=== PATIENT | male | born 1975 | race Two or more races ===

== ENCOUNTER 2024-08-05 14:49 | Outpatient (OUT) | payer OTHER, SELFPAY ==
[2024-08-05 15:20] LABS: Estimated Average Glucose 120 mg/dL; Glycohemoglobin A1C 5.8 % (4.5-6.2)
[2024-08-05 15:51] LABS: Anion Gap 14.6; BUN Creatinine Ratio 17.1; Calcium 9.4 mg/dL (8.5-10.1); Carbon Dioxide 24.4 mmol/L (21.0-32.0); Chloride 102 mmol/L (98-107); Estimated GFR (African America >60 (>=60); Estimated GFR (Non-African Ame >60 (>=60); Glucose 159 mg/dL (74-106); Sodium 137 mmol/L (136-145)
== END 2024-08-05 14:50 | disposition home or self-care (01) ==
LOC: LAB 14:53
PROVIDERS: PCP Nurse Practitioner; Visit Provider Nurse Practitioner
DX: R73.03 Prediabetes (principal); E03.9 Hypothyroidism, unspecified
CPT/HCPCS: 36415; 80048; 83036; 84443

== ENCOUNTER 2025-03-01 12:26 | Outpatient (OUT) | payer OTHER, SELFPAY | END 2025-03-01 12:27 | disposition home or self-care (01) | LOC: SLEEP 12:26 | PROVIDERS: PCP Psychiatry & Neurology Neurology; Visit Provider Psychiatry & Neurology Neurology | DX: G47.33 Obstructive sleep apnea (adult) (pediatric) (principal) | CPT/HCPCS: 95806 ==

== ENCOUNTER 2025-03-30 21:03 | Outpatient (OUT) | payer OTHER, SELFPAY ==
--- OUTSIDE RECORDS SUMMARY | 2025-03-30 21:06 | XMS_ITS | CCD ---
Author Organization [facility] Care Team Providers Care Farm Operator Name Role Phone Aiyana Purdy Primary Care Physician [phone] MD Devonte Gates Attending Provider IVONE Purdy Primary Care Provider Unknown, Referring Provider Unavailable Unav ailable Naomi Alvarez Primary Care Physician [phone] Naomi Alvarez Attending Unavailable Naomi Alvarez Attending Unavailable NAKUL BRANNON Attending UnavailNAKUL Dumont Admitting Unavailabl e Naomi Alvarez Admitting Unavailable Naomi Alvarez Attending Unavailable LEXX LANDERS Attending Unavailable DO Devonte Sunshine Attending Provider IVONE Alvarez Primary Care Provider Naomi Alvarez MD Unavailable Devonte Sunshine DO Unavailable Orin De Leon NP Unavailable Maegan Carmona NP Unavailable Unavailable Primary Care Provider Unavailabl e Kim DRAFTING TECHNICIAN.Naomi DUMONT Primary Care Provider [phone] SUSI MITCHELL Attending Unavailable DEVONTE SUNSHINE Referring Unavailab DIONE Dimas Attending Unavailable PROVIDER, UNKNOWN Admitting Unavailable Devonte Sunshine Admitting Unavailab Devonte Boothe Attending Unavailab Naomi Kim Primary Care Unavailable Devonte Sunshine Admitting UnavailDevonte Mckinley Attending Unavailab Naomi Kim Primary Care Unavailable Devonte Sunshine Attending Unavailab Devonte Boothe Referring UnavailNaomi Xiao Primary Care Unavailable Devonte Sunshine Admitting Unavailab ladi SUNSHINE, DEVONTE Attending Unavailable BITA, DEVONTE Attending Unavailable BITA, DEVONTE Attending Unavailable BITA, DEVONTE Attending Unavailable BITA, DEVONTE Attending Unavailable TRISHA ALVARADO Attending Unavailable BITA, DEVONTE Attending Unavailable BITA, DEVONTE Attending Unavailable Kim, Naomi Bowers Attending Unavailable Kim, Naomi Bowers Attending Unavailable Kim, Naomi L Attending Unavailable Kim, Naomi L Attending Unavailable Kim, Naomi L Attending Unavailable Kim, Naomi L Admitting Unavailable Allergies Allergy Classification Reported Allergen(s) Allergy Type Date of Onset Reaction(s) Facility (2 sources) No Known Medication Allergies; Translations: [No Known Medication Allergies] Propensity to adverse reactions (disorder) [facility] Repository Medications Current Medications Medication Drug Class(es) Dates Sig (Normalized) Sig (Original) atorvastatin 20 mg oral tablet (20 sources) HMG-CoA Reductase Inhibitor Start: 03-24-2024 take 1 tablet by mouth once daily atorvastatin 20 mg Tab 20 mg = 1 tab(s), Oral, Daily, # 90 tab(s), Refills(s) 1, Pharmacy: [facility]/pharmacy #[id number], 163, cm, 08/20/23 10:31:00 EDT, Height/Length Dosing, 103.6, kg, 08/20/23 10:31:00 EDT, Weight Dosing Start Date: 03/24/24 Status: Ordered Start: 07-11-2023 take 1 tablet by ivis th once daily atorvastatin 20 mg Tab 20 mg = 1 tab(s), Oral, Daily, # 90 tab(s), Refills(s) 0, Pharmacy: [facility]/pharmacy #[id number], 163, cm, 08/01/23 10:40:00 EDT, Height/Length Dosing, 104.2, kg, 08/01/23 10:40:00 EDT, Weight Dosing Start Date: 08/01/23 Status: Ordered Start: 01-15-2023 take 1 tablet by ivis th once daily atorvastatin 20 mg Tab 20 mg = 1 tab(s), Oral, Daily, # 90 tab(s), Refills(s) 1, [id number], cm, 12/13/22 11:50:00 EST, Height/Length Dosing, 109.8, kg, 12/13/22 11:50:00 EST, Weight Dosing Start Date: 01/15/23 Status: Ordered Start: 07-26-2022 take 1 tablet by ivis once daily atorvastatin 20 mg Tab 20 mg = 1 tab(s), Oral, Daily, # 90 tab(s), Refills(s) 1, [id number], cm, 04/30/22 11:55:00 EDT, Height/Length Dosing, 107, kg, 04/30/22 11:55:00 EDT, Weight Dosing Start Date: 07/26/22 Status: Ordered Start: 01-28-2022 take 1 tablet by [facility] once daily atorvastatin 20 mg Tab 20 mg = 1 tab(s), Oral, Daily, # 90 tab(s), Refills(s) 1, [id number] 163, cm, 08/29/21 11:02:00 EDT, Height/Length Dosing, 104.9, kg, 08/29/21 11:02:00 EDT, Weight Dosing Start Date: 01/28/22 Status: Ordered atorvastatin (Anastasiia mccauleyor) 10 MG tablet Atorvastatin Calcium Active Atorvastatin Eduardo cium 20 MG Oral Tablet Quantity: 0 Refills: 0 Ordered: 04-Jun-2023 DO Active Betamethasone / Clotrimazole (20 sources) Azole Antifungal, Corticosteroid Start: 07-27-2021 betamethasone-clotrimazole T op 0.05%-1% Crm 45 gram 1 wilver, Topical, BID, 45 gram, Refill(s) 1, [facility]/pharmacy #[id number], 163, cm, 08/09/20 8:00:00 EDT, Height/Length Dosing, 98.7, kg, 08/09/20 8:00:00 EDT, Weight Dosing Start Date: 07/27/21 Status: Ordered Start: 07-27-2021 betamethasone- clotrimazole Top 0.05%-1% Crm 45 gram 1 wilver, Topical, BID, 45 gram, Refill(s) 1, [facility]/pharmacy #[id number], 163, cm, 08/09/20 8:00:00 EDT, Height/Length Dosing, 98.7, kg, 08/09/20 8:00:00 EDT, Weight Dosing Start Date: 07/27/21 Status: Ordered clotrimazole-bet amethasone (Lotrisone) cream 1 application every 12 (twelve) hours. Active fluticasone furoate 0.0275 mg/actuat metered dose nasal spray (4 sources) Corticosteroid Start: 12-13-2022 fluticasone na caroline 27.5 mcg/inh spray 2 spray(s), Nasal, Daily for allergy symptoms, 10 gram, Refill(s) 0, [facility]/pharmacy #[id number], 163, cm, 12/13/22 11:50:00 EST, Height/Length Dosing, 109.8, kg, 12/13/22 11:50:00 EST, Weight Dosing Start Date: 12/13/22 Status: Ordered levothyroxine sodium 0.125 mg oral tablet (20 sources) l-Thyroxine Start: 05-15-2023 take 1 tablet by mouth once daily levothyroxine 125 mcg (0.125 mg) Tab 125 mcg = 1 tab(s), Oral, Daily, # 90 tab(s), Refills(s) 0, Pharmacy: [facility]/pharmacy #[id number], 163, cm, 03/07/23 10:07:00 EDT, Height/Length Dosing, 109, kg, 03/07/23 10:07:00 EDT, Weight Dosing Start Date: 05/15/23 Status: Ordered Start: 03-12-2023 take 1 tablet by ivis once daily levothyroxine 125 mcg (0.125 mg) Tab 125 mcg = 1 tab(s), Oral, Daily, # 60 tab(s), Refills(s) 0, Pharmacy: [facility]/pharmacy #[id number], 163, cm, 03/07/23 10:07:00 EDT, Height/Length Dosing, 109, kg, 03/07/23 10:07:00 EDT, Weight Dosing Start Date: 03/12/23 Status: Ordered Start: 01-15-2023 take 1 tablet by ivis once daily levothyroxine 150 mcg (0.15 mg) Tab 150 microgram = 1 tab(s), Oral, Daily, # 90 tab(s), Refills(s) 1, [id number] 163, cm, 12/13/22 11:50:00 EST, Height/Length Dosing, 109.8, kg, 12/13/22 11:50:00 EST, Weight Dosing Start Date: 01/15/23 Status: Ordered Start: 07-26-2022 take 1 tablet by ivis once daily levothyroxine 150 mcg (0.15 mg) Tab 150 microgram = 1 tab(s), Oral, Daily, # 90 tab(s), Refills(s) 1, [id number] 163, cm, 04/30/22 11:55:00 EDT, Height/Length Dosing, 107, kg, 04/30/22 11:55:00 EDT, Weight Dosing Start Date: 07/26/22 Status: Ordered Start: 01-28-2022 take 1 tablet by ivis once daily levothyroxine 150 mcg (0.15 mg) Tab 150 microgram = 1 tab(s), Oral, Daily, # 90 tab(s), Refills(s) 1, [id number] 163, cm, 08/29/21 11:02:00 EDT, Height/Length Dosing, 104.9, kg, 08/29/21 11:02:00 EDT, Weight Dosing Start Date: 01/28/22 Status: Ordered levothyroxine (S ynthroid) 200 MCG reconstituted solution Levothyroxine Sodium Active Levothyroxine So dium 125 MCG Oral Capsule Quantity: 0 Refills: 0 Ordered: 04-Jun-2023 DO Active phentermine hydrochloride 37.5 mg oral tablet (2 sources) Sympathomimetic Amine Anorectic take 1 tablet by mouth before mealtime phentermine (Adipex-P) 37.5 MG tablet Take 37.5 mg by mouth in the morning. Take before meals. Active predniSONE 10 mg oral tablet (20 sources) Start: 09-15-20 24 End: 09-10-20 25 take 3 tablets by mouth once daily predniSONE (Deltasone) 10 MG tablet Indications: Generalized myasthenia gravis (CMS/HCC) TAKE 3 TABLETS BY MOUTH EVERY DAY 90 tablet 2 12/13/2024 Active Start: 08-17-2024 End: 08-12-2025 take 2 tablets by mouth once daily predniSONE (Deltasone) 10 MG tablet Indications: Myasthenia gravis (CMS/HCC) Take 2 tablets (20 mg) by mouth Daily 30 tablet 3 08/17/2024 09/15/2024 Discontinued (Reorder) Start: 08-05-2024 predniSONE 10 mg Tab -, Oral, As Directed, 6 tabs for 2 days,5 tabs for 2 days,4 tabs for 2 days,3 tabs for 2 days,2 tabs for 2 days,1 tab for 2 days, # 42 tab(s), Refills(s) 0 Start Date: 08/05/24 Status: Ordered Start: 08-03-2024 End: 07-29-2025 take 1 tablet by mouth once daily predniSONE (Deltasone) 10 MG tablet Indications: Myasthenia gravis (CMS/HCC) Take 1 tablet (10 mg) by mouth Daily 30 tablet 11 08/03/2024 08/17/2024 Discontinued (Reorder) Start: 04-30-2022 predniSONE 20 mg Tab 20 mg = 1 tab(s), Oral, As Directed, Take three tabs by mouth for three days, then two tabs for three days, then one tab for three days, # 18 tab(s), Refills(s) 0, Pharmacy: [facility]/pharmacy #[id number], 163, cm, 04/30/22 11:55:00 EDT, Height/Length Dosing, 107... Start Date: 04/30/22 Status: Ordered pyridostigmine bromide 60 mg oral tablet (20 sources) Start: 06-28-2024 End: 06-28-2025 take 1 tablet by mouth in the evening pyridostigmine (Mestinon) 60 MG tablet Indications: Myasthenia gravis , Ptosis of left eyelid TAKE 1 TAB BY MOUTH IN THE MORNING,1 TABLET IN THE EVENING AND 1 TAB BEFORE BEDTIME. 270 tablet 2 11/23/2024 Active triamcinolone acetonide 0.001 mg/mg topical ointment (5 sources) Corticosteroid Start: 08-31-2021 triamcinolone Top 0.1% Oint 1 wilver, Topical, TID, 60 gram, Refill(s) 6, [facility]/pharmacy #[id number], 163, cm, 08/29/21 11:02:00 EDT, Height/Length Dosing, 104.9, kg, 08/29/21 11:02:00 EDT, Weight Dosing Start Date: 08/31/21 Status: Ordered Problems Active Problems Problem Classification Problem Date Documented Date Episodic/Chronic Blindness and vision defects (8 sources) Blurring of visual image; Translations: [Diplopia] Onset: 12-21-2024 03-07-2023 Episodic Chronic obstructive pulmonary disease and bronchiectasis (2 sources) Bronchitis 08-20-2023 Episodic Diabetes mellitus without complication (3 sources) Prediabetes 05-30-2023 Episodic Disorders of lipid metabolism (8 sources) Hyperlipidemia 10-01-2019 Chronic Headache; including migraine (8 sources) Migraine 07-27-2021 Chronic Miscellaneous mental health disorders (2 sources) Primary insomnia; Translations: [Primary insomnia] 02-08-2025 Chronic Other connective tissue disease (1 source) Enthesopathy; Translations: [Other enthesopathies, not elsewhere classified] Onset: 04-30-2022 Episodic Other connective tissue disease (8 sources) Tendinitis of flexor tendon of left hand 04-30-2022 Episodic Other connective tissue disease (2 sources) Muscle weakness of limb; Translations: [Other symptoms and signs involving the musculoskeletal system] Onset: 12-21-2024 12-21-2024 Episodic Other eye disorders (5 sources) Eye / vision finding 03-07-2023 Episodic Other eye disorders (1 source) Hypertropia of left eye; Translations: [Hypertropia] Episodic Other eye disorders (2 sources) Ptosis of eyelid; Translations: [Unspecified ptosis of bilateral eyelids] Onset: 12-21-2024 12-21-2024 Episodic Other hereditary and degenerative nervous system conditions (2 sources) Bulbar weakness; 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] Onset: 12-21-2024 12-21-2024 Chronic Other lower respiratory disease (2 sources) Snoring; Translations: [Snoring] 02-08-2025 Episodic Other nervous system disorders (9 sources) Myasthenia gravis; Translations: [Myasthenia gravis without (acute) exacerbation] Onset: 12-21-2024 08-05-2024 Chronic Other nervous system disorders (6 sources) Generalized myasthenia; Translations: [Myasthenia gravis without (acute) exacerbation] 09-15-2024 Chronic Other nervous system disorders (1 source) Myasthenia gravis without exacerbation; Translations: [Myasthenia gravis without (acute) exacerbation] 12-21-2024 Chronic Other nervous system disorders (1 source) Myasthenia gravis without (acute) exacerbation; Translations: [Myasthenia gravis without (acute) exacerbation] Onset: 07-28-2024 Chronic Other nutritional; endocrine; and metabolic disorders (10 sources) Body mass index 40+ - severely obese; Translations: [Body mass index (BMI) 40.0-44.9, adult] Onset: 04-30-2022 Chronic Other nutritional; endocrine; and metabolic disorders (2 sources) 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; Translations: [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, unspecified whether serious comorbidity present] 02-08-2025 Chronic Other upper respiratory infections (2 sources) Sinusitis 08-20-2023 Chronic Residual codes; unclassified (4 sources) Obstructive sleep apnea syndrome; Translations: [Obstructive sleep apnea (adult) (pediatric)] 02-08-2025 Chronic Residual codes; unclassified (2 sources) Hypersomnia; Translations: [Hypersomnia, unspecified] 02-08-2025 Chronic Residual codes; unclassified (8 sources) Flushing 10-01-2019 Episodic Residual codes; unclassified (2 sources) Trying to give up smoking; Translations: [Tobacco use] Onset: 12-21-2024 12-21-2024 Episodic Residual codes; unclassified (2 sources) History of immunosuppressive therapy; Translations: [Personal history of immunosupression therapy] Onset: 12-21-2024 12-21-2024 Episodic Substance-related disorders (10 sources) Nicotine dependence; Translations: [Nicotine dependence, unspecified, uncomplicated] Onset: 04-30-2022 Chronic Comment on above: Added secondary to d ocumentation in Social History. Thyroid disorders (8 sources) Hypothyroidism 10-01-2019 Chronic Unclassified (8 sources) Pain of knee region 08-29-2021 Unclassified (20 sources) Patient encounter status 10-01-2019 Past or Other Problems Problem Classification Problem Date Documented Da te Episodic/Chronic Other eye disorders (1 source) Unspecified ptosis of left eyelid; Translations: [Unspecified ptosis of left eyelid] Onset: 07-14-2024 Episodic Results Test Name Value Interpretation Reference Range Facility Ambulatory Visit Summaryon 0 03-02-2025 Ambulatory Visit Summary Ambulatory Visi t Summary ALFONZO SHAVER :1975 Visit Date:03/02/2025 Ambulatory Visit Instructions Your Diagnosis Encounter for weight management BMI 40.0-44.9, adult Smoker Your Care Team Attending Physician - Naomi Bradford Primary Care Physician - Naomi Bradford This Is Your Medications List atorvastatin (atorvastatin 20 mg Tab) levothyroxine (levothyroxine 125 mcg (0.125 mg) Tab) phentermine (phentermine 37.5 mg Tab) predniSONE (predniSONE 10 mg Tab) pyridostigmine (pyridostigmine 60 mg Tab) Procedures Performed Closed fracture of right shoulder. Discharge Vitals Heart Rate (Peripheral) 80 Respiratory Rate 18 Blood Pressure 136/74 Height 163.0 cm Height 64 in Weight 117.8 kg Weight 259.704 lb BMI 44.34 What to do next Scheduled Follow-Up Appointments Friday 9:40 AM EDT With: Naomi Bradford Where: [address] [address]- Medications What How Much When Why Instructions Unchanged atorvastatin (atorvastatin 20 mg Tab) 1 Tablets By Mouth Every day Duration: 90 Days Unchanged levothyroxine (levothyroxine 125 mcg (0.125 mg) Tab) 1 Tablets By Mouth Every day Hypothyroidism Duration: 90 Days Unchanged phentermine (phentermine 37.5 mg Tab) 1 Tablets By Mouth Every day Encounter for weight management BMI 45.0-49.9, adult Smoker Unchanged predniSONE (predniSONE 10 mg Tab) 3 Tablets TAKE 3 TABLETS BY MOUTH EVERY DAY Unchanged pyridostigmine (pyridostigmine 60 mg Tab) TAKE 1 TAB BY MOUTH IN THE MORNING,1 TABLET IN THE EVENING AND 1 TAB BEFORE BEDTIME. Allergies No Known Medication Allergies Problems Ongoing - Any problem that you are currently receiving treatment for. Bilateral knee pain Blurred vision BMI 40.0-44.9, adult Bronchitis Encounter for weight management Hot flashes Hyperlipemia Hypothyroid Migraine Morbid obesity with BMI of 40.0-44.9, adult Myasthenia gravis Pre-op evaluation Prediabetes Prostate cancer screening Sinusitis Smoker Tendinitis of flexor tendon of left hand Vision changes Well adult exam Historical - Any problem that you are no longer receiving treatment for. Screening for hyperlipidemia Patient Survey You may receive a survey via text or e-mail asking about your office visit. Please share your experience with us by completing your survey. We appreciate your feedback and thank you for choosing us for your care. Normal [facility]go[facility] Family Medicine Office/Clini c Noteon 03-02-2025 Family Medicine Office/Clinic Note Family Medicine Office/Clinic Note HPI Staff Alfonzo is a 50 year old male presenting for weight management Weight management: Started Phentermine on Sleeping well:Yes, 6-8 hours Chest pain:No Tremors:No Headaches:No Heart fluttering:No Blurred Vision:No Beginning weight: 266.31 Previous weight: Today's weight: 259 Questions/Concerns : none History of Present Illness pt presents today for weight management Review of Systems PHQ Score Initial Depression Screen Score: 0 SCORE Physical Exam Vitals & Measurements HR: 80(Peripheral) RR: 18 BP: 136/74 SpO2: 98% HT: 163.0 cm HT: 64 in WT: 259.704 lb WT: 117.8 kg BMI: 44.34 General: alert, no acute distress ENMT: oral mucosa moist, no pharyngeal erythema or exudate Cardiovascular: regular rate and rhythm, normal peripheral perfusion Respiratory: Lungs CTA, respirations non labored Extremities: no deformity, no trauma Neurological: oriented x 4, LOC appropriate for age, CN II-XII intact, motor strength equal & normal bilaterally, speech normal Assessment/Plan 1. Encounter for weight management (Z76.89: Persons encountering health services in other specified circumstances) pt is down 7 pounds. denies major side effects. dry mouth and tender nipples. encouraged increasing water intake. RTC 1 month Ordered: phentermine, 37.5 mg = 1 tab(s), Oral, Daily, # 30 tab(s), Refills(s) 0, Pharmacy: [facility]/pharmacy #[id number], 163, cm, 02/02/25 15:31:00 EDT, Height/Length Dosing, 120.8, kg, 02/02/25 15:31:00 EDT, Weight Dosing phentermine, 37.5 mg = 1 tab(s), Oral, Daily, # 30 tab(s), Refills(s) 0, [id number] 163, cm, 03/02/25 16:22:00 EDT, Height/Length Dosing, 117.8, kg, 03/02/25 16:22:00 EDT, Weight Dosing 2. BMI 40.0-44.9, adult (Z68.41: Body mass index [BMI] 40.0-44.9, adult) BMI education 3. Smoker (F17.200: Nicotine dependence, unspecified, uncomplicated) consider not smoking Ordered: phentermine, 37.5 mg = 1 tab(s), Oral, Daily, # 30 tab(s), Refills(s) 0, [id number] 163, cm, 02/02/25 15:31:00 EDT, Height/Length Dosing, 120.8, kg, 02/02/25 15:31:00 EDT, Weight Dosing phentermine, 37.5 mg = 1 tab(s), Oral, Daily, # 30 tab(s), Refills(s) 0, [id number] 163, cm, 03/02/25 16:22:00 EDT, Height/Length Dosing, 117.8, kg, 03/02/25 16:22:00 EDT, Weight Dosing Follow-up No qualifying data available Problem List/Past Medical History Ongoing Bilateral knee pain Blurred vision BMI 40.0-44.9, adult Bronchitis Encounter for weight management Hot flashes Hyperlipemia Hypothyroid Migraine Morbid obesity with BMI of 40.0-44.9, adult Myasthenia gravis Pre-op evaluation Prediabetes Prostate cancer screening Sinusitis Smoker Tendinitis of flexor tendon of left hand Vision changes Well adult exam Historical Screening for hyperlipidemia Procedure/Surgical History Closed fracture of right shoulder. Medications atorvastatin 20 mg Tab, 20 mg= 1 tab(s), Oral, Daily, 3 refills levothyroxine 125 mcg (0.125 mg) Tab, 125 mcg= 1 tab(s), Oral, Daily, 3 refills phentermine 37.5 mg Tab, 37.5 mg= 1 tab(s), Oral, Daily predniSONE 10 mg Tab, 30 mg= 3 tab(s) pyridostigmine 60 mg Tab Allergies No Known Medication Allergies Social History Alcohol - Denies Alcohol Use, 12/13/2022 Never., 02/01/2025 Employment/School Employed, Work/School description: Works at [employer] 10/01/2019 Substance Abuse - Medium Risk, 03/07/2023 Past. Marijuana. 1-2 times per year. Previous treatment: None., 02/01/2025 Tobacco - High Risk, 08/09/2020 10 or more cigarettes (1/2 pack or more)/day in last 30 days, Smoker, current status unknown Tobacco Use:., 02/01/2025 Family History Alcoholism: Father. Diabetes mellitus type 2: Negative: Brother. Hyperlipidemia: Mother. Multiple personality disorder: Mother. Primary malignant neoplasm of brain: Grandparent. Primary malignant neoplasm of female breast: Mother. Primary malignant neoplasm of lung: Father. Thyroid problems: Mother and Sister. Immunizations Vaccine Date Status Comments influenza virus vaccine, inactivated 08/01/2023 Given influenza virus vaccine, inactivated - Not Given Patient Refuses diphtheria/pertuss is, acel/tetanus adult 10/05/2021 Recorded influenza virus vaccine, inactivated 10/05/2021 Recorded SARS-CoV-2 (COVID-19) mRNA BNT-162b2 vax 02/20/2021 Recorded 2022-12-13: TPV40 SARS-CoV-2 (COVID-19) mRNA BNT-162b2 vax 01/30/2021 Recorded 2022-12-13: TPV40 Normal [facility] Comment on above: Result Comment: Elec tronically Signed By: Naomi Bradford\.br\Date and Time Signed: 03/02/25 16:29 EDT Family Medicine Office/Clini c Noteon 02-02-2025 Family Medicine Office/Clinic Note Family Medicine Office/Clinic Note HPI Staff Alfonzo is a 50 year old male presetting to discuss weight management Pt is interested is starting adipex he hasn't done anything in the past. Pt states he has been trying diet and exercise. Pt saw Dr gates 2-3 years ago for removal on callus on bottom of right foot. He needs a referral back to see him due to callus at back. History of Present Illness pt presents today for weight management Review of Systems PHQ Score Initial Depression Screen Score: 2 SCORE Physical Exam Vitals & Measurements HR: 72(Peripheral) RR: 18 BP: 130/78 SpO2: 98% HT: 64 in HT: 163.0 cm WT: 266.318 lb WT: 120.8 kg BMI: 45.47 General: alert, no acute distress ENMT: oral mucosa moist, no pharyngeal erythema or exudate Cardiovascular: regular rate and rhythm, normal peripheral perfusion Respiratory: Lungs CTA, respirations non labored Extremities: no deformity, no trauma Neurological: oriented x 4, LOC appropriate for age, CN II-XII intact, motor strength equal & normal bilaterally, speech normal Assessment/Plan 1. Encounter for weight management (Z76.89: Persons encountering health services in other specified circumstances) pt would like to start Adipex-P. is up35 pounds since July 2024. he is on high dose steroids for MG. medication agreement updated. all questions answered. RTC 1 month Ordered: phentermine, 37.5 mg = 1 tab(s), Oral, Daily, # 30 tab(s), Refills(s) 0, Pharmacy: [facility]/pharmacy #[id number], 163, cm, 02/02/25 15:31:00 EDT, Height/Length Dosing, 120.8, kg, 02/02/25 15:31:00 EDT, Weight Dosing 2. BMI 45.0-49.9, adult (Z68.42: Body mass index [BMI] 45.0-49.9, adult) BMI education given. Ordered: phentermine, 37.5 mg = 1 tab(s), Oral, Daily, # 30 tab(s), Refills(s) 0, Pharmacy: [facility]/pharmacy #[id number], 163, cm, 02/02/25 15:31:00 EDT, Height/Length Dosing, 120.8, kg, 02/02/25 15:31:00 EDT, Weight Dosing 3. Smoker (F17.200: Nicotine dependence, unspecified, uncomplicated) consider not smoking Ordered: phentermine, 37.5 mg = 1 tab(s), Oral, Daily, # 30 tab(s), Refills(s) 0, Pharmacy: [facility]/pharmacy #[id number], 163, cm, 02/02/25 15:31:00 EDT, Height/Length Dosing, 120.8, kg, 02/02/25 15:31:00 EDT, Weight Dosing Follow-up No qualifying data available Problem List/Past Medical History Ongoing Bilateral knee pain Blurred vision BMI 40.0-44.9, adult Bronchitis Encounter for weight management Hot flashes Hyperlipemia Hypothyroid Migraine Myasthenia gravis Pre-op evaluation Prediabetes Prostate cancer screening Sinusitis Smoker Tendinitis of flexor tendon of left hand Vision changes Well adult exam Historical Screening for hyperlipidemia Procedure/Surgical History Closed fracture of right shoulder. Medications atorvastatin 20 mg Tab, 20 mg= 1 tab(s), Oral, Daily, 3 refills levothyroxine 125 mcg (0.125 mg) Tab, 125 mcg= 1 tab(s), Oral, Daily, 3 refills phentermine 37.5 mg Tab, 37.5 mg= 1 tab(s), Oral, Daily predniSONE 10 mg Tab, 30 mg= 3 tab(s) pyridostigmine 60 mg Tab Allergies No Known Medication Allergies Social History Alcohol - Denies Alcohol Use, 12/13/2022 Never., 02/01/2025 Employment/School Employed, Work/School description: Works at [employer] 10/01/2019 Substance Abuse - Medium Risk, 03/07/2023 Past. Marijuana. 1-2 times per year. Previous treatment: None., 02/01/2025 Tobacco - High Risk, 08/09/2020 10 or more cigarettes (1/2 pack or more)/day in last 30 days, Smoker, current status unknown Tobacco Use:., 02/01/2025 Family History Alcoholism: Father. Diabetes mellitus type 2: Negative: Brother. Hyperlipidemia: Mother. Multiple personality disorder: Mother. Primary malignant neoplasm of brain: Grandparent. Primary malignant neoplasm of female breast: Mother. Primary malignant neoplasm of lung: Father. Thyroid problems: Mother and Sister. Immunizations Vaccine Date Status Comments influenza virus vaccine, inactivated 08/01/2023 Given influenza virus vaccine, inactivated - Not Given Patient Refuses diphtheria/pertuss is, acel/tetanus adult 10/05/2021 Recorded influenza virus vaccine, inactivated 10/05/2021 Recorded SARS-CoV-2 (COVID-19) mRNA BNT-162b2 vax 02/20/2021 Recorded 2022-12-13: TPV40 SARS-CoV-2 (COVID-19) mRNA BNT-162b2 vax 01/30/2021 Recorded 2022-12-13: TPV40 Normal [facility] Comment on above: Result Comment: Elec tronically Signed By: Naomi Bradford\Date and Time Signed: 02/02/25 15:48 EDT Progress Noteson 01-11-2025 [employer]sembl[employer] Installer Authentication Interface Message Text Neurology Note Name: Alfonzo Shaver : 1975 no referring provider Chief Complaint: Myasthenia gravis History of Present Illness: Alfonzo Shaver is a 49 year old male who presents for for evaluation for myasthenia gravis. Falls with Dr. Braswell for his myasthenia gravis. Recently saw Dr. Mitchell at [facility] for 2nd opinion. The patient arrives with his . The patient states since 2022 he has been experiencing double vision, droopy eyelids, changes in speech, in appendicular weakness. Trouble getting up from a chair or walking up steps. He does endorse low back pain. Currently on 30 mg of steroids, 60 mg of Mestinon t.i.d., and Vyvguart hytrulo. Continues to struggle with appendicular weakness and bulbar weakness. No clear orthopnea, patient has to lay on his stomach to sleep, finds it challenging to lay on his back. He was diagnosed with obstructive sleep apnea in the past, but could never tolerate mask. Past Medical History/Past Surgical History: Hyperlipidemia, hypothyroidism, smoker, obstructive sleep apnea Family History: Reviewed and not relevant to the chief complaint. Social History: Social History Tobacco Use Smoking status: Some Days Types: Cigarettes Smokeless tobacco: Never Substance Use Topics Alcohol use: Not on file Medical Allergies: No Known Allergies Current Medications Current Outpatient Medications: efgartigimod lillian-hyaluronidase -qvfc (Vyvgart Hytrulo) 180-2000 MG-UNIT/ML SOLN injection, Inject 5.6 mL under the skin once. Once weekly x 4wks, Disp: , Rfl: pyRIDostigmine (MESTINON) 60 MG tablet, 3 times daily., Disp: , Rfl: atorvastatin (LIPITOR) 20 mg tablet, Take 20 mg by mouth daily., Disp: , Rfl: predniSONE (DELTASONE) 10 MG tablet, Take by mouth. 3 tab Q am , at once, Disp: , Rfl: levothyroxine (SYNTHROID) 125 MCG tablet, Take 125 mcg by mouth daily., Disp: , Rfl: Review of Systems: All systems were reviewed and are negative. Any pertinent positives of negatives listed in the HPI. PHYSICAL EXAMINATION: Vitals: 01/11/25 1538 BP: 141/67 Pulse: 84 Resp: 16 Temp: 97.4 ???F (36.3 ???C) General: Well developed and well nourished. No acute distress. NEUROLOGICAL EXAM: The patient is alert and oriented, extraocular muscles are full range and conjugate in all gazes of direction, no ptosis, no fatigability with sustained upgaze. Bilateral frontalis and orbicularis oculi muscles are strong to confrontation bilaterally. Tongue is midline, tongue to cheek confrontation testing is 5/5. Speech is clear and fluent Neck flexion is 5/5. No fatigability with repetitive muscle testing at the level of bilateral shoulder abduction and hip flexion. Motor strength is 5/5 in the proximal and distal muscle groups. RESULTS: Per Dr. Braswell's note from 01/04, CT of the chest with contrast on 07/14/2024: No acute process. No mass to suggest thymoma. MRI of the brain with and without contrast. No acute process. No pathologic enhancement. Findings suggestive of mild chronic small-vessel ischemic disease. Acetylcholine binding antibody on 05/10/2024: High at 33.0 Musk Antibody on 05/16/2024: Normal Acetylcholine receptor modulating antibody on 05/12/2024: High Smooth muscle antibody on 05/05/2024: Normal ASSESSMENT/PLAN: Alfonzo Shaver is a 49 year old male who presents for seropositive generalized myasthenia gravis. The patient lives 1.5 hours away, managed by is primary neurologist Dr. Braswell. He has come in today for another opinion for his myasthenia gravis, however the patient recently saw Dr. Mitchell in at the [facility] for the same reason. Overall, I agree with continuing 30 mg of steroids for the time being, continuing 60 mg of Mestinon t.i.d., and continuing vyvguart hytrulo with each cycle spaced 4 weeks apart (1 month on, 1 month off). I do agree, that the patient ultimately may require steroid sparing therapy. As mentioned by my colleague Dr. Mitchell at the [facility], would check TPMT enzyme. If testing shows no concerning finding, would initiate azathioprine. Azathioprine can take 6-12 months to work. If TPMT enzyme is prohibitive, would consider CellCept (would have to check hepatitis labs). These medications do require surveillance with serum lab work. The patient lives 1.5 hours away, he does not find it feasible to be under my direct care. However, I am willing to work with his primary neurologist Dr. Braswell in managing his care. Similarly, Dr. Mitchell and has offered the same partnership with Dr. Braswell. The patient is aware of signs and symptoms that would be concerning for a myasthenic crisis/exacerbatio n. Dione Swanson MD Neurology/ Neuromuscular Medicine Normal [facility] 12-15-2024 [facility] Telephone (NIQ) -------- ALFONZO SHAVER ([id number]) 1975 M Date Time Provider Department 12/15/[address] [facility] During your visit today, we recorded the following information about you: Montse Reynaga 12/17/2024 9:39 AM Signed Referral source: Devonte Sunshine DO ([facility]) Reason for visit: myasthenia gravis External records: viewable in Care Everywhere Triage: Not required Financial clearance: Not required to schedule Allergies As of Date: 12/15/2024 (Not on File) Date Reviewed: Never Reviewed Reason for Visit: Received Outside Medical Records [[id number]] Cmt: External referral to Neurological [facility] Problem List As Of Date: 12/15/2024 (None) Encounter Status:Closed by MONTSE REYNAGA on 12/17/24 Normal [facility] Ambulatory Visit Summaryon 0 08-05-2024 Ambulatory Visit Summary Ambulatory Visi t Summary ALFONZO SHAVER :1975 Visit Date:08/05/2024 Ambulatory Visit Instructions Your Diagnosis Wellness examination Myasthenia gravis Hyperlipemia Prediabetes Prostate cancer screening Hypothyroid Smoker BMI 39.0-39.9,adult Class 1 obesity due to excess calories in adult Your Care Team Attending Physician - Naomi Bradford Primary Care Physician - Naomi Bradford This Is Your Medications List atorvastatin (atorvastatin 20 mg Tab) levothyroxine (levothyroxine 125 mcg (0.125 mg) Tab) predniSONE (predniSONE 10 mg Tab) pyridostigmine (pyridostigmine 60 mg Tab) Procedures Performed Closed fracture of right shoulder. Discharge Vitals Temperature (Oral) 36.6 ?C Heart Rate (Peripheral) 80 Respiratory Rate 20 Blood Pressure 124/82 Height 163.0 cm Height 64 in Weight 105.1 kg Weight 231.22 lb BMI 39.56 Medications What How Much When Why Instructions Unchanged atorvastatin (atorvastatin 20 mg Tab) 1 Tablets By Mouth Every day Unchanged levothyroxine (levothyroxine 125 mcg (0.125 mg) Tab) 1 Tablets By Mouth Every day Hypothyroidism Unchanged predniSONE (predniSONE 10 mg Tab) By Mouth As Directed 6 tabs for 2 days,5 tabs for 2 days,4 tabs for 2 days,3 tabs for 2 days,2 tabs for 2 days,1 tab for 2 days Unchanged pyridostigmine (pyridostigmine 60 mg Tab) TAKE 1 TAB BY MOUTH IN THE MORNING,1 TABLET IN THE EVENING AND 1 TAB BEFORE BEDTIME. Allergies No Known Medication Allergies Problems Ongoing - Any problem that you are currently receiving treatment for. Bilateral knee pain Blurred vision BMI 40.0-44.9, adult Bronchitis Hot flashes Hyperlipemia Hypothyroid Migraine Myasthenia gravis Pre-op evaluation Prediabetes Prostate cancer screening Sinusitis Smoker Tendinitis of flexor tendon of left hand Vision changes Well adult exam Historical - Any problem that you are no longer receiving treatment for. Screening for hyperlipidemia Patient Survey You may receive a survey via text or e-mail asking about your office visit. Please share your experience with us by completing your survey. We appreciate your feedback and thank you for choosing us for your care. Normal [facility] Family Medicine Office/Clini c Noteon 08-05-2024 Family Medicine Office/Clinic Note Family Medicine Office/Clinic Note HPI Staff Alfonzo is a 49 year old male presenting with wellness Health Maintenance: Colonoscopy: no Dexa: no PSA: no Last Labs: July 2023 History of Present Illness pt presents today for wellness visit Review of Systems PHQ Score Initial Depression Screen Score: 0 SCORE Physical Exam Vitals & Measurements T: 36.6 ?C(Oral) HR: 80(Peripheral) RR: 20 BP: 124/82 SpO2: 98% HT: 64 in HT: 163.0 cm WT: 105.1 kg WT: 231.22 lb BMI: 39.56 General: alert, no acute distress ENMT: oral mucosa moist, no pharyngeal erythema or exudate Cardiovascular: regular rate and rhythm, normal peripheral perfusion Respiratory: Lungs CTA, respirations non labored Extremities: no deformity, no trauma Neurological: oriented x 4, LOC appropriate for age, CN II-XII intact, motor strength equal & normal bilaterally, speech normal right eye lid weak, closed due to MG Assessment/Plan 1. Wellness examination (Z00.00: Encounter for general adult medical examination without abnormal findings) pt presents today for wellness visit. pt is doing well. is due for annual labs and needs refill on synthroid Ordered: C-Reactive Protein CBC w/ Auto Diff Est Preventative 40 to 64 years 29071 HgbA1c Lipid Panel PSA Screen, Total Thyroid Stimulating Hormone 2. Myasthenia gravis (G70.00: Myasthenia gravis without (acute) exacerbation) pt was recently diagnosed with MG by Dr. Sunshine neurology Ordered: C-Reactive Protein CBC w/ Auto Diff Est Preventative 40 to 64 years 16302 HgbA1c Lipid Panel PSA Screen, Total Thyroid Stimulating Hormone 3. Hyperlipemia (E78.5: Hyperlipidemia, unspecified) lipid panel oerdered Ordered: C-Reactive Protein CBC w/ Auto Diff Est Preventative 40 to 64 years 21496 HgbA1c Lipid Panel PSA Screen, Total Thyroid Stimulating Hormone 4. Prediabetes (R73.03: Prediabetes) HGBA1C ordered Ordered: C-Reactive Protein CBC w/ Auto Diff Est Preventative 40 to 64 years 59970 HgbA1c Lipid Panel PSA Screen, Total Thyroid Stimulating Hormone 5. Prostate cancer screening (Z12.5: Encounter for screening for malignant neoplasm of prostate) psa ordered Ordered: C-Reactive Protein CBC w/ Auto Diff Est Preventative 40 to 64 years 38919 HgbA1c Lipid Panel PSA Screen, Total Thyroid Stimulating Hormone 6. Hypothyroid (E03.9: Hypothyroidism, unspecified) TSH ordered. pt needs refills on synthroid Ordered: Est Preventative 40 to 64 years 49730 7. Smoker (F17.200: Nicotine dependence, unspecified, uncomplicated) consider not smoking Ordered: Est Preventative 40 to 64 years 34414 8. BMI 39.0-39.9,adult (Z68.39: Body mass index [BMI] 39.0-39.9, adult) BMI education Ordered: Est Preventative 40 to 64 years 42811 9. Class 1 obesity due to excess calories in adult (E66.09: Other obesity due to excess calories) see above Ordered: Est Preventative 40 to 64 years 02622 Follow-up No qualifying data available Problem List/Past Medical History Ongoing Bilateral knee pain Blurred vision BMI 40.0-44.9, adult Bronchitis Hot flashes Hyperlipemia Hypothyroid Migraine Myasthenia gravis Pre-op evaluation Prediabetes Prostate cancer screening Sinusitis Smoker Tendinitis of flexor tendon of left hand Vision changes Well adult exam Historical Screening for hyperlipidemia Procedure/Surgical History Closed fracture of right shoulder. Medications atorvastatin 20 mg Tab, 20 mg= 1 tab(s), Oral, Daily, 1 refills levothyroxine 125 mcg (0.125 mg) Tab, 125 mcg= 1 tab(s), Oral, Daily predniSONE 10 mg Tab, Oral, As Directed pyridostigmine 60 mg Tab Allergies No Known Medication Allergies Social History Alcohol - Denies Alcohol Use, 12/13/2022 Household alcohol concerns: No., 03/07/2023 Employment/School Employed, Work/School description: Works at [employer] 10/01/2019 Substance Abuse - Medium Risk, 03/07/2023 Past, Marijuana, Household substance abuse concerns: No., 03/07/2023 Tobacco - High Risk, 08/09/2020 10 or more cigarettes (1/2 pack or more)/day in last 30 days, Smoker, current status unknown Tobacco Use:. Never Smokeless Tobacco Use:. Cigarettes, Ready to change: No. Household tobacco concerns: No. Yes, 08/05/2024 Family History Alcoholism: Father. Diabetes mellitus type 2: Negative: Brother. Hyperlipidemia: Mother. Multiple personality disorder: Mother. Primary malignant neoplasm of brain: Grandparent. Primary malignant neoplasm of female breast: Mother. Primary malignant neoplasm of lung: Father. Thyroid problems: Mother and Sister. Immunizations Vaccine Date Status Comments influenza virus vaccine, inactivated 08/01/2023 Given influenza virus vaccine, inactivated - Not Given Patient Refuses diphtheria/pertuss is, acel/tetanus adult 10/05/2021 Recorded influenza virus vaccine, inactivated 10/05/2021 Recorded SARS-CoV-2 (COVID-19) mR (more content not included)... Normal [facility] Comment on above: Result Comment: Elec tronically Signed By: Naomi Bradford\.br\Date and Time Signed: 08/05/24 11:46 EDT MR head/brain wo/w conon MR head/brain wo/w con [facility] [place] [address] MRI Report Signed Patient: Alfonzo Shaver MR#: [id number] : 1975 Acct:[id number] Age/Sex: 49 / M ADM Date: 07/28/24 Loc: MR Room: Type: [facility] Attending Dr: Devonte Sunshine DO Copies to: Devonte Sunshine DO Ordering Provider: Devonte Sunshine DO Date of Service: 07/28/24 MR/MR head/brain wo/w con: G70.00,H02.402 MRI the Brain with and without contrast TECHNIQUE: Multiplanar T1 and T2-weighted imaging of the brain. 20 cc of ProHance HISTORY: Recent diagnosis of myasthenia gravis. Headaches. Right eye ptosis. COMPARISON: none VENTRICLES: Unremarkable BRAIN VOLUME: Adequate volume of brain parenchyma identified. BRAIN PARENCHYMAL SIGNAL INTENSITY: Scattered foci of increased T2/FLAIR signal intensity of the brain parenchyma is consistent with chronic small vessel ischemic changes. BLEED: None MASS EFFECT: No mass effect DIFFUSION RESTRICTION: None GRADIENT ECHO PARENCHYMAL SIGNAL LOSS: None MIDBRAIN: The midbrain structures are unremarkable. DAVID: Unremarkable MEDULLA: Unremarkable INTERNAL AUDITORY CANALS: Unremarkable SINUSES: Unremarkable ORBITS: Grossly unremarkable MASTOIDS: Unremarkable ENHANCEMENT: No pathologic enhancement. MR/MR head/brain wo/w con IMPRESSION: No acute intracranial process. No pathologic enhancement or enhancing mass. Findings suggesting mild chronic small vessel ischemic change. Impression dictated by: Edd Yen M.D.07/28/2024 3:56 PM Dictation Location: [place] [address] Transcribed By: [facility] 07/28/24 1556 Dictated By: Edd Yen DO 07/28/24 1551 Signed By: 07/28/24 1556 Normal [facility] CT chest w conon 07-14-2024 CT chest w con [facility] Main [place] [address] [place] [address] CT Scan Report Signed Patient: Alfonzo Shaver MR#: [id number] : 1975 Acct:[id number] Age/Sex: 49 / M ADM Date: 07/14/24 Loc: CT Room: Type: [facility] Attending Dr: Devonte Sunshine DO Copies to: Devonte Sunshine DO Ordering Provider: Devonte Sunshine DO Date of Service: 07/14/24 CT/CT chest w con: G70.00,H02.402 CT CHEST WITH INTRAVENOUS CONTRAST: CLINICAL HISTORY: Smoker history of myasthenia gravis. COMPARISON: Chest 11/29/2022 TECHNIQUE: Spiral images were obtained through the chest following intravenous administration of IV contrast. This CT exam was performed using one or more following dose reduction techniques: Automated exposure control, adjustment of the mA and/or kV according to patient size, or use of iterative reconstruction technique. FINDINGS: Mediastinum:Thorac ic aorta appears normal in caliber. Pulmonary trunk appears nondilated. No pericardial effusion. No mediastinal mass. The esophagus is grossly unremarkable. Lungs:Scarring involving the lung bases. No consolidation pneumothorax or pleural effusion. Abd:No acute findings. Soft tissues/Bones: Soft tissues surrounding the chest wall demonstrate no acute findings. Osseous structures demonstrate degenerative change. CT/CT chest w con IMPRESSION: No acute process. No mediastinal mass to suggest thymoma. Impression dictated by: Ricky Booth Jr., D.O.07/14/2024 2:21 PM Dictation Location: [place] [address] Transcribed By: [facility] 07/14/24 1421 Dictated By: Ricky Booth Jr, DO 07/14/24 1408 Signed By: 07/14/24 1421 Normal [facility] Lab Miscellaneous-LCon 05-16 Lab Miscellaneous COMMENT Invalid Interpretation Code [facility] Comment on above: Result Comment: Test Ordered: [id number] MuSK Abs, Serum MuSK Abs, Serum <1.0 U/mL ES Reference Range: Negative: <1.0 Positive: 1.0 or higher A positive result, in the context of congruent clinical findings, confirms the diagnosis of autoimmune MuSK myasthenia gravis. COMMENTS: - Myasthenia gravis (MG) is caused by auto-antibodies against proteins of the neuromuscular junction. Most cases (about 90%) of generalized MG are anti- acetylcholine receptor (AChR) antibody-positive.(1) - Of generalized MG patients who lack anti-AChR antibodies (AChR-seronegative), about 40% are positive for Muscle- Specific Kinase (MuSK) antibody.(1,2) - Though a positive MuSK result is specific for the diagnosis of MuSK MG, a negative MuSK result does not rule out a MG diagnosis. - MuSK antibody levels have been shown to correlate with disease severity.(3) Serial measurements may be useful to follow treatment. References: 1. Gm S et al. J Autoimmunity 2014;52:90-100. 2. Erik KNIGHT et al. PNAS 2013;110(51);29889-14895. 3. Sen E et al. Neurology 2006;67:505-507. This test was developed and its performance characteristics determined by [employer]. It has not been cleared or approved by the Food and Drug Administration. Performed at: [address] [id number] PhD Xiomara Hill Performed By: #### 1 [id number] #### [facility] [address] [place] [address] Lab Miscellaneous-on 05-13 Lab Miscellaneous COMMENT Invalid Interpretation Code [facility] Comment on above: Result Comment: Test Ordered: [id number] AChR Blocking Abs, Serum AChR Blocking Abs, Serum 57 [H ] % BN Reference Range: 0-25 This test was developed and its performance characteristics determined by [facility]. It has not been cleared or approved by the Food and Drug Administration. Negative: 0 - 25 Borderline: 26 - 30 Positive: >30 Performed at: [address] [id number] PhD Xiomara Hill Performed By: #### 1 [id number] #### [facility] [address] [place] [address] Lab Miscellaneous-LCon 05-12 Lab Miscellaneous COMMENT Invalid Interpretation Code [facility] Comment on above: Result Comment: Test Ordered: [id number] AChR-modulating Ab AChR-modulating Ab 91 [H ] % BN Reference Range: 0-45 This test was developed and its performance characteristics determined by [facility]. It has not been cleared or approved by the Food and Drug Administration. Interpretive Information: Negative: 0 - 45% Positive: > 45% No single value for AChR-modulating antibody should be used as a sole basis for diagnosis or response to therapy. Performed at: [address] [id number] PhD Xiomara Hill Performed By: #### 1 [id number] #### [facility] [address] [place] [address] ACHr Bind [facility] 05-10-2024 Acetylcholine receptor binding Ab (S) [Moles/Vol] 33.00 nmol/L High 0.00-0.24 [facility] Comment on above: Result Comment: Re sults verified by repeat testing Negative: 0.00 - 0.24 Borderline: 0.25 - 0.40 Positive: >0.40 Performed at: [address] [id number] MD Ag Valentino Performed By: #### 1 [id number] #### [facility] [address] [place] [address] Smooth Muscle Abon 07-01-202 4 Actin smooth muscle IgG Qn (S) 3 unit(s) Invalid Interpretation Code 0-19 [facility] Comment on above: Result Comment: Nega tive 0 - 19 Weak positive 20 - 30 Moderate to strong positive >30 Actin Antibodies are found in 52-85% of patients with autoimmune hepatitis or chronic active hepatitis and in 22% of patients with primary biliary cirrhosis. Performed at: [facility] [id number] PhD Xiomara Hill Performed By: #### 1 [id number] #### [facility] [address] [place] [address] Consent for Treatmenton 04-11 Consent for Treatment [id number] Normal [facility] Lab Miscellaneous-LCon 05-05 Test Code [id number] Invalid Interpretation Code [facility] Comment on above: Performed By: #### 1 [id number] #### [facility] [address] [place] [address] Test Code [id number] Invalid Interpretation Code [facility] Comment on above: Performed By: #### 1 [id number] #### [facility] [address] [place] [address] Test Name ACHR MODULATING Invalid Interpretation Code [facility] Comment on above: Performed By: #### 1 [id number] #### [facility] [address] [place] [address] Test Name ACHR BLOCKING Invalid Interpretation Code [facility] Comment on above: Performed By: #### 1 [id number] #### [facility] [address] [place] [address] Test Code 089672 Invalid Interpretation Code [facility] Comment on above: Performed By: #### 1 [id number] #### [facility] [address] [place] [address] Test Name MUSK AB Invalid Interpretation Code [facility] Comment on above: Performed By: #### 1 [id number] #### [facility] [address] [place] [address] Physician Orderon 05-05-2024 Physician Order [id number] Normal [facility] Reference Laboratory Testing Ordered By: Saloni Lawrence on 05-05-2024 Test Code 430894 1 Invalid Interpretation Code [facility] Test Code 350681 1 Invalid Interpretation Code [facility] Test Code 142124 1 Invalid Interpretation Code [facility] Test Name MUSK AB Invalid Interpretation Code [facility] Test Name ACHR BLOCKING Invalid Interpretation Code [facility] Test Name ACHR MODULATING Invalid Interpretation Code [facility] Summaryon Ambulatory Visit Summary CHAHYA ALFONZO :1975 Visit Date:08/20/2023 Ambulatory Visit Instructions Your Diagnosis BMI 39.0-39.9,adult Smoker Your Care Team Attending Physician - Naomi Bradford Primary Care Physician - Naomi Bradford This Is Your Medications List atorvastatin (atorvastatin 20 mg Tab) levothyroxine (levothyroxine 125 mcg (0.125 mg) Tab) Procedures Performed Closed fracture of right shoulder. Discharge Vitals Temperature (Tympanic) 36.8 ?C Heart Rate (Peripheral) 70 Respiratory Rate 18 Blood Pressure 134/78 Height 163 cm Height 64 in Weight 103.60 kg Weight 227.92 lb BMI 38.99 Medications What How Much When Why Instructions Changed atorvastatin (atorvastatin 20 mg Tab) 1 Tablets By Mouth Every day Changed levothyroxine (levothyroxine 125 mcg (0.125 mg) Tab) 1 Tablets By Mouth Every day Hypothyroidism Allergies No Known Medication Allergies Problems Ongoing - Any problem that you are currently receiving treatment for. Bilateral knee pain Blurred vision BMI 40.0-44.9, adult Hot flashes Hyperlipemia Hypothyroid Migraine Pre-op evaluation Prediabetes Smoker Tendinitis of flexor tendon of left hand Vision changes Well adult exam Historical - Any problem that you are no longer receiving treatment for. Screening for hyperlipidemia Normal [facility] Family Medicine Office/Clini c Noteon 08-20-2023 Family Medicine Office/Clinic Note HPI Staff Alfonzo is a 48 year old male presenting for acute visit Respiratory C/O: Onset: 1 week ago Body aches: no Chest congestion: yes Chills: no Cough: yes Ear complaints: yes Eye itching/watering: noitch Fever: no Headache: no Nasal congestion: yes Nasal discharge: yes green Poor appetite: no Reduced activity: no Sinus pain/pressure: no Sneezing: no Sputum production: yes yellow/green Wheezing: yes Ill contacts: yes Remedies tried: cough medicine Questions/Concerns : History of Present Illness pt presents today for cough, congestion, sore throat from coughing Review of Systems PHQ Score Initial Depression Screen Score: 0 ROS - Provider Constitutional: no fever, no chills, no sweats, no fatigue Respiratory: no shortness of breath, yes cough, no orthopnea, no wheezing. Cardiovascular: no chest pain, no palpitations, no edema. Neurologic: no headache, no dizziness, no numbness, no weakness. sinus pressure, congestion Physical Exam Vitals & Measurements T: 36.8 ?C(Tympanic) HR: 70(Peripheral) RR: 18 BP: 134/78 SpO2: 96% HT: 64 in HT: 163 cm WT: 103.60 kg WT: 227.92 lb BMI: 38.99 General: alert, no acute distress ENMT: oral mucosa moist, no pharyngeal erythema or exudate Cardiovascular: regular rate and rhythm, normal peripheral perfusion Respiratory: Lungs CTA, respirations non labored Extremities: no deformity, no trauma Neurological: oriented x 4, LOC appropriate for age, CN II-XII intact, motor strength equal & normal bilaterally, speech normal Assessment/Plan 1. Sinusitis (J32.9: Chronic sinusitis, unspecified) pt presents with nasal congestion, sinus pressure, cough. unable to sleep due to coughing. covid test is negative in office today. his had same symptoms last week. will send z brie and medrol dose pack. all questions answered. RTC as needed 2. Bronchitis (J40: Bronchitis, not specified as acute or chronic) medrol and tessalon pearls ordered. 3. Smoker (F17.200: Nicotine dependence, unspecified, uncomplicated) consider not smoking Ordered: azithromycin, = 1 packet(s), Oral, As Directed, as directed on package labeling, X 5 day(s), # 6 tab(s), Refills(s) 0, Pharmacy: [id number], 163, cm, 08/20/23 10:31:00 EDT, Height/Length Dosing, 103.6, kg, 08/20/23 10:31:00 EDT, Weight Dosing benzonatate, 200 mg = 1 cap(s), Oral, TID, X 7 day(s), # 21 cap(s), Refills(s) 0, [id number] 163, cm, 08/20/23 10:31:00 EDT, Height/Length Dosing, 103.6, kg, 08/20/23 10:31:00 EDT, Weight Dosing methylPREDNISolone , = 1 packet(s), Oral, As Directed, as directed on package labeling, X 6 day(s), # 21 tab(s), Refills(s) 0, Pharmacy: [facility] #[id number], 163, cm, 08/20/23 10:31:00 EDT, Height/Length Dosing, 103.6, kg, 08/20/23 10:31:00 EDT, Weight Dosing Rapid COVID POC 77594 4. BMI 39.0-39.9,adult (Z68.39: Body mass index [BMI] 39.0-39.9, adult) bmi education complete Ordered: azithromycin, = 1 packet(s), Oral, As Directed, as directed on package labeling, X 5 day(s), # 6 tab(s), Refills(s) 0, Pharmacy: [facility] #[id number], 163, cm, 08/20/23 10:31:00 EDT, Height/Length Dosing, 103.6, kg, 08/20/23 10:31:00 EDT, Weight Dosing benzonatate, 200 mg = 1 cap(s), Oral, TID, X 7 day(s), # 21 cap(s), Refills(s) 0, Pharmacy: [facility] #[id number], 163, cm, 08/20/23 10:31:00 EDT, Height/Length Dosing, 103.6, kg, 08/20/23 10:31:00 EDT, Weight Dosing methylPREDNISolone , = 1 packet(s), Oral, As Directed, as directed on package labeling, X 6 day(s), # 21 tab(s), Refills(s) 0, Pharmacy: [id number], 163, cm, 08/20/23 10:31:00 EDT, Height/Length Dosing, 103.6, kg, 08/20/23 10:31:00 EDT, Weight Dosing Rapid COVID POC 73074 Orders: atorvastatin, 20 mg = 1 tab(s), Oral, Daily, # 90 tab(s), Refills(s) 0, [id number] 163, cm, 08/01/23 10:40:00 EDT, Height/Length Dosing, 104.2, kg, 08/01/23 10:40:00 EDT, Weight Dosing levothyroxine, 125 mcg = 1 tab(s), Oral, Daily, # 90 tab(s), Refills(s) 3, [id number] 163, cm, 08/01/23 10:40:00 EDT, Height/Length Dosing, 104.2, kg, 08/01/23 10:40:00 EDT, Weight Dosing Follow-up No qualifying data available Problem List/Past Medical History Ongoing Bilateral knee pain Blurred vision BMI 40.0-44.9, adult Bronchitis Hot flashes Hyperlipemia Hypothyroid Migraine Pre-op evaluation Prediabetes Sinusitis Smoker Tendinitis of flexor tendon of left hand Vision changes Well adult exam Historical Screening for hyperlipidemia Procedure/Surgical History Closed fracture of right shoulder. Medications atorvastatin 20 mg Tab, 20 mg= 1 tab(s), Oral, Daily, 1 refills azithromycin 250 mg Tab, 1 packet(s), Oral, As Directed benzonatate 200 mg oral capsule, 200 mg= 1 cap(s), Oral, TID levothyroxine 125 mcg (0.125 mg) Tab, 125 mcg= 1 tab(s), Oral, Daily Medrol 4 mg Tab, 1 packet(s), Oral, As Directed Allergies No Known Medication Allergies Social History Alcohol - (more content not included)... Normal [facility] Comment on above: Result Comment: Elec tronically Signed By: Naomi Bradford\.br\Date and Time Signed: 08/20/23 11:02 EDT Provider Letteron 08-20-2023 Provider Letter August 20, 2023 ALFONZO SHAVER [address] [place] [address] : 1975 To Whom It May Concern, Please excuse above patient from work. Friday Date of Illness: From: _ 08-20-23 To: _ 08-20-23 May Return to Work On:08-21-23 Restrictions: _ Comments: _ Sincerely, [address] [address] Normal [facility] BMPon 08-01-2023 Anion gap [Moles/Vol] 12 mmol/L Normal 6-16 [facility] Comment on above: Performed By: #### 1 [id number] #### [facility] [address] [place] [address] Calcium [Mass/Vol] 9.8 mg/dL Normal 8.9-11.1 [facility] Comment on above: Performed By: #### 1 [id number] #### [facility] [address] [place] [address] Chloride [Moles/Vol] 107 mmol/L Normal 101-111 [facility] Comment on above: Performed By: #### 1 [id number], [id number] #### [facility] [address] [place] [address] CO2 [Moles/Vol] 24 mmol/L Normal 21-31 [facility] Comment on above: Performed By: #### 1 [id number], [id number], [id number] #### [facility] [address] [place] [address] Creatinine [Mass/Vol] 1.1 mg/dL Normal 0.5-1.3 [facility] Comment on above: Performed By: #### 1 [id number], [id number], [id number], [id number] #### [facility] [address] [place] [address] Glucose [Mass/Vol] 101 mg/dL Normal 55-199 [facility] Comment on above: Result Comment: If t his glucose result represents a fasting glucose, interpretation should refer to the following reference range: 55-99 mg/dL Performed By: #### 1 [id number], [id number], [id number] #### [facility] [address] [place] [address] Potassium [Moles/Vol] 4.2 mmol/L Normal 3.5-5.3 [facility] Comment on above: Performed By: #### 1 [id number], [id number], [id number] #### [facility] [address] [place] [address] Sodium [Moles/Vol] 139 mmol/L Normal 135-145 [facility] Comment on above: Performed By: #### 1 [id number], [id number], [id number], [id number] #### [facility] [address] [place] [address] Urea nitrogen [Mass/Vol] 21 mg/dL Normal 5-21 [facility] Comment on above: Performed By: #### 1 [id number], [id number], [id number], [id number] #### [facility] [address] [place] [address] Urea nitrogen/Creatinine [Mass ratio] 19 No Units Normal 10-20 [facility] Comment on above: Performed By: #### 1 [id number], [id number], [id number], [id number] #### [facility] [address] [place] [address] CHEMISTRYOrdered By: SYSTEM SYSTEM on 08-01-2023 Anion gap [Moles/Vol] 12 mmol/L Normal 6 - 16 mEq/L [facility] Calcium [Mass/Vol] 9.8 mg/dL Normal 8.9 - 11. 1 mg/dL [facility] Chloride [Moles/Vol] 107 mmol/L Normal 101 - 1 11 mmol/L [facility] CO2 [Moles/Vol] 24 mmol/L Normal 21 - 31 mmol/L [facility] Creatinine [Mass/Vol] 1.1 mg/dL Normal 0.5 - 1.3 mg/dL [facility] GFR/1.73 sq M.predicted among non-blacks MDRD (S/P/Bld) [Vol rate/Area] 82 mL/min/1.73 m2 Normal >=59mL/min/1 .73 m2 [facility] Glucose [Mass/Vol] 101 mg/dL Normal 55 - 199 mg/dL [facility] Potassium [Moles/Vol] 4.2 mmol/L Normal 3.5 - 5.3 mmol/L [facility] Sodium [Moles/Vol] 139 mmol/L Normal 135 - 145 mmol/L [facility] TSH Qn 2.46 m[IU]/L Normal 0.34 - 5.60 mcIU/mL [facility] Urea nitrogen [Mass/Vol] 21 mg/dL Normal 5 - 21 mg/d L [facility] Urea nitrogen/Creatinine [Mass ratio] 19 mg/mg Normal 10 - 20 [facility] CHEMISTRYOrdered By: Sunita Artis on 08-01-2023 HbA1c (Bld) [Mass fraction] 6.0 % High <=5.9% [facility] ChemAutoSS Consent for Flu Vaccineon Consent for Flu Vaccine [id number]:[id number] Normal [facility] Family Medicine Office/Clini c Noteon 08-01-2023 Family Medicine Office/Clinic Note HPI Staff Alfonzo is a 48 year old male presenting to establish care Establish Care: History: Any previous diagnosis: HLD, Hypothyroidism, prediabetes History of seeing any specialist: no When was your last doctors visit: Last provider: Dr Purdy Any recent labs: 03/08/23 A1c: Hgb A1C %: 6.1 % High (03/13/23 09:22:00) Health Maintenance UTD: Colonoscopy: no PSA: no Flu: Acute: Current issues/complaints: no History of Present Illness pt presents today to establish care. pt needs refills and labs Review of Systems PHQ Score Initial Depression Screen Score: 0 ROS - Provider Constitutional: no fever, no chills, no sweats, no fatigue Respiratory: no shortness of breath, no cough, no orthopnea, no wheezing. Cardiovascular: no chest pain, no palpitations, no edema. Neurologic: no headache, no dizziness, no numbness, no weakness. Physical Exam Vitals & Measurements HR: 82(Peripheral) RR: 18 BP: 136/84 SpO2: 98% HT: 64 in HT: 163 cm WT: 104.15 kg WT: 229.13 lb BMI: 39.2 General: alert, no acute distress ENMT: oral mucosa moist, no pharyngeal erythema or exudate Cardiovascular: regular rate and rhythm, normal peripheral perfusion Respiratory: Lungs CTA, respirations non labored Extremities: no deformity, no trauma Neurological: oriented x 4, LOC appropriate for age, CN II-XII intact, motor strength equal & normal bilaterally, speech normal Assessment/Plan 1. Hypothyroid (E03.9: Hypothyroidism, unspecified) will draw TSH today., last result was low and dose was adjusted. will adjust as needed and send in refills Ordered: Basic Metabolic Panel HgbA1c Lab Specimen Collect [id number] TSH With T4fr Reflex 2. Prediabetes (R73.03: Prediabetes) HGBA1C drawn in office today. may consider starting metformin if elevated Ordered: Basic Metabolic Panel HgbA1c Lab Specimen Collect 55050 TSH With T4fr Reflex 3. Smoker (F17.200: Nicotine dependence, unspecified, uncomplicated) consider not smoking Ordered: influenza virus vaccine, inactivated, 0.5 mL, Injection, IntraMuscular, Once, Stop date 08/01/23 12:00:00 EDT, Routine, Start date 08/01/23 12:00:00 EDT 4. BMI 39.0-39.9,adult (Z68.39: Body mass index [BMI] 39.0-39.9, adult) BMI education complete Ordered: influenza virus vaccine, inactivated, 0.5 mL, Injection, IntraMuscular, Once, Stop date 08/01/23 12:00:00 EDT, Routine, Start date 08/01/23 12:00:00 EDT Encounter for immunization (Z23: Encounter for immunization) flu shot given Ordered: FIRST VACCINE w/o Entry Level Finance Admin Charge [id number] Orders: atorvastatin, 20 mg = 1 tab(s), Oral, Daily, # 90 tab(s), Refills(s) 0, Pharmacy: [facility] #[id number], 163, cm, 08/01/23 10:40:00 EDT, Height/Length Dosing, 104.2, kg, 08/01/23 10:40:00 EDT, Weight Dosing Follow-up No qualifying data available Problem List/Past Medical History Ongoing Bilateral knee pain Blurred vision BMI 40.0-44.9, adult Hot flashes Hyperlipemia Hypothyroid Migraine Pre-op evaluation Prediabetes Smoker Tendinitis of flexor tendon of left hand Vision changes Well adult exam Historical Screening for hyperlipidemia Procedure/Surgical History Closed fracture of right shoulder. Medications atorvastatin 20 mg Tab, 20 mg= 1 tab(s), Oral, Daily atorvastatin 20 mg Tab, 20 mg= 1 tab(s), Oral, Daily, 1 refills levothyroxine 125 mcg (0.125 mg) Tab, 125 mcg= 1 tab(s), Oral, Daily Allergies No Known Medication Allergies Social History Alcohol - Denies Alcohol Use, 12/13/2022 Household alcohol concerns: No., 03/07/2023 Employment/School Employed, Work/School description: Works at [employer] 10/01/2019 Substance Abuse - Medium Risk, 03/07/2023 Past, Marijuana, Household substance abuse concerns: No., 03/07/2023 Tobacco - High Risk, 08/09/2020 10 or more cigarettes (1/2 pack or more)/day in last 30 days, Smoker, current status unknown Tobacco Use:. Never Smokeless Tobacco Use:. Cigarettes, Ready to change: No. Household tobacco concerns: No. Yes, 08/01/2023 Family History Alcoholism: Father. Diabetes mellitus type 2: Negative: Brother. Hyperlipidemia: Mother. Multiple personality disorder: Mother. Primary malignant neoplasm of brain: Grandparent. Primary malignant neoplasm of female breast: Mother. Primary malignant neoplasm of lung: Father. Thyroid problems: Mother and Sister. Immunizations Vaccine Date Status Comments influenza virus vaccine, inactivated 08/01/2023 Given influenza virus vaccine, inactivated - Not Given Patient Refuses diphtheria/pertuss is, acel/tetanus adult 10/05/2021 Recorded influenza virus vaccine, inactivated 10/05/2021 Recorded SARS-CoV-2 (COVID-19) mRNA BNT-162b2 vax 02/20/2021 Recorded 2022-12-13: TPV40 SARS-CoV-2 (COVID-19) mRNA BNT-162b2 vax 01/30/2021 Recorded 2022-12-13: TPV40 Normal [facility] Comment on above: Result Comment: Elec tronically Signed By: Naomi Bradford.ricardo\Date and Time Signed: 08/01/23 13:28 EDT [id number] 08-01-2023 HbA1c (Bld) [Mass fraction] 6.0 % High <=5.9 [facility] Comment on above: Performed By: #### 1 [id number], [id number], [id number] #### [facility] [address] [place] [address] TSH With T4fr Reflexon 08-01 TSH Qn 2.46 m[IU]/L Normal 0.34-5.60 [facility] Comment on above: Performed By: #### 1 [id number], [id number], [id number], [id number] #### [facility] [address] [place] [address] eGFRon 08-01-2023 GFR/1.73 sq M.predicted among non-blacks MDRD (S/P/Bld) [Vol rate/Area] 82 mL/min/1.73 m2 Normal >=59 [facility] Comment on above: Order Comment: Order added by Discern Expert. Result Comment: Postal Sorting Officer kimberly kidney disease could be indicated at eGFR's of less than 60 mL/min/1.73m2. Kidney failure is indicated at less than 15 mL/min/1.73m2. Performed By: #### 1 [id number], [id number] #### [facility] [address] [place] [address] Ambulatory Visit Summaryon 0 05-30-2023 Ambulatory Visit Summary ALFONZO SHAVER :1975 Visit Date:05/30/2023 Ambulatory Visit Instructions Your Diagnosis Hyperlipemia Hypothyroid BMI 40.0-44.9, adult Smoker Your Care Team Attending Physician - ANSHUL DUMONT, LEXX Guerrier Primary Care Physician - Gurwinder SEWING MACHINE OPERATOR PLASTIC ZIPPER, Aiyana Heller This Is Your Medications List atorvastatin (atorvastatin 20 mg Tab) betamethasone-clot rimazole topical (betamethasone-jesse trimazole Top 0.05%-1% Crm 45 gram) levothyroxine (levothyroxine 125 mcg (0.125 mg) Tab) Procedures Performed Closed fracture of right shoulder. Discharge Vitals Heart Rate (Peripheral) 89 Blood Pressure 134/66 Height 163 cm Height 64 in Weight 107 kg Weight 235.4 lb BMI 40.27 Medications What How Much When Why Instructions Unchanged atorvastatin (atorvastatin 20 mg Tab) 1 Tablets By Mouth Every day Unchanged betamethasone-clot rimazole topical (betamethasone-jesse trimazole Top 0.05%-1% Crm 45 gram) 1 Application Topical 2 times a day Tinea pedis Unchanged levothyroxine (levothyroxine 125 mcg (0.125 mg) Tab) 1 Tablets By Mouth Every day Hypothyroidism Allergies No Known Medication Allergies Problems Ongoing - Any problem that you are currently receiving treatment for. Bilateral knee pain Blurred vision BMI 40.0-44.9, adult Hot flashes Hyperlipemia Hypothyroid Migraine Pre-op evaluation Smoker Tendinitis of flexor tendon of left hand Vision changes Well adult exam Historical - Any problem that you are no longer receiving treatment for. Screening for hyperlipidemia Education Materials Obesity, Adult Obesity is the condition of having too much total body fat. Being overweight or obese means that your weight is greater than what is considered healthy for your body size. Obesity is determined by a measurement called BMI (body mass index). BMI is an estimate of body fat and is calculated from height and weight. For adults, a BMI of 30 or higher is considered obese. Obesity can lead to other health concerns and major illnesses, including: ? Stroke. ? Coronary artery disease (CAD). ? Type 2 diabetes. ? Some types of cancer, including cancers of the colon, breast, uterus, and gallbladder. ? High blood pressure (hypertension). ? High cholesterol. ? Gallbladder stones. Obesity can also contribute to: ? Osteoarthritis. ? Sleep apnea. ? Infertility problems. What are the causes? Common causes of this condition include: ? Eating daily meals that are high in calories, sugar, and fat. ? Drinking high amounts of sugar-sweetened beverages, such as soft drinks. ? Being born with genes that may make you more likely to become obese. ? Having a medical condition that causes obesity, including: ? Hypothyroidism. ? Polycystic ovarian syndrome (PCOS). ? Binge-eating disorder. ? Ayden syndrome. ? Taking certain medicines, such as steroids, antidepressants, and seizure medicines. ? Not being physically active (sedentary lifestyle). ? Not getting enough sleep. What increases the risk? The following factors may make you more likely to develop this condition: ? Having a family history of obesity. ? Living in an area with limited access to: ? [place], recreation centers, or sidewalks. ? Healthy food choices, such as grocery stores and [employer]. What are the signs or symptoms? The main sign of this condition is having too much body fat. How is this diagnosed? This condition is diagnosed based on: ? Your BMI. If you are an adult with a BMI of 30 or higher, you are considered obese. ? Your waist circumference. This measures the distance around your waistline. ? Your skinfold thickness. Your health care provider may gently pinch a fold of your skin and measure it. You may have other tests to check for underlying conditions. How is this treated? Treatment for this condition often includes changing your lifestyle. Treatment may include some or all of the following: ? Dietary changes. This may include developing a healthy meal plan. ? Regular physical activity. This may include activity that causes your heart to beat faster (aerobic exercise) and strength training. Work with your health care provider to design an exercise program that works for you. ? Medicine to help you lose weight if you are unable to lose one pound a week after six weeks of healthy eating and more physical activity. ? Treating conditions that cause the obesity (underlying conditions). ? Surgery. Surgical options may include gastric banding and gastric bypass. Surgery may be done if: ? Other treatments have not helped to improve your condition. ? You have a BMI of 40 or higher. ? You have life-threatening health problems related to obesity. Follow these instructions at home: Eating and drinking ? Follow recommendations from your health care provider about what you e (more content not included)... Normal [facility] Family [facility] Office/[place] [facility] [place] 05-30-2023 Family Medicine Office/Clinic Note HPI Staff Alfonzo is a 48 year old male who presents for a 1 time chronic visit. Patient is here for follow up on hyperlipidemia: Are you compliant with your medications or having difficulty affording your medications? yes Do you have side effects from the medication? no Are you compliant with your diet? no Do you exercise? no Pt currently takes Atorvastatin 20mg QD. Patient is here for follow up on Thyroid Disease. Do you have any of the following symptoms? Change in energy level? no Weight change? no Heat/cold intolerance? no Hair/skin/nail changes? no Change in bowels? no Last TSH: 0.13 on 03/08/23 Pt is currently taking Synthroid 125mcg qAM. Patient is here for follow up on PreDM: Are you compliant with your diet? yes Do you exercise? yes Do you have any of the following symptoms? Vision problems? Pt is working with Dr. Marshall for this. Sexual dysfunction? no GI-Nausea/vomiting /bloating? no Lightheadedness? no Paresthesias, Ulcerations or sores? no Last A1c: 6.1% on 03/13/23 Last fasting glucose level: 122 on 03/08/23 Pt is not currently on any tx regime for PreDM. History of Present Illness I have reviewed and verified the staff HPI to be accurate for this encounter. Review of Systems PHQ Score Initial Depression Screen Score: 0 ROS - Provider Constitutional: fever no, chills no, sweats no, weakness no Skin: rash no, lesions no, petechiae no Eye: eye pain no, discharge no, light sensitivity no, eye irritation no, double vision no, blurring no, vision loss no ENMT: ear pain no, ear drainage no, sore throat no, nasal congestion no , nasal drainage no hoarseness no Respiratory: chest discomfort no, shortness of breath no, cough no, orthopnea no, wheezing no Cardiovascular: chest pain no, palpitations no, edema no Gastrointestinal: nausea no, vomiting no, diarrhea no, GI bleeding no Genitourinary: dysuria no, hematuria no, discharge no, urinary frequency no, urinary urgency no Musculoskeletal: back pain no, trauma no Neurologic: headache no, dizziness no, numbness/tingling no, weakness no Physical Exam Vitals & Measurements HR: 89(Peripheral) BP: 134/66 SpO2: 96% HT: 64 in HT: 163 cm WT: 107 kg WT: 235.4 lb BMI: 40.27 General: Well developed, well nourished, in no acute distress Eyes: Pupils equal, round, and reactive to light. Conjunctivae and sclerae normal, and extraocular movements intact Neck: Neck supple. No masses or palpable cervical nodes. Trachea midline. Thyroid without nodules, masses, tenderness, or enlargement Lungs: Normal respiratory effort and clear to auscultation Cardio: Regular rate and rhythm, normal S1 and S2, no murmur, no rub Extremity: No clubbing, cyanosis, edema, or deformity, with normal ROM in both upper and lower bilateral extremities Neurologic: Grossly normal Skin: No rashes, ulcerations, or suspicious lesions to visible skin Mental Status: Alert and oriented x3. Normal mood and affect Assessment/Plan 1. Prediabetes (R73.03: Prediabetes) We will redraw A1c, if continues to trend upward from last draw 6.1% did discuss possibly starting treatment with form and and monitoring blood glucose levels. Patient verbalized understanding denies any further questions or concerns today. Ordered: Basic Metabolic Panel HgbA1c 2. Hyperlipemia (E78.5: Hyperlipidemia, unspecified) The importance of the following were all reviewed with the patient: -Take medications as prescribed. - Recommended following the [facility] Lipid Diet which is a low fat/low cholesterol diet for high cholesterol. - More information about this eating plan can be found here: http://tlcdiet.org - To improve your health we recommend increasing your level of moderate exercise to at least 2.5 hrs per week. For more information, please visit the CDC Exercise and Fitness Recommendations at www.cdc.gov/physic alactivity/basics/ index.htm 3. Hypothyroid (E03.9: Hypothyroidism, unspecified) Did have levothyroxine decreased during last visit from 150 mcg to 125 mcg. We will repeat TSH labs as discussed. Ordered: TSH With T4fr Reflex 4. BMI 40.0-44.9, adult (Z68.41: Body mass index [BMI] 40.0-44.9, adult) Education attached on health risks of obesity and discusses healthy, balanced diet low in sugar, fat, carbs and exercise regimen 5. Smoker (F17.200: Nicotine dependence, unspecified, uncomplicated) We strongly recommend to quit tobacco use. Cigarette smoking harms nearly every organ of the body, causes many diseases, and reduces the health of smokers in general. Quitting smoking lowers your risk for smoking-related diseases and can add years to your life. We encourage you to visit www.smokefree.gov access to helpful resources including free telephone support. If you decide on prescription treatment to help you quit, we would be happy to provide these. Follow-up No qualifying data available Patient Education Steps to Quit Smoking Calorie Counting for Weight Loss (more content not included)... Normal [facility] Comment on above: Result Comment: Elec trokimberlyally Signed By: ANSHUL DUMONT, LEXX Guerrier\.br\Date and Time Signed: 05/30/23 09:46 EDT Patient Educationon 05-30-20 Patient Education Endocrinology Prediabetes Eating Plan Prediabetes is a condition that causes blood sugar (glucose) levels to be higher than normal. This increases the risk for developing type 2 diabetes (type 2 diabetes mellitus). Working with a health care provider or nutritional assistant (dietitian) to make diet and lifestyle changes can help prevent the onset of diabetes. These changes may help you: ? Control your blood glucose levels. ? Improve your cholesterol levels. ? Manage your blood pressure. What are tips for following this plan? Reading food labels ? Read food labels to check the amount of fat, salt (sodium), and sugar in prepackaged foods. Avoid foods that have: ? Saturated fats. ? Trans fats. ? Added sugars. ? Avoid foods that have more than 300 milligrams (mg) of sodium per serving. Limit your sodium intake to less than 2,300 mg each day. Shopping ? Avoid buying pre-made and processed foods. ? Avoid buying drinks with added sugar. Cooking ? Cook with olive oil. Do not use butter, lard, or ghee. ? Bake, broil, grill, steam, or boil foods. Avoid frying. Meal planning ? Work with your dietitian to create an eating plan that is right for you. This may include tracking how many calories you take in each day. Use a food diary, notebook, or mobile application to track what you eat at each meal. ? Consider following a Mediterranean diet. This includes: ? Eating several servings of fresh fruits and vegetables each day. ? Eating fish at least twice a week. ? Eating one serving each day of whole grains, beans, nuts, and seeds. ? Using olive oil instead of other fats. ? Limiting alcohol. ? Limiting red meat. ? Using nonfat or low-fat dairy products. ? Consider following a plant-based diet. This includes dietary choices that focus on eating mostly vegetables and fruit, grains, beans, nuts, and seeds. ? If you have high blood pressure, you may need to limit your sodium intake or follow a diet such as the DASH (Dietary Approaches to Stop Hypertension) eating plan. The DASH diet aims to lower high blood pressure. Lifestyle ? Set weight loss goals with help from your health care team. It is recommended that most people with prediabetes lose 7% of their body weight. ? Exercise for at least 30 minutes 5 or more days a week. ? Attend a support group or seek support from a mental health counselor. ? Take vhwi-nsf-ghynphp and prescription medicines only as told by your health care provider. What foods are recommended? Fruits Berries. Bananas. Apples. Oranges. Grapes. Papaya. Mikel. Pomegranate. Kiwi. Grapefruit. Cherries. Vegetables Lettuce. Spinach. Peas. Beets. Cauliflower. Cabbage. Broccoli. Carrots. Tomatoes. Squash. Eggplant. Herbs. Peppers. Onions. Cucumbers. [place] sprouts. Grains Whole grains, such as whole-wheat or whole-grain breads, crackers, cereals, and pasta. Unsweetened oatmeal. Bulgur. Barley. Quinoa. Brown rice. [place] or whole-wheat flour tortillas or taco shells. Meats and other proteins Seafood. Poultry without skin. Lean cuts of pork and beef. Tofu. Eggs. Nuts. Beans. Dairy Low-fat or fat-free dairy products, such as yogurt, cottage cheese, and cheese. Beverages Water. Tea. Coffee. Sugar-free or diet soda. [place] water. Low-fat or nonfat milk. Milk alternatives, such as soy or almond milk. Fats and oils [place] oil. Canola oil. [place] oil. Grapeseed oil. Avocado. Walnuts. Sweets and desserts Sugar-free or low-fat pudding. Sugar-free or low-fat ice cream and other frozen treats. Seasonings and condiments Herbs. Sodium-free spices. Mustard. Relish. Low-salt, low-sugar ketchup. Low-salt, low-sugar barbecue sauce. Low-fat or fat-free mayonnaise. The items listed above may not be a complete list of recommended foods and beverages. Contact a dietitian for more information. What foods are not recommended? Fruits Fruits canned with syrup. Vegetables Canned vegetables. Frozen vegetables with butter or cream sauce. Grains Refined white flour and flour products, such as bread, pasta, snack foods, and cereals. Meats and other proteins Fatty cuts of meat. Poultry with skin. Breaded or fried meat. Processed meats. Dairy Full-fat yogurt, cheese, or milk. Beverages Sweetened drinks, such as iced tea and soda. Fats and oils Butter. Lard. Ghee. Sweets and desserts Baked goods, such as cake, cupcakes, pastries, cookies, and cheesecake. Seasonings and condiments Spice mixes with added salt. Ketchup. Barbecue sauce. Mayonnaise. The items listed above may not be a complete list of foods and beverages that are not recommended. Contact a dietitian for more information. Where to find more information ? [place] [employer]: www.diabetes.org Summary ? You may need to make diet and lifestyle changes to help prevent the onset of diabetes. These changes can help you control blood sugar, improve cholesterol levels, and manage blood pre (more content not included)... Normal [facility] CHEMISTRYOrdered By: Pedro Adams on 03-13-2023 HbA1c (Bld) [Mass fraction] 6.1 % High <=5.9% [facility] ChemAutoSS CHEMISTRYOrdered By: SYSTEM SYSTEM on 03-08-2023 Albumin [Mass/Vol] 4.1 g/dL Normal 3.3 - 5.0 gm/dL [facility] Remisol Albumin/Globulin [Mass ratio] 1.1 {ratio} Normal 1.1 - 2.2 [facility] Remisol ALP [Catalytic activity/Vol] 112 [iU]/d High 21 - 98 Int._Unit/L [facility] Remisol ALT No additional P-5'-P [Catalytic activity/Vol] 24 [iU]/d Normal 6 - 46 Int._Unit/L [facility] Remisol Anion gap [Moles/Vol] 10 mmol/L Normal 6 - 16 mEq/L [facility] Remisol AST [Catalytic activity/Vol] 23 [iU]/d Normal 5 - 43 Int._Unit/L [facility] Remisol Bilirubin [Mass/Vol] 0.5 mg/dL Normal 0.0 - 1 .1 mg/dL [facility] Calcium [Mass/Vol] 8.9 mg/dL Normal 8.9 - 11. 1 mg/dL [facility] Chloride [Moles/Vol] 103 mmol/L Normal 101 - 1 11 mmol/L [facility] Cholesterol [Mass/Vol] 155 mg/dL Normal 120 - 200 mg/dL [facility] Cholesterol in HDL [Mass/Vol] 32 mg/dL Invalid Interpretation Code [facility] Cholesterol in LDL [Mass/Vol] 111 mg/dL Normal <=129mg/dL [facility] Cholesterol in VLDL [Mass/Vol] 18 mg/dL Normal 7 - 40 mg/dL [facility] CO2 [Moles/Vol] 26 mmol/L Normal 21 - 31 mmol/L [facility] Creatinine [Mass/Vol] 1.1 mg/dL Normal 0.5 - 1.3 mg/dL [facility] Remisol Free T4 [Mass/Vol] 1.61 ng/dL Normal 0.58 - 1. 64 ng/dL [facility] Remisol GFR/1.73 sq M.predicted among non-blacks MDRD (S/P/Bld) [Vol rate/Area] 82 mL/min/1.73 m2 Normal >=59mL/min/1 .73 m2 FT Chem S Globulin (S) [Mass/Vol] 3.8 g/dL Normal 1.4 - 4.0 gm/dL [facility] Remisol Glucose [Mass/Vol] 122 mg/dL Normal 55 - 199 mg/dL [facility] Potassium [Moles/Vol] 4.3 mmol/L Normal 3.5 - 5.3 mmol/L [facility] Protein [Mass/Vol] 7.9 g/dL High 6.0 - 7.8 gm/dL [facility] Sodium [Moles/Vol] 135 mmol/L Normal 135 - 145 mmol/L [facility] Triglyceride [Mass/Vol] 92 mg/dL Normal <=149mg/dL [facility] Remisol TSH Qn 0.13 m[IU]/L Low 0.34 - 5.60 mcIU/mL [facility] Rem[facility] Urea nitrogen [Mass/Vol] 17 mg/dL Normal 5 - 21 mg/d L [facility] Remisol Urea nitrogen/Creatinine [Mass ratio] 16 mg/mg Normal 10 - 20 [facility] Basophils Auto (Bld) [#/Vol] Ordered By: Alex Gates on 11-29-2022 Basophils (Bld) [#/Vol] 0.1 10*3/uL 0.0-0.2 [facility] Basophils/100 WBC Auto (Bld) Ordered By: Alex Gates on 11-29-2022 Basophils/100 WBC (Bld) 1.2 % . [facility] Creatinine and Glomerular fi ltration rate.predicted panel (S/P/Bld)Ordered By: Alex Gates on 11-29-2022 Creatinine [Mass/Vol] 1.00 mg/dL 0.64-1.27 [facility] Eosinophils Auto (Bld) [#/Vo l]Ordered By: Alex Gates on 11-29-2022 Eosinophils (Bld) [#/Vol] 0.2 10*3/uL 0.0-0.45 [facility] Eosinophils/100 WBC Auto (Bl d)Ordered By: Alex Gates on 11-29-2022 Eosinophils/100 WBC (Bld) 2.4 % . [facility] Erythrocyte distribution wid th Auto (RBC) [Ratio]Ordered By: Alex Gates on 11-29-2022 Erythrocyte distribution width (RBC) [Ratio] 13.9 % 12.0-14.8 [facility] Estimated glomerular filtrat ion rate (GFR) non- AmericanOrdered By: Alex Gates on 11-29-2022 GFR/1.73 sq M.predicted among non-blacks MDRD (S/P/Bld) [Vol rate/Area] > 60 mL/Min [facility] Hematocrit Auto (Bld) [Volum e fraction]Ordered By: Alex Gates on 11-29-2022 Hematocrit (Bld) [Volume fraction] 46.0 % 38.8-50.0 [facility] Hemoglobin [Mass/volume] in BloodOrdered By: Alex Gates on 11-29-2022 Hemoglobin (Bld) [Mass/Vol] 15.2 g/dL 13.0-17.0 [facility] Leukocytes [#/volume] correc peg for nucleated erythrocytes in Blood by Automated counOrdered By: Alex Gates on 11-29-2022 WBC corrected for nucl RBC Auto (Bld) [#/Vol] 10.1 10*3/uL 4.1-10.5 [facility] Lymphocytes Auto (Bld) [#/Vo l]Ordered By: Alex Gates on 11-29-2022 Lymphocytes (Bld) [#/Vol] 1.4 10*3/uL 1.00-4.8 [facility] Lymphocytes/100 WBC Auto (Bl d)Ordered By: Alex Gates on 11-29-2022 Lymphocytes/100 WBC (Bld) 14.3 % . [facility] MCH Auto (RBC) [Entitic mass ]Ordered By: Alex Gates on 11-29-2022 MCH (RBC) [Entitic mass] 28.7 pg 27.5-35.2 [facility] MCHC Auto (RBC) [Mass/Vol]Or dered By: Alex Gates on 11-29-2022 MCHC (RBC) [Mass/Vol] 33.1 g/dL 32.5-35.6 [facility] MCV Auto (RBC) [Entitic vol] Ordered By: Alex Gates on 11-29-2022 MCV (RBC) [Entitic vol] 86.6 fL 83.5-101 [facility] Monocytes Auto (Bld) [#/Vol] Ordered By: Alex Gates on 11-29-2022 Monocytes (Bld) [#/Vol] 0.8 10*3/uL 0.0-0.8 [facility] Monocytes/100 WBC Auto (Bld) Ordered By: Alex Gates on 11-29-2022 Monocytes/100 WBC (Bld) 7.7 % . [facility] Neutrophils Auto (Bld) [#/Vo l]Ordered By: Alex Gates on 11-29-2022 Neutrophils (Bld) [#/Vol] 7.5 10*3/uL 1.8-7.7 [facility] Neutrophils/100 WBC Auto (Bl d)Ordered By: Alex Gates on 11-29-2022 Neutrophils/100 WBC (Bld) 74.4 % . [facility] No Panel InformationOrdered By: Alex Gates on 11-29-2022 Estimated GFR () > 60 mL/Min [facility] Comment on above: GFR estimated refere nce range: According to KDOQI guidelines, <60 ml/min/1.73m2 is sufficient to diagnose a patient with chronic kidney disease. Pharmacy Creatinine Clearance (Chem N/A [facility] Nucleated erythrocytes [Pres ence] in Blood by Automated countOrdered By: Alex Gates on 11-29-2022 Nucleated RBC Auto Ql (Bld) 0.1 /100{WBC} 0-0.5 [facility] Platelet mean volume Auto (B ld) [Entitic vol]Ordered By: Alex Gates on 11-29-2022 Platelet mean volume (Bld) [Entitic vol] 9.1 fL 6.6-10.1 [facility] Platelets Auto (Bld) [#/Vol] Ordered By: Alex Gates on 11-29-2022 Platelets (Bld) [#/Vol] 244 10*3/uL 150-450 [facility] RBC Auto (Bld) [#/Vol]Ordere d By: Alex Gates on 11-29-2022 RBC (Bld) [#/Vol] 5.31 10*6/uL 3.90-5.60 [facility] Serum or plasma anion gap de terminationOrdered By: Alex Gates on 11-29-2022 Anion gap [Moles/Vol] 13.4 mmol/L 6.0-15.0 [facility] Serum or plasma calcium deniz urement (mass/volume)Ordered By: Alex Gates on 11-29-2022 Calcium [Mass/Vol] 9.1 mg/dL 8.2-10.2 [facility] Serum or plasma chloride alfred surement (moles/volume)Ordered By: Alex Gates on 11-29-2022 Chloride [Moles/Vol] 99 mmol/L 95-114 [facility] Serum or plasma glucose deniz urement (mass/volume)Ordered By: Alex Gates on 11-29-2022 Glucose [Mass/Vol] 147 mg/dL 70-100 [facility] Comment on above: ADA recommended refe rence rangeRandom Glucose Reference Range is dependent on time and content of last meal. Glucose of more than 200 mg/dL in a nonstressed, ambulatory subject supports the diagnosis of Diabetes Mellitus. Serum or plasma potassium me asurement (moles/volume)Ordered By: Alex Gates on 11-29-2022 Potassium [Moles/Vol] 4.0 mmol/L 3.5-5.1 [facility] Serum or plasma sodium measu rement (moles/volume)Ordered By: Alex Gates on 11-29-2022 Sodium [Moles/Vol] 134 mmol/L 136-146 [facility] Serum or plasma total carbon dioxide measurement (moles/volume)Ordered By: Alex Gaets on 11-29-2022 CO2 [Moles/Vol] 25.6 mmol/L 22.0-30.0 [facility] Serum or plasma urea nitroge n measurement (mass/volume)Ordered By: Alex Gates on 11-29-2022 Urea nitrogen [Mass/Vol] 10 mg/dL 9-23 [facility] WBC Auto (Bld) [#/Vol]Ordere d By: Alex Gates on 11-29-2022 WBC (Bld) [#/Vol] 10.1 10*3/uL 4.1-10.5 [facility] Vital Signs Date Time Vital Sign Value Performing Clinician Jigar boyd 02-08-2025 08: Body height 162.6 cm Trisha Angel DO Work Phone: [facility] 02-08-2025 08: Body mass index (BMI) [Ratio] 45.83 kg/m2 Trisha Alvarado DO Work Phone: [facility] 02-08-2025 08: Body weight 121.11 kg Trisha Angel DO Work Phone: [facility] 02-08-2025 08:17-0400 Diastolic blood pressure 84 mm[Hg] Trisha Angel DO Work Phone: [facility] 02-08-2025 08:17-0400 Heart rate 98 /min Trisha Angel DO Work Phone: [facility] 02-08-2025 08:17-0400 SaO2% (BldA) [Mass fraction] 98 % Trisha Angel DO Work Phone: [facility] 02-08-2025 08:17-0400 Systolic blood pressure 124 mm[Hg] Trisha Angel DO Work Phone: [facility] 12-14-2024 13:14-0500 Body mass index (BMI) [Ratio] 44.35 kg/m2 Christfreder Bita DO Work Phone: [facility] 12-14-2024 13:14-0500 Body weight 117.21 kg Christfreder Bita DO Work Phone: [facility] 12-14-2024 13:14-0500 Diastolic blood pressure 82 mm[Hg] Christopher Bita DO Work Phone: [facility] 12-14-2024 13:14-0500 Heart rate 77 /min Christopher Bita DO Work Phone: [facility] 12-14-2024 13:14-0500 SaO2% (BldA) [Mass fraction] 97 % Christopher Bita DO Work Phone: [facility] 12-14-2024 13:14-0500 Systolic blood pressure 138 mm[Hg] Christopher Bita DO Work Phone: [facility] 10-13-2024 10:57-0500 Body mass index (BMI) [Ratio] 43.43 kg/m2 Christopher Bita DO Work Phone: [facility] 10-13-2024 10:57-0500 Body weight 114.76 kg Christopher Bita DO Work Phone: [facility] 10-13-2024 10:57-0500 Diastolic blood pressure 78 mm[Hg] Christopher Bita DO Work Phone: [facility] 10-13-2024 10:57-0500 Heart rate 83 /min Christopher Bita DO Work Phone: [facility] 10-13-2024 10:57-0500 SaO2% (BldA) [Mass fraction] 96 % Christopher Bita DO Work Phone: [facility] 10-13-2024 10:57-0500 Systolic blood pressure 142 mm[Hg] Christopher Bita DO Work Phone: [facility] 09-15-2024 10:42-0500 Body mass index (BMI) [Ratio] 41.92 kg/m2 Christopher Bita DO Work Phone: [facility] 09-15-2024 10:42-0500 Body weight 110.77 kg Christopher Bita DO Work Phone: [facility] 09-15-2024 10:42-0500 Diastolic blood pressure 83 mm[Hg] Christopher Bita DO Work Phone: [facility] 09-15-2024 10:42-0500 Heart rate 84 /min Christopher Bita DO Work Phone: [facility] 09-15-2024 10:42-0500 SaO2% (BldA) [Mass fraction] 96 % Christopher Bita DO Work Phone: [facility] 09-15-2024 10:42-0500 Systolic blood pressure 141 mm[Hg] Christopher Bita DO Work Phone: [facility] 08-17-2024 09:14-0400 Diastolic blood pressure 82 mm[Hg] Christopher Bita DO Work Phone: [facility] 08-17-2024 09:14-0400 Heart rate 73 /min Christopher Bita DO Work Phone: [facility] 08-17-2024 09:14-0400 SaO2% (BldA) [Mass fraction] 96 % Christopher Bita DO Work Phone: [facility] 08-17-2024 09:14-0400 Systolic blood pressure 132 mm[Hg] Christopher Bita DO Work Phone: [facility] 08-03-2024 14:44-0400 Body mass index (BMI) [Ratio] 40.34 kg/m2 Christopher Bita DO Work Phone: [facility] 08-03-2024 14:44-0400 Body weight 106.59 kg Christopher Bita DO Work Phone: [facility] 08-03-2024 14:44-0400 Diastolic blood pressure 79 mm[Hg] Rodgeropher Bita DO Work Phone: [facility] 08-03-2024 14:44-0400 Heart rate 89 /min Christopher Bita DO Work Phone: [facility] 08-03-2024 14:44-0400 SaO2% (BldA) [Mass fraction] 95 % Christopher Bita DO Work Phone: [facility] 08-03-2024 14:44-0400 Systolic blood pressure 135 mm[Hg] Rodgeropher Bita DO Work Phone: [facility] 07-28-2024 14:14-0400 Body height 162.56 cm [employer]WING MACHINE [employer] Naomi Kim Work Phone: [facility] 07-28-2024 14:14-0400 Body weight 108.4 kg SEWING MACHINE [employer] Naomi Kim Work Phone: [facility] 12-13-2022 13:40-0500 Diastolic blood pressure 82 mm[Hg] Aiyana Klonk [facility] 12-13-2022 13:40-0500 Mean blood pressure 100 mm[Hg] Aiyana Klonk [facility] 12-13-2022 13:40-0500 Systolic blood pressure 136 mm[Hg] Aiyana Klonk [facility] 12-13-2022 11:48-0500 Blood Pressure Location Aiyana Klonk [facility] 12-13-2022 11:48-0500 Body temperature 98.24 [degF] Aiyana Klonk [facility] 12-13-2022 11:48-0500 Diastolic blood pressure 84 mm[Hg] Aiyana Klonk [facility] 12-13-2022 11:48-0500 Heart rate 81 /min Aiyana Klonk [facility] 12-13-2022 11:48-0500 SaO2% (BldA) [Mass fraction] 97 % Aiyana Klonk [facility] 12-13-2022 11:48-0500 Systolic blood pressure 142 mm[Hg] Aiyana Klonk [facility] 04-30-2022 11:51-0400 Blood Pressure Location [facility] S[facility] 04-30-2022 11:51-0400 Diastolic blood pressure 84 mm[Hg] [facility] 04-30-2022 11:51-0400 Heart rate 90 /min [facility] 04-30-2022 11:51-0400 SaO2% (BldA) [Mass fraction] 97 % [facility] 04-30-2022 11:51-0400 Systolic blood pressure 120 mm[Hg] [facility] Encounters Encounter Date Encounter Type Care Provider Facility Start: 04-01-2025 ambulatory Naomi L Kim Facility: [facility] [place] Start: 03-02-2025 End: 03-02-2025 ambulatory Naomi L Kim Facility: [facility] [place] Start: 02-08-2025 End: 02-08-2025 Bamboo flowsheet Trisha Angel DO Work Phone: [facility] Start: 02-08-2025 End: 02-08-2025 Bamboo flowsheet Trisha Angel DO Work Phone: [facility] Start: 02-08-2025 End: 02-08-2025 Office outpatient visit 40 minutes Trisha Angel DO Work Phone: [facility] Comment on above: PAIGE (obstructive sle ep apnea) (Primary Dx); Hypersomnia; 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, unspecified whether serious comorbidity present; Snoring; Primary insomnia Start: 02-08-2025 End: 02-08-2025 ambulatory TRISHA ALVARADO Not Available Start: 02-02-2025 End: 02-02-2025 ambulatory Naomi L Kim Facility:[facility] [place] Start: 02-02-2025 End: 02-02-2025 ambulatory DEVONTE SUNSHINE Not Available Start: 01-27-2025 ambulatory Devonte Sanchez acility:[facility] Start: 01-11-2025 End: 01-11-2025 ambulatory [facility] SWAN[facility] Start: 12-21-2024 End: 12-21-2024 ambulatory Susi Mitchell MD Work Phone: Neurology Comment on above: Myasthenia gravis wi thout exacerbation (HCC) (Primary Dx); Myasthenia gravis, AChR antibody positive (HCC); Diplopia; Ptosis of both eyelids; Bulbar weakness (HCC); Limb weakness; Smoking trying to quit; H/O immunosuppressive therapy Start: 12-21-2024 End: 12-21-2024 Telemedicine consultation with patient Susi Mitchell Work Phone: Neurology Start: 12-15-2024 End: 12-17-2024 Telephone encounter Neurology Provider Neurology Comment on above: [facility] (External referral to [facility]/) Start: 12-14-2024 End: 12-14-2024 Bamboo flowsheet Christopher Bita DO Work Phone: [facility] Start: 12-14-2024 End: 12-14-2024 Bamboo flowsheet Christopher Bita DO Work Phone: [facility] Start: 12-14-2024 End: 12-14-2024 Office outpatient visit 25 minutes Devonte Sunshine DO Work Phone: [facility] Comment on above: Generalized myasthen ia gravis (CMS/HCC) (Primary Dx) Start: 12-14-2024 End: 12-14-2024 ambulatory DEVONTE SUNSHINE Not Available Start: 11-15-2024 End: 11-15-2024 Orders Only Devonte Sunshine DO Work Phone: [facility] Comment on above: Myasthenia gravis (C MS/HCC) (Primary Dx) Start: 10-13-2024 End: 10-13-2024 Bamboo flowsheet Reggieer Bita DO Work Phone: [facility] Start: 10-13-2024 End: 10-13-2024 Bamboo flowsheet Christopher Bita DO Work Phone: [facility] Start: 10-13-2024 End: 10-13-2024 Office outpatient visit 40 minutes Devonte Sunshine DO Work Phone: [facility] Comment on above: Generalized myasthen ia gravis (CMS/HCC) (Primary Dx) Start: 10-13-2024 End: 10-13-2024 ambulatory CHRISTOPHER BITA Not Available Start: 09-15-2024 End: 09-15-2024 Bamboo flowsheet Christopher Bita DO Work Phone: [facility] [address] Start: 09-15-2024 End: 09-15-2024 Bamboo flowsheet Christopher Bita DO Work Phone: [facility] [address] Start: 09-15-2024 End: 09-15-2024 Office outpatient visit 40 minutes Christopher Bita DO Work Phone: [facility] [address] Comment on above: Generalized myasthen ia gravis (CMS/HCC) (Primary Dx) Start: 09-15-2024 End: 09-15-2024 ambulatory CHRISTOPHER BITA Not Available Start: 08-17-2024 End: 08-17-2024 Bamboo flowsheet Christopher Bita DO Work Phone: [facility] [address] Start: 08-17-2024 End: 08-17-2024 Bamboo flowsheet Christopher Bita DO Work Phone: [facility] [address] Start: 08-17-2024 End: 08-17-2024 Office outpatient visit 25 minutes Christopher Bita DO Work Phone: [facility] [address] Comment on above: Myasthenia gravis (C MS/HCC) Start: 08-17-2024 End: 08-17-2024 ambulatory CHRISTOPHER BITA Not Available Start: 08-05-2024 End: 08-05-2024 Lab Drop off Naomi L Kim [facility] Start: 08-05-2024 End: 08-05-2024 ambulatory Naomi L Kim Facility[facility] Start: 08-03-2024 End: 08-03-2024 Office outpatient visit 25 minutes Christopher Bita DO Work Phone: [facility] Comment on above: Myasthenia gravis (C MS/HCC) (Primary Dx) Start: 08-03-2024 End: 08-03-2024 ambulatory DEVONTE SUNSHINE Not Available Start: 08-03-2024 End: 08-03-2024 Bamboo flowsheet Devonte Sunshine DO Work Phone: [facility] Start: 08-03-2024 End: 08-03-2024 Bamboo flowsheet Devonte Liett DO Work Phone: [facility] Start: 07-28-2024 End: 07-28-2024 Patient encounter procedure SEWING MACHINE OPERATOR PLASTIC ZIPPER-C Naomi Kim Work Phone: [facility] [place] Work Phone: Start: 07-28-2024 End: 07-28-2024 ambulatory SEWING MACHINE OPERATOR PLASTIC ZIPPER-C Naomi Theresa Kim Work Phone: [facility] Work Phone: Start: 07-14-2024 End: 07-14-2024 Patient encounter procedure SEWING MACHINE OPERATOR PLASTIC ZIPPER-C Naomi Kim Work Phone: [facility] [place] Work Phone: Start: 07-14-2024 End: 07-14-2024 ambulatory SEWING MACHINE OPERATOR PLASTIC ZIPPER-C Naomi Theresa Kim Work Phone: [facility] Work Phone: Start: 06-28-2024 End: 06-28-2024 ambulatory DEVONTE SUNSHINE Not Available Start: 05-05-2024 End: 05-05-2024 ambulatory NAKUL BRANNON Facility:[facility] Start: 05-05-2024 End: 05-05-[address] NAKUL BRANNON [facility] Start: 08-20-2023 End: 08-20-2023 ambulatory Naomi L Kim Facility:[facility] [place] Start: 08-01-2023 End: 08-01-2023 ambulatory Naomi L Kim Facility[facility] Start: 08-01-2023 End: 08-01-2023 Lab Drop off Naomi L Kim [facility] Start: 08-01-2023 End: 08-01-2023 ambulatory Naomi L Kim Facility:[facility] [place] Start: 07-31-2023 ambulatory Naomi Kim Facility:[facility] [place] Start: 06-04-2023 Patient encounter procedure Re ferring Provider Unknown [facility] [address] Work Phone: Start: 05-30-2023 End: 05-30-2023 ambulatory LEXX LANDERS Facility:[facility] Start: 03-13-2023 End: 03-13-2023 Patient encounter procedure Aiyana Purdy [facility] Start: 03-08-2023 End: 03-08-2023 Patient encounter procedure Aiyana Purdy [facility] Start: 12-25-2022 End: 12-25-2022 Lab Drop off Alex Gates [facility] Start: 12-13-2022 End: 12-13-2022 Patient encounter procedure Aiyana Purdy [facility] Start: 12-13-2022 End: 12-13-2022 Preprocedural examination done Aiyana Purdy [facility] Start: 11-29-2022 End: 11-29-2022 ambulatory SEWING MACHINE OPERATOR PLASTIC ZIPPER-C Aiyana Purdy Work Phone: [facility] Work Phone: Start: 11-29-2022 End: 11-29-2022 Patient encounter procedure SEWING MACHINE OPERATOR PLASTIC ZIPPER-José Aiyana Purdy Work Phone: [facility]ro[facility] Work Phone: Start: 04-30-2022 End: 04-30-2022 Patient encounter procedure LEXX LANDERS [facility] [place] Procedures Date Procedure Procedure Detail Performing Clinician Start: 07-28-2024 MRI of head SEWING MACHINE OPERATOR PLASTIC ZIPPER-C Naomi Alvarez Work Phone: Start: 07-14-2024 CT of thorax with contrast SEWING MACHINE OPERATOR PLASTIC ZIPPER-C Naomi Alvarez Work Phone: Start: 11-29-2022 Plain chest X-ray SEWING MACHINE OPERATOR PLASTIC ZIPPER-C Aiyana Knowlesleonel Work Phone: Closed fracture of r ight shoulder (disorder) LEXX LANDERS No history of surgery Referr ing Provider Unknown Plan of Treatment Date Care Activity Detail Author Start: 10-05-2031 Urine microalbumin profile DTaP,Tdap,Td Vaccine (2 - Td or Tdap) [facility] Start: 07-11-2025 Influenza vaccination Influenz a Vaccine (Season Ended) [facility] Start: 05-16-2025 End: 05-16-2025 Patient encounter procedure 05/16/2025 8:20 AM EDT Office Visit [place] [address] [place] [phone] Elvira Luong NP [address] [place] [address] PAULINA ROMEROUE Start: 04-27-2025 End: 04-27-2025 Patient encounter procedure 04/27/2025 9:15 AM EDT Office Visit PAULINA [place] [address] [place] [phone] Devonte Sunshine DO [address] [place] [address] PAULINA BOYER Start: 02-08-2025 End: 02-08-2026 Polysomnography Polysom[facility]ography [facility] Center Routine PAIGE (obstructive sleep apnea) Expected: 02/08/2025 (Approximate), Expires: 02/08/2026 [facility] Work Phone: Comment on above: Expected: 02/08/2025 (Approximate), Expires: 02/08/2026 Start: 02-08-2025 End: 02-08-2025 Patient encounter procedure 02/08/2025 8:15 AM EDT Office Visit PAULINA BOYER [address] [facility] [place] [phone] Trisha Alvarado DO [address] [place] [address] Arrived PAULINA BOYER Comment on above: Arrived Start: 02-02-2025 End: 02-02-2025 Patient encounter procedure 02/02/2025 9:15 AM EDT Office Visit PAULINA BOYER [address] [facility] [place] [phone] Devonte Sunshine DO [address] [facility] [place] [phone] PAULINA BOYER Start: 12-21-2024 End: 12-21-2024 ambulatory 12/21/2024 9:00 AM [facility] [address] [place] [address] Susi Mitchell MD [address] [place] [id number] Symptoms of myasthenia gravis, failing treatment with steroids and Mestinon alone Neurology Comment on above: Symptoms of myasthen ia gravis, failing treatment with steroids and Mestinon alone Start: 12-14-2024 End: 12-14-2024 Patient encounter procedure 12/14/2024 1:15 PM EST Office Visit PAULINA BOYER [address] [facility] [place] [phone] Bita, Christopher, DO [address] [place] [address] Arrived PAULINA [place] Comment on above: Arrived Start: 12-06-2024 End: 12-06-2024 Patient encounter procedure 12/06/2024 11:15 AM EST Office Visit [facility] [address] [place] [phone] Devonte Sunshine, DO [address] [place] [address] [facility] [address] Start: 10-13-2024 End: 10-13-2024 Patient encounter procedure [facility] [place] [address] Comment on above: Arrived Start: 09-15-2024 End: 09-15-2024 Patient encounter procedure [facility] [address] Comment on above: Arrived Start: 08-17-2024 End: 08-17-2024 Patient encounter procedure [facility] [address] Comment on above: Arrived Start: 08-03-2024 End: 08-03-2024 Patient encounter procedure 08/03/2024 3:00 PM EDT Office Visit [facility] [address] [place] [phone] Devonte Sunshine, DO [address] [place] [address] Arrived [facility] Comment on above: Arrived Start: 07-11-2024 Covid-19 Vaccine ( season) Covid-19 Vaccine ( season) [facility] Start: 07-11-2024 Covid-19 Vaccine ( season) Covid-19 Vaccine ( season) [facility] Start: 07-11-2024 Influenza vaccination Influenza Vacc ine (#1) [facility] Start: 01-13-2024 Pneumococcal Vaccine : 50+ (1 of 1 - PCV) Pneumococcal Vaccine: 50+ (1 of 1 - PCV) [facility] Start: 01-13-2024 Shingrix Vaccine (1 of 2) Cid grix Vaccine (1 of 2) [facility] Start: 08-13-2023 EPVNEURO, Provider: Pedro Chanel, Status: Pen, Time: 1:00 PM EPVNEURO, Provider: Pedro Chanel, Status: Pen, Time: 1:00 PM [facility] [address] Work Phone: Start: 2019 Diabetes Screening Diabetes Screenin g [facility] Start: 2019 Screening for malign ant neoplasm of colon [facility] Start: 2009 Lipid panel Lipid Screening [facility] Start: 1993 Hepatitis B Vaccine (1 of 3 - 19+ 3-dose series) Hepatitis B Vaccine (1 of 3 - 19+ 3-dose series) [facility] Start: 1993 Urine microalbumin profile DTaP,Tdap,Td Vaccine (1 - Tdap) [facility] Start: 01-13-1992 Anxiety Screening Anxiety Screening [facility] Start: 01-13-1992 Depression Screening Depression Scre ening [facility] Start: 01-13-1992 Hepatitis C screening Hepatitis C Sc reening [facility] Start: 01-13-1992 HIV screening HIV Screening [facility] Start: 1974 Screening for malign ant neoplasm of colon [facility] Immunizations Immunization Date Immunization Notes Care Provider Efren tee 08-01-2023 influenza, injectable, quadrivalent, preservative free Naomi Alvarez [facility] 08-01-2023 influenza virus vaccine, unspecified formulation Devonte Sunshine DO Work Phone: [facility] 10-05-2021 influenza virus vaccine, unspecified formulation Aiyana Klonk [facility] 10-05-2021 tetanus toxoid, reduced diphtheria toxoid, and acellular pertussis vaccine, adsorbed Aiyana Klonk [facility] 02-20-2021 SARS-CoV-2 (COVID-19 ) mRNA BNT-162b2 vax Aiyana Klonk [facility] Comment on above: Result Comment: 2022: TPV40 01-30-2021 SARS-CoV-2 (COVID-19 ) mRNA BNT-162b2 vax Aiyana Purdy [facility] Comment on above: Result Comment: 2022: TPV40 NEGATED: Highlighted row has not occurred!12-13-2022 influenza virus vaccine, unspecified formulation Aiyana Purdy [facility] Payers Date Payer Category Payer Self-pay 2024 Medicaid [id number] 2024 Medicaid (Managed Care) [facility] MEDICAID [id number] 2024 Unknown [id number] 2023 Medicaid [id number] 2023 Unknown [id number] 1974 Unknown [id number] 2.16.840.1.590479.3.579.2. 727 1974 Unknown [id number] 2.16.840.1.347012.3.579.2. 727 1974 Unknown [id number] 2.16.840.1.093111.3.579.2. 72 1974 Unknown [id number] 2.16.840.1.592775.3.579.2. 1974 Unknown [id number] 2.16840.1.317451.3.579.2. 1974 Unknown [id number] 2.16.840.1.386642.3.579.2. 732 1974 Unknown [id number] 2.840.1.888454.3.579.2. 1258 1974 Unknown [id number] .840.1.520394.3.579.2. 1258 1974 Unknown [id number] .840.1.006404.3.579.2. 1258 1974 Unknown [id number] .840.1.174489.3.579.2. 1258 1974 Unknown [id number] 2.840.1.642706.3.579.2. 1258 1974 Unknown [id number] .840.1.714091.3.579.2. 1258 1974 Unknown [id number] .840.1.054375.3.579.2. 1258 1974 Unknown [id number] 2.840.1.221645.3.579.2. 1258 1974 Unknown [id number] .840.1.967339.3.579.2. 1974 Unknown [id number] 840.1.504759.3.579.2. 1974 Unknown [id number] .16840.1.616829.3.579.2 1974 Unknown [id number] 2.16840.1.479701.3.579.2. 72 1974 Unknown [id number] .840.1.936634.3.579.2. 727 Unknown Unknown [id number] 2..840.1.091651.3.579.2. 531 Unknown [id number] 2.16.840.1.959380.3.579.2. 531 Unknown [id number] 2.16.840.1.671415.3.579.2. 531 Social History Date Type Detail Facility Start: 04-30-2022 End: 08-05-2024 Tobacco smoking status Heavy tobacco smoker (finding) [facility] Tobacco smoking status Never [facility] Start: 08-03-2024 End: 02-02-2025 Sex Assigned At Male [facility] Start: 1975 Sex Assigned At Male [facility] Tobacco smoking status Smoker (finding) [facility] Start: 08-03-2024 End: 02-02-2025 Current smoker Current smoker [facility] Start: 06-23-2023 Tobacco smoking status [facility] Smokes tobacco daily [facility] History of tobacco use Cigarette Smoker N [facility] Start: 06-23-2023 Tobacco use and exposure Smokeless tobacco non-user [facility] Start: 08-03-2024 End: 02-02-2025 Alcoholic beverage intake Current drinker of alcohol (finding) [facility] Start: 1975 Sex assigned at Not on file [facility] Start: 12-17-2024 Gender identity Identifies as male gender (finding) [facility] Start: 12-17-2024 Sexual orientation Heterosexual (finding) [facility] Functional Status Date Assessment Result Facility 12-13-2022 Functional Status N/A [facility] 04-30-2022 Functional Status N/A [facility] Clinical Notes 04-30-2022 to 02-08-2025 Trisha Alvarado DO - 02/08/2025 8:15 AM Susi Dillard MD - 12/21/2024 9:09 AM ESTTelephone Encounter - Montse Reynaga - 12/17/2024 9:32 AM Jose Sunshine DO - 12/14/2024 1:15 PM EST Note Date & Type Note Facility 02-08-2025 History of Present illness Narrative Images from the original note were not included. No chief complaint on file. Subjective Alfonzo Shaver, 50 y.o., male HPI The pt presents today for sleep consult at the request of Dr. Sunshine. Notes that he knows he has sleep apnea, but does have trouble using his CPAP machine. Notes that it feels as if it is choking him. Not air flow, more that it feels constricting on his face. Is not using a machine and hasn't for years . He was diagnosed with PAIGE about 10 years ago. He had his studies at [facility] in [facility]. He states he was told he was mild PAIGE He was having tiredness during the day, snoring and not feeling well. Sig other identified witnessed episodes of apnea. When he initally gotten the machine he did not do well with it. He will pull it off. HE did not have any one work with him with the pressures. He has tried to get a different mask. He does not have a machine at this point in time. NO hx of sleep walking or talking No vivid dreams or acting out his dreams NO RLS + Muscle cramping NO hallucinations or sleep paralysis. Bed time: 10-11pm and hard to fall asleep. 1-3 hours to fall asleep Wake time: 8-9 am. He will wake up 1-4 times through the night. Hard to get back to sleep, No naps normally but will doze off almost daily for 20 minutes CV exercise: none Off work: vending technician. +tob right before and will wake up and smoke in the middle of the night No alcohol Weight in 10 year hs increased a lot since the last test. Sleep ND Patient Symptoms Snores: Yes Wakes gasping for breath: No Dozes off if inactive: Yes Dozes off with activity: No Wakes a lot through the night: Depends Witnessed episodes of apnea: Yes Bedtime: Between 10-11pm Is it hard or easy to fall asleep: Hard Morning wake time: 8-9am Do you feel rested: Sometimes yes, sometimes no Takes naps: No Feels better after napping: N/A Sleepwalk: No Sleeptalk: No Vivid Dreams: No Acts out dreams: No Sleep related hallucinations: No Sleep paralysis: No Cataplexy: No Restless Leg: Yes Kicking/Jerking at night: Yes TV on while sleeping: Someimes on, sometimes off Smoke before bed: Yes Caffeine within 3 hours before bed: Yes CV exercise: No Past Medical History: Diagnosis Date High cholesterol (CMS/HCC) Hypothyroid (CMS/HCC) Past Surgical History: Procedure Laterality Date [place] COLONOSCOPY LESION REMOVAL Family History Problem Relation Name Age of Onset Diabetes Mother Heart disease Mother Cancer Mother Cancer Father Social History Tobacco Use Smoking status: Every Day Types: Cigarettes Smokeless tobacco: Never Substance Use Topics Alcohol use: Yes Allergies: Patient has no known allergies. General: No fever or chills HEENT: No nasal congestion or runny nose Pulmonary: No shortness of breath or cough Cardiovascular: No chest pain or palpitations GI: No nausea or vomiting : No dysuria or hematuria Musculoskeletal: No new aches or pains or muscle weakness Infectious: no recurrent fevers or infections Dermatologic: No rashes or skin lesions Neurologic: No new headaches or dizziness Vitals: 02/08/25 0817 BP: 124/84 Pulse: 98 SpO2: 98% Body mass index is 45.83 kg/m . weight: 267 lb Neurologic exam: General: obese, cooperative, pleasant Very narrow airway Mallampati of almost 4 macroglossia with scalloped tongue Mental status: Awake, alert to person, place and time. Recent and remote memory are intact. Attention and concentration are normal. Fund of knowledge is appropriate for level of education. HEENT: NC/AT Cranial nerves: CN II: Visual roman full to confrontation. No loss of vision CN III, IV, : pupils equal round and reactive to light. Extraocular movements intact. No ptosis present. CN V: Facial sensation is normal. CN VII: Full and symmetric facial movement. CN VIII: Hearing is normal CN IX and X: Palate elevates symmetrically. CN XI: Shoulder shrug is normal bilaterally. CN XII: Tongue is midline without atrophy or fasciculation. Speech: Clear and fluent no aphasia or dysarthria Pronator drift: Negative bilateral upper extremity Coordination: Intact, no signs of dysmetria Good finger to nose and rapid alternating movements Sensory: Sensation is intact to light, temperature and vibratory touch throughout four extremities. 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 Sounds like he has not had it in a couple of years ever since her recall took place. Patient does have significant daytime hypersomnia snoring witnessed episodes of apnea. He does have underlying myasthenia gravis so he needs this treated. He has gained a significant amount of weight since his last study approximately 10 years ago in [place]. He does have some sleep onset insomnia and some mild sleep maintenance insomnia however he also has some poor sleep hygiene in that he is going to bed to early for his wake time and he is using tobacco products right before bed and actually in the middle of the night. He needs to stop using tobacco for an hour before bedtime and not use it in the middle of the night. He should quit smoking completely. He is not getting any exercise and needs to start incorporating that. He needs work on diet for weight loss. He was counseled on some ways to do this. Plan Split night study at [place] Counseled on diet exercise weight loss Restrict sleep time 2 midnight to 8:00 a.m. and set those sleep schedule No tobacco at least an hour before bedtime and not through the night Join weight watchers Slowly advance exercise as tolerated Sleep handout was given The patient was counseled on proper sleep hygiene and adequate hours of sleep. The patient was counseled on the risks of stroke, OR, and sudden with PAIGE, along with the need for compliance with the CPAP/BiPAP treatment. The patient was counseled on the need for aggressive diet, exercise, and weight loss. The diagnosis was all discussed with the patient. All questions were answered and they agreed with the treatment plan. Patient will call if there are any new issues or questions. Pt has been fully educated on their diagnosis, treatment options, follow up plan, and return instructions Return to clinic: 2 months documented in this encounter [facility] 12-21-2024 Note HNO ID: [id number] Author: SUSI MITCHELL MD Service: ? Author Type: Physician Type: Progress Notes Filed: 12/21/2024 10:54 Note Text: NEW PATIENT DISTANCE HEALTH VISIT Encounter completed via virtual visit (audio and video) using [employer]'s Therapy[employer] Zoom software* Provider location during distance health encounter: [facility] Patient location during distance health encounter: Home ========= I have communicated my name and active licensure. The patient's identity and physical location were verified at the time of this visit. Either the patient (as in this case) or their legal agency sales representative has been informed of the risks and benefits of, and alternatives to treatment through a remote evaluation and consents to proceed with the evaluation remotely. ========= Date of Distance Health Visit :December 21, 2024 [facility] New Patient Distance Health Visit Note Consultation requested by Dr. Devonte Sunshine for an opinion regarding AChR seropositive GMG. My final recommendations will be communicated back to the requesting physician by way of shared Medical record or letter to requesting physician via US mail. History of Present Illness: History of Present Illness Mr. Shaver is a pleasant 49 year old gentleman with a PMHx inclusive of dyslipidemia, hypothyroidism and tobacco use/smoking who presents via virtual visit for a neuromuscular second opinion regarding the diagnosis of AChR seropositive generalized myasthenia gravis (initial transitory symptoms of diplopia in ~mid-2022, recurrence ~03/2024 with ptosis> diplopia, milder bulbar and appendicular symptoms). He has been seen locally by Dr. Devonte Sunshine, with the last visit on 12/14/2024. His initial symptoms began in mid-2022 with an episode of double vision that resolved within a few weeks. However, in March 2024, he experienced a recurrence of frequent double vision, accompanied by droopy eyelids. He sought medical attention from his aligner barrel and receiver, who referred him to a neurologist, Dr. Sunshine. Diagnostic tests included an MRI of the brain and blood tests for acetylcholine binding antibody, modulating acetylcholine receptor antibody, and smooth muscle antibody level. A CT scan of his chest was also performed. 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 His MG-ADL score was 12 on 09/15/2024 (today is 10, see below). The patient reports at least some difficulty with chewing, swallowing, walking, and talking, as well as shortness of breath. He is a smoker and finds it difficult to lie on his back due to a sensation of suffocation, leading him to sleep on his stomach (so orthopnea dubious). He experiences (mostly proximal) leg weakness, necessitating the use of his arms to stand up, but has not had any falls or requires assistive devices such as a cane, walker, or wheelchair. He can perform activities of daily living such as brushing his teeth and combing his hair, but his ability to drug abuse social worker objects sometimes depends on their texture. He does not experience major choking incidents but admits to minor choking on both liquids and solids. He has not made any dietary changes due to his swallowing issues. His symptoms are constant (no clear diurnal variation) and do not seem to be triggered by specific factors. He has noticed some improvement in his left eye droop and a reduction in double vision, although he now experiences blurred vision. While on prednisone 20 mg daily, and Mestinon 60 mg p.o. 3 times daily, he completed a course of Vyvgart infusions (last of weekly infusions x 4 ending 11/09/2024), which he found beneficial, particularly for his swallowing and eye droop and diplopia symptoms. He believes the first of his Vyvgart doses was administered intravenously, with subsequent doses being subcutaneous (Vyvgart Hytrulo). He is scheduled for another round of Vyvgart infusions (weekly x 4) resuming on 01/06/2025. He has a history of smoking half a pack per day for over 30 years but does not have COPD to his knowledge (desires quitting). He has gained some weight since starting prednisone. He has a follow-up appointment with Dr. Sunshine in January 2025. He was initiated on prednisone and Mestinon in the summer of 2023. He has been on prednisone 20 mg for the past ~5 months, having started at 10 mg daily for a month. He takes Mestinon 60 mg three times daily, which has provided some relief (suspect some minor adverse effects including muscle twitching, especially with the eyelids, some hyperlacrimation). Supplemental Information He is on Synthroid for hypothyroidism and Lipitor for dyslipidemia. He has no history of surgeries, prediabetes, or diabetes. He is currently on Medicaid and receives Social (more content not included)... [facility] 12-21-2024 History of Present illness Narrative NEW PATIENT DISTANCE HEALTH VISIT Encounter completed via virtual visit (audio and video) using Wannyi-based Zoom software* Provider location during distance health encounter: [facility] Patient location during distance health encounter: Home ========= I have communicated my name and active licensure. The patient's identity and physical location were verified at the time of this visit. Either the patient (as in this case) or their legal agency sales representative has been informed of the risks and benefits of, and alternatives to treatment through a remote evaluation and consents to proceed with the evaluation remotely. ========= Date of Distance Health Visit :December 21, 2024 [facility] New Patient Distance Health Visit Note Consultation requested by Dr. Devonte Sunshine for an opinion regarding AChR seropositive GMG. My final recommendations will be communicated back to the requesting physician by way of shared Medical record or letter to requesting physician via US mail. History of Present Illness: History of Present Illness Mr. Shaver is a pleasant 49 year old gentleman with a PMHx inclusive of dyslipidemia, hypothyroidism and tobacco use/smoking who presents via virtual visit for a neuromuscular second opinion regarding the diagnosis of AChR seropositive generalized myasthenia gravis (initial transitory symptoms of diplopia in ~mid-2022, recurrence ~03/2024 with ptosis> diplopia, milder bulbar and appendicular symptoms). He has been seen locally by Dr. Devonte Sunshine, with the last visit on 12/14/2024. His initial symptoms began in mid with an episode of double vision that resolved within a few weeks. However, in March 2024, he experienced a recurrence of frequent double vision, accompanied by droopy eyelids. He sought medical attention from his aligner barrel and receiver, who referred him to a neurologist, Dr. Sunshine. Diagnostic tests included an MRI of the brain and blood tests for acetylcholine binding antibody, modulating acetylcholine receptor antibody, and smooth muscle antibody level. A CT scan of his chest was also performed. 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 His MG-ADL score was 12 on 09/15/2024 (today is 10, see below). The patient reports at least some difficulty with chewing, swallowing, walking, and talking, as well as shortness of breath. He is a smoker and finds it difficult to lie on his back due to a sensation of suffocation, leading him to sleep on his stomach (so orthopnea dubious). He experiences (mostly proximal) leg weakness, necessitating the use of his arms to stand up, but has not had any falls or requires assistive devices such as a cane, walker, or wheelchair. He can perform activities of daily living such as brushing his teeth and combing his hair, but his ability to drug abuse social worker objects sometimes depends on their texture. He does not experience major choking incidents but admits to minor choking on both liquids and solids. He has not made any dietary changes due to his swallowing issues. His symptoms are constant (no clear diurnal variation) and do not seem to be triggered by specific factors. He has noticed some improvement in his left eye droop and a reduction in double vision, although he now experiences blurred vision. While on prednisone 20 mg daily, and Mestinon 60 mg p.o. 3 times daily, he completed a course of Vyvgart infusions (last of weekly infusions x 4 ending 11/09/2024), which he found beneficial, particularly for his swallowing and eye droop and diplopia symptoms. He believes the first of his Vyvgart doses was administered intravenously, with subsequent doses being subcutaneous (Vyvgart Hytrulo). He is scheduled for another round of Vyvgart infusions (weekly x 4) resuming on 01/06/2025. He has a history of smoking half a pack per day for over 30 years but does not have COPD to his knowledge (desires quitting). He has gained some weight since starting prednisone. He has a follow-up appointment with Dr. Sunshine in January 2025. He was initiated on prednisone and Mestinon in the summer of 2023. He has been on prednisone 20 mg for the past ~5 months, having started at 10 mg daily for a month. He takes Mestinon 60 mg three times daily, which has provided some relief (suspect some minor adverse effects including muscle twitching, especially with the eyelids, some hyperlacrimation). Supplemental Information He is on Synthroid for hypothyroidism and Lipitor for dyslipidemia. He has no history of surgeries, prediabetes, or diabetes. He is currently on Medicaid and receives Social Security disability benefits. SOCIAL HISTORY The patient admits to smoking about half a pack per day and has been a smoker for over 30 years. He does not drink alcohol, except for a drink or two per year. He does not use recreational drugs or medical marijuana. He is and has a 19-year-old son. FAMILY HISTORY The patient's father had lung cancer and was a smoker. His mother had breast cancer, diabetes, and heart disease. MEDICATIONS Current: Prednisone, Mestinon, Synthroid, Lipitor, Vyvgart. [Of note, the note sections above have been produced with the assistance of AI technology (Zivix), and is human provider reviewed/edited before finalization] Answers submitted by the patient for this visit: Activities of Daily Living (MG-ADL) (Submitted on 12/17/2024) Talkin=Intermittent slurring or nasal speech Chewin=Fatigue with solid food Swallowin=Frequent choking necessitating changes in diet Breathin=Shortness of breath with exertion Impairment of ability to brush teeth or comb hair: 1=Extra effort, but no rest periods needed Impairment of ability to rise from a chair: 2=Moderate always uses arms Double vision: 1=Occurs, but not daily Eyelid droop: 1=Occurs, but not daily Total =10 Allergies: See updated allergies documented below. ALLERGIES Not on File ROS: As per HPI OBJECTIVE (what is observable/audible via web cam & hans, if applicable): Appears to be with normal mood and affect; facies and facial movements symmetrical, EOMs appear intact and conjugate, apart from possible mild esotropia OS. Subtle bilateral ptosis, OS more than OD, not clearly fatigable with sustained upgaze x ~1 minute. Speech and voice WNL. Single breath counting test = 25 (no precipitated fatigable dysarthria as well). Able to sustain antigravity exertion bilateral UEs, without drift. Able to stand from a deep seated position with arms across chest. OUTSIDE RECORDS: Outside medical records, were reviewed during the course of the e-visit. The relevant details are summarized in the HPI above. Otherwise, additionally below: Results Laboratory Studies Acetylcholine binding antibody level was elevated at 33.0 on 05/10/2024. Musk antibody test was normal on 05/16/2024. Modulating acetylcholine receptor antibody was high with a normal smooth muscle antibody level on 05/05/2024. Imaging MRI of the brain with and without contrast showed mild chronic small vessel ischemic disease, but no clear culprit abnormalities. CT scan of chest did not show any thymic or abnormalities. [Of note, the note sections above have been produced with the assistance of AI technology (Zivix), and is human provider reviewed/edited before finalization] INTERNAL RECORDS: N/A IMPRESSION: Mr. Shaver is a pleasant 49 year old gentleman with a PMHx inclusive of dyslipidemia, hypothyroidism and tobacco use/smoking who presents via virtual visit for a neuromuscular second opinion regarding the diagnosis of AChR seropositive generalized myasthenia gravis (initial transitory symptoms of diplopia in ~mid-2022, recurrence ~03/2024 with ptosis> diplopia, milder bulbar and appendicular symptoms). He is currently managed on prednisone 20 mg daily (unaware that his referring neurologist intended for him to be 30 mg daily), and Mestinon 60 mg p.o. 3 times daily. He also received weekly infusions of efgartigimod X4 through 11/09/2024. He has had some improvement (evidenced by serial MG-ADL scores as well), though lingering oculobulbar> appendicular symptoms. PLAN/RECOMMENDATIONS: - The impression above as well as the plan as outlined below were extensively discussed with the patient who voiced understanding. All questions were answered to his stated satisfaction. -Discussed how the patient would like to proceed with care coordination, and due to traveling logistics, he would like to continue with me providing my recommendations to his referring local neurologist (Dr. Sunshine) who will remain the primary neurologist provider, and virtual visit follow-up with me as needed. Accordingly, would recommend as next step going up on the prednisone to 30 mg p.o. daily (as Dr. Sunshine intended), and considering incremental increase by 10 mg every 4 weekly (up to 60 mg p.o. daily) as needed, once tolerated (mindful of side effects that may be prohibitive including excessive weight gain, metabolic syndrome development etc.). Would recommend GI prophylaxis with PPI, as well as calcium plus vitamin D supplementation, in addition to PCP follow-up for long-term steroid adverse effects surveillance and management as needed. -Continue Mestinon 60 mg p.o. 3 times daily/prn. -Follow through with planned next round of Vyvgart (efgartigimod) infusions weekly x 4 weeks, starting 01/06/2025. However, for more durable steroid-sparing strategy, would recommend obtaining TPMT testing and if results permissive, to commence azathioprine (if TPMT testing results prohibitive, may consider starting mycophenolate mofetil instead). There would be required standard interval labs surveillance once on such as steroid sparing agents. -I reinforced what Dr. Sunshine has previously communicated in terms of being vigilant for MG crisis red flags (especially worsening swallowing and breathing issues) that should prompt urgent medical attention in the ED. -Counseled on smoking cessation. -RTC (virtual visit, per patient preference) in ~3 months. To aid with communication, patients (and primary care physicians) can sign up for [employer] (or [employer]), which allows online appointment scheduling, transmission of labs results and chart notes, and secure email communication. To establish either account, visit [email or web address]. The duration of this [facility] health appointment visit was 43 minutes (9:10-9:53 AM). At least 50% of this time was spent in counseling, explanation of diagnosis, planning of further management, and coordination of care. A further 25 mins were spent with documentation comprising this note. Susi Mitchell MD Staff, [facility] [place] Electronically signed December 21, 2024 9:54 AM Referring provider: Devonte Sunshine DO [id number] [id number] Primary care physician: Naomi Alvarez, [address] [address] documented in this encounter [facility] 12-17-2024 Telephone encounter Note Referral source: Devonte Sunshine DO ([facility]) Reason for visit: myasthenia gravis External records: viewable in Care Everywhere Triage: Not required Financial clearance: Not required to schedule [facility] 12-17-2024 Miscellaneous Notes Referral source: Devonte Sunshine DO ([facility]) Reason for visit: myasthenia gravis External records: viewable in Care Everywhere Triage: Not required Financial clearance: Not required to schedule documented in this encounter [facility] 12-14-2024 History of Present illness Narrative Images from the original note were not included. Chief complaint: MG Subjective Alfonzo Jessican, 49 y.o., male Patient presents today for a follow up for myasthenia gravis. He is accompanied by his . Patient states since he is on the break from the vyvgart he has been experiencing more symptoms. He states he has been choking more, his left eye has been twitching and he has an increase in fatigue. He is still feeling the weakness in his legs, hands and feet but he states this is about his baseline. He is experiencing some spasms in his right calf muscle. This can bounce back and fourth to his left as well though. He has used flexeril in the past which was helpful. Review of Systems Constitutional: Negative for appetite change, fatigue and fever. Eyes: Positive for visual disturbance. Respiratory: Negative for cough, shortness of breath and wheezing. Cardiovascular: Negative for chest pain, palpitations and leg swelling. Gastrointestinal: Negative for abdominal pain, constipation, diarrhea and nausea. Musculoskeletal: Negative for arthralgias, gait problem and myalgias. Neurological: Positive for weakness. Negative for dizziness, tremors, numbness and headaches. Past Medical History: Diagnosis Date High cholesterol (CMS/HCC) Hypothyroid (CMS/HCC) Past Surgical History: Procedure Laterality Date [place] COLONOSCOPY LESION REMOVAL Family History Problem Relation Name Age of Onset Diabetes Mother Heart disease Mother Cancer Mother Cancer Father Social History Tobacco Use Smoking status: Every Day Types: Cigarettes Smokeless tobacco: Never Substance Use Topics Alcohol use: Yes Allergies: Patient has no known allergies. Vitals: 12/14/24 1314 BP: 138/82 Pulse: 77 SpO2: 97% Body mass index is 44.35 kg/m . weight: 258 lb 6.4 oz Neurologic exam: Mental status: MG-ADL SCORE: 12 Awake, alert to person, place and time. Recent and remote memory are intact. Language is fluent without aphasia. Attention and concentration are normal. Fund of knowledge is appropriate for level of education. Cranial nerves: CN II: Visual acuity is normal. Visual roman full to confrontation. CN III, IV, : pupils equal round and reactive to light. Ptosis improved today but still has ptosis on the right eye with sustained upgaze. There is still left eye exotropia. CN V: Facial sensation is normal. CN VII: Full and symmetric facial movement. CN VIII: Hearing is normal to finger rub bilaterally: CN IX and X: Palate elevates symmetrically. CN XI: Shoulder shrug is normal bilaterally. CN XII: Tongue is midline without atrophy or fasciculation. Motor: Strength is 5/5 throughout. Bulk is normal. No neck flexor weakness Sensory: Sensation is intact to light touch throughout Four extremities. Reflexes: Deep tendon reflexes are 2+ and symmetric throughout. Coordination: Hwskse-[id number]-peoe testing and rapid alternating movements are normal Gait: Normal Review and summary of old records: CT of the chest with contrast on 07/14/2024: No acute process. No mass to suggest thymoma. MRI of the brain with and without contrast. No acute process. No pathologic enhancement. Findings suggestive of mild chronic small-vessel ischemic disease. Acetylcholine binding antibody on 05/10/2024: High at 33.0 Musk Antibody on 05/16/2024: Normal Acetylcholine receptor modulating antibody on 05/12/2024: High Smooth muscle antibody on 05/05/2024: Normal Assessment/Plan Diagnoses and all orders for this visit: Generalized Myasthenia Gravis It is my impression that patient has antibody receptor positive generalized myasthenia gravis. HIS MG-ADL SCORE IS 12 on 09/15/24. Patient does have ptosis on examination. Patient does not relate weakness or difficulty swallowing or fatigability. MRI of the brain is unremarkable for acute pathology. CT of the chest is unremarkable for thymoma. Prednisone has been somewhat helpful for the patient. He has NO shortness of breath today. Due to an due to insurance denial and need for renewal, the patient has not yet started Vyvgart. It is my opinion that this is imperative to the patient's safety and well-being. I am quite concerned the patient may end up in myasthenic crisis if this treatment is not initiated. Plan: The patient is having signs and symptoms consistent with generalized myasthenia gravis and is failing treatment with steroids and Mestinon alone. His mg ADL score is 12. He has undergone 4 treatments over a 1 month period and is at the end of this 1 month haitus with the plan to start his second month of treatment We did discuss the potential concerns with this medication including infusion reactions, allergic reaction and its immunosuppressant effects which could lead to infections which could be life-threatening. Patient understands these risks and is an open to exploring this treatment option. Continue prednisone 30 mg p.o. daily thereafter for disease modifying therapy Continue Mestinon 60 mg p.o. t.I.d.. Side effects discussed in detail. Patient understands and wishes proceed. He did have extensive discussion today regarding myasthenic crisis and signs and symptoms thereof in the need to proceed to the emergency department right away with any evidence of proximal muscle weakness or shortness of breath as this could be life-threatening High degree of morbidity and mortality. High-level clinical decision-making. Need for extensive ongoing investigation and review. High-level medical decision-making. At this time, given the weakness and the impact on the patient's vision, I do not feel the patient is safe to work. He is not safe to drive to and from work. He will need to remain off work for the foreseeable future. Pending response to treatment and further diagnostic evaluation we can reconsider this in the future Handicap eloisa supplied Pt has been fully educated on their diagnosis, lab results, treatment options, follow up plan, and return instructions documented in this encounter [facility] 10-13-2024 History of Present illness Narrative Images from the original note were not included. Chief complaint: MG Subjective Alfonzo Chhaya, 49 y.o., male Patient presents today for a follow up for myasthenia gravis. He is accompanied by his . Prednisone was increased at last visit to 30 mg PO daily. He states he has not noticed an improvement since the increase. He does reports some weight gain though. I asked about his vyvgart and insurance. He states he still has to [place] insurance that they just renewed this. I will start another PA today. He reports still feeling dizzy and weak constantly. His states he has been coughing more recently. He is still sleeping poorly at night about 4-6 hours a night. They deny any new concerns at this time. Review of Systems Constitutional: Negative for appetite change, fatigue and fever. Eyes: Positive for visual disturbance. Respiratory: Negative for cough, shortness of breath and wheezing. Cardiovascular: Negative for chest pain, palpitations and leg swelling. Gastrointestinal: Negative for abdominal pain, constipation, diarrhea and nausea. Musculoskeletal: Negative for arthralgias, gait problem and myalgias. Neurological: Positive for weakness. Negative for dizziness, tremors, numbness and headaches. Past Medical History: Diagnosis Date High cholesterol (CMS/HCC) Hypothyroid (CMS/HCC) Past Surgical History: Procedure Laterality Date [place] COLONOSCOPY LESION REMOVAL Family History Problem Relation Name Age of Onset Diabetes Mother Heart disease Mother Cancer Mother Cancer Father Social History Tobacco Use Smoking status: Every Day Types: Cigarettes Smokeless tobacco: Never Substance Use Topics Alcohol use: Yes Allergies: Patient has no known allergies. Vitals: 10/13/24 1057 BP: 142/78 Pulse: 83 SpO2: 96% Body mass index is 43.43 kg/m . weight: 253 lb Neurologic exam: Mental status: MG-ADL SCORE: 12 Awake, alert to person, place and time. Recent and remote memory are intact. Language is fluent without aphasia. Attention and concentration are normal. Fund of knowledge is appropriate for level of education. Cranial nerves: CN II: Visual acuity is normal. Visual roman full to confrontation. CN III, IV, : pupils equal round and reactive to light. Ptosis improved today but still has ptosis on the right eye with sustained upgaze. There is still left eye exotropia. CN V: Facial sensation is normal. CN VII: Full and symmetric facial movement. CN VIII: Hearing is normal to finger rub bilaterally: CN IX and X: Palate elevates symmetrically. CN XI: Shoulder shrug is normal bilaterally. CN XII: Tongue is midline without atrophy or fasciculation. Motor: Strength is 5/5 throughout. Bulk is normal. No neck flexor weakness Sensory: Sensation is intact to light touch throughout Four extremities. Reflexes: Deep tendon reflexes are 2+ and symmetric throughout. Coordination: [id number]-zxcj testing and rapid alternating movements are normal Gait: Normal Review and summary of old records: CT of the chest with contrast on 07/14/2024: No acute process. No mass to suggest thymoma. MRI of the brain with and without contrast. No acute process. No pathologic enhancement. Findings suggestive of mild chronic small-vessel ischemic disease. Acetylcholine binding antibody on 05/10/2024: High at 33.0 Musk Antibody on 05/16/2024: Normal Acetylcholine receptor modulating antibody on 05/12/2024: High Smooth muscle antibody on 05/05/2024: Normal Assessment/Plan Diagnoses and all orders for this visit: Generalized Myasthenia Gravis It is my impression that patient has antibody receptor positive generalized myasthenia gravis. HIS MG-ADL SCORE IS 12 on 09/15/24. Patient does have ptosis on examination. Patient does not relate weakness or difficulty swallowing or fatigability. MRI of the brain is unremarkable for acute pathology. CT of the chest is unremarkable for thymoma. Prednisone has been somewhat helpful for the patient. He has NO shortness of breath today. Due to an due to insurance denial and need for renewal, the patient has not yet started Vyvgart. It is my opinion that this is imperative to the patient's safety and well-being. I am quite concerned the patient may end up in myasthenic crisis if this treatment is not initiated. Plan: The patient is having signs and symptoms consistent with generalized myasthenia gravis and is failing treatment with steroids and Mestinon alone. His mg ADL score is 12. I believe he is an ideal candidate for treatment with Vyvgart infusions once weekly x4 weeks. He will likely need a 1 month hiatus and then we will repeat this cycle of infusing once weekly every 4 weeks on an ongoing basis. We did discuss the potential concerns with this medication including infusion reactions, allergic reaction and its immunosuppressant effects which could lead to infections which could be life-threatening. Patient understands these risks and is an open to exploring this treatment option. Continue prednisone 30 mg p.o. daily thereafter for disease modifying therapy Continue Mestinon 60 mg p.o. t.I.d.. Side effects discussed in detail. Patient understands and wishes proceed. He did have extensive discussion today regarding myasthenic crisis and signs and symptoms thereof in the need to proceed to the emergency department right away with any evidence of proximal muscle weakness or shortness of breath as this could be life-threatening High degree of morbidity and mortality. High-level clinical decision-making. Need for extensive ongoing investigation and review. High-level medical decision-making. At this time, given the weakness and the impact on the patient's vision, I do not feel the patient is safe to work. He is not safe to drive to and from work. He will need to remain off work for the foreseeable future. Pending response to treatment and further diagnostic evaluation we can reconsider this in the future Kirk trevizo Pt has been fully educated on their diagnosis, lab results, treatment options, follow up plan, and return instructions documented in this encounter [facility] 09-15-2024 History of Present illness Narrative Images from the original note were not included. Chief complaint: MG Subjective Alfonzo Chhaya, 49 y.o., male Patient presents today for a follow up for myasthenia gravis. He is accompanied by his . Prednisone was increased at last visit to 20 mg PO daily. Patient states since the increase in the prednisone his eye has been more open. He reports being off balance, dizzy and extremely fatigued. He states these symptoms are constant. He reports not sleeping well. He is going to bed around 1-2 am. He wakes up around 3-4 am to use the restroom and stays up for a few hours. He then will fall back asleep for 1-2 hours. He reports a thick mucus that he is choking on somewhat. He believes this keeps him up at night. He still reports having weakness in both legs. He denies any falls but has stumbled a few times. Review of Systems Constitutional: Negative for appetite change, fatigue and fever. Eyes: Positive for visual disturbance. Respiratory: Negative for cough, shortness of breath and wheezing. Cardiovascular: Negative for chest pain, palpitations and leg swelling. Gastrointestinal: Negative for abdominal pain, constipation, diarrhea and nausea. Musculoskeletal: Negative for arthralgias, gait problem and myalgias. Neurological: Positive for weakness. Negative for dizziness, tremors, numbness and headaches. Past Medical History: Diagnosis Date High cholesterol (CMS/HCC) Hypothyroid (CMS/HCC) Past Surgical History: Procedure Laterality Date [place] COLONOSCOPY LESION REMOVAL Family History Problem Relation Name Age of Onset Diabetes Mother Heart disease Mother Cancer Mother Cancer Father Social History Tobacco Use Smoking status: Every Day Types: Cigarettes Smokeless tobacco: Never Substance Use Topics Alcohol use: Yes Allergies: Patient has no known allergies. Vitals: 09/15/24 1042 BP: 141/83 Pulse: 84 SpO2: 96% Body mass index is 41.92 kg/m . weight: 244 lb 3.2 oz Neurologic exam: Mental status: Awake, alert to person, place and time. Recent and remote memory are intact. Language is fluent without aphasia. Attention and concentration are normal. Fund of knowledge is appropriate for level of education. Cranial nerves: CN II: Visual acuity is normal. Visual roman full to confrontation. CN III, IV, : pupils equal round and reactive to light. Ptosis improved today but still has ptosis on the right eye with sustained upgaze. There is still left eye exotropia. CN V: Facial sensation is normal. CN VII: Full and symmetric facial movement. CN VIII: Hearing is normal to finger rub bilaterally: CN IX and X: Palate elevates symmetrically. CN XI: Shoulder shrug is normal bilaterally. CN XII: Tongue is midline without atrophy or fasciculation. Motor: Strength is 5/5 throughout. Bulk is normal. No neck flexor weakness Sensory: Sensation is intact to light touch throughout Four extremities. Reflexes: Deep tendon reflexes are 2+ and symmetric throughout. Coordination: Fqdxvb-[id number]-lrqg testing and rapid alternating movements are normal Gait: Normal Review and summary of old records: CT of the chest with contrast on 07/14/2024: No acute process. No mass to suggest thymoma. MRI of the brain with and without contrast. No acute process. No pathologic enhancement. Findings suggestive of mild chronic small-vessel ischemic disease. Acetylcholine binding antibody on 05/10/2024: High at 33.0 Musk Antibody on 05/16/2024: Normal Acetylcholine receptor modulating antibody on 05/12/2024: High Smooth muscle antibody on 05/05/2024: Normal Assessment/Plan Diagnoses and all orders for this visit: Generalized Myasthenia Gravis It is my impression that patient has antibody receptor positive myasthenia gravis. Patient does have ptosis on examination. Patient does not relate weakness or difficulty swallowing or fatigability. MRI of the brain is unremarkable for acute pathology. CT of the chest is unremarkable for thymoma. Prednisone does seem to be somewhat helpful for the symptoms and was stopped briefly by the patient but was restarted. Symptoms still seem to be present and patient likely needs a dose increase. He has NO shortness of breath today. Plan: Due to the that the patient due to the fact that the patient's symptoms are still debilitating from a visual perspective in spite of treatment with Mestinon, we have added prednisone and will need to increase the dose. This was done with consideration of shared decision-making with risks of steroid use long-term and difficulty of weaning balanced with the patient's debilitating symptoms. Patient understands these and wishes to proceed with treatment. The patient is having signs and symptoms consistent with generalized myasthenia gravis and is failing treatment with steroids and Mestinon alone. His mg ADL score is greater than 5. I believe he is an ideal candidate for treatment with Vyvgart infusions once weekly x4 weeks. He will likely need a 1 month hiatus and then we will repeat this cycle of infusing once weekly every 4 weeks on an ongoing basis. We did discuss the potential concerns with this medication including infusion reactions, allergic reaction and its immunosuppressant effects which could lead to infections which could be life-threatening. Patient understands these risks and is an open to exploring this treatment option. Increase prednisone to 25 mg x 2 weeks then increase to 30 mg p.o. daily thereafter for disease modifying therapy Continue Mestinon 60 mg p.o. t.I.d.. Side effects discussed in detail. Patient understands and wishes proceed. He did have extensive discussion today regarding myasthenic crisis and signs and symptoms thereof in the need to proceed to the emergency department right away with any evidence of proximal muscle weakness or shortness of breath as this could be life-threatening High degree of morbidity and mortality. High-level clinical decision-making. Need for extensive ongoing investigation and review. High-level medical decision-making. At this time, given the weakness and the impact on the patient's vision, I do not feel the patient is safe to work. He is not safe to drive to and from work. He will need to remain off work for the foreseeable future. Pending response to treatment and further diagnostic evaluation we can reconsider this in the future Pt has been fully educated on their diagnosis, lab results, treatment options, follow up plan, and return instructions documented in this encounter [facility] 08-17-2024 History of Present illness Narrative Images from the original note were not included. Chief complaint: MG Subjective Alfonzo Jazieldavidben, 49 y.o., male Alfonzo is here for a follow up. He is here with his . He was re- started on prednisone at his last visit. He states things have been about the same. He states he did not notice the prednisone helping any this time. His vision is about the same. In the morning his vision is good and throughout the day it worsens. He is having double vision in the left eye as well. Neck pain has gotten a bit better since last visit. He is having calf spasms more often. This is happening in calves now. They deny any further concerns. Review of Systems Constitutional: Negative for appetite change, fatigue and fever. Eyes: Positive for visual disturbance. Respiratory: Negative for cough, shortness of breath and wheezing. Cardiovascular: Negative for chest pain, palpitations and leg swelling. Gastrointestinal: Negative for abdominal pain, constipation, diarrhea and nausea. Musculoskeletal: Negative for arthralgias, gait problem and myalgias. Neurological: Positive for weakness. Negative for dizziness, tremors, numbness and headaches. Past Medical History: Diagnosis Date High cholesterol (CMS/HCC) Hypothyroid (CMS/HCC) Past Surgical History: Procedure Laterality Date [place] COLONOSCOPY LESION REMOVAL Family History Problem Relation Name Age of Onset Diabetes Mother Heart disease Mother Cancer Mother Cancer Father Social History Tobacco Use Smoking status: Every Day Types: Cigarettes Smokeless tobacco: Never Substance Use Topics Alcohol use: Yes Allergies: Patient has no known allergies. Vitals: 08/17/24 0914 BP: 132/82 Pulse: 73 SpO2: 96% There is no height or weight on file to calculate BMI. Neurologic exam: Mental status: Awake, alert to person, place and time. Recent and remote memory are intact. Language is fluent without aphasia. Attention and concentration are normal. Fund of knowledge is appropriate for level of education. Cranial nerves: CN II: Visual acuity is normal. Visual roman full to confrontation. CN III, IV, : pupils equal round and reactive to light. Ptosis improved today but still has ptosis on the right eye with sustained upgaze. There is still left eye exotropia. CN V: Facial sensation is normal. CN VII: Full and symmetric facial movement. CN VIII: Hearing is normal to finger rub bilaterally: CN IX and X: Palate elevates symmetrically. CN XI: Shoulder shrug is normal bilaterally. CN XII: Tongue is midline without atrophy or fasciculation. Motor: Strength is 5/5 throughout. Bulk is normal. No neck flexor weakness Sensory: Sensation is intact to light touch throughout Four extremities. Reflexes: Deep tendon reflexes are 2+ and symmetric throughout. Coordination: Hsaprv-io-duns testing and rapid alternating movements are normal Gait: Normal Review and summary of old records: CT of the chest with contrast on 07/14/2024: No acute process. No mass to suggest thymoma. MRI of the brain with and without contrast. No acute process. No pathologic enhancement. Findings suggestive of mild chronic small-vessel ischemic disease. 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 Patient does have ptosis on examination. Patient does not relate weakness or difficulty swallowing or fatigability. MRI of the brain is unremarkable for acute pathology. CT of the chest is unremarkable for thymoma. Prednisone does seem to be somewhat helpful for the symptoms and was stopped briefly by the patient but was restarted. Symptoms still seem to be present and patient likely needs a dose increase. He has NO shortness of breath today. Plan: Due to the that the patient due to the fact that the patient's symptoms are still debilitating from a visual perspective in spite of treatment with Mestinon, we have added prednisone and will need to increase the dose. This was done with consideration of shared decision-making with risks of steroid use long-term and difficulty of weaning balanced with the patient's debilitating symptoms. Patient understands these and wishes to proceed with treatment. Increase prednisone to 20 mg p.o. daily for disease modifying therapy Continue Mestinon 60 mg p.o. t.I.d.. Side effects discussed in detail. Patient understands and wishes proceed. He did have extensive discussion today regarding myasthenic crisis and signs and symptoms thereof in the need to proceed to the emergency department right away with any evidence of proximal muscle weakness or shortness of breath as this could be life-threatening High degree of morbidity and mortality. High-level clinical decision-making. Need for extensive ongoing investigation and review. High-level medical decision-making. At this time, given the weakness and the impact on the patient's vision, I do not feel the patient is safe to work. He is not safe to drive to and from work. He will need to remain off work for the foreseeable future. Pending response to treatment and further diagnostic evaluation we can reconsider this in the future Pt has been fully educated on their diagnosis, lab results, treatment options, follow up plan, and return instructions documented in this encounter [facility] 08-03-2024 History of Present illness Narrative Images from the original note were not included. Chief complaint: Ptosis Subjective Alfonzo Shaver, 49 y.o., male Alfonzo is here for a follow up. He had a chest CT and an MRI of the brain completed for review. He is here with his . He was started on prednisone and mestinon at his last visit. She states his vision is a bit better. He states his neck pain has gotten a bit worse. This radiates down his shoulders and arms. He is up for 10-15 minutes and then he has to lay back down because he is in pain. He is having calf spasms more often. He thinks the mestinon helped a bit but it is now not helping quite as much. She states he had more energy when first starting the medication. He reports having some difficulty swallowing and coughing. This can happen with food or drinks. Review of Systems Constitutional: Negative for appetite change, fatigue and fever. Eyes: Positive for visual disturbance. Respiratory: Negative for cough, shortness of breath and wheezing. Cardiovascular: Negative for chest pain, palpitations and leg swelling. Gastrointestinal: Negative for abdominal pain, constipation, diarrhea and nausea. Musculoskeletal: Negative for arthralgias, gait problem and myalgias. Neurological: Positive for weakness. Negative for dizziness, tremors, numbness and headaches. Past Medical History: Diagnosis Date High cholesterol (CMS/HCC) Hypothyroid (CMS/HCC) Past Surgical History: Procedure Laterality Date [place] COLONOSCOPY LESION REMOVAL Family History Problem Relation Name Age of Onset Diabetes Mother Heart disease Mother Cancer Mother Cancer Father Social History Tobacco Use Smoking status: Every Day Types: Cigarettes Smokeless tobacco: Never Substance Use Topics Alcohol use: Yes Allergies: Patient has no known allergies. Vitals: 08/03/24 1444 BP: 135/79 Pulse: 89 SpO2: 95% Body mass index is 40.34 kg/m . weight: 235 lb Neurologic exam: Mental status: Awake, alert to person, place and time. Recent and remote memory are intact. Language is fluent without aphasia. Attention and concentration are normal. Fund of knowledge is appropriate for level of education. Cranial nerves: CN II: Visual acuity is normal. Visual roman full to confrontation. CN III, IV, : pupils equal round and reactive to light. The patient has severe ptosis of the left eyelid and has a left eye exotropia. CN V: Facial sensation is normal. CN VII: Full and symmetric facial movement. CN VIII: Hearing is normal to finger rub bilaterally: CN IX and X: Palate elevates symmetrically. CN XI: Shoulder shrug is normal bilaterally. CN XII: Tongue is midline without atrophy or fasciculation. Motor: Strength is 5/5 throughout. Bulk is normal. No neck flexor weakness Sensory: Sensation is intact to light touch throughout Four extremities. Reflexes: Deep tendon reflexes are 2+ and symmetric throughout. Coordination: Hthpbq-wu-rstq testing and rapid alternating movements are normal Gait: Normal Review and summary of old records: CT of the chest with contrast on 07/14/2024: No acute process. No mass to suggest thymoma. MRI of the brain with and without contrast. No acute process. No pathologic enhancement. Findings suggestive of mild chronic small-vessel ischemic disease. 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 Patient does have ptosis on examination. Patient does not relate weakness or difficulty swallowing or fatigability. Concerned that this may represent ocular myasthenia gravis that is not yet generalized. We certainly need to rule out other pathology intracranial and speaking that could account for the patient's symptoms as well. The patient has done well after starting prednisone but had worsened after stopping this in 10 days. He was unclear that this was supposed to be an ongoing treatment option. His ptosis did worsen but is still much better than last visit overall. He has NO shortness of breath today. Plan: Re-start prednisone 10 mg p.o. daily for disease modifying therapy Continue Mestinon 60 mg p.o. t.I.d.. Side effects discussed in detail. Patient understands and wishes proceed. Based on the results of this we may also consider treatment with low-dose prednisone. He did have extensive discussion today regarding myasthenic crisis and signs and symptoms thereof in the need to proceed to the emergency department right away with any evidence of proximal muscle weakness or shortness of breath as this could be life-threatening Based on the substantial eye findings and the patient's presentation I did want to admit the patient directly to the hospital for evaluation as above and treatment. The patient has declined treatment. He understands this may be life-threatening. He understands that myasthenia can change very quickly. He understands that he may lose the ability to breathe. He understands this could result in and adamantly refuses admission. High degree of morbidity and mortality. High-level clinical decision-making. Need for extensive ongoing investigation and review. High-level medical decision-making. At this time, given the weakness and the impact on the patient's vision, I do not feel the patient is safe to work. He is not safe to drive to and from work. He will need to remain off work for the foreseeable future. Pending response to treatment and further diagnostic evaluation we can reconsider this in the future Pt has been fully educated on their diagnosis, lab results, treatment options, follow up plan, and return instructions documented in this encounter [facility] 05-05-2024 Evaluation + Plan note Diagnostic Tests PendingSmooth Muscle Antibody Screen 05/05/24Acetylcholine Receptor Binding Antibody 05/05/24 [facility] 04-30-2022 Hospital Discharge instructions Patient Education 04/30/2022 13:13:30 Budget-Friendly Healthy Eating Budget-Friendly Healthy Eating There are many ways to save money at the grocery store and continue to eat healthy. You can be successful if you: Plan meals according to your budget. Make a grocery list and only purchase food according to your grocery list. Prepare food yourself. What are tips for following this plan? Reading food labels Compare food labels between brand name foods and the store brand. Often the nutritional value is the same, but the store brand is lower cost. Look for products that do not have added sugar, fat, or salt (sodium). These often cost the same but are healthier for you. Products may be labeled as: ?Sugar-free. ?Nonfat. ?Low-fat. ?Sodium-free. ?Low-sodium. Look for lean ground beef labeled as at least 92% lean and 8% fat. Shopping Buy only the items on your grocery list and go only to the areas of the store that have the items on your list. Use coupons only for foods and brands you normally buy. Avoid buying items you wouldn't normally buy simply because they are on sale. Check online and in newspapers for weekly deals. Buy healthy items from the bulk bins when available, such as herbs, spices, flour, pasta, nuts, and dried fruit. Buy fruits and vegetables that are in season. Prices are usually lower on in-season produce. Look at the unit orellana on the oerllana tag. Use it to compare different brands and sizes to find out which item is the best deal. Choose healthy items that are often low-cost, such as carrots, potatoes, apples, bananas, and oranges. Dried or canned beans are a low-cost protein source. Buy in bulk and freeze extra food. Items you can buy in bulk include meats, fish, poultry, frozen fruits, and frozen vegetables. Avoid buying [id number] foods, such as pre-cut fruits and vegetables and pre-made salads. If possible, shop around to discover where you can find the best prices. Consider other retailers such as dollar stores, larger wholesale stores, local fruit and vegetable stands, and farmers markets. Do not shop when you are hungry. If you shop while hungry, it may be hard to stick to your list and budget. Resist impulse buying. Use your grocery list as your official plan for the week. Buy a variety of vegetables and fruits by purchasing fresh, frozen, and canned items. Look at the top and bottom shelves for deals. Foods at eye level (eye level of an adult or child) are usually more expensive. Be efficient with your time when shopping. The more time you spend at the store, the more money you are likely to spend. To save money when choosing more expensive foods like meats and dairy: ?Choose cheaper cuts of meat, such as bone-in chicken thighs and drumsticks instead of skinless and boneless chicken. When you are ready to prepare the chicken, you can remove the skin yourself to make it healthier. ?Choose lean meats like chicken or turkey instead of beef. ?Choose canned seafood, such as tuna, salmon, or sardines. ?Buy eggs as a low-cost source of protein. ?Buy dried beans and peas, such as lentils, split peas, or kidney beans instead of meats. Dried beans and peas are a good alternative source of protein. ?Buy the larger tubs of yogurt instead of individual-sized containers. Choose water instead of sodas and other sweetened beverages. Avoid buying chips, cookies, and other junk food. These items are usually expensive and not healthy. Cooking Make extra food and freeze the extras in meal-sized containers or in individual portions for fast meals and snacks. Pre-cook on days when you have extra time to prepare meals in advance. You can keep these meals in the fridge or freezer and reheat for a quick meal. When you come home from the grocery store, wash, peel, and cut fruits and vegetables so they are ready to use and eat. This will help reduce food waste. Meal planning Do not eat out or get fast food. Prepare food at home. Make a grocery list and make sure to bring it with you to the store. If you have a smart phone, you could use your phone to create your shopping list. Plan meals and snacks according to a grocery list and budget you create. Use leftovers in your meal plan for the week. Look for recipes where you can cook once and make enough food for two meals. Include budget-friendly meals like stews, casseroles, and stir-bahena dishes. Try some meatless meals or try no cook meals like salads. Make sure that half your plate is filled with fruits or vegetables. Choose from fresh, frozen, or canned fruits and vegetables. If eating canned, remember to rinse them before eating. This will remove any excess salt added for packaging. Summary Eating healthy on a budget is possible if you plan your meals according to your budget, purchase according to your budget and grocery list, and prepare food yourself. Tips for buying more food on a limited budget include buying generic brands, using coupons only for foods you normally buy, and buying healthy items from the bulk bins when available. Tips for buying cheaper food to replace expensive food include choosing cheaper, lean cuts of meat, and buying dried beans and peas. This information is not intended to replace advice given to you by your health care provider. Make sure you discuss any questions you have with your health care provider. Document Released: 06/30/2015 Document Revised: 10/28/2018 Document Reviewed: 10/28/2018 [facility] Patient Education 2020 [employer]. 04/30/2022 13:13:29 BMI for Adults BMI for Adults Body mass index (BMI) is a number that is calculated from a person's weight and height. BMI may help to estimate how much of a person's weight is composed of fat. BMI can help identify those who may be at higher risk for certain medical problems. How is BMI used with adults? BMI is used as a screening tool to identify possible weight problems. It is used to check whether a person is obese, overweight, healthy weight, or underweight. How is BMI calculated? BMI measures your weight and compares it to your height. This can be done either in [place] ([place] or metric measurements. Note that charts are available to help you find your BMI quickly and easily without having to do these calculations yourself. To calculate your BMI in [place] measurements, your health care provider will: 1.Measure your weight in pounds (lb). 2.Multiply the number of pounds by 703. For example, for a person who weighs 180 lb, multiply that number by 703, which equals 126,540. 3.Measure your height in inches (in). Then multiply that number by itself to get a measurement called inches squared. For example, for a person who is 70 in tall, the inches squared measurement is 70 in x 70 in, which equals 4900 inches squared. 4.Divide the total from Step 2 (number of lb x 703) by the total from Step 3 (inches squared): 126,540 4900 = 25.8. This is your BMI. To calculate your BMI in metric measurements, your health care provider will: 1.Measure your weight in kilograms (kg). 2.Measure your height in meters (m). Then multiply that number by itself to get a measurement called meters squared. For example, for a person who is 1.75 m tall, the meters squared measurement is 1.75 m x 1.75 m, which is equal to 3.1 meters squared. 3.Divide the number of kilograms (your weight) by the meters squared number. In this example: 70 3.1 = 22.6. This is your BMI. How is BMI interpreted? To interpret your results, your health care provider will use BMI charts to identify whether you are underweight, normal weight, overweight, or obese. The following guidelines will be used: Underweight: BMI less than 18.5. Normal weight: BMI between 18.5 and 24.9. Overweight: BMI between 25 and 29.9. Obese: BMI of 30 and above. Please note: Weight includes both fat and muscle, so someone with a muscular build, such as an athlete, may have a BMI that is higher than 24.9. In cases like these, BMI is not an accurate measure of body fat. To determine if excess body fat is the cause of a BMI of 25 or higher, further assessments may need to be done by a health care provider. BMI is usually interpreted in the same way for men and women. Why is BMI a useful tool? BMI is useful in two ways: Identifying a weight problem that may be related to a medical condition, or that may increase the risk for medical problems. Promoting lifestyle and diet changes in order to reach a healthy weight. Summary Body mass index (BMI) is a number that is calculated from a person's weight and height. BMI may help to estimate how much of a person's weight is composed of fat. BMI can help identify those who may be at higher risk for certain medical problems. BMI can be measured using Polish measurements or metric measurements. To interpret your results, your health care provider will use BMI charts to identify whether you are underweight, normal weight, overweight, or obese. This information is not intended to replace advice given to you by your health care provider. Make sure you discuss any questions you have with your health care provider. Document Released: 07/08/2005 Document Revised: 10/09/2018 Document Reviewed: 09/09/2018 [facility] [facility] Patient Education 2020 [employer]. 04/30/2022 13:13:26 Tobacco Use Disorder Tobacco Use Disorder Tobacco use disorder (TUD) occurs when a person craves, seeks, and uses tobacco, regardless of the consequences. This disorder can cause problems with mental and physical health. It can affect your ability to have healthy relationships, and it can keep you from meeting your responsibilities at work, home, or school. Tobacco may be: Smoked as a cigarette or cigar. Inhaled using e-cigarettes. Smoked in a pipe or hookah. Chewed as smokeless tobacco. Inhaled into the nostrils as snuff. Tobacco products contain a dangerous chemical called nicotine, which is very addictive. Nicotine triggers hormones that make the body feel stimulated and works on areas of the brain that make you feel good. These effects can make it hard for people to quit nicotine. Tobacco contains many other unsafe chemicals that can damage almost every organ in the body. Smoking tobacco also puts others in danger due to fire risk and possible health problems caused by breathing in secondhand smoke. What are the signs or symptoms? Symptoms of TUD may include: Being unable to slow down or stop your tobacco use. Spending an abnormal amount of time getting or using tobacco. Craving tobacco. Cravings may last for up to 6 months after quitting. Tobacco use that: ?Interferes with your work, school, or home life. ?Interferes with your personal and social relationships. ?Makes you give up activities that you once enjoyed or found important. Using tobacco even though you know that it is: ?Dangerous or bad for your health or someone else's health. ?Causing problems in your life. Needing more and more of the substance to get the same effect (developing tolerance). Experiencing unpleasant symptoms if you do not use the substance (withdrawal). Withdrawal symptoms may include: ?Depressed, anxious, or irritable mood. ?Difficulty concentrating. ?Increased appetite. ?Restlessness or trouble sleeping. Using the substance to avoid withdrawal. How is this diagnosed? This condition may be diagnosed based on: Your current and past tobacco use. Your health care provider may ask questions about how your tobacco use affects your life. A physical exam. You may be diagnosed with TUD if you have at least two symptoms within a 12-month period. How is this treated? This condition is treated by stopping tobacco use. Many people are unable to quit on their own and need help. Treatment may include: Nicotine replacement therapy (NRT). NRT provides nicotine without the other harmful chemicals in tobacco. NRT gradually lowers the dosage of nicotine in the body and reduces withdrawal symptoms. NRT is available as: ?Qcsz-awn-davqfrl gums, lozenges, and skin patches. ?Prescription mouth inhalers and nasal sprays. Medicine that acts on the brain to reduce cravings and withdrawal symptoms. A type of talk therapy that examines your triggers for tobacco use, how to avoid them, and how to cope with cravings (behavioral therapy). Hypnosis. This may help with withdrawal symptoms. Joining a support group for others coping with TUD. The best treatment for TUD is usually a combination of medicine, talk therapy, and support groups. Recovery can be a long process. Many people start using tobacco again after stopping (relapse). If you relapse, it does not mean that treatment will not work. Follow these instructions at home: Lifestyle Do not use any products that contain nicotine or tobacco, such as cigarettes and e-cigarettes. Avoid things that trigger tobacco use as much as you can. Triggers include people and situations that usually cause you to use tobacco. Avoid drinks that contain caffeine, including coffee. These may worsen some withdrawal symptoms. Find ways to manage stress. Wanting to smoke may cause stress, and stress can make you want to smoke. Relaxation techniques such as deep breathing, meditation, and yoga may help. Attend support groups as needed. These groups are an important part of long-term recovery for many people. General instructions Take ajvw-suh-omocpxg and prescription medicines only as told by your health care provider. Check with your health care provider before taking any new prescription or ncjj-jro-miudcrl medicines. Decide on a friend, family member, or smoking quit-line (such as 0-368-RSRN-NOW in the [place] that you can call or text when you feel the urge to smoke or when you need help coping with cravings. Keep all follow-up visits as told by your health care provider and therapist. This is important. Contact a health care provider if: You are not able to take your medicines as prescribed. Your symptoms get worse, even with treatment. Summary Tobacco use disorder (TUD) occurs when a person craves, seeks, and uses tobacco regardless of the consequences. This condition may be diagnosed based on your current and past tobacco use and a physical exam. Many people are unable to quit on their own and need help. Recovery can be a long process. The most effective treatment for TUD is usually a combination of medicine, talk therapy, and support groups. This information is not intended to replace advice given to you by your health care provider. Make sure you discuss any questions you have with your health care provider. Document Released: 07/02/2005 Document Revised: 10/14/2018 Document Reviewed: 10/14/2018 [employer] Patient Education 2020 [employer] 04/30/2022 13:13:21 Flexor Carpi Ulnaris and Flexor Carpi Radialis Tendinitis Rehab-SportsMed Flexor Carpi Ulnaris and Flexor Carpi Radialis Tendinitis Rehab Ask your health care provider which exercises are safe for you. Do exercises exactly as told by your health care provider and adjust them as directed. It is normal to feel mild stretching, pulling, tightness, or discomfort as you do these exercises. Stop right away if you feel sudden pain or your pain gets worse. Do not begin these exercises until told by your health care provider. Kfygc-fr-xemxip exercises These exercises warm up your muscles and joints and improve the movement and flexibility of your forearm. These exercises also help to relieve pain, numbness, and tingling. They are done using the muscles in your injured forearm. Wrist flexion 1.Sit or stand with your left / right elbow bent to a 90-degree angle (right angle) at your side and your palm facing the floor. 2.Slowly bend your wrist so that your fingers move toward the floor (flexion), stopping when you feel a gentle stretch over the back of your forearm. 3.Hold this position for seconds. 4.Slowly return to the starting position. Repeat times. Complete this exercise times a day. Wrist extension 1.Sit or stand with your left / right elbow bent to a 90-degree angle (right angle) at your side and your palm facing the floor. 2.Slowly lift your wrist up so that your fingers move toward the ceiling (extension), stopping when you feel a gentle stretch on the palm side of your forearm. 3.Hold this position for seconds. 4.Slowly return to the starting position. Repeat times. Complete this exercise times a day. Forearm rotation, supination 1.Sit or stand with your left / right elbow bent to a 90-degree angle (right angle) at your side. Position your forearm so that the thumb is facing the ceiling (neutral position). 2.Turn (rotate) your palm up toward the ceiling (supination) until you feel a gentle stretch on the inside of your forearm. 3.Hold this position for seconds. 4.Slowly return your palm to the starting position. Repeat times. Complete this exercise times a day. Forearm rotation, pronation 1.Sit or stand with your left / right elbow bent to a 90-degree angle (right angle) at your side. Position your forearm so that the thumb is facing the ceiling (neutral position). 2.Turn (rotate) your palm down toward the floor (pronation) until you feel a gentle stretch on the top of your forearm. 3.Hold this position for seconds. 4.Slowly return your palm to the starting position. Repeat times. Complete this exercise times a day. Stretching exercises These exercises warm up your muscles and joints and improve the movement and flexibility of your forearm. These exercises also help to relieve pain, numbness, and tingling. They are done using your healthy forearm to help stretch the muscles in your injured forearm. Wrist flexion, assisted 1.Sit or stand and extend your left / right arm in front of you. Turn your palm down toward the floor and relax your wrist. 2.With your other hand (assisted), gently push on the back of your hand to bend your wrist and fingers toward the floor (flexion). Stop when you feel a gentle stretch on the top of your forearm. 3.Hold this position for seconds. 4.Slowly return to the starting position. Repeat times. Complete this exercise times a day. Wrist extension, assisted 1.Sit or stand and extend your left / right arm in front of you. Turn your palm up toward the ceiling and relax your wrist. 2.With your other hand (assisted), gently pull your palm and fingertips back so your fingers point down toward the floor (extension). You should feel a gentle stretch on the palm-side of your forearm. 3.Hold this position for seconds. 4.Slowly return to the starting position. Repeat times. Complete this exercise times a day. Forearm rotation, supination 1.Sit with your left / right elbow bent to a 90-degree angle (right angle) with your forearm resting on a table. 2.Keeping your upper body and shoulder still, use your other hand to turn (rotate) your forearm palm-up (supination) until you feel a gentle to moderate stretch. 3.Hold this position for seconds. 4.Slowly release the stretch, and return to the starting position. Repeat times. Complete this exercise times a day. Forearm rotation, pronation 1.Sit with your left / right elbow bent to a 90-degree angle (right angle) with your forearm resting on a table. 2.Keeping your upper body and shoulder still, use your other hand to turn (rotate) your forearm palm down (pronation) until you feel a gentle to moderate stretch. 3.Hold this position for seconds. 4.Slowly release the stretch, and return to the starting position. Repeat times. Complete this exercise times a day. Strengthening exercises These exercises build strength and endurance in your wrist and forearm. Endurance is the ability to use your muscles for a long time, even after they get tired. Wrist flexion 1.Sit with your left / right forearm supported on a table and your hand resting palm-up over the edge of the table. Your elbow should be bent to a 90-degree angle (right angle) and rest below the level of your shoulder. 2.Hold a weight in your hand. Or, hold a rubber exercise band or tube in both hands, keeping your hands at the same level and hip distance apart. There should be a slight tension in the exercise band or tube. 3.Slowly lift your hand up toward the ceiling (flexion). 4.Hold this position for seconds. 5.Slowly lower your hand back to the starting position. Repeat times. Complete this exercise times a day. Wrist extension 1.Sit with your left / right forearm supported on a table and your hand resting palm-down over the edge of the table. Your elbow should be bent to a 90-degree angle (right angle) and rest below the level of your shoulder. 2.Hold a weight in your hand. Or, hold a rubber exercise band or tube in both hands, keeping your hands at the same level and hip distance apart. There should be a slight tension in the exercise band or tube. 3.Slowly lift your hand up toward the ceiling (extension). 4.Hold this position for seconds. 5.Slowly lower your hand back to the starting position. Repeat times. Complete this exercise times a day. Ulnar deviation 1.Stand with a weight in your left / right hand. Or, sit with your healthy hand supported, and hold on to a rubber exercise band or tube with both hands. There should be a slight tension in the exercise band or tube. 2.Move your wrist so your pinkie travels toward your forearm and your thumb moves away from your forearm (ulnar deviation). 3.Hold this position for seconds. 4.Slowly return to the starting position. Repeat times. Complete this exercise times a day. Radial deviation 1.Stand with a weight in your left / right hand. Or, sit and hold on to a rubber exercise band or tube with both hands while your left / right arm is supported on a table and the other arm is below the table. There should be a slight tension in the exercise band or tube. If you are holding a weight, raise your left / right hand so your thumb moves toward your forearm at a comfortable height. You will not need to raise your hand very far. If you are holding an exercise band or tube, pull on it to raise your thumb toward the ceiling. You will not need to raise your hand very far. 2.Hold this position for seconds. 3.Slowly lower your wrist to the starting position. Repeat times. Complete this exercise times a day. Forearm rotation, supination 1.Sit with your left / right forearm supported on a table. Keep your hand resting palm-down and your wrist over the edge of the table. Your elbow should be at your side and bent to a 90-degree angle (right angle). Keep your wrist stable. Do not allow it to bend backward or forward during the exercise. 2.Gently hold a lightweight hammer with your left / right hand. 3.Without moving your elbow or wrist, slowly turn (rotate) your forearm so your palm faces up toward the ceiling (supination). 4.Hold this position for seconds. 5.Slowly return your forearm to the starting position. Repeat times. Complete this exercise times a day. Forearm rotation, pronation 1.Sit with your left / right forearm supported on a table. Keep your hand resting palm-up and your wrist over the edge of the table. Your elbow should be at your side and bent to a 90-degree angle (right angle). Keep your wrist stable. Do not allow it to bend backward or forward during the exercise. 2.Gently hold a lightweight hammer with your left / right hand. 3.Without moving your elbow or wrist, slowly turn (rotate) your palm down toward the floor (pronation). 4.Hold this position for seconds. 5.Slowly return your forearm to the starting position. Repeat times. Complete this exercise times a day. Cement Crusher Operator 1.Hold one of these items in your left / right hand: modeling valentin, therapy putty, a dense sponge, a stress ball, or a large, rolled sock. 2.Squeeze as hard as you can without increasing any pain. 3.Hold this position for seconds. 4.Slowly release your drug abuse social worker. Repeat times. Complete this exercise times a day. This information is not intended to replace advice given to you by your health care provider. Make sure you discuss any questions you have with your health care provider. Document Released: 07/01/2017 Document Revised: 02/22/2020 Document Reviewed: 12/30/2019 [employer] Patient Education 2019 [employer]. Follow Up Care 04/30/2022 08:08:28 With:LEXX LANDERS CNP Address: [facility] [address] [place] [address] When: only if needed [facility] Evaluation + Plan note No data available for this section [facility] Evaluation + Plan note [facility] Evaluation note No assessment inform ation available [facility] Work Phone: Evaluation note Diagnosis Myasthenia gravis (CMS/HCC) Myasthenia gravis without exacerbation documented in this encounter [facility]* Diagnosis Generalized myasthenia gravis (CMS/HCC)- Primary Myasthenia gravis without exacerbation documented in this encounter [facility]* Diagnosis Generalized myasthenia gravis (CMS/HCC)- Primary Myasthenia gravis without exacerbation documented in this encounter [facility]* Diagnosis Myasthenia gravis (CMS/HCC)- Primary Myasthenia gravis without exacerbation documented in this encounter [facility]* Diagnosis Myasthenia gravis (CMS/HCC)- Primary Myasthenia gravis without exacerbation documented in this encounter [facility]* Diagnosis Myasthenia gravis without exacerbation (HCC)- Primary Myasthenia gravis without exacerbation Myasthenia gravis, AChR antibody positive (HCC) Myasthenia gravis without exacerbation Diplopia Ptosis of both eyelids Unspecified ptosis of eyelid Bulbar weakness (HCC) Other motor neuron diseases Limb weakness Other musculoskeletal symptoms referable to limbs Smoking trying to quit Tobacco use disorder H/O immunosuppressive therapy Personal history of immunosuppressive therapy [facility] Diagnosis PAIGE (obstructive sleep apnea)- Primary Obstructive sleep apnea (adult) (pediatric) Hypersomnia Hypersomnia, unspecified 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, unspecified whether serious comorbidity present Snoring Other dyspnea and respiratory abnormality Primary insomnia Persistent disorder of initiating or maintaining sleep documented in this encounter [facility] Dis[facility] instructions No data available for this section [facility] Progress note No data available for this section [facility] Reason for referral (narrative) Referred by: Gurwinder FRITZ, Aiyana Heller [facility] Chief Complaint and Reason for Visit Chief Complaint Pre-Surgical Testing Chief Complaint G70.00 H02.402 Chief Complaint G70.00 H02.402 g70.00 h02.402 Advance Directives No Advanced Directives Records Found Advance Directive Response Recorded Date/ Time Advance Directives No November 29, 2022 1:08pm Advance Directive Response Recorded Date/ Time Advance Directives No November 29, 2022 2:08pm Family History No Family History Records FoundUnknown Family Member Name Dates Details Family history of glaucoma: Mother(V19.11, Z83.511) Status:Active Family history of diabetes m ellitus: Mother(V18.0, Z83.3) Status:Active Summary Purpose Additional Source Comments Care Team (unrecognized sect ion and content) Team Status: Inactive Member Role Status Dates Devonte Gates MD Attending Provider Active IVONE Coppola Primary Care Provider Active Team Status: Active Member Role Status Dates IVONE Coppola Primary Care Provider Active Team Status: Active Member Role Status Dates IVONE [place] Primary Care Provider Active Team Status: Inactive Member Role Status Dates Devonte Sunshine DO Attending Provider Active Start: July 14, 2024 End: July 14, 2024 IVONE [place] Primary Care Provider Active Start: July 14, 2024 End: July 14, 2024 Team Status: Inactive Member Role Status Dates Devonte Sunshine DO Attending Provider Active Start: July 28, 2024 End: July 28, 2024 Naomi Alvarez NP-C Primary Care Provider Active Start: July 28, 2024 End: July 28, 2024 Farm Operator Relationship Specialty Start Date End Date Naomi Alvarez MD [address] [place] [id number] Referring Physician Family Medicine 08/03/24 Farm Operator Relationship Specialty Start Date End Date Naomi Alvarez MD [address] [place] [id number] Referring Physician Family Medicine 08/03/24 Farm Operator Relationship Specialty Start Date End Date Naomi Alvarez MD [address] [place] [phone] Referring Physician Family Medicine 08/03/24 Devonte Sunshine DO [address] [phone] Referring Physician Neurology 09/15/24 Farm Operator Relationship Specialty Start Date End Date Naomi Alvarez MD [address] [place] [phone] Referring Physician Family Medicine 08/03/24 Devonte Sunshine DO [address] [address] Referring Physician Neurology 09/15/24 Orin De Leon NP [address] [phone] Nurse Practitioner Neurology 09/15/24 Maegan Carmona NP [address] [phone] Nurse Practitioner Neurology 09/15/24 Farm Operator Relationship Specialty Start Date End Date Naomi Alvarez MD [address] [place] [phone] Referring Physician Family Medicine 08/03/24 Devonte Sunshine DO [address] [address] Referring Physician Neurology 09/15/24 Orin De Leon NP [address] [address] Nurse Practitioner Neurology 09/15/24 Maegan Carmona NP [address] [phone] Nurse Practitioner Neurology 09/15/24 Farm Operator Relationship Specialty Start Date End Date Naomi Alvarez MD [address] [place] [phone] Referring Physician Family Medicine 08/03/24 Devonte Sunshine DO [address] [address] Referring Physician Neurology 09/15/24 Orin De Leon NP [address] [address] Nurse Practitioner Neurology 09/15/24 Maegan Carmona NP [facility] [address] [phone] Nurse Practitioner Neurology 09/15/24 Farm Operator Relationship Specialty Start Date End Date Naomi Alvarez MD [address] [place] [address] Referring Physician Family Medicine 08/03/24 Farm Operator Relationship Specialty Start Date End Date Naomi Alvarez MD [address] [place] [address] Referring Physician Family Medicine 08/03/24 Farm Operator Relationship Specialty Start Date End Date Naomi Alvarez MD [address] [place] [address] [phone] Referring Physician Family Medicine 08/03/24 Devonte Sunshine DO [address] [address] Referring Physician Neurology 09/15/24 Orin De Leon NP [address] [address] Nurse Practitioner Neurology 09/15/24 Maegan Carmona NP [address] [phone] Nurse Practitioner Neurology 09/15/24 Farm Operator Relationship Specialty Start Date End Date Naomi Alvarez APRN.JULIA [address] [place] [phone] PCP - General Nurse Practitioner 12/21/24 Farm Operator Relationship Specialty Start Date End Date Naomi Alvarez MD [address] [place] [address] Referring Physician Family Medicine 08/03/24 Devonte Sunshine DO [address] [place] [address] Referring Physician Neurology 09/15/24 Maegan Carmona NP [address] [phone] Nurse Practitioner Neurology 09/15/24 Farm Operator Relationship Specialty Start Date End Date Naomi Alvarez MD 1 [place] [address] Referring Physician Family Medicine 08/03/24 Devonte Sunshine DO [address] [address] Referring Physician Neurology 09/15/24 Maegan Carmona NP [address] [phone] Nurse Practitioner Neurology 09/15/24 Goals (unrecognized section and content) Goals may be documented in a n alternate section (unrecognized sect ion and content) No Status Records FoundNo Status Records FoundNo Status Records FoundNo Status Records FoundNo Status Records FoundNo Status Records FoundNo Status Records FoundNo Status Records FoundNo Status Records FoundNo Status Records Found INFORMATION SOURCE (unrecogn ized section and content) DATE CREATED AUTHOR 05/06/2024 Melgoza DearJane [facility] DATE CREATED AUTHOR AUTHOR'S ORGANIZ ATION 05/11/2024 Melgoza DearJane [facility] DATE CREATED AUTHOR AUTHOR'S ORGANIZ ATION 05/13/2024 [facility] DATE CREATED AUTHOR AUTHOR'S ORGANIZ ATION 05/14/2024 Melgoza DearJane [facility] DATE CREATED AUTHOR AUTHOR'S ORGANIZ ATION 12/23/2024 [facility] DATE CREATED AUTHOR AUTHOR'S ORGANIZ ATION 01/13/2025 [facility] DATE CREATED AUTHOR AUTHOR'S ORGANIZ ATION 01/29/2025 [facility] DATE CREATED AUTHOR AUTHOR'S ORGANIZ ATION 02/09/2025 [facility] DATE CREATED AUTHOR AUTHOR'S ORGANIZ ATION 03/03/2025 [place] Dear[facility] Source Comments (unrecognize d section and content) In the event this informatio n is protected by the Federal Confidentiality of Alcohol and Drug Abuse Patient Records regulations: The Federal rules restrict any use of the information to criminally investigate or prosecute any alcohol or drug abuse patient[facility] the event this information is protected by the Federal Confidentiality of Alcohol and Drug Abuse Patient Records regulations: The Federal rules restrict any use of the information to criminally investigate or prosecute any alcohol or drug abuse patient.[facility] Reason for Visit (unrecogniz ed section and content) Reason Comments Received Outside Medical Records Externa l referral to Neurological [place] Reason Comments Consult FOR RECORDS PERTAINING TO PATIENTS WHO ARE OR HAVE BEEN ENROLLED IN A CHEMICAL DEPENDENCY/SUBSTANCEABUSE PROGRAM, SOME INFORMATION MAY BE OMITTED. This clinical summary was aggregated from multiple sources. Caution should be exercised in using it in the provision of clinical care. This summary normalizes information from multiple sources, and as a consequence, information in this document may materially change the coding, format and clinical context of patient data. In addition, data may be omitted in some cases. CLINICAL DECISIONS SHOULD BE BASED ON THE PRIMARY CLINICAL RECORDS. [facility]. provides no warranty or guarantee of the accuracy or completeness of information in this document.
== END 2025-03-30 21:04 | disposition home or self-care (01) ==
LOC: SLEEP 21:03
PROVIDERS: PCP Psychiatry & Neurology Neurology; Visit Provider Psychiatry & Neurology Neurology
DX: G47.33 Obstructive sleep apnea (adult) (pediatric) (principal)
CPT/HCPCS: 95811

== ENCOUNTER 2025-05-03 15:37 | Outpatient (OUT) | payer OTHER, SELFPAY ==
--- OUTSIDE RECORDS SUMMARY | 2025-04-28 16:40 | XMS_ITS | Encounter Summary ---
Author Organization [facility] Address [address] [id number] Care Team Providers Care Mail Opener Name Role Phone Naomi Alvarez MD Unavailable [place] Sunshine DO Unavailable [phone] Maegan Carmona NP Unavailable Unavailable Reason for Visit * Reason Comments Plantar Warts * Other Medical (Routine) - Closed Specialty Diagnoses / Procedures Referred By Jamel villalta Referred To Contact Podiatry Diagnoses Plantar wart Procedures [place] OFFICE/OUTPATIENT NEW LOW MDM 30 MINUTES [place] OFFICE/OUTPATIENT ESTABLISHED LOW MDM 20 MIN Naomi Alvarez MD [address] [place] [address] Phone: tel: fax: Alex Gates DPM [address] [address] Phone: tel: fax: Referral ID Status Reason Start Date Expiration Date Visits Re quested Visits Authorized [id number] Closed 04/07/2025 10/04/2025 1 1 Encounter Details Date Type Department Care Team ([facility] Contact Info) Description 04/28/2025 4:40 PM EDT Office Visit [facility] [address] [address] Alex Gates DPM [address] [address] Neoplasm of uncertain behavior of skin (Primary Dx); Verruca plantaris; Foot pain, right Social History Tobacco Use Types Packs/Day Years Used Date Smoking Tobacco: Every Day Cigarettes Smokeless Tobacco: Never Tobacco Cessation:Ready to Q uit: Not Asked; Counseling Given: Yes Alcohol Use Standard Drinks/Week Comments Yes 0 (1 standard drink = 0.6 oz pur e alcohol) Sex and Gender Information Value Date Recorded Sex Assigned at Not on file Legal Sex Male 11:48 PM EDT Gender Identity Not on file Sexual Orientation Not on file documented as of this encounter Last Filed Vital Signs Vital Sign Reading Time Taken Comments Blood Pressure - - Pulse - - Temperature - - Respiratory Rate 16 04/28/2025 4:27 PM EDT Oxygen Saturation - - Inhaled Oxygen Concentration - - Weight 121 kg (267 lb) 04/28/2025 4:27 PM EDT Height 162.6 cm (5' 4 ) 04/28/2025 4:27 PM EDT Body Mass Index 45.83 04/28/2025 4:27 PM EDT documented in this encounter Progress Notes * Alex Gates, NICK - 04/28/2025 4:40 PM EDT Patient: Pantera Braden : 1975 PCP: No primary care provider on file. SUBJECTIVE This is a 50 y.o. male that presents today for a chief complaint of painful lesions to the right foot that is been present for the past 2 years. Patient states he has had surgical excision lesion in the past by myself and states he is sharp and painful ambulation at times with no treatment currently Patient has positive history of myasthenia gravis. Allergies: No Known Allergies Past Medical History: Past Medical History: Diagnosis Date High cholesterol Hypothyroid Medications: Current Outpatient Medications: atorvastatin (Lipitor) 10 MG tablet, Atorvastatin Calcium, Disp: , Rfl: clotrimazole-betamethasone (Lotrisone) cream, 1 application every 12 (twelve) hours., Disp: , Rfl: levothyroxine (Synthroid) 200 MCG reconstituted solution, Levothyroxine Sodium, Disp: , Rfl: phentermine (Adipex-P) 37.5 MG tablet, Take 37.5 mg by mouth in the morning. Take before meals., Disp: , Rfl: predniSONE (Deltasone) 10 MG tablet, TAKE 3 TABLETS BY MOUTH EVERY DAY, Disp: 90 tablet, Rfl: 2 pyridostigmine (Mestinon) 60 MG tablet, TAKE 1 TAB BY MOUTH IN THE MORNING,1 TABLET IN THE EVENING AND 1 TAB BEFORE BEDTIME., Disp: 270 tablet, Rfl: 2 Social History: Social History Socioeconomic History Marital status: Spouse name: Not on file Number of children: Not on file Years of education: Not on file Highest education level: Not on file Occupational History Not on file Tobacco Use Smoking status: Every Day Types: Cigarettes Smokeless tobacco: Never Vaping Use Vaping status: Never Used Substance and Sexual Activity Alcohol use: Yes Drug use: Not on file Sexual activity: Not on file Other Topics Concern Not on file Social History Narrative Not on file Social Drivers of Health Financial Resource Strain: Not on file Food Insecurity: Not on file Transportation Needs: Not on file Physical Activity: Not on file Stress: Not on file Social Connections: Not on file Intimate Partner Violence: Not on file Housing Stability: Not on file ROS: General: denies fever, chills, fatigue, malaise Gastrointestinal: denies abdominal pain, ulcers, or changes in appetite or bowel habits Musculoskeletal: denies arthritis, denies loss of strength, pain to hip, knees, back. Positive history of myasthenia gravis Cardiovascular: denies CP, palpitations, irregular rhythms OBJECTIVE LE EXAM: DERM: Positive hair growth to b/l feet with good skin turgor noted. Negative openings in skin. Nummular lesion measuring at the right sub 1st and sub 5th metatarsal regions measuring 0.2 cm x 0.2 cm.Right lateral 5th toe region 0.3 x 0.2 cm round nummular lesion VASC: Palpable pedal pulsed b/l with warm to cool tibia to toes b/l NEURO: Gross sensation intact digits 1-10 and b/l feet ORTHO: +5/5 DF/PF/IN/EV right, +5/5 DF/PF/IN/EV left. 20 degrees inversion and 10 degrees eversion STJ b/l. Ankle ROM less than 10 degrees b/l. Positive pain on palpation to right foot lesions XRAY: US: ASSESSMENT 1. Neoplasm of uncertain behavior of skin 2. Verruca plantaris 3. Foot pain, right PLAN Discussed condition in detail with patient today and discussed conservative treatments and possibleexcisional biopsy of lesion in the future for pathological diagnosis of specimen. Patient may take jnom-lse-losetxi NSAID p.r.n. for pain Application of salinocaine acid medication to lesion/lesions located at right foot Informed pt of risks and benefits of procedure including high reoccurence rate, infection, pain andconsent given. Application of DSD post procedure. Alex Gates DPM documented in this encounter Plan of Treatment Upcoming Encounters Date Type Department Care Team (Late st Contact Info) Description 05/19/2025 11:40 AM EDT Office Visit [facility] 112 [facility] [address] [place] [phone] Alex Gates DPM 3006 [facility] 5 [place] [address] documented as of this encounter Visit Diagnoses Diagnosis Neoplasm of uncertain behavior of skin- Primary Verruca plantaris Plantar wart Foot pain, right Pain in soft tissues of limb documented in this encounter Care Teams Mail Opener Relationship Specialty Start Date End Date Naomi Alvarez MD [address] [place], [place] [phone] Referring Physician Family Medicine 08/03/24 Robbin Sunshine DO [address] [phone] Referring Physician Neurology 09/15/24 Maegan Carmona NP [address] [address] Nurse Practitioner Neurology 09/15/24 documented as of this encounter
--- OUTSIDE RECORDS SUMMARY | 2025-05-03 15:41 | XMS_ITS | Encounter Summary ---
Author Organization [facility] Address [address] [place] [address] Care Team Providers Care Anthropology And Archeology Instructor Name Role Phone Naomi Alvarez MD Unavailable Robbin Sunshine DO Unavailable [phone] Maegan Carmona NP Unavailable Unavailable Encounter Details Date Type Department Care Team (Latest Contact Info) Description 04/27/2025 Travel Social History Tobacco Use Types Packs/Day Years Used Date Smoking Tobacco: Every Day Cigarettes Smokeless Tobacco: Never Alcohol Use Standard Drinks/Week Comments Yes 0 (1 standard drink = 0.6 oz pur e alcohol) Sex and Gender Information Value Date Recorded Sex Assigned at Not on file Legal Sex Male 11:48 PM EDT Gender Identity Not on file Sexual Orientation Not on file documented as of this encounter Plan of Treatment Upcoming Encounters Date Type Department Care Team (Late st Contact Info) Description 05/19/2025 11:40 AM EDT Office Visit [facility] 112 [facility] 120 [place] [address] Alex Gates DPM 3006 [facility] 5 [place] [address] documented as of this encounter Visit Diagnoses Not on filedocumented in this encounter Care Teams Anthropology And Archeology Instructor Relationship Specialty Start Date End Date Naomi Alvarez MD [address] [place] [address] Referring Physician Family Medicine 08/03/24 Robbin Sunshine DO 5433 [facility] [address] [place] [address] Referring Physician Neurology 09/15/24 Maegan Carmona NP [address] [place] [address] Nurse Practitioner Neurology 09/15/24 documented as of this encounter
--- OUTSIDE RECORDS SUMMARY | 2025-05-03 15:41 | XMS_ITS | Encounter Summary ---
Author Organization [facility] Address [address] [place] [address] Care Team Providers Care Commercial Front Load Operator Name Role Phone Naomi Alvarez MD Unavailable Robbin Sunshine DO Unavailable [phone] Maegan Carmona NP Unavailable Unavailable Encounter Details Date Type Department Care Team (Latest Contact Info) Description 04/28/2025 Travel Social History Tobacco Use Types Packs/Day [...] EDT Office Visit [facility] 112 [facility] 120 [place] [address] Alex Gates DPM 3006 [facility] 5 [place] [address] documented as of this encounter Visit Diagnoses Not on filedocumented in this encounter Care Teams Commercial Front Load Operator Relationship Specialty Start Date End Date Naomi Alvarez MD [address] [place] [address] Referring Physician Family Medicine 08/03/24 Robbin Sunshine DO 5433 [facility] [address] [place] [address] Referring Physician Neurology 09/15/24 Maegan Carmona NP [address] [place] [address] Nurse Practitioner Neurology 09/15/24 documented as of this encounter
--- OUTSIDE RECORDS SUMMARY | 2025-05-03 15:41 | XMS_ITS | Encounter Summary ---
Author Organization [facility] Address [address] [place] [address] Care Team Providers Care Child And Family Services Specialist Name Role Phone Naomi Alvarez MD Unavailable Robbin Sunshine DO Unavailable [phone] Maegan Carmona NP Unavailable Unavailable Encounter Details Date Type Department Care Team (Late Contact Info) Description 04/28/2025 Bamboo flowsheet [facility] 112 [facility] [address] [place] [address] Alex Gates DPM [address] [address] Social History Tobacco Use Types Packs/Day Years [...] Encounters Date Type Department Care Team (Late Contact Info) Description 05/19/2025 11:40 AM EDT [facility] Visit [facility] 112 [facility] [address] [place] [address] Alex Gates DPM [address] [address] documented as of this encounter Visit Diagnoses Not on filedocumented in this encounter Care Teams Child And Family Services Specialist Relationship Specialty Start Date End Date Naomi Alvarez MD [address] [phone] Referring Physician Family Medicine 08/03/24 Robbin Sunshine DO [address] [address] Referring Physician Neurology 09/15/24 Maegan Carmona NP [address] [address] Nurse Practitioner Neurology 09/15/24 documented as of this encounter
--- OUTSIDE RECORDS SUMMARY | 2025-05-03 15:41 | XMS_ITS | Encounter Summary ---
Author Organization [facility] Address [address] [place] [address] Care Team Providers Care Manager Publishing Name Role Phone Naomi Alvarez APRN.[facility] Primary Care Provider [phone] Source Comments In the event this information is protected by the Federal Confidentiality of Alcohol and Drug AbusePatient Records regulations: The Federal rules restrict any use of the information to criminally investigate or prosecute any alcohol or drug abuse patient.[facility] Encounter Details Date Type Department Care Team (Late st Contact Info) Description 03/10/2025 Patient Msg Neurology [address] [phone] Provider, [facility]cf Rescheduled Appointment Social History Tobacco Use Types Packs/Day Years Used Date Smoking Tobacco: Never Assessed PHQ-2 Answer Date Recorded PHQ-2 score 0 12/17/2024 Area Deprivation Index Answer Date Devin rded National Score (1-100), lower number is lower ri sk 91 12/21/2024 State Score (1-10), lower number is lower risk 9 12/21/2024 Data from: https://www.neighborhoodatlas.medicine.[facility].edu/. Last address used for calculation [address] [facility] 12/21/2024 Sex and Gender Information Value Date Recorded Sex Assigned at Male 12/17/2024 10:58 AM EST Legal Sex Male 9:31 AM EST Gender Identity Male 12/17/2024 10:58 AM EST Sexual Orientation Straight 12/17/2024 10 :58 AM EST documented as of this encounter Plan of Treatment Not on file documented as of this encounter Visit Diagnoses Not on filedocumented in this encounter Care Teams Manager Publishing Relationship Specialty Start Date End Date Naomi Alvarez APRN.N[employer]ARK TOUR GUIDE [address] [place] [address] PCP - General Nurse Practitioner 12/21/24 documented as of this encounter
--- OUTSIDE RECORDS SUMMARY | 2025-05-03 15:41 | XMS_ITS | Encounter Summary ---
Author Organization [facility] Address [address] [place] [address] Care Team Providers Care Furniture Technician Name Role Phone Naomi Alvarez APRN.[facility] Primary Care Provider [phone] Source Comments In the event this information is protected by the Federal Confidentiality of Alcohol and Drug AbusePatient Records regulations: The Federal rules restrict any use of the information to criminally investigate or prosecute any alcohol or drug abuse patient.[facility] Encounter Details Date Type Department Care Team (Late st Contact Info) Description 03/08/2025 Patient Msg Neurology [address] [phone] Provider, Ccf Rescheduling 03/22 Social History Tobacco Use Types Packs/Day Years Used Date Smoking Tobacco: Never Assessed PHQ-2 Answer Date Recorded PHQ-2 score 0 12/17/2024 Area Deprivation Index Answer Date Devin rded National Score (1-100), lower number is lower ri sk 91 12/21/2024 State Score (1-10), lower number is lower risk 9 12/21/2024 Data from: https://www.neighborhoodatlas.medicine.[facility].edu/. Last address used for calculation [address] [facility] 12/21/2024 Sex and Gender Information Value Date Recorded Sex Assigned at Male 12/17/2024 10:58 AM EST Legal Sex Male 9:31 AM EST Gender Identity Male 12/17/2024 10:58 AM EST Sexual Orientation Straight 12/17/2024 10 :58 AM EST documented as of this encounter Plan of Treatment Not on file documented as of this encounter Visit Diagnoses Not on filedocumented in this encounter Care Teams Furniture Technician Relationship Specialty Start Date End Date Naomi Alvarez APRN.ASSIGNMENT MANAGER [address] [place] [address] PCP - General Nurse Practitioner 12/21/24 documented as of this encounter
--- OUTSIDE RECORDS SUMMARY | 2025-05-03 15:41 | XMS_ITS | Clinical Summary ---
Author Organization [facility] Address [address] [place] [address] Care Team Providers Care Creative Resource Manager Name Role Phone Naomi Alvarez APRN.CNP Primary Care Provider [phone] Active Problems Problem Noted Date Diagnosed Date Generalized myasthenia gravis 04/12/2025 Myasthenia gravis without exacerbation Myasthenia gravis, AChR antibody positive 2024 Diplopia 12/21/2024 Ptosis of both eyelids 12/21/2024 Bulbar weakness 12/21/2024 Limb weakness 12/21/2024 Smoking trying to quit 12/21/2024 H/O immunosuppressive therapy 12/21/2024 Encounters Date Type Department Care Team Description 04/01/2025 2:00 PM EDT [facility] [address] [place] [address] Zay Mitchell MD Myasthenia gravis without exacerbation (HCC) (Primary Dx); Generalized myasthenia gravis (HCC); Myasthenia gravis, AChR antibody positive (HCC); Diplopia; Ptosis of both eyelids; Bulbar weakness (HCC); Limb weakness; Smoking trying to quit; H/O immunosuppressive therapy 03/25/2025 Travel 03/10/2025 Patient [facility] [address] [place] [address] Provider, Ccf Rescheduled Appointment 03/08/2025 Patient Msg Neurology [address] [place] [address] Provider, Ccf Rescheduling 03/22 from Last 3 Months Social History Tobacco Use Types Packs/Day Years Used Date Smoking Tobacco: Never Assessed PHQ-2 Answer Date Recorded PHQ-2 score 0 03/25/2025 Area Deprivation Index Answer Date Devin rded National Score (1-100), lower number is lower ri sk 91 12/21/2024 State Score (1-10), lower number is lower risk 9 12/21/2024 Data from: https://www.neighborhoodatlas.[facility]/. Last address used for calculation [address] [facility] 12/21/2024 Sex and Gender Information Value Date Recorded Sex Assigned at Male 12/17/2024 10:58 AM EST Legal Sex Male 9:31 AM EST Gender Identity Male 12/17/2024 10:58 AM EST Sexual Orientation Straight 12/17/2024 10 :58 AM EST Plan of Treatment Health Maintenance Due Date Last Done Comments Anxiety Screening 01/13/1992 Depression Screening 01/13/1992 HIV Screening 01/13/1992 Hepatitis C Screening 01/13/1992 Hepatitis B Vaccine (1 of 3 - 19+ 3-dose series) 1993 Pneumococcal Vaccine: 50+ (1 of 2 - PCV) 1993 Shingrix Vaccine (1 of 2) [address] Colonography 2019 Cologuard (FIT-DNA) 2019 Colonoscopy 2019 Colorectal Cancer Screening 2019 Diabetes Screening 2019 Fecal Occult Blood 2019 Sigmoidoscopy 2019 Covid-19 Vaccine (3 - Pfizer risk series) 03/20/2021 02/20/2021, 01/30/2021 Influenza Vaccine (Season Ended) 2025 08/01/20 23, 10/05/2021 DTaP,Tdap,Td Vaccine (2 - Td or Tdap) 10/05/2031 Insurance [facility] MEDICAID Care Teams Creative Resource Manager Relationship Specialty Start Date End Date Naomi Alvarez APRN.SAND SCREENER [address] [place] [phone] PCP - General Nurse Practitioner 12/21/24
--- OUTSIDE RECORDS SUMMARY | 2025-05-03 15:41 | XMS_ITS | Clinical Summary ---
Author Organization [facility] Address [address] [place] [address] Care Team Providers Care Trade Analyst Name Role Phone Naomi Alvarez MD Unavailable Robbin Sunshine DO Unavailable [phone] Maegan Carmona NP Unavailable Unavailable Allergies No known active allergies Medications clotrimazole-beta methasone (Lotrisone) cream 1 application every 12 (twelve) hours. Active levothyroxine (Synthroid) 200 MCG reconstituted solution Levothyroxine Sodium Active atorvastatin (Lipitor) 10 MG tablet Atorvastatin Calcium Active pyridostigmine (Mestinon) 60 MG tabletIndications :Myasthenia gravis (HCC),Ptosis of left eyelid TAKE 1 TAB BY MOUTH IN THE MORNING,1 TABLET IN THE EVENING AND 1 TAB BEFORE BEDTIME. 270 tablet 2 11/23/19 25 Active phentermine (Adipex-P) 37.5 MG tablet Take 37.5 mg by mouth in the morning. Take before meals. Active predniSONE (Deltasone) 10 MG tabletIndications :Generalized myasthenia gravis (HCC) TAKE 3 TABLETS BY MOUTH EVERY DAY 90 tablet 2 03/09/20 25 Active Active Problems No known active problems Encounters Date Type Department Care Team Description 04/28/2025 4:40 PM EDT [facility] Visit [facility] [address] [place] [address] Alex Gates DPM Neoplasm of uncertain behavior of skin (Primary Dx); Verruca plantaris; Foot pain, right 04/28/2025 Bamboo flowsheet [facility] [address] [place] [address] Alex Gates DPM 04/28/2025 Travel 04/27/2025 Travel 03/30/2025 Telephone [place] [address] [address] Robbin Sunshine DO 03/21/2025 Telephone [place] [address] [phone] Tia Westbrook MA DISABILITY REQUIRING MORE INFO 03/09/[address] [address] Robbin Sunshine DO Generalized myasthenia gravis (HCC) 02/08/2025 8:15 AM EDT Office Visit [place] [address] [phone] Liberty Ortiz DO PAIGE (obstructive sleep apnea) (Primary Dx); Hypersomnia; 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, unspecified whether serious comorbidity present ([facility]); Snoring; Primary insomnia 02/08/2025 Bamboo flowsheet [place] [address] [phone] Liberty Ortiz DO 02/07/2025 Travel 02/02/2025 9:15 AM EDT Office Visit [place] [address] [phone] Robbin Sunshine DO Generalized myasthenia gravis (HCC) (Primary Dx) 02/02/2025 Bamboo flowsheet [place] [address] [phone] Robbin Sunshine DO from Last 3 Months Family History Medical History Relation Name Comments Cancer Father Cancer Mother Diabetes Mother Heart disease Mother Relation Name Status Comments Father Mother Sister 1 Alive Social History Tobacco Use Types Packs/Day Years [...] on file Sexual Orientation Not on file Last Filed Vital Signs Vital Sign Reading Time Taken Comments Blood Pressure 124/84 02/08/2025 8:17 AM EDT Pulse 98 02/08/2025 8:17 AM EDT Temperature 36.7 C (98 F) 06/23/2023 12:20 PM EDT Respiratory Rate 16 04/28/2025 4:27 PM EDT Oxygen Saturation 98% 02/08/2025 8:17 AM EDT Inhaled Oxygen Concentration - - Weight 121 kg (267 lb) 04/28/2025 4:27 PM EDT Height 162.6 cm (5' 4 ) 04/28/2025 4:27 PM EDT Body Mass Index 45.83 04/28/2025 4:27 PM EDT Plan of Treatment Upcoming Encounters Date Type Department Care Team (Late st Contact Info) Description 05/19/2025 11:40 AM EDT Office Visit [facility] [address] [facility] 120 [place] [address] Alex Gates, NICK 3006 [facility] 5 [place] [address] Health Maintenance Due Date Last Done Comments CT Colonography 1974 Colonoscopy 1974 Colorectal Cancer Screening 1974 FIT-DNA 1974 FIT 1974 FOBT 1974 Sigmoidoscopy 1974 Influenza Vaccine (Season Ended) 2025 08/01/20 23, 10/05/2021 Insurance [employer] Care Teams Trade Analyst Relationship Specialty Start Date End Date Naomi Alvarez MD [address] [place] [address] Referring Physician Family Medicine 08/03/24 Robbin Sunshine DO [address] [place] [address] Referring Physician Neurology 09/15/24 Maegan Carmona NP [address] [address] Nurse Practitioner Neurology 09/15/24
--- OUTSIDE RECORDS SUMMARY | 2025-05-03 15:41 | XMS_ITS | Clinical Summary ---
Author Organization [facility] Address [address] [place] [phone] Phone Care Team Providers Care Dining Room Host/Hostess Name Role Phone Unavailable Primary Care Provider Unavailabl e Allergies No known active allergies Medications atorvastatin (Lipitor) 20 mg tablet Take 1 tablet (20 mg) by mouth once daily. Active levothyroxine (Synthroid, Levoxyl) 125 mcg tablet Take 1 tablet (125 mcg) by mouth. 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 Immunizations Immunization Administration Dates Next Due Flu vaccine (IIV4), preservative free *Check age /dose* 10/05/2021 Tdap vaccine, age 7 year and older (BOOSTRIX, AD ACEL) 10/05/2021 Family History Medical History Relation Name Comments Diabetes Mother Glaucoma Mother Relation Name Status Comments Mother Social History Tobacco Use Types Packs/Day Years Used Date Smoking Tobacco: Never Assessed Sex and Gender Information Value Date Recorded Sex Assigned at Not on file Legal Sex Male 2:38 PM EDT Gender Identity Not on file Sexual Orientation Not on file Plan of Treatment Health Maintenance Due Date Last Done Comments CT Colonography 1974 Colonoscopy 1974 Colorectal Cancer Screening 1974 FIT-DNA (Cologuard) 1974 FIT 1974 HIV Screening 1974 Lipid Panel 1974 Sigmoidoscopy 1974 TSH Level 1974 Yearly Adult Physical 1974 MMR Vaccines (1 of 1 - Standard series) 1975 Diabetes Screening 01/13/1992 Hepatitis C Screening 01/13/1992 Hepatitis B Vaccines (1 of 3 - 19+ 3-dose series) 1993 Pneumococcal Vaccine (1 of 1 - PCV) 01/13/2024 Zoster Vaccines (1 of 2) 01/13/2024 COVID-19 Vaccine (3 - 2023-2 5 season) 2024 02/20/2021, 01/30/2021 Influenza Vaccine (Season Ended) 2025 10/05/2021 DTaP/Tdap/Td Vaccines (2 - T d or Tdap) 10/05/2031 10/05/2021 HIB Vaccines Aged Out No longer eligi ble based on patient's age to complete this topic HPV Vaccines Aged Out No longer eligi ble based on patient's age to complete this topic Hepatitis A Vaccines Aged Out No long er eligible based on patient's age to complete this topic IPV Vaccines Aged Out No longer eligi ble based on patient's age to complete this topic Meningococcal Vaccine Aged Out No chino dion eligible based on patient's age to complete this topic Rotavirus Vaccines Aged Out No longer eligible based on patient's age to complete this topic [place] [address] [address] [place] [address] PLAN
[2025-05-03 16:12] LABS: Estimated Average Glucose 220 mg/dL; Glycohemoglobin A1C 9.3 % (4.5-6.2)
[2025-05-03 17:17] LABS: Prostate Specific Antigen Scrn 0.24 ng/mL (<=4.00)
== END 2025-05-03 15:38 | disposition home or self-care (01) ==
LOC: LAB 15:38
PROVIDERS: PCP Psychiatry & Neurology Neurology; Visit Provider Nurse Practitioner
DX: R35.89 Other polyuria (principal); R35.1 Nocturia; Z12.5 Encounter for screening for malignant neoplasm of prostate
CPT/HCPCS: 36415; 83036; G0103

== ENCOUNTER 2025-08-22 15:23 | Outpatient (OUT) | payer OTHER, SELFPAY ==
--- OUTSIDE RECORDS SUMMARY | 2025-08-22 15:27 | XMS_ITS | Clinical Summary ---
Author Organization [facility] Address [address] [place] [phone] Phone Care Team Providers Care Flosser Name Role Phone Unavailable Primary Care Provider [...] of 3 - 19+ 3-dose series) 1993 PSA Prostate Cancer Screening 01/13/2024 Pneumococcal Vaccine (1 of 1 - PCV) 01/13/2024 Zoster Vaccines (1 of 2) 01/13/2024 COVID-19 Vaccine (3 - 2024-2 6 season) 2025 02/20/2021, 01/30/2021 Influenza Vaccine (#1) 2025 10/05/2021 DTaP/Tdap/Td Vaccines (2 - T [...] patient's age to complete this topic Insurance PLAN
--- OUTSIDE RECORDS SUMMARY | 2025-08-22 15:27 | XMS_ITS | Encounter Summary ---
Author Organization [facility] Address [address] [place] [address] Care Team Providers Care Pricing Clerk Name Role Phone Kim Naomi NEW CAR SALESPERSON Unavailable Robbin Sunshine DO Unavailable [phone] Maegan Carmona NEW CAR SALESPERSON Unavailable Unavailable Unallocated, Noms Provider Primary Care Provi patrice Encounter Details Date Type Department Care Team (Late st Contact Info) Description 07/28/2025 Telephone [facility] 112 [facility] 120 [place] [phone] Alex Gates DPM 3006 [facility] 5 [place] [address] Social History Tobacco Use Types Packs/Day Years [...] on file documented as of this encounter Miscellaneous Notes * Telephone Encounter - Amira Francis - 08/19/2025 11:18 AM EDT Per call with Danny Medicaid @[phone] with Mary[place], policy is active and in network with and [employer]. Patient has no deductibles and codes 43943 and 11681 do not require prior authorization. Reference#: [id number] PST orders sent to [facility] PCP appt is 10-20 at 1pm Surgery scheduled on both portals. Demographics, insurance card, office notes, sx form, sx appt sheet uploaded to [facility] portal. Patient aware of all appointments. 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 NO WEIGHT BEARING STATUS-- minimal weight-bearing to nonweightbearing right foot with knee scooter hydrocodone documented in this encounter Plan of Treatment Upcoming Encounters Date Type Department Care Team (Late st Contact Info) Description 08/25/2025 9:10 AM EDT Office Visit [facility] [address] [address] Alex Gates DPM [address] [address] 09/08/2025 9:20 AM EDT Office Visit [facility] [address] [facility] 120 [place] [address] Alex Gates DPM [address] [address] documented as of this encounter Visit Diagnoses Not on filedocumented in this encounter Care Teams Pricing Clerk Relationship Specialty Start Date End Date Unallocated, Noms Provider, [place] [address] PCP - General Family Medicine 05/16/25 Naomi Alvarez NP 1 [place] [address] Referring Physician Family Medicine 08/03/24 Robbin Sunshine DO [address] [place] [address] Referring Physician Neurology 09/15/24 Maegan Carmona NP [address] [place] [address] Nurse Practitioner Neurology 09/15/24 documented as of this encounter
--- OUTSIDE RECORDS SUMMARY | 2025-08-22 15:27 | XMS_ITS | Encounter Summary ---
Author Organization [facility] Address [address] [place] [address] Care Team Providers Care Supervisor Research Kennel Name Role Phone Kim Naomi WEAVER [employer]ARR[employer] Unavailable Robbin Sunshine DO Unavailable [phone] Maegan Carmona WE[employer] Unavailable Unavailable Unallocated, Noms Provider Primary Care Provi patrice Encounter Details Date Type Department Care Team (Latest Contact Info) Description 08/21/2025 Travel Social History Tobacco Use Types Packs/Day [...] Office Visit [facility] [address] [place] [address] Alex Gates DPM [address] [address] 09/08/2025 9:20 AM EDT Office Visit [facility] [address] [place] [address] Alex Gates DPM [address] [address] documented as of this encounter Visit Diagnoses Not on filedocumented in this encounter Care Teams Supervisor Research Kennel Relationship Specialty Start Date End Date Unallocated, Noms Provider, [place] [address] PCP - General Family Medicine 05/16/25 Naomi Alvarez NP [address] [place] [address] Referring Physician Family Medicine 08/03/24 Robbin Sunshine DO [address] [address] Referring Physician Neurology 09/15/24 Maegan Carmona NP [address] [address] Nurse Practitioner Neurology 09/15/24 documented as of this encounter
--- OUTSIDE RECORDS SUMMARY | 2025-08-22 15:27 | XMS_ITS | Encounter Summary ---
Author Organization [facility] Address [address] [place] [address] Care Team Providers Care Radial Arm Saw Operator Name Role Phone Naomi Alvarez TRAFFIC I MANAGER Unavailable Robbin Sunshine DO Unavailable [phone] Maegan Carmona TRAFFIC I MANAGER Unavailable Unavailable Unallocated, Noms Provider Primary Care Provi patrice Encounter Details Date Type Department Care Team ([facility] Contact Info) Description 08/19/2025 Orders Only [facility] [address] [place] [address] Amira Francis Preop examination Social History Tobacco Use Types Packs/Day Years [...] Upcoming Encounters Date Type Department Care Team ([facility] Contact Info) Description 08/25/2025 9:10 AM EDT Office Visit [facility] [address] [facility] 120 [place] [address] Alex Gates DPM 3006 [facility] 5 [place] [address] 09/08/2025 9:20 AM EDT Office Visit [facility] [address] [facility] 120 [place] [address] Alex Gates, NICK [address] [address] Scheduled Orders Name Type Priority Associated Diagnoses Orde r Schedule Basic metabolic panel Lab Routine Preop examination Expected: 08/19/2025 (Approximate), Expires: 10/19/2025 CBC and differential Lab Routine Preop examination Expected: 08/19/2025 (Approximate), Expires: 10/19/2025 ECG 12 lead ECG Routine Preop examination Expected: 08/19/2025 (Approximate), Expires: 08/19/2026 documented as of this encounter Visit Diagnoses Diagnosis Preop examination Unspecified pre-operative examination documented in this encounter Care Teams Radial Arm Saw Operator Relationship Specialty Start Date End Date Unallocated, Noms Provider, [address] [place] [address] PCP - General Family Medicine 05/16/25 Naomi Alvarez NP [address] [place] [address] Referring Physician Family Medicine 08/03/24 Robbin Sunshine DO [address] [address] Referring Physician Neurology 09/15/24 Maegan Carmona NP [address] [address] Nurse Practitioner Neurology 09/15/24 documented as of this encounter
--- OUTSIDE RECORDS SUMMARY | 2025-08-22 15:27 | XMS_ITS | Clinical Summary ---
Author Organization [facility] Address [address] [place] [address] Care Team Providers Care Scheduling Agent Name Role Phone Naomi Alvarez SEMAPHORE OPERATOR Unavailable Robbin Sunshine DO Unavailable [phone] Maegan Carmona SEMAPHORE OPERATOR Unavailable Unavailable Unallocated, Noms Provider MD Primary Care Provi patrice Allergies No known active allergies Medications clotrimazole-beta [...] Encounters Date Type Department Care Team Description 08/21/2025 Travel 08/19/2025 Orders Only [facility] [address] [place] [place] [address] Amira Francis Preop examination 07/28/2025 4:30 PM EDT Office Visit [facility] 112 [facility] 120 [place] [address] Alex Gates DPM Acquired deformity of left toe (Primary Dx); Verruca plantaris; Foot pain, right; Acquired deformity of right toe; Neoplasm of uncertain behavior of skin; Diabetes mellitus due to underlying condition with diabetic polyneuropathy, unspecified whether termite treater insulin use ([facility]) 07/28/2025 Telephone [facility] [address] [facility] [address] [place] [address] Alex Gates DPM 07/28/2025 Bamboo flowsheet [facility] [address] [facility] [address] [place] [address] Alex Gates DPM 07/28/2025 Travel 07/14/2025 4:10 PM EDT Office Visit [facility] [address] [place] [address] [place] [address] Alex Gates DPM Verruca plantaris (Primary Dx); Foot pain, right 07/14/2025 Bamboo flowsheet [facility] [address] [facility] [address] [place] [address] Alex Gates DPM 07/14/2025 Travel 07/07/2025 Travel 06/23/2025 4:50 PM EDT Office Visit [facility] 112 [facility] [address] [place] [address] Alex Gates DPM Verruca plantaris (Primary Dx); Foot pain, right 06/23/2025 Bamboo flowsheet [facility] [address] [facility] [address] [place] [address] Alex Gates DPM 06/23/2025 Travel 06/20/2025 Travel 06/02/2025 1:20 PM EDT Office Visit [facility] [address] [facility] [address] [place] [address] Alex Gates DPM Verruca plantaris (Primary Dx); Foot pain, right 06/02/2025 Bamboo flowsheet [facility] [address] [place] [address] Alex Gates DPM 06/02/2025 Travel 05/26/2025 Travel from Last 3 Months Family History Medical [...] 06/23/2023 12:20 PM EDT Respiratory Rate 16 07/28/2025 4:23 PM EDT Oxygen Saturation 98% 02/08/2025 8:17 AM EDT Inhaled Oxygen Concentration - - Weight 121 kg (267 lb) 07/28/2025 4:23 PM EDT Height 162.6 cm (5' 4 ) 07/28/2025 4:23 PM EDT Body Mass Index 45.83 07/28/2025 4:23 PM EDT Plan of Treatment Upcoming Encounters Date Type Department Care Team (Late st Contact Info) Description 08/25/2025 9:10 AM EDT Office Visit [facility] [address] [place] [address] Alex Gates DPM 8621 [facility] 5 [place] [address] 09/08/2025 9:20 AM EDT Office Visit [facility] [address] [place] [address] Alex Gates DPM [address] [address] Health Maintenance Due Date Last Done Comments CT Colonography 1974 Colonoscopy 1974 Colorectal Cancer Screening 1974 Diabetes: Hemoglobin A1C 1974 FIT-DNA 1974 FIT 1974 FOBT 1974 Sigmoidoscopy 1974 Diabetes: Retinopathy Screening 01/13/1984 Diabetes: Urine Protein Screening 1993 Influenza Vaccine (#1) 2025 08/01/2023, 2020 Insurance [employer] Care Teams Scheduling Agent Relationship Specialty Start Date End Date Unallocated, Noms Provider, [address] [place] [address] PCP - General Family Medicine 05/16/25 Naomi Alvarez NP [address] [place], [place] [phone] Referring Physician Family Medicine 08/03/24 Robbin Sunshine DO [address] [place] [phone] Referring Physician Neurology 09/15/24 Maegan Carmona NP [address] [address] Nurse Practitioner Neurology 09/15/24
--- OUTSIDE RECORDS SUMMARY | 2025-08-22 15:27 | XMS_ITS | Clinical Summary ---
Author Organization [facility] Address [address] [place] [address] Care Team Providers Care Lockstitch Sleeve Maker Name Role Phone Dalton Swanson MD Unavailable Source Comments The following information is NOT included in Care Everywhere downloads:Psychiatric notes, ECG results, Cardiac Rehab notes, Pulmonary Function notes, data from [employer] (includes but not limited toPregnancy data,audiograms, eye exams, pre-surgical evaluation notes, well-child exam data).[facility] Allergies No known active allergies Medications atorvastatin (LIPITOR) 20 mg tablet Take 20 mg by mouth daily. Active predniSONE (DELTASONE) 10 MG tablet Take by mouth. 3 tab Q am , at once 08/05/2024 Active levothyroxine (SYNTHROID) 125 MCG tablet Take 125 mcg by mouth daily. Active pyRIDostigmine (MESTINON) 60 MG tablet 3 times daily. Active efgartigimod lillian-hyaluronida se-qvfc (Vyvgart Hytrulo) 180-2000 MG-UNIT/ML SOLN injection Inject 5.6 mL under the skin once. Once weekly x 4wks Active Immunizations Immunization Administration Dates Next Due Influenza, injectable, quadr ivalent, preservative free (NGU=029) 08/01/2023,10/05/2021 Tdap (LQF=630) 10/05/2021 Social History Tobacco Use Types Packs/Day Years Used Date Smoking Tobacco: Some Days Cigarettes Smokeless Tobacco: Never Tobacco Cessation:Ready to Q uit: Not Asked; Counseling Given: Not Answered Sex and Gender Information Value Date Recorded Sex Assigned at Not on file Legal Sex Male 1:54 PM EST Gender Identity Not on file Sexual Orientation Not on file Last Filed Vital Signs Vital Sign Reading Time Taken Comments Blood Pressure 141/67 01/11/2025 3:38 PM EST Pulse 84 01/11/2025 3:38 PM EST Temperature 36.3 C (97.4 F) 01/11/2025 3:38 PM EST Respiratory Rate 16 01/11/2025 3:38 PM EST Oxygen Saturation - - Inhaled Oxygen Concentration - - Weight 119.7 kg (264 lb) 01/11/2025 3:38 PM EST Height - - Body Mass Index - - Plan of Treatment Health Maintenance Due Date Last Done Comments Colonoscopy 1974 HIV Test 1989 Hepatitis C Antibody 01/13/1992 Hepatitis A (HAV) Vaccine (o ptional start 19+ years) 1993 Hepatitis B (HBV) Vaccine (1 of 3 - 19+ 3-dose series) 1993 Pneumococcal Vaccine(s) (50+ yrs) (1 of 2 - PCV) 1993 Shingles (RZV) Vaccine (1 of 2) 1993 CRC Screening 2019 Cologuard (Stool DNA) 2019 FIT 2019 COVID-19 Vaccine (3 - Pfizer risk series) 03/20/2021 02/20/2021, 01/30/2021 Influenza Vaccine (#1) 2025 08/01/2023, 2020 Cholesterol 03/08/2028 03/08/2023 Tetanus (Td or Tdap) Booster 10/05/2031 10/05/2021 Tdap Booster Completed 10/05/2021 Insurance [employer] on file Care Teams Lockstitch Sleeve Maker Relationship Specialty Start Date End Date Dalton Swanson MD [address] [place] [address] [place] [address] Physician Neurology 02/12/25
--- OUTSIDE RECORDS SUMMARY | 2025-08-22 15:29 | XMS_ITS | CCD ---
Author Organization [facility] Care Team Providers Care Rail Switchman Name Role Phone Aiyana Purdy Primary Care Physician [phone] MD Devonte Lentz Attending Provider IVONE Purdy Primary Care Provider [phone] Unknown, Referring Provider Unavailable Unav ailable Rosi Alvarez Primary Care Physician Rosi Alvarez Attending Unavailable Rosi Alvarez Attending Unavailable NAKUL BRANNNO Attending Unavailabl NAKUL Telles Admitting Unavailabl e MicaelaRosi valenzuela Admitting Unavailable Rosi Alvarez Attending Unavailable LEXX LANDERS Attending Unavailable DO Devonte Sunshine Attending Provider Micaela, IVONE Thomas Primary Care Provider Rosi Alvarez MD Unavailable Devonte Sunshine DO Unavailable Moises FRITZ, Orin Unavailable Maegan Carmona NP Unavailable Unavailable Primary Care Provider Unavailabl e Micaela PANTRY GOODS WORKER.Rosi DUMONT Primary Care Provider IDONE SWANSON Attending Unavailable PROVIDER, UNKNOWN Admitting Unavailable Devonte Sunshine DO Unavailable Mathew FRITZ, Maegan Unavailable Unavailable Micaela WET END HELPER-C, Rosi Thomas Primary Care Provider Devonte Sunshine DO Attending Provider Elvira Luong APRN Attending Provider Micaela WET END HELPER, Rosi Unavailable Devonte Sunshine DO Unavailable Unallocated , Noms Provider Primary Care [facility] Micaela, Rosi L Attending Unavailable Micaela, Rosi L Attending Unavailable Micaela, Rosi L Attending Unavailable Micaela, Rosi L Attending Unavailable Micaela, Rosi L Attending Unavailable Micaela, Rosi L Attending Unavailable ROHIT, Elizabeth Jeter Attending Unavailabl e ROHIT, Elizabeth Jeter Referring Unavailabl e Micaela, Rosi L Attending Unavailable Micaela, Rosi L Admitting Unavailable Micaela, Rosi L Admitting Unavailable Micaela, Rosi L Attending Unavailable Micaela, Rosi L Admitting Unavailable Micaela, Rosi L Attending Unavailable Micaela, Rosi L Attending Unavailable Micaela, Rosi L Attending Unavailable Micaela, Rosi L Attending Unavailable Micaela, Rosi L Attending Unavailable Unavailable Primary Care Provider UnavailDevonte Felipe DO Referring Provider DEVONTE SUNSHINE Attending Unavailable BITA, DEVONTE Attending Unavailable TRISHA ORTIZ Attending Unavailable ALEX LENTZ Attending Unavailable MICAELAROSI Referring Unavailable BROWNALEX Attending Unavailable BROWN, ALEX Jeter Attending Unavailable BROWN, ALEX Jeter Attending Unavailable BROWN, ALEX Jeter Attending Unavailable BROWNALEX Attending Unavailable BITADEVONTE ARMAS Attending Unavailable BITADEVONTE Attending Unavailable BITADEVONTE Attending Unavailable BITADEVONTE Attending Unavailable Micaela, CONTINUOUS MINER Rosi Bowers Attending Unavailable Micaela, CONTINUOUS MINER Rosi Bowers Attending Unavailable GALEN, JULIA Jeter Attending Unavailabl e Micaela, CONTINUOUS MINER Rosi Bowers Attending Unavailable Micaela, CONTINUOUS MINER Rosi Bowers Referring Unavailable Micaela, CONTINUOUS MINER Rosi Bowers Admitting Unavailable Micaela, CONTINUOUS MINER Rosi Bowers Attending Unavailable Micaela, CONTINUOUS MINER Rosi Bowers Attending Unavailable SUSI RICE Attending Unavailable DEVONTE SUNSHINE Referring Unavailab SUSI Saucedo Attending Unavailable MICAELA, ROSI THOMAS Primary Care Unavailable SUSI RICE Attending Unavailable MICAELA, ROSI THOMAS Primary Care Unavailable Devonte Sunshine Admitting Unavailab Devonte Boothe Attending Unavailab Rosi Kim Primary Care Unavailable Devonte Sunshine Referring Rosi Rodríguez Primary Care Unavailable Devonte Sunshine Admitting Unavailab Devonte Boothe Attending Unavailab Rosi Kim Admitting Unavailable MicaelaRosi valenzuela Attending Unavailable MicaelaRosi valenzuela Attending Unavailable Allergies Allergy Classification Reported Allergen(s) Allergy Type Date of Onset Reaction(s) Facility (4 sources) No Known Medication Allergies; Translations: [No Known Medication Allergies] Propensity to adverse reactions (disorder) [facility] Repository Medications Current Medications Medication Drug Class(es) Dates Sig (Normalized) Sig (Original) atorvastatin 20 mg oral tablet (20 sources) HMG-CoA Reductase Inhibitor Start: 01-28-2022 End: 08-01-2025 atorvastatin (Li pitor) 10 MG tablet Atorvastatin Calcium Active Atorvastatin Eduardo cium 20 MG Oral Tablet Quantity: 0 Refills: 0 Ordered: 04-Jun-2023 DO Active Betamethasone / Clotrimazole (20 sources) Azole Antifungal, Corticosteroid Start: 07-27-2021 betamethasone-clotrimazole T op 0.05%-1% Crm 45 gram 1 wilver, Topical, BID, 45 gram, Refill(s) 1, [facility]/pharmacy #[id number], 163, cm, 08/09/20 8:00:00 EDT, Height/Length Dosing, 98.7, kg, 08/09/20 8:00:00 EDT, Weight Dosing Start Date: 07/27/21 Status: Ordered Start: 07-27-2021 betamethasone- clotrimazole Top 0.05%-1% Crm 45 gram 1 wilver, Topical, BID, 45 gram, Refill(s) 1, [facility] #[id number], 163, cm, 08/09/20 8:00:00 EDT, Height/Length Dosing, 98.7, kg, 08/09/20 8:00:00 EDT, Weight Dosing Start Date: 07/27/21 Status: Ordered clotrimazole-bet amethasone (Lotrisone) cream 1 application every 12 (twelve) hours. Active cephalexin 500 mg oral capsule (1 source) Cephalosporin Antibacterial Start: 04-20-2025 take 1 capsule by mouth every twelve hours cephalexin 500 mg Cap 500 mg = 1 cap(s), Oral, q12hr, # 14 cap(s), Refills(s) 0, Pharmacy: [facility]/pharmacy #[id number], 163, cm, 04/20/25 10:52:00 EDT, Height/Length Dosing, 118, kg, 04/20/25 10:52:00 EDT, Weight Dosing Start Date: 04/20/25 Status: Ordered Quantity: 14.0 Unit: cap(s) Repeat number: 1 Indications: Body mass index [BMI] 40.0-44.9, adult; Other hypertrophic disorders of the skin; efgartigimod lillian-hyaluronidase -qvfc (Vyvgart Hytrulo) 180-2000 MG-UNIT/ML SOLN injection (1 source) efgartigimod lillian-hyaluronidas e-qvfc (Vyvgart Hytrulo) 180-2000 MG-UNIT/ML SOLN injection Inject 5.6 mL under the skin once. Once weekly x 4wks Active fluticasone furoate 0.0275 mg/actuat metered dose nasal spray (4 sources) Corticosteroid Start: 12-13-2022 fluticasone nasal 27.5 mcg/inh spray 2 spray(s), Nasal, Daily for allergy symptoms, 10 gram, Refill(s) 0, [facility]/pharmacy #[id number], 163, cm, 12/13/22 11:50:00 EST, Height/Length Dosing, 109.8, kg, 12/13/22 11:50:00 EST, Weight Dosing Start Date: 12/13/22 Status: Ordered 3 ml insulin glargine 300 unt/ml pen injector (1 source) Insulin Analog Start: 07-25-2025 inject 30 [IU] by subcutaneous injection once daily Insulin Glargine U-300 Conc (Toujeo Max U-300 Solostar) 300 unit/mL (3 mL) insulin pen Active 30 UNIT SUBCUT Daily July 25, 2025 12:00am Complies with drug therapy levothyroxine sodium 0.125 mg oral tablet (20 sources) l-Thyroxine Start: 10-19-2024 Levothyroxine 125 mcg tablet Active MCG October 19, 2024 1:00am Complies with drug therapy Start: 05-15-2023 End: 08-01-2025 take 1 tablet by mouth once daily levothyroxine 125 mcg (0.125 mg) Tab 125 mcg = 1 tab(s), Oral, Daily, X 90 day(s), # 90 tab(s), Refills(s) 3, Pharmacy: [facility]/pharmacy #[id number], 163, cm, 08/05/24 11:30:00 EDT, Height/Length Dosing, 105.1, kg, 08/05/24 11:30:00 EDT, Weight Dosing Start Date: 08/06/24 Stop Date: 08/01/25 Status: Ordered Quantity: 90.0 Unit: tab(s) Repeat number: 4 Indications: Hypothyroidism, unspecified; Start: 03-12-2023 take 1 tablet by ivis th once daily levothyroxine 125 mcg (0.125 mg) Tab 125 mcg = 1 tab(s), Oral, Daily, # 60 tab(s), Refills(s) 0, Pharmacy: [facility]/pharmacy #[id number], 163, cm, 03/07/23 10:07:00 EDT, Height/Length Dosing, 109, kg, 03/07/23 10:07:00 EDT, Weight Dosing Start Date: 03/12/23 Status: Ordered Start: 01-15-2023 take 1 tablet by ivis th once daily levothyroxine 150 mcg (0.15 mg) Tab 150 microgram = 1 tab(s), Oral, Daily, # 90 tab(s), Refills(s) 1, Pharmacy: [facility]/pharmacy #[id number], 163, cm, 12/13/22 11:50:00 EST, Height/Length Dosing, 109.8, kg, 12/13/22 11:50:00 EST, Weight Dosing Start Date: 01/15/23 Status: Ordered Start: 07-26-2022 take 1 tablet by ivis th once daily levothyroxine 150 mcg (0.15 mg) Tab 150 microgram = 1 tab(s), Oral, Daily, # 90 tab(s), Refills(s) 1, Pharmacy: [facility]/pharmacy #[id number], 163, cm, 04/30/22 11:55:00 EDT, Height/Length Dosing, 107, kg, 04/30/22 11:55:00 EDT, Weight Dosing Start Date: 07/26/22 Status: Ordered Start: 01-28-2022 take 1 tablet by ivis th once daily levothyroxine 150 mcg (0.15 mg) Tab 150 microgram = 1 tab(s), Oral, Daily, # 90 tab(s), Refills(s) 1, [id number] 163, cm, 08/29/21 11:02:00 EDT, Height/Length Dosing, 104.9, kg, 08/29/21 11:02:00 EDT, Weight Dosing Start Date: 01/28/22 Status: Ordered levothyroxine (S ynthroid) 200 MCG reconstituted solution Levothyroxine Sodium Active Levothyroxine So dium 125 MCG Oral Capsule Quantity: 0 Refills: 0 Ordered: 04-Jun-2023 DO Active phentermine hydrochloride 37.5 mg oral tablet (20 sources) Sympathomimetic Amine Anorectic take 1 tablet by mouth before mealtime phentermine (Adipex-P) 37.5 MG tablet Take 37.5 mg by mouth in the morning. Take before meals. Active pyridostigmine bromide 60 mg oral tablet (20 sources) Start: 024 End: 025 take 1 tablet by mouth in the evening pyridostigmine (Mestinon) 60 MG tablet Indications: Myasthenia gravis (HCC) , Ptosis of left eyelid TAKE 1 TAB BY MOUTH IN THE MORNING,1 TABLET IN THE EVENING AND 1 TAB BEFORE BEDTIME. 270 tablet 2 11/23/2024 Active triamcinolone acetonide 0.001 mg/mg topical ointment (5 sources) Corticosteroid Start: 021 triamcinolone Top 0.1% Oint 1 wilver, Topical, TID, 60 gram, Refill(s) 6, [facility]/pharmacy #[id number], 163, cm, 08/29/21 11:02:00 EDT, Height/Length Dosing, 104.9, kg, 08/29/21 11:02:00 EDT, Weight Dosing Start Date: 08/31/21 Status: Ordered Completed/Discontinued Medications Medication Drug Class(es) Dates Sig (Normalized) Sig (Original) azaTHIOprine 50 mg oral tablet (3 sources) Purine Antimetabolite Start: 05-11-2025 End: 07-25-2025 take 1 tablet by mouth once daily Azathioprine 50 mg tablet Discontinued 50 MG PO Daily May 11, 2025 12:00am July 25, 2025 10:25am metFORMIN hydrochloride 500 mg oral tablet (3 sources) Biguanide Start: 05-11-2025 End: 07-25-2025 take 1 tablet by mouth twice daily Metformin 500 mg tablet Discontinued 500 MG PO Twice daily May 11, 2025 12:00am July 25, 2025 10:25am predniSONE 20 mg oral tablet (20 sources) Start: 07-25-2025 End: 07-25-2025 take 2 tablets by mouth once daily Prednisone 20 mg tablet Discontinued 40 MG PO Daily July 25, 2025 10:25am July 25, 2025 10:39am Start: 07-04-2025 End: 07-25-2025 take 3 tablets by mouth once daily Prednisone 20 mg tablet Discontinued 60 MG PO Daily 90 July 04, 2025 12:00am July 25, 2025 10:26am Start: 05-11-2025 End: 07-25-2025 take 4 tablets by mouth twice daily Prednisone 10 mg tablet Discontinued 40 MG PO Twice daily May 11, 2025 8:42am July 25, 2025 10:40am Start: 10-19-2024 End: 05-11-2025 Prednisone 10 mg tablet Disc ontinued MG Twice daily October 19, 2024 1:00am May 11, 2025 8:42am Start: 08-17-2024 End: 08-12-2025 take 2 tablets by mouth once daily predniSONE (Deltasone) 10 MG tablet Indications: Myasthenia gravis (CMS/HCC) Take 2 tablets (20 mg) by mouth Daily 30 tablet 3 08/17/2024 09/15/2024 Discontinued (Reorder) Start: 08-05-2024 End: 09-10-2025 take 3 tablets by mouth once daily predniSONE (Deltasone) 10 MG tablet Indications: Generalized myasthenia gravis (HCC) TAKE 3 TABLETS BY MOUTH EVERY DAY 90 tablet 2 03/09/2025 Active Start: 08-05-2024 predniSONE 10 mg Tab -, [...] days, # 18 tab(s), Refills(s) 0, Pharmacy: [facility]/pharmacy #[id number], 163, cm, 04/30/22 11:55:00 EDT, Height/Length Dosing, 107... Start Date: 04/30/22 Status: Ordered Problems Active Problems Problem Classification Problem Date Documented Date Episodic/Chronic Acquired foot deformities (2 sources) Acquired deformity of toe of left foot; Translations: [Acquired deformities of toe(s), unspecified, left foot] 07-28-2025 Episodic Acquired foot deformities (2 sources) Acquired deformity of toe of right foot; Translations: [Acquired deformities of toe(s), unspecified, right foot] 07-28-2025 Episodic Chronic obstructive pulmonary disease and bronchiectasis (3 sources) Bronchitis 08-20-2023 Episodic Diabetes mellitus with complications (2 sources) Polyneuropathy due to diabetes mellitus; Translations: [Diabetes mellitus due to underlying condition with diabetic polyneuropathy] 07-28-2025 Chronic Diabetes mellitus without complication (7 sources) Diabetes mellitus; Translations: [Type 2 diabetes mellitus without complications] 05-11-2025 Chronic Diabetes mellitus without complication (4 sources) Prediabetes 05-30-2023 Episodic Disorders of lipid metabolism (9 sources) Hyperlipidemia 10-01-2019 Chronic Genitourinary symptoms and ill-defined conditions (2 sources) Nocturia; Translations: [Polyuria] 05-03-2025 Episodic Headache; including migraine (9 sources) Migraine 07-27-2021 Chronic Miscellaneous mental health disorders (4 sources) Primary insomnia; Translations: [Primary insomnia] 02-08-2025 Chronic Neoplasms of unspecified nature or uncertain behavior (4 sources) Neoplasm of uncertain behavior of skin; Translations: [Neoplasm of uncertain behavior of skin] 04-28-2025 Episodic Other connective tissue disease (1 source) Enthesopathy; Translations: [Other enthesopathies, not elsewhere classified] Onset: 04-30-2022 Episodic Other connective tissue disease (9 sources) Tendinitis of flexor tendon of left hand 04-30-2022 Episodic Other connective tissue disease (4 sources) Muscle weakness of limb; Translations: [Other symptoms and signs involving the musculoskeletal system] Onset: 12-21-2024 12-21-2024 Episodic Other connective tissue disease (12 sources) Pain in right foot; Translations: [Pain in right foot] 04-28-2025 Episodic Other eye disorders (6 sources) Eye / vision finding 03-07-2023 Episodic Other eye disorders (1 source) Hypertropia of left eye; Translations: [Hypertropia] Episodic Other eye disorders (4 sources) Ptosis of eyelid; Translations: [Unspecified ptosis of bilateral eyelids] Onset: 12-21-2024 12-21-2024 Episodic Other hereditary and degenerative nervous system conditions (4 sources) Bulbar weakness; 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] Onset: 12-21-2024 12-21-2024 Chronic Other hereditary and degenerative nervous system conditions (1 source) Other motor neuron disease; 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)] Onset: 12-21-2024 Chronic Other lower respiratory disease (2 sources) Snoring; Translations: [Snoring] 02-08-2025 Episodic Other nervous system disorders (13 sources) Myasthenia gravis; Translations: [Myasthenia gravis without (acute) exacerbation] Onset: 12-21-2024 08-05-2024 Chronic Other nervous system disorders (18 sources) Generalized myasthenia; Translations: [Myasthenia gravis without (acute) exacerbation] Onset: 04-12-2025 09-15-2024 Chronic Other nervous system disorders (3 sources) Myasthenia gravis without exacerbation; Translations: [Myasthenia gravis without (acute) exacerbation] Onset: 04-12-2025 12-21-2024 Chronic Other nervous system disorders (4 sources) Myasthenia gravis without (acute) exacerbation; Translations: [Myasthenia gravis without exacerbation (HCC)] Onset: 12-21-2024 Chronic Other nutritional; endocrine; and metabolic disorders (11 sources) Body mass index 40+ - severely obese; Translations: [Body mass index (BMI) 40.0-44.9, adult] Onset: 04-30-2022 Chronic Other nutritional; endocrine; and metabolic disorders (2 sources) 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; Translations: [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, unspecified whether serious comorbidity present] 02-08-2025 Chronic Other nutritional; endocrine; and metabolic disorders (2 sources) Obesity; Translations: [Obesity, unspecified] 05-16-2025 Chronic Other skin disorders (1 source) Skin tag 04-20-2025 Episodic Other upper respiratory infections (3 sources) Sinusitis 08-20-2023 Chronic Residual codes; unclassified (6 sources) Obstructive sleep apnea syndrome; Translations: [Obstructive sleep apnea (adult) (pediatric)] 02-08-2025 Chronic Residual codes; unclassified (4 sources) Hypersomnia; Translations: [Hypersomnia, unspecified] 02-08-2025 Chronic Residual codes; unclassified (9 sources) Flushing 10-01-2019 Episodic Residual codes; unclassified (4 sources) Trying to give up smoking; Translations: [Tobacco use] Onset: 12-21-2024 12-21-2024 Episodic Residual codes; unclassified (4 sources) History of immunosuppressive therapy; Translations: [Personal history of immunosupression therapy] Onset: 12-21-2024 12-21-2024 Episodic Substance-related disorders (13 sources) Nicotine dependence; Translations: [Nicotine dependence, unspecified, uncomplicated] Onset: 04-30-2022 Chronic Comment on above: Added secondary to d ocumentation in Social History. Thyroid disorders (9 sources) Hypothyroidism 10-01-2019 Chronic Unclassified (9 sources) Pain of knee region 08-29-2021 Unclassified (20 sources) Patient encounter status 10-01-2019 Viral infection (13 sources) Verruca plantaris; Translations: [Plantar wart] 04-28-2025 Episodic Past or Other Problems Problem Classification Problem Date Documented Date Episodic/Chronic Blindness and vision defects (12 sources) Blurring of visual image; Translations: [Diplopia] Onset: 12-21-2024 03-07-2023 Episodic Other connective tissue disease (1 source) Other symptoms and signs involving the musculoskeletal system; Translations: [Limb weakness] Onset: 12-21-2024 Episodic Other eye disorders (1 source) Unspecified ptosis of bilateral eyelids; Translations: [Ptosis of both eyelids] Onset: 12-21-2024 Episodic Residual codes; unclassified (1 source) Tobacco use; Translations: [Smoking trying to quit] Onset: 12-21-2024 Episodic Residual codes; unclassified (1 source) Personal history of immunosupression therapy; Translations: [H/O immunosuppressive therapy] Onset: 12-21-2024 Episodic Results Test Name Value Interpretation Reference Range Facility [facility] 08-10-2025 Albumin [Mass/Vol] 4.4 g/dL Normal 3.3-5.0 [facility] Comment on above: Performed By: #### 2 [id number] #### [facility] [address] [place] [address] Albumin/Globulin [Mass ratio] 2.2 {ratio} Normal 1.1-2.2 [facility] Comment on above: Performed By: #### 2 [id number] #### [facility] [address] [place] [address] Alk Phos 56 Int._Unit/L Normal 21-98 [facility] Comment on above: Performed By: #### 2 [id number] #### [facility] [address] [place] [address] ALT 37 Int._Unit/L Normal 6-46 [facility] Comment on above: Performed By: #### 2 [id number] #### [facility] [address] [place] [address] Anion gap [Moles/Vol] 8 mmol/L Normal 6-16 [facility] Comment on above: Performed By: #### 2 [id number] #### [facility] [address] [place] [address] AST 19 Int._Unit/L Normal 5-43 [facility] Comment on above: Performed By: #### 2 [id number] #### [facility] [address] [place] [address] Bili Total 0.5 mg/dL Normal 0.0-1.1 [facility] Comment on above: Performed By: #### 2 [id number] #### [facility] [address] [place] [address] BUN/Creat Ratio 14 No Units Normal 10-20 [facility] Comment on above: Performed By: #### 2 [id number] #### [facility] [address] [place] [address] Calcium [Mass/Vol] 9.0 mg/dL Normal 8.9-11.1 [facility] Comment on above: Performed By: #### 2 [id number] #### [facility] [address] [place] [address] Chloride [Moles/Vol] 104 mmol/L Normal 101-111 [facility] Comment on above: Performed By: #### 2 [id number] #### [facility] [address] [place] [address] CO2 [Moles/Vol] 30 mmol/L Normal 21-31 [facility] Comment on above: Performed By: #### 2 [id number] #### [facility] [address] [place] [address] Creatinine [Mass/Vol] 0.8 mg/dL Normal 0.5-1.3 [facility] Comment on above: Performed By: #### 2 [id number] #### [facility] [address] [place] [address] Globulin (S) [Mass/Vol] 2.0 g/dL Normal 1.4-4.0 [facility] Comment on above: Performed By: #### 2 [id number] #### [facility] [address] [place] [address] Glucose [Mass/Vol] 139 mg/dL Normal 55-199 [facility] Comment on above: Performed By: #### 2 [id number] #### [facility] [address] [place] [address] Potassium [Moles/Vol] 3.7 mmol/L Normal 3.5-5.3 [facility] Comment on above: Performed By: #### 2 [id number] #### [facility] [address] [place] [address] Protein [Mass/Vol] 6.4 g/dL Normal 6.0-7.8 [facility] Comment on above: Performed By: #### 2 [id number] #### [facility] [address] [place] [address] Sodium [Moles/Vol] 138 mmol/L Normal 135-145 [facility] Comment on above: Performed By: #### 2 [id number] #### [facility] [address] [place] [address] Urea nitrogen [Mass/Vol] 11 mg/dL Normal 5-21 [facility] Comment on above: Performed By: #### 2 [id number] #### [facility] [address] [place] [address] [id number] 08-10-2025 HbA1c (Bld) [Mass fraction] 7.4 % High <=5.9 [facility] Comment on above: Performed By: #### 7 [id number] #### [facility] [address] [place] [address] Lipid Panelon 08-10-2025 Cholesterol [Mass/Vol] 147 mg/dL Normal 120-200 [facility] Comment on above: Performed By: #### 2 [id number] #### [facility] [address] [place] [address] Cholesterol in HDL [Mass/Vol] 44 mg/dL Invalid Interpretation Code [facility] Comment on above: Result Comment: '>= 60 LOW RISK' '<= 40 HIGH RISK' Performed By: #### 2 [id number] #### [facility] [address] [place] [address] Cholesterol in LDL [Mass/Vol] 76 mg/dL Normal <=129 [facility] Comment on above: Performed By: #### 2 [id number] #### [facility] [address] [place] [address] Cholesterol in VLDL [Mass/Vol] 26 mg/dL Normal 7-40 [facility] Comment on above: Performed By: #### 2 [id number] #### [facility] [address] [place] [address] Triglyceride [Mass/Vol] 129 mg/dL Normal <=149 [facility] Comment on above: Performed By: #### 2 [id number] #### [facility] [address] [place] [address] TSHon 08-10-2025 TSH Qn 0.27 m[IU]/L Low 0.34-5.60 [facility] Comment on above: Performed By: #### 2 [id number] #### [facility] [address] [place] [address] Vitamin D 25 Hydroxyon 08-10 Vitamin D 25 Hydroxy 53.6 ng/mL Normal 30.0-100.0 [facility] Comment on above: Performed By: #### 5 [id number] #### [facility] [address] [place] [address] eGFRon 08-10-2025 eGFR 107 mL/min/1.73 m2 Normal >=59 [facility] Comment on above: Performed By: #### 1 [id number] #### [facility] [address] [place] [address] Family Medicine Office/Clini c Noteon 08-09-2025 Family Medicine Office/Clinic Note Family Medicine Office/Clinic Note HPI Staff Pt is here for 1 month f/u for abdominal pain no problems with this anymore since insulin was switched went to 6 units to 8 with insulin.... he os doing much better average BS 151 needs refills for needles History of Present Illness pt presents today for wellness visit and diabetes follow up. Review of Systems PHQ Score Initial Depression Screen Score: 0 SCORE Physical Exam Vitals & Measurements T: 36.2 ???C(Temporal Artery) HR: 76(Peripheral) RR: 20 BP: 126/80 SpO2: 98% HT: 64 in HT: 163.0 cm WT: 219.801 lb WT: 99.7 kg BMI: 37.52 General: alert, no acute distress ENMT: oral mucosa moist, no pharyngeal erythema or exudate Cardiovascular: regular rate and rhythm, normal peripheral perfusion Respiratory: Lungs CTA, respirations non labored Extremities: no deformity, no trauma Neurological: oriented x 4, LOC appropriate for age, CN II-XII intact, motor strength equal & normal bilaterally, speech normal Assessment/Plan 1. Well adult exam (Z00.00: Encounter for general adult medical examination without abnormal findings) presents for annual wellness visit. needs labs ordered. Ordered: Est Preventative 40 to 64 years [address] 2. Type 2 diabetes mellitus (E11.9: Type 2 diabetes mellitus without complications) pt presents today for diabetes follow up. order for HGBA1C provided. will go to [facility]. he is a hard stick and prefers to go to hospital. since increasing insulin to 8 units blood sugars are running in the 150-200's. he is feeling much better. will increase 10 units. RTC 3 months Ordered: Misc Prescription, Pen Needle 31G x 6mm, See Instructions, 100 EA, 1, Pen Needle 31G x 6mm, [id number], Supply, 163, cm, 08/09/25 10:54:00 EDT, Height/Length Dosing, 99.7, kg, 08/09/25 10:54:00 EDT, Weight Dosing Comprehensive Metabolic Panel Est Preventative 40 to 64 years [address]4484 HgbA1c Lipid Panel Thyroid Stimulating Hormone Vitamin D 25 Hydroxy 3. Vitamin D deficiency (E55.9: Vitamin D deficiency, unspecified) vitamin d ordered Ordered: Misc Prescription, Pen Needle 31G x 6mm, See Instructions, 100 EA, 1, Pen Needle 31G x 6mm, [id number], Supply, 163, cm, 08/09/25 10:54:00 EDT, Height/Length Dosing, 99.7, kg, 08/09/25 10:54:00 EDT, Weight Dosing Comprehensive Metabolic Panel Est Preventative 40 to 64 years [address] HgbA1c Lipid Panel Thyroid Stimulating Hormone Vitamin D 25 Hydroxy 4. Hyperlipemia (E78.5: Hyperlipidemia, unspecified) lipid panel ordered Ordered: Misc Prescription, Pen Needle 31G x 6mm, See Instructions, 100 EA, 1, Pen Needle 31G x 6mm, [id number], Supply, 163, cm, 08/09/25 10:54:00 EDT, Height/Length Dosing, 99.7, kg, 08/09/25 10:54:00 EDT, Weight Dosing Comprehensive Metabolic Panel Est Preventative 40 to 64 years [address]2015 HgbA1c Lipid Panel Thyroid Stimulating Hormone Vitamin D 25 Hydroxy 5. Hypothyroid (E03.9: Hypothyroidism, unspecified) TSH ordered Ordered: Misc Prescription, Pen Needle 31G x 6mm, See Instructions, 100 EA, 1, Pen Needle 31G x 6mm, [id number], Supply, 163, cm, 08/09/25 10:54:00 EDT, Height/Length Dosing, 99.7, kg, 08/09/25 10:54:00 EDT, Weight Dosing Comprehensive Metabolic Panel Est Preventative 40 to 64 years [address]169 HgbA1c Lipid Panel Thyroid Stimulating Hormone Vitamin D 25 Hydroxy 6. BMI 37.0-37.9, adult (Z68.37: Body mass index [BMI] 37.0-37.9, adult) BMI education given Ordered: Misc Prescription, Pen Needle 31G x 6mm, See Instructions, 100 EA, 1, Pen Needle 31G x 6mm, [id number], Supply, 163, cm, 08/09/25 10:54:00 EDT, Height/Length Dosing, 99.7, kg, 08/09/25 10:54:00 EDT, Weight Dosing Comprehensive Metabolic Panel Est Preventative 40 to 64 years [address]2759 HgbA1c Lipid Panel Thyroid Stimulating Hormone Vitamin D 25 Hydroxy 7. Smoker (F17.200: Nicotine dependence, unspecified, uncomplicated) continue not smoking Ordered: Misc Prescription, Pen Needle 31G x 6mm, See Instructions, 100 EA, 1, Pen Needle 31G x 6mm, [id number], Supply, 163, cm, 08/09/25 10:54:00 EDT, Height/Length Dosing, 99.7, kg, 08/09/25 10:54:00 EDT, Weight Dosing Comprehensive Metabolic Panel Est Preventative 40 to 64 years [address]3537 HgbA1c Lipid Panel Thyroid Stimulating Hormone Vitamin D 25 Hydroxy Orders: insulin glargine, 10 unit(s), SubCutaneous, Daily, # 6 mL, Refills(s) 0, Pharmacy: [facility]/pharmacy #[id number], 163, cm, 07/18/25 13:52:00 EDT, Height/Length Dosing, 102.2, kg, 07/18/25 13:52:00 EDT, Weight Dosing Follow-up No qualifying data available Problem List/Past Medical History Ongoing Blurred vision Bronchitis Encounter for weight management Hot flashes Hyperlipemia Hypothyroid Leg cramps snf current use of systemic steroids Migraine Morbid obesity with BMI of 40.0-44.9, adult Myasthenia gravis Nocturia Obesity (BMI 30-39.9) Plantar wart, right foot Polyuria Pre-op evaluation Prediabetes Prostate cancer (more content not included)... 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1975 Visit Date:07/18/2025 Ambulatory Visit Instructions Your Diagnosis Type 2 diabetes mellitus Your Care Team Attending Physician - Rosi Bradford Primary Care Physician - Rosi Bradford This Is Your Medications List Misc Prescription ([facility] Alcohol Swab) Misc Prescription (Glucose Kit) Misc Prescription (True metrix glucose test strips) Misc Prescription (Ultra Thin 30G Lancet) atorvastatin (atorvastatin 20 mg Tab) ergocalciferol (Vitamin D 50,000 intl units (1.25 mg) oral capsule) hydrocortisone topical (hydrocortisone Top 2.5% Crm) insulin degludec (Tresiba FlexTouch 100 units/mL subcutaneous solution) levothyroxine (levothyroxine 125 mcg (0.125 mg) Tab) predniSONE (predniSONE 10 mg Tab) pyridostigmine (pyridostigmine 60 mg Tab) [Image Removed: STOP]Stop taking these medications sitagliptin (Januvia 50 mg Tab) Procedures Performed Closed fracture of right shoulder. Discharge Vitals Heart Rate (Peripheral) 82 Respiratory Rate 18 Blood Pressure 120/70 Height 163 cm Height 163 cm Weight 102.2 kg Weight 102.2 kg BMI 38.47 BMI 38.47 What to do next Scheduled Follow-Up Appointments Friday 10:40 AM EDT With: Rosi Bradford Where: [address] [address]- Friday 1:00 PM EDT With: Where: FT Dietary Friday 1:00 PM EDT With: Where: FT Dietary Medications What How Much When Why Instructions New insulin degludec (Tresiba FlexTouch 100 units/ mL subcutaneous solution) 10 Units Subcutaneous Every day Type 2 diabetes mellitus Refills: 1 Pickup at [facility]/pharmacy #[id number] Unchanged atorvastatin (atorvastatin 20 mg Tab) 1 Tablets By Mouth Every day Duration: 90 Days Unchanged ergocalciferol (Vitamin D 50,000 intl units (1.25 mg) oral capsule) 1 Capsules By Mouth Every week Type 2 diabetes mellitus Leg cramps BMI 40.0-44.9, adult Obesity, morbid, BMI 40.0-49.9 Smoker Unchanged hydrocortisone topical (hydrocortisone Top 2.5% Crm) 1 Application Topical 3 times a day Rash Unchanged levothyroxine (levothyroxine 125 mcg (0.125 mg) Tab) 1 Tablets By Mouth Every day Hypothyroidism Duration: 90 Days Unchanged Misc Prescription ([facility]S Alcohol Swab) See instructions Use prior to finger stick 6x a day Unchanged Misc Prescription (Glucose Kit) See instructions 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 Include autolet, matching test strips, lancets, & alcohol wipes, #100 or as allowed by insurance; DX: E11.9 Unchanged Misc Prescription (True metrix glucose test strips) See instructions Type 2 diabetes mellitus Leg cramps check blood sugar 6 times a day Unchanged Misc Prescription (Ultra Thin 30G Lancet) See instructions 6x/ day Unchanged predniSONE (predniSONE 10 mg Tab) 4 Tablets TAKE 3 TABLETS BY MOUTH EVERY DAY Unchanged pyridostigmine (pyridostigmine 60 mg Tab) TAKE 1 TAB BY MOUTH IN THE MORNING,1 TABLET IN THE EVENING AND 1 TAB BEFORE BEDTIME. Pharmacy Information [facility]/pharmacy #[id number]: [address], [place] [id number] [phone] What How Much When Why Comments Stop Taking sitagliptin (Januvia 50 mg Tab) 1 Tablets By Mouth Every day Abdominal pain Allergies No Known Medication Allergies Problems Ongoing - Any problem that you are currently receiving treatment for. Bilateral knee pain Blurred vision BMI 39.0-39.9,adult Bronchitis Encounter for weight management Hot flashes Hyperlipemia Hypothyroid Leg cramps snf current use of systemic steroids Migraine Morbid obesity with BMI of 40.0-44.9, adult Myasthenia gravis Nocturia Obesity (BMI 30-39.9) Plantar wart, right foot Polyuria Pre-op evaluation Prediabetes Prostate cancer screening Sinusitis Skin tag Smoker Tendinitis of flexor tendon of left hand Type 2 diabetes mellitus Vision changes Well adult exam Historical - Any problem that you are no longer receiving treatment for. Screening for hyperlipidemia Patient Survey You may receive a survey via text or e-mail asking about your office visit. Please share your experience with us by completing your survey. We appreciate your feedback and thank you for choosing us for your care. Patient Portal You may access all of your results and other medical record information on our secure patient portal. If you are not signed up for this yet, please contact [employer] at [phone] to get signed up today. Language Information Language assistance services are available as needed. Gabriela [facility] Ambulatory Visit Summary Ambulatory Visit Summary ALFONZO SHAVER :1975 Visit Date:07/18/2025 Ambulatory Visit Instructions Your Diagnosis Type 2 diabetes mellitus Your Care Team Attending Physician - Rosi Bradford Primary Care Physician - Rosi Bradford This Is Your Medications List Misc Prescription (CVS Alcohol Swab) Misc Prescription (Glucose Kit) Misc Prescription (True metrix glucose test strips) Misc Prescription (Ultra Thin 30G Lancet) atorvastatin (atorvastatin 20 mg Tab) ergocalciferol (Vitamin D 50,000 intl units (1.25 mg) oral capsule) hydrocortisone topical (hydrocortisone Top 2.5% Crm) levothyroxine (levothyroxine 125 mcg (0.125 mg) Tab) predniSONE (predniSONE 10 mg Tab) pyridostigmine (pyridostigmine 60 mg Tab) [Image Removed: STOP]Stop taking these medications sitagliptin (Januvia 50 mg Tab) Procedures Performed Closed fracture of right shoulder. Discharge Vitals Heart Rate (Peripheral) 82 Respiratory Rate 18 Blood Pressure 120/70 Height 163 cm Height 163 cm Weight 102.2 kg Weight 102.2 kg BMI 38.47 BMI 38.47 What to do next Scheduled Follow-Up Appointments Friday 10:40 AM EDT With: Rosi Bradford Where: [address] [address]- Friday 1:00 PM EDT With: Where: FT Dietary Friday 1:00 PM EDT With: Where: FT Dietary Medications What How Much When Why Instructions Unchanged atorvastatin (atorvastatin 20 mg Tab) 1 Tablets By Mouth Every day Duration: 90 Days Unchanged ergocalciferol (Vitamin D 50,000 intl units (1.25 mg) oral capsule) 1 Capsules By Mouth Every week Type 2 diabetes mellitus Leg cramps BMI 40.0-44.9, adult Obesity, morbid, BMI 40.0-49.9 Smoker Unchanged hydrocortisone topical (hydrocortisone Top 2.5% Crm) 1 Application Topical 3 times a day Rash Unchanged levothyroxine (levothyroxine 125 mcg (0.125 mg) Tab) 1 Tablets By Mouth Every day Hypothyroidism Duration: 90 Days Unchanged Misc Prescription (CVS Alcohol Swab) See instructions Use prior to finger stick 6x a day Unchanged Misc Prescription (Glucose Kit) See instructions 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 Include autolet, matching test strips, lancets, & alcohol wipes, #100 or as allowed by insurance; DX: E11.9 Unchanged Misc Prescription (True metrix glucose test strips) See instructions Type 2 diabetes mellitus Leg cramps check blood sugar 6 times a day Unchanged Misc Prescription (Ultra Thin 30G Lancet) See instructions 6x/ day Unchanged predniSONE (predniSONE 10 mg Tab) 4 Tablets TAKE 3 TABLETS BY MOUTH EVERY DAY Unchanged pyridostigmine (pyridostigmine 60 mg Tab) TAKE 1 TAB BY MOUTH IN THE MORNING,1 TABLET IN THE EVENING AND 1 TAB BEFORE BEDTIME. What How Much When Why Comments Stop Taking sitagliptin (Januvia 50 mg Tab) 1 Tablets By Mouth Every day Abdominal pain Allergies No Known Medication Allergies Problems Ongoing - Any problem that you are currently receiving treatment for. 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 Screening for hyperlipidemia Patient Survey You may receive a survey via text or e-mail asking about your office visit. Please share your experience with us by completing your survey. We appreciate your feedback and thank you for choosing us for your care. Patient Portal You may access all of your results and other medical record information on our secure patient portal. If you are not signed up for this yet, please contact [employer] at [phone] to get signed up today. Language Information Language assistance services are available as needed. Gabriela Melgoza [facility] Family Medicine Office/Clini c Noteon 07-18-2025 Family Medicine Office/Clinic Note Family Medicine Office/Clinic Note HPI Staff pt c/o side effects from diabetes medicaiton. Januvia causing GI issues, fatigue, blood sugars running 150-230 History of Present Illness General: alert, no acute distress ENMT: oral mucosa moist, no pharyngeal erythema or exudate Cardiovascular: regular rate and rhythm, normal peripheral perfusion Respiratory: Lungs CTA, respirations non labored Extremities: no deformity, no trauma Neurological: oriented x 4, LOC appropriate for age, CN II-XII intact, motor strength equal & normal bilaterally, speech normal Physical Exam Vitals & Measurements HR: 82(Peripheral) RR: 18 BP: 120/70 HT: 163 cm HT: 163 cm WT: 102.2 kg WT: 102.2 kg BMI: 38.47 BMI: 38.47 General: alert, no acute distress ENMT: oral mucosa moist, no pharyngeal erythema or exudate Cardiovascular: regular rate and rhythm, normal peripheral perfusion Respiratory: Lungs CTA, respirations non labored Extremities: no deformity, no trauma Neurological: oriented x 4, LOC appropriate for age, CN II-XII intact, motor strength equal & normal bilaterally, speech normal Assessment/Plan 1. Type 2 diabetes mellitus (E11.9: Type 2 diabetes mellitus without complications) pt is not tolerating Januvia. He was having side effects, was told to stop it for a week then restart it. he restarted 2 days ago and feels awful today. he is dizzy and sick to his stomach, having diarrhea. pt has not been able to tolerate any oral diabetes medication so far. metformin, farxiga or Januvia. will order Tresiba. needs cgm ordered as well. RTC in august will check labs then Ordered: insulin degludec, 10 unit(s), SubCutaneous, Daily, # 15 mL, Refills(s) 1, Pharmacy: [facility]/pharmacy #[id number], 163, cm, 07/18/25 13:52:00 EDT, Height/Length Dosing, 102.2, kg, 07/18/25 13:52:00 EDT, Weight Dosing Misc Prescription, Dexcom 7 sensors, See Instructions, 18 EA, 3, change every 14 days and as needed, [facility] #[id number], Supply, 163, cm, 07/18/25 13:52:00 EDT, Height/Length Dosing, 102.2, kg, 07/18/25 13:52:00 EDT, Weight Dosing Misc Prescription, Dexcom 7 CGM, See Instructions, 1 EA, 0, check blood sugar 4 times daily and as needed starting insulin today, [facility]/pharmacy #[id number], Supply, 163, cm, 07/18/25 13:52:00 EDT, Height/Length Dosing, 102.2, kg, 07/18/25 13:52:00 EDT, Weight Dosing 2. 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 Medications atorvastatin 20 mg Tab, 20 mg= 1 tab(s), Oral, Daily, 3 refills [facility]S Alcohol Swab, See Instructions, 1 refills Dexcom 7 CGM, See Instructions Dexcom 7 sensors, See Instructions, 3 refills Glucose Kit, See Instructions hydrocortisone Top 2.5% Crm, 1 wilver, Topical, TID, 1 refills levothyroxine 125 mcg (0.125 mg) Tab, 125 mcg= 1 tab(s), Oral, Daily, 3 refills predniSONE 10 mg Tab, 40 mg= 4 tab(s) pyridostigmine 60 mg Tab Tresiba FlexTouch 100 units/mL subcutaneous solution, 10 unit(s), SubCutaneous, Daily, 1 refills True metrix glucose test strips, See Instructions, 5 refills Ultra Thin 30G Lancet, See Instructions, 1 refills Vitamin D 50,000 intl units (1.25 mg) oral capsule, 7[address] International_Unit= 1 cap(s), Oral, qWeek, 3 refills Allergies No Known Medication Allergies Social History Alcohol - Denies Alcohol Use, 12/13/2022 Never., 02/01/2025 Employment/School Employed, Work/School description: Works at [email or web address] 10/01/2019 Substance Abuse - Medium Risk, 03/07/2023 Past. Marijuana. 1-2 times per year. Previous treatment: None., 02/01/2025 Tobacco - High Risk, 08/09/2020 10 or more cigarettes (1/2 pack or more)/day in last 30 days Tobacco Use:. Never Smokeless Tobacco Use:. Cigarettes. Household tobacco concerns: No., 07/18/2025 Family History Alcoholism: Father. Diabetes mellitus type 2: Negative: Brother. Hyperlipidemia: Mother. Multiple personality disorder: Mother. Primary malignant neoplasm of brain: Grandparent. Primary malignant neoplasm of female breast: Mother. Primary malignant neoplasm of lung: Father. Thyroid problems: Mother and Sister. Immunizations Vaccine Date Status Comments influenza virus vaccine, inactivated 08/01/2023 Given influenza virus vaccine, (more content not included)... Normal Melgo[facility] Comment on above: Result Comment: Elec tronically Signed By: Rosi Bradford\.br\Date and Time Signed: 07/18/25 15:43 EDT Ambulatory Visit Summaryon 0 06-28-2025 Ambulatory Visit Summary Ambulatory Visit Summary ALFONZO SHAVER :1975 Visit Date:06/28/2025 Ambulatory Visit Instructions Your Diagnosis Abdominal pain Rash Smoker BMI 39.0-39.9,adult Obesity (BMI 30-39.9) Your Care Team Attending Physician - LEE AARON CNP Primary Care Physician - Rosi Bradford This Is Your Medications List hydrocortisone topical (hydrocortisone Top 2.5% Crm) sitagliptin (Januvia 50 mg Tab) Contact prescribing physician if questions or concerns Misc Prescription ([facility]S Alcohol Swab) Misc Prescription (Glucose Kit) Misc Prescription (True metrix glucose test strips) Misc Prescription (Ultra Thin 30G Lancet) atorvastatin (atorvastatin 20 mg Tab) ergocalciferol (Vitamin D 50,000 intl units (1.25 mg) oral capsule) levothyroxine (levothyroxine 125 mcg (0.125 mg) Tab) predniSONE (predniSONE 10 mg Tab) pyridostigmine (pyridostigmine 60 mg Tab) [Image Removed: STOP]Stop taking these medications dapagliflozin (Farxiga 5 mg oral tablet) Procedures Performed Closed fracture of right shoulder. Discharge Vitals Temperature (Oral) 36.8 ???C Heart Rate (Peripheral) 78 Respiratory Rate 18 Blood Pressure 136/88 Height 163 cm Height 64 in Weight 105.3 kg Weight 232.146 lb BMI 39.63 What to do next Scheduled Follow-Up Appointments Friday 1:00 PM EDT With: Where: FT Dietary Friday 9:00 AM EDT With: Where: FT Dietary Friday 10:40 AM EDT With: Rosi Bradford Where: [facility] [address] [place] [address]- Medications What How Much When Why Instructions New hydrocortisone topical (hydrocortisone Top 2.5% Crm) 1 Application Topical 3 times a day Rash Refills: 1 Pickup at [facility]/pharmacy #[id number] New sitagliptin (Januvia 50 mg Tab) 1 Tablets By Mouth Every day Abdominal pain Pickup at [facility]/pharmacy #[id number] Unchanged atorvastatin (atorvastatin 20 mg Tab) 1 Tablets By Mouth Every day Duration: 90 Days Contact prescribing physician if questions or concerns Unchanged ergocalciferol (Vitamin D 50,000 intl units (1.25 mg) oral capsule) 1 Capsules By Mouth Every week Type 2 diabetes mellitus Leg cramps BMI 40.0-44.9, adult Obesity, morbid, BMI 40.0-49.9 Smoker Contact prescribing physician if questions or concerns Unchanged levothyroxine (levothyroxine 125 mcg (0.125 mg) Tab) 1 Tablets By Mouth Every day Hypothyroidism Duration: 90 Days Contact prescribing physician if questions or concerns Unchanged Misc Prescription ([facility]S Alcohol Swab) See instructions Use prior to finger stick 6x a day Contact prescribing physician if questions or concerns Unchanged Misc Prescription (Glucose Kit) See instructions 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 Include autolet, matching test strips, lancets, & alcohol wipes, #100 or as allowed by insurance; DX: E11.9 Contact prescribing physician if questions or concerns Unchanged Misc Prescription (True metrix glucose test strips) See instructions Type 2 diabetes mellitus Leg cramps check blood sugar 6 times a day Contact prescribing physician if questions or concerns Unchanged Misc Prescription (Ultra Thin 30G Lancet) See instructions 6x/ day Contact prescribing physician if questions or concerns Unchanged predniSONE (predniSONE 10 mg Tab) 4 Tablets TAKE 3 TABLETS BY MOUTH EVERY DAY Contact prescribing physician if questions or concerns Unchanged pyridostigmine (pyridostigmine 60 mg Tab) TAKE 1 TAB BY MOUTH IN THE MORNING,1 TABLET IN THE EVENING AND 1 TAB BEFORE BEDTIME. Contact prescribing physician if questions or concerns Pharmacy Information [facility]/pharmacy #[id number]: [address], [place] [phone] What How Much When Comments Stop Taking dapagliflozin (Farxiga 5 mg oral tablet) 1 Tablets By Mouth Every day Allergies No Known Medication Allergies Problems Ongoing - Any problem that you are currently receiving treatment for. 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 Screening for hyperlipidemia Patient Survey You may receive a survey via text or e-mail asking about your office visit. Please share your experience with us by completing your survey. We appreciate your feedback and thank you for choosing us for your care. Education M (more content not included)... Normal [facility] Family Medicine Office/Clini c Noteon 06-28-2025 Family Medicine Office/Clinic Note Family Medicine Office/Clinic Note Chief Complaint Abdominal pain & bumps on arm. The patient presents with abdominal pain. HPI Staff Rosi Alvarez pt. Presenting today due to bumps on arm and pain in stomach. Intermittent abdominal pain for the past 2-3wks. Thinks its related to meds. Originally started taking metformin, had urgency with BMs. Not solid. Then switched to Farxiga. Started taking in May. BMs improved. Then 2-3wks ago started having the urgency again and runnier BMs. Also has small bumps on both arms, near the elbows. Has also started getting on legs. Intermittent itching. Pain when itching. First noticed the bumps 2wks ago. History of Present Illness 50-year-old male presenting with abdominal pain. The abdominal pain began after switching from metformin to Farxiga in May. The pain is intermittent and sometimes accompanied by an urgent need to defecate, similar to previous experiences with metformin. The patient reports having three to four bowel movements per day, which is more frequent than usual. The stools are described as thin, and the patient denies any dietary changes that could account for these symptoms. The patient has a history of elevated blood glucose levels, with a recent A1c of 9.3%. Current blood glucose readings fluctuate, with a recent morning reading of 174 mg/dL. The patient is on a low dose of Farxiga (5 mg) and has not been on it for long. Review of Systems PHQ Score Initial Depression Screen Score: 0 SCORE - Gastrointestinal: Reports intermittent abdominal pain and increased frequency of bowel movements; denies dietary changes causing symptoms. - Endocrine: Reports fluctuating blood glucose levels; denies checking blood sugar regularly. Physical Exam Vitals & Measurements T: 36.8 ???C(Oral) HR: 78(Peripheral) RR: 18 BP: 136/88 SpO2: 98% HT: 163 cm HT: 64 in WT: 105.3 kg WT: 232.146 lb BMI: 39.63 General: alert, no acute distress Skin: warm, dry small reddened non- fluid filled, papules on bilateral elbows Head: no trauma, normocephalic Neck: Trachea midline, no adenopathy, no tenderness Eye: normal conjunctiva, sclera clear Cardiovascular: regular rate and rhythm, normal peripheral perfusion Respiratory: Lungs CTA, respirations non labored Gastrointestinal: soft, non distended, no tenderness, no guarding; BS x 4 quadrants Assessment/Plan 1. Abdominal pain (R10.9: Unspecified abdominal pain) - Consideration of medication side effects as a cause of symptoms, particularly Farxiga. - Discussion with Rosi regarding potential medication change if symptoms persist. - Discontinue Farxiga - Start sitagliptin, 50 mg one tablet po daily - F/U with pcp Ordered: sitagliptin, 50 mg = 1 tab(s), Oral, Daily, # 30 tab(s), Refills(s) 0, Pharmacy: [facility] #[id number], 163, cm, 06/28/25 14:26:00 EDT, Height/Length Dosing, 105.3, kg, 06/28/25 14:26:00 EDT, Weight Dosing 2. Rash (R21: Rash and other nonspecific skin eruption) Ordered: hydrocortisone topical, 1 wilver, Topical, TID, 30 gram, Refill(s) 1, [facility]/pharmacy #[id number], 163, cm, 06/28/25 14:26:00 EDT, Height/Length Dosing, 105.3, kg, 06/28/25 14:26:00 EDT, Weight Dosing 3. Smoker (F17.200: Nicotine dependence, unspecified, uncomplicated) We [...] we would be happy to provide these. 4. BMI 39.0-39.9,adult (Z68.39: Body mass index [BMI] 39.0-39.9, adult) BMI 39.63 5. Obesity (BMI 30-39.9) (E66.9: Obesity, unspecified) The standard range for ages 18 and older is >=18.5 and < 25 kg/m2. Your BMI today was above this range, this falls in the overweight to obese category and there are medical benefits to weight loss. We can offer counselling, referral, and/or medical support in addressing this problem. Your BMI and weight management will be followed at subsequent visits. 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 Normal [facility] Comment on above: Result Comment: Elec tronically Signed By: LEE AARON CNP\catherine\Date and Time Signed: 06/28/25 15:08 EDT BMPon 06-07-2025 Anion gap [Moles/Vol] 13 mmol/L Normal 6-16 [facility] Comment on above: Performed By: #### 2 [id number] #### [facility] [address] [place] [address] BUN/Creat Ratio 17 No Units Normal 10-20 [facility] Comment on above: Performed By: #### 2 [id number] #### [facility] [address] [place] [address] Calcium [Mass/Vol] 9.1 mg/dL Normal 8.9-11.1 [facility] Comment on above: Performed By: #### 2 [id number] #### [facility] [address] [place] [address] Chloride [Moles/Vol] 104 mmol/L Normal 101-111 [facility] Comment on above: Performed By: #### 2 [id number] #### [facility] [address] [place] [address] CO2 [Moles/Vol] 23 mmol/L Normal 21-31 [facility] Comment on above: Performed By: #### 2 [id number] #### [facility] [address] [place] [address] Creatinine [Mass/Vol] 0.9 mg/dL Normal 0.5-1.3 [facility] Comment on above: Performed By: #### 2 [id number] #### [facility] [address] [place] [address] Glucose [Mass/Vol] 278 mg/dL High 55-199 [facility] Comment on above: Performed By: #### 2 [id number] #### [facility] [address] [place] [address] Potassium [Moles/Vol] 4.1 mmol/L Normal 3.5-5.3 [facility] Comment on above: Performed By: #### 2 [id number] #### [facility] [address] [place] [address] Sodium [Moles/Vol] 136 mmol/L Normal 135-145 [facility] Comment on above: Performed By: #### 2 [id number] #### [facility] [address] [place] [address] Urea nitrogen [Mass/Vol] 15 mg/dL Normal 5-21 [facility] Comment on above: Performed By: #### 2 [id number] #### [facility] [address] [place] [address] Family Medicine Office/Clini c Noteon 06-07-2025 Family Medicine Office/Clinic Note Family Medicine Office/Clinic Note Chief Complaint 1m follow up to starting diabetic information. HPI Staff Alfonzo is a 50 year old male presenting with 1 month f/u Do you have any of the following symptoms? Foot Exam: due today Eye Exam: due Last A1C Hgb A1C %: 6 % High (08/01/23 11:31:00) Statin: atorvastatin 20 mg Does have log of BS done at home Was referred to Diabetic Counseling. Started on metformin & ozempic therapy @ [facility]. Having GI SE from Metformin (diarrhea, abdominal bloating, and upper right quadrant pain/discomfort) Switched to Farxiga. Ozempic not covered by insurance (has to fail 3 meds prior to coverage) Pt does need refill of test strips & alcohol swabs. History of Present Illness pt presents today for follow up on diabetes. Review of Systems PHQ Score Initial Depression Screen Score: 0 SCORE Physical Exam Vitals & Measurements T: 36.8 ???C(Oral) HR: 78(Peripheral) RR: 20 BP: 138/86 SpO2: 98% HT: 64 in HT: 163 cm WT: 242.508 lb WT: 110 kg BMI: 41.4 General: alert, no acute distress ENMT: oral mucosa moist, no pharyngeal erythema or exudate Cardiovascular: regular rate and rhythm, normal peripheral perfusion Respiratory: Lungs CTA, respirations non labored Extremities: no deformity, no trauma Neurological: oriented x 4, LOC appropriate for age, CN II-XII intact, motor strength equal & normal bilaterally, speech normal Assessment/Plan 1. Type 2 diabetes mellitus (E11.9: Type 2 diabetes mellitus without complications) pt did not tolerate metformin. GI symptoms were severe. Started farixga on 05/25. reviewed blood sugar logs. they are starting to improve slowly. he went to diabetic education. is down 13 pounds since last month. he will continue on current diet plan. is checking blood sugars 6 times a day. his fingers are very tender. will order dexcom. repeat HGBA1C due august 03. Ordered: Misc Prescription, True metrix glucose test strips, See Instructions, 180 EA, 5, check blood sugar 6 times a day, [id number], Supply, 163, cm, 06/06/25 15:13:00 EDT, Height/Length Dosing, 110, kg, 06/06/25 15:13:00 EDT, Weight Dosing Misc Prescription, alcohol swabs, See Instructions, 180 EA, 5, check blood sugar 6 times a day, [id number], Supply, 163, cm, 06/06/25 15:13:00 EDT, Height/Length Dosing, 110, kg, 06/06/25 15:13:00 EDT, Weight Dosing 2. Leg cramps (R25.2: Cramp and spasm) will check labs today. Ordered: Misc Prescription, True metrix glucose test strips, See Instructions, 180 EA, 5, check blood sugar 6 times a day, [id number], Supply, 163, cm, 06/06/25 15:13:00 EDT, Height/Length Dosing, 110, kg, 06/06/25 15:13:00 EDT, Weight Dosing Misc Prescription, alcohol swabs, See Instructions, 180 EA, 5, check blood sugar 6 times a day, [id number], Supply, 163, cm, 06/06/25 15:13:00 EDT, Height/Length Dosing, 110, kg, 06/06/25 15:13:00 EDT, Weight Dosing Basic Metabolic Panel Magnesium Level Vitamin D 25 Hydroxy 3. BMI 40.0-44.9, adult (Z68.41: Body mass index [BMI] 40.0-44.9, adult) BMI education given Ordered: cephalexin, 500 mg = 1 cap(s), Oral, q12hr, # 14 cap(s), Refills(s) 0, Pharmacy: [facility] #[id number], 163, cm, 04/20/25 10:52:00 EDT, Height/Length Dosing, 118, kg, 04/20/25 10:52:00 EDT, Weight Dosing 4. Obesity, morbid, BMI 40.0-49.9 (E66.01: Morbid (severe) obesity due to excess calories) see above 5. 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 Medications alcohol swabs, See Instructions, 5 refills atorvastatin 20 mg Tab, 20 mg= 1 tab(s), Oral, Daily, 3 refills Farxiga 5 mg oral tablet, 5 mg= 1 tab(s), Oral, Daily, 1 refills Glucose Kit, See Instructions levothyroxine 125 mcg (0.125 mg) Tab, 125 mcg= 1 tab(s), Oral, Daily, 3 refills Ozempic 2 mg/3 mL (0.25 mg or 0.5 mg dose) subcutaneous solution, 0.25 mg, SubCutaneous, qWeek, Not taking predniSONE 10 mg Tab, 40 mg= 4 tab(s) pyridostigmine 60 mg Tab True metrix glucose test strips, See Instructions, 5 refills Allergies No Known Medication Allergies Social History Alcohol - Denies Alcohol Use, 12/13/2022 Never., 02/01/2025 Employment/School Employed, Work/School description: (more content not included)... Normal [facility] Comment on above: Result Comment: Elec tronically Signed By: Rosi Bradford\.br\Date and Time Signed: 06/07/25 12:32 EDT Magnesiumon 06-07-2025 Magnesium [Mass/Vol] 2.3 mg/dL Normal 1.3-2.4 Fish [facility] Comment on above: Performed By: #### 2 [id number] #### [facility] [address] [place] [address] Vitamin D 25 Hydroxyon 06-07 Vitamin D 25 Hydroxy 22.3 ng/mL Low 30.0-100.0 [facility] Comment on above: Performed By: #### 5 [id number] #### [facility] [address] [place] [address] eGFRon 06-07-2025 eGFR 103 mL/min/1.73 m2 Normal >=59 [facility] Comment on above: Performed By: #### 1 [id number] #### [facility] [address] [place] [address] Ambulatory Visit Summaryon 0 06-06-2025 Ambulatory Visit Summary Ambulatory Visit Summary ALFONZO SHAVER :1975 Visit Date:06/06/2025 Ambulatory Visit Instructions Your Diagnosis Type 2 diabetes mellitus Leg cramps BMI 40.0-44.9, adult Smoker Obesity, morbid, BMI 40.0-49.9 Your Care Team Attending Physician - Rosi Bradford Primary Care Physician - Rosi Bradford This Is Your Medications List [facility] Prescription (Glucose Kit) Mis Prescription (True metrix glucose test strips) Mis Prescription (alcohol swabs) atorvastatin (atorvastatin 20 mg Tab) dapagliflozin (Farxiga 5 mg oral tablet) levothyroxine (levothyroxine 125 mcg (0.125 mg) Tab) predniSONE (predniSONE 10 mg Tab) pyridostigmine (pyridostigmine 60 mg Tab) semaglutide (Ozempic 2 mg/3 mL (0.25 mg or 0.5 mg dose) subcutaneous solution) Procedures Performed Closed fracture of right shoulder. Discharge Vitals Temperature (Oral) 36.8 ???C Heart Rate (Peripheral) 78 Respiratory Rate 20 Blood Pressure 138/86 Height 163 cm Height 64 in Weight 110 kg Weight 242.508 lb BMI 41.4 What to do next Scheduled Follow-Up Appointments Friday 1:30 PM EDT Where: [facility] Friday 2:30 PM EDT Where: [facility] Friday 10:00 AM EDT Where: [address] [id number]- Medications What How Much When Why Instructions [facility] Prescription (alcohol swabs) See instructions Type 2 diabetes mellitus Leg cramps Refills: 5 check blood sugar 6 times a day Pickup at [facility]/pharmacy #[id number] [facility] Prescription (True metrix glucose test strips) See instructions Type 2 diabetes mellitus Leg cramps Refills: 5 check blood sugar 6 times a day Pickup at [facility]/pharmacy #[id number] Unchanged atorvastatin (atorvastatin 20 mg Tab) 1 Tablets By Mouth Every day Duration: 90 Days Unchanged dapagliflozin (Farxiga 5 mg oral tablet) 1 Tablets By Mouth Every day Unchanged levothyroxine (levothyroxine 125 mcg (0.125 mg) Tab) 1 Tablets By Mouth Every day Hypothyroidism Duration: 90 Days Unchanged [facility] Prescription (Glucose Kit) See instructions 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 Include autolet, matching test strips, lancets, & alcohol wipes, #100 or as allowed by insurance; DX: E11.9 Unchanged predniSONE (predniSONE 10 mg Tab) 4 Tablets TAKE 3 TABLETS BY MOUTH EVERY DAY Unchanged pyridostigmine (pyridostigmine 60 mg Tab) TAKE 1 TAB BY MOUTH IN THE MORNING,1 TABLET IN THE EVENING AND 1 TAB BEFORE BEDTIME. 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 Screening for hyperlipidemia Patient Survey You may receive a survey via text or e-mail asking about your office visit. Please share your experience with us by completing your survey. We appreciate your feedback and thank you for choosing us for your care. Patient Portal You may access all of your results and other medical record information on our secure patient portal. If you are not signed up for this yet, please contact [employer] at [phone] to get signed up today. Language Information Language assistance services are available as needed. Normal [facility] Ambulatory Visit Summaryon 0 05-06-2025 Ambulatory Visit Summary Ambulatory Visit Summary ALFONZO SHAVER :1975 Visit Date:05/06/2025 Ambulatory Visit Instructions Your Diagnosis Type 2 diabetes mellitus snf current use of systemic steroids Your Care Team Attending Physician - Rosi Bradford Primary Care Physician - Rosi Bradford This Is Your Medications List atorvastatin (atorvastatin 20 mg Tab) cephalexin (cephalexin 500 mg Cap) levothyroxine (levothyroxine 125 mcg (0.125 mg) Tab) metformin (metformin 500 mg Tab) predniSONE (predniSONE 10 mg Tab) pyridostigmine (pyridostigmine 60 mg Tab) semaglutide (Ozempic 2 mg/3 mL (0.25 mg or 0.5 mg dose) subcutaneous solution) Procedures Performed Closed fracture of right shoulder. Discharge Vitals Temperature (Temporal Artery) 36.0 ???C Heart Rate (Peripheral) 95 Respiratory Rate 20 Blood Pressure 142/78 Height 163.0 cm Height 64 in Weight 115.9 kg Weight 255.515 lb BMI 43.62 What to do next Scheduled Follow-Up Appointments Friday 2:40 PM EDT With: Rosi Bradford Where: [place] [id number]- Medications What How Much When Why Instructions New metformin (metformin 500 mg Tab) 1 Tablets By Mouth 2 times a day Type 2 diabetes mellitus snf current use of systemic steroids Pickup at [facility]/pharmacy #[id number] New semaglutide (Ozempic 2 mg/ 3 mL (0.25 mg or 0.5 mg dose) subcutaneous solution) 0.25 Milligram Subcutaneous Every week Type 2 diabetes mellitus snf current use of systemic steroids Pickup at [facility]/pharmacy #[id number] Unchanged atorvastatin (atorvastatin 20 mg Tab) 1 Tablets By Mouth Every day Duration: 90 Days Unchanged cephalexin (cephalexin 500 mg Cap) 1 Capsules By Mouth Every 12 hours Skin tag BMI 40.0-44.9, adult Unchanged levothyroxine (levothyroxine 125 mcg (0.125 mg) Tab) 1 Tablets By Mouth Every day Hypothyroidism Duration: 90 Days Unchanged predniSONE (predniSONE 10 mg Tab) 4 Tablets TAKE 3 TABLETS BY MOUTH EVERY DAY Unchanged pyridostigmine (pyridostigmine 60 mg Tab) TAKE 1 TAB BY MOUTH IN THE MORNING,1 TABLET IN THE EVENING AND 1 TAB BEFORE BEDTIME. Pharmacy Information [facility]/pharmacy #[id number]: [address], [place] [id number] [phone] Allergies No Known Medication Allergies Problems Ongoing - Any problem that you are currently receiving treatment for. Bilateral knee pain Blurred vision BMI 40.0-44.9, adult Bronchitis Encounter for weight management Hot flashes Hyperlipemia Hypothyroid snf current use of systemic steroids Migraine Morbid obesity with BMI of 40.0-44.9, adult Myasthenia gravis Nocturia Plantar wart, right foot Polyuria Pre-op evaluation Prediabetes Prostate cancer screening Sinusitis Skin tag Smoker Tendinitis of flexor tendon of left hand Type 2 diabetes mellitus Vision changes Well adult exam Historical - Any problem that you are no longer receiving treatment for. Screening for hyperlipidemia Patient Survey You may receive a survey via text or e-mail asking about your office visit. Please share your experience with us by completing your survey. We appreciate your feedback and thank you for choosing us for your care. Patient Portal You may access all of your results and other medical record information on our secure patient portal. If you are not signed up for this yet, please contact [employer] at [phone] to get signed up today. Language Information Language assistance services are available as needed. Gabriela [facility] Family Medicine Office/Clini c Noteon 05-06-2025 Family Medicine Office/Clinic Note Family Medicine Office/Clinic Note HPI Staff Patient is presenting to follow up on lab results (printed) History of Present Illness pt presents today to discuss lab results Review of Systems PHQ Score Initial Depression Screen Score: 0 SCORE Physical Exam Vitals & Measurements T: 36.0 ???C(Temporal Artery) HR: 95(Peripheral) RR: 20 BP: 142/78 SpO2: 98% HT: 64 in HT: 163.0 cm WT: 115.9 kg WT: 255.515 lb BMI: 43.62 General: alert, no acute distress ENMT: oral mucosa moist, no pharyngeal erythema or exudate Cardiovascular: regular rate and rhythm, normal peripheral perfusion Respiratory: Lungs CTA, respirations non labored Extremities: no deformity, no trauma Neurological: oriented x 4, LOC appropriate for age, CN II-XII intact, motor strength equal & normal bilaterally, speech normal Assessment/Plan 1. Type 2 diabetes mellitus (E11.9: Type 2 diabetes mellitus without complications) pt presents today to go over recent lab results. His HGBA1C in July was 5.8. It is now 9.3. he has been taking oral steroids to treat his Myasthenia gravis. pt was c/o frequent urination at last visit which is why we checked lab work again. will send in metformin and ozempic. pt is already having GI issues. so we are not sure if he will tolerate the metformin. he will check blood sugar BID. RTC 4 weeks Ordered: metformin, 500 mg = 1 tab(s), Oral, BID, # 60 tab(s), Refills(s) 0, Pharmacy: [facility] #[id number], 163, cm, 05/06/25 9:47:00 EDT, Height/Length Dosing, 115.9, kg, 05/06/25 9:47:00 EDT, Weight Dosing Misc Prescription, Glucose Kit, See Instructions, 1 EA, 0, Glucose meter. Include autolet, matching test strips, lancets, & alcohol wipes, #100 or as allowed by insurance; DX: E11.9, [id number], Supply, 163, cm, 05/06/25 9:47:00 EDT, Height/Length Dosing, 115.9,... 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 Include autolet, matching test strips, lancets, & alcohol wipes, #100 or as allowed by insurance; DX: E11.9, [facility]/pharmacy #[id number], Supply, 163, cm, 05/06/25 9:47:00 EDT, Height/Length Dosing, 115.9,... semaglutide, 0.25 mg, SubCutaneous, qWeek, # 4 EA, Refills(s) 0, Pharmacy: [facility]/pharmacy #[id number], 163, cm, 05/06/25 9:47:00 EDT, Height/Length Dosing, 115.9, kg, 05/06/25 9:47:00 EDT, Weight Dosing [facility] Internal Ambulatory Referral 3. BMI 40.0-44.9, adult (Z68.41: Body mass index [BMI] 40.0-44.9, adult) will refer to diabetic education Ordered: [facility] Prescription, Glucose Kit, See Instructions, 1 EA, 0, Glucose meter. Include autolet, matching test strips, lancets, & alcohol wipes, #100 or as allowed by insurance; DX: E11.9, [facility]/pharmacy #[id number], Supply, 163, cm, 05/06/25 9:47:00 EDT, Height/Length Dosing, 115.9,... 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 Medications atorvastatin 20 mg Tab, 20 mg= 1 tab(s), Oral, Daily, 3 refills cephalexin 500 mg Cap, 500 mg= 1 cap(s), Oral, q12hr Glucose Kit, See Instructions levothyroxine 125 mcg (0.125 mg) Tab, 125 mcg= 1 tab(s), Oral, Daily, 3 refills metformin 500 mg Tab, 500 mg= 1 tab(s), Oral, BID Ozempic 2 mg/3 mL (0.25 mg or 0.5 mg dose) subcutaneous solution, 0.25 mg, SubCutaneous, qWeek predniSONE 10 mg Tab, 40 mg= 4 tab(s) pyridostigmine 60 mg Tab Allergies No Known Medication Allergies Social History Alcohol - Denies Alcohol Use, 12/13/2022 Never., 02/01/2025 Employment/School Employed, Work/School description: Works at [employer] 10/01/2019 Substance Abuse - Medium Risk, 03/07/2023 Past. Marijuana. 1-2 times per year. Previous treatment: None., 02/01/2025 Tobacco - High Risk, 08/09/2020 10 or more cigarettes (1/2 pack or more)/day in last 30 days, Smoker, current status unknown Tobacco Use:. Never Smokeles (more content not included)... Normal [facility] Comment on above: Result Comment: Elec tronically Signed By: Rosi Bradford\.br\Date and Time Signed: 05/06/25 10:06 EDT Ambulatory Visit Summaryon 0 05-03-2025 Ambulatory Visit Summary Ambulatory Visit Summary ALFONZO SHAVER :1975 Visit Date:05/03/2025 Ambulatory Visit Instructions Your Diagnosis Skin tag Prostate cancer screening Prediabetes Nocturia Polyuria BMI 40.0-44.9, adult Your Care Team Attending Physician - Rosi Bradford Primary Care Physician - Rosi Bradford This Is Your Medications List atorvastatin (atorvastatin 20 mg Tab) cephalexin (cephalexin 500 mg Cap) levothyroxine (levothyroxine 125 mcg (0.125 mg) Tab) predniSONE (predniSONE 10 mg Tab) pyridostigmine (pyridostigmine 60 mg Tab) Procedures Performed Closed fracture of right shoulder. Discharge Vitals Heart Rate (Peripheral) 85 Blood Pressure 130/74 Height 163 cm Height 64 in Weight 116.0 kg Weight 255.736 lb BMI 43.66 Medications What How Much When Why Instructions Unchanged atorvastatin (atorvastatin 20 mg Tab) 1 Tablets By Mouth Every day Duration: 90 Days Unchanged cephalexin (cephalexin 500 mg Cap) 1 Capsules By Mouth Every 12 hours Skin tag BMI 40.0-44.9, adult Unchanged levothyroxine (levothyroxine 125 mcg (0.125 mg) Tab) 1 Tablets By Mouth Every day Hypothyroidism Duration: 90 Days Unchanged predniSONE (predniSONE 10 mg Tab) 4 Tablets TAKE 3 TABLETS BY MOUTH EVERY [...] with BMI of 40.0-44.9, adult Myasthenia gravis Nocturia Plantar wart, right foot Polyuria Pre-op evaluation Prediabetes Prostate cancer screening Sinusitis Skin tag Smoker Tendinitis of flexor tendon of left [...] you for choosing us for your care. Patient Portal You may access all of your results and other medical record information on our secure patient portal. If you are not signed up for this yet, please contact [employer] at [phone] to get signed up today. Language Information Language assistance services are available as needed. Normal [facility] Family Medicine Office/Clini c Noteon 05-03-2025 Family Medicine Office/Clinic Note Family Medicine Office/Clinic Note Chief Complaint skin tag removal HPI Staff Patient presents for skin tag removal from under upper right arm Refills: History of Present Illness pt presents today for skin tag removal. also c/o urinating every hour Review of Systems PHQ Score Initial Depression Screen Score: 0 SCORE Physical Exam Vitals & Measurements HR: 85(Peripheral) BP: 130/74 SpO2: 96% HT: 163 cm HT: 64 in WT: 116.0 kg WT: 255.736 lb BMI: 43.66 General: alert, no acute distress ENMT: oral mucosa moist, no pharyngeal erythema or exudate Cardiovascular: regular rate and rhythm, normal peripheral perfusion Respiratory: Lungs CTA, respirations non labored Extremities: no deformity, no trauma Neurological: oriented x 4, LOC appropriate for age, CN II-XII intact, motor strength equal & normal bilaterally, speech normal 1 skin tag under right arm, no redness or oozing Assessment/Plan 1. Skin tag (L91.8: Other hypertrophic disorders of the skin) 1/2ml 1% lidocaine injected at base of skin tag. suture scissors were used to remove 1 skin tag under his right arm. pt tolerated well. Ordered: HgbA1c PSA Screen, Total Remove skin tags 15 or less 26217 Thyroid Stimulating Hormone 2. Prostate cancer screening (Z12.5: Encounter for screening for malignant neoplasm of prostate) PSA ordered will do at [facility] Ordered: HgbA1c PSA Screen, Total Remove skin tags 15 or less [id number] Thyroid Stimulating Hormone 3. Prediabetes (R73.03: Prediabetes) order for HGBA1C provided Ordered: HgbA1c PSA Screen, Total Remove skin tags 15 or less [id number] Thyroid Stimulating Hormone 4. Nocturia (R35.1: Nocturia) pt states he urinates every hour. he is not sure if it's his medication Ordered: HgbA1c PSA Screen, Total Remove skin tags 15 or less [id number] Thyroid Stimulating Hormone 5. Polyuria (R35.89: Other polyuria) PSA and HGBA1C ordered. discussed that it could be a side effect from the pyridostigmine Ordered: HgbA1c PSA Screen, Total Remove skin tags 15 or less [id number] Thyroid Stimulating Hormone 6. BMI 40.0-44.9, adult (Z68.41: Body mass index [BMI] 40.0-44.9, adult) BMI education given Follow-up No qualifying data available Problem List/Past Medical History Ongoing Bilateral knee pain Blurred vision BMI 40.0-44.9, adult Bronchitis Encounter for weight management Hot flashes Hyperlipemia Hypothyroid Migraine Morbid obesity with BMI of 40.0-44.9, adult Myasthenia gravis Nocturia Plantar wart, right foot Polyuria Pre-op evaluation Prediabetes Prostate cancer screening Sinusitis Skin tag Smoker Tendinitis of flexor tendon of left hand Vision changes Well adult exam Historical Screening for hyperlipidemia Procedure/Surgical History Closed fracture of right shoulder. Medications atorvastatin 20 mg Tab, 20 mg= 1 tab(s), Oral, Daily, 3 refills cephalexin 500 mg Cap, 500 mg= 1 cap(s), Oral, q12hr levothyroxine 125 mcg (0.125 mg) Tab, 125 mcg= 1 tab(s), Oral, Daily, 3 refills predniSONE 10 mg Tab, 40 mg= 4 tab(s) pyridostigmine 60 mg Tab Allergies No Known Medication Allergies Social History Alcohol - Denies Alcohol Use, 12/13/2022 Never., 02/01/2025 Employment/School Employed, Work/School description: Works at [employer] 10/01/2019 Substance Abuse - Medium Risk, 03/07/2023 Past. Marijuana. 1-2 times per year. Previous treatment: None., 02/01/2025 Tobacco - High Risk, 08/09/2020 10 or more cigarettes (1/2 pack or more)/day in last 30 days, Smoker, current status unknown Tobacco Use:. Never Smokeless Tobacco Use:. Household tobacco concerns: No., 05/03/2025 Family History Alcoholism: Father. Diabetes mellitus type 2: Negative: Brother. Hyperlipidemia: Mother. Multiple personality disorder: Mother. Primary malignant neoplasm of brain: Grandparent. Primary malignant neoplasm of female breast: Mother. Primary malignant neoplasm of lung: Father. Thyroid problems: Mother and Sister. Immunizations Vaccine Date Status Comments influenza virus vaccine, inactivated 08/01/2023 Given influenza virus vaccine, inactivated - Not Given Patient Refuses diphtheria/pertussis, acel/tetanus adult 10/05/2021 Recorded influenza virus vaccine, inactivated 10/05/2021 Recorded SARS-CoV-2 (COVID-19) mRNA BNT-162b2 vax 02/20/2021 Recorded 2022-12-13: TPV40 SARS-CoV-2 (COVID-19) mRNA BNT-162b2 vax 01/30/2021 Recorded 2022-12-13: TPV40 Normal [facility] Comment on above: Result Comment: Elec tronically Signed By: Rosi Bradford.ricardo\Date and Time Signed: 05/03/25 10:36 EDT Interpretation of thiopurine methyltransferase (TPMT) activityOrdered By: Devonte Sunshine on 04-29-2025 TPMT gene product metabolic activity interpretation Molgen Ql (Bld/Tiss) [Interp] Comment . [facility] Comment on above: In this sample, the red blood cell ThiopurineMethyltransferase activity is at a level that does notallow reliable designation of this patient as either acarrier or non-carrier for a TPMT mutation. Consequently,we suggest to carefully monitor the patient's CBC iftreatment with azathioprine, 6-mercaptopurine, or6-thioguanine was initiated. For patients having anintrinsic low level of TPMT, recent RBC transfusion canvariably increase their assayed enzymatic activitydepending on the amount and circulating half-life of thetransfused red blood cells.This test was developed and its performance characteristicsdetermined by [employer]. It has not been cleared or approvedby the Food and Drug Administration.This case has been reviewed, approved, interpreted andelectronically signed by Manjeet Mayfield, PhD, [facility]. Referral lab test methodOrde red By: Devonte Sunshine on 04-29-2025 Reference Lab Test Method Comment . [facility] Comment on above: Enzymatic Endpoint/L iquid Chromatography - Tandem MassSpectrometry (LC-MS/MS)Performed at: [facility] [address] [id number] Director: Junior Dodge MD, Phone: [phone] Thiopurine Methyltransferase -Ton 04-29-2025 TPMT Activity 16.1 Normal . [facility] Comment on above: Result Comment: Resu lt Units: Units/mL RBC Reference Range: Normal: 15.1 - 26.4 Heterozygous for low TPMT variant: 6.3 - 15.0 Homozygous for low TPMT variant: <6.3 Performed By: #### T PMT ENZ #### [facility] , TPMT Interpretation Comment Normal . [facility] Comment on above: Result Comment: In t his sample, the red blood cell Thiopurine Methyltransferase activity is at a level that does not allow reliable designation of this patient as either a carrier or non-carrier for a TPMT mutation. Consequently, we suggest to carefully monitor the patient's CBC if treatment with azathioprine, 6-mercaptopurine, or 6-thioguanine was initiated. For patients having an intrinsic low level of TPMT, recent RBC transfusion can variably increase their assayed enzymatic activity depending on the amount and circulating half-life of the transfused red blood cells. This test was developed and its performance characteristics determined by [employer]. It has not been cleared or approved by the Food and Drug Administration. This case has been reviewed, approved, interpreted and electronically signed by Manjeet Mayfield, PhD, [facility]. Performed By: #### T PMT ENZ #### [facility] , TPMT Methodology Comment Normal . [facility] Comment on above: Result Comment: Jens yates Endpoint/Liquid Chromatography - Tandem Mass Spectrometry (LC-MS/MS) Performed at: [facility] [address] [place] [id number] Classification Control Clerk: Junior Dodge MD, Phone: [phone] PERFORMED BY: [address] [address] PATHOLOGIST STEAM FITTER HELPER TIMMY ZAMUDIO M.D. Performed By: #### T PMT ENZ #### [facility] , Thiopurine methyltransferase [Enzymatic activity/volume] in Red Blood CellsOrdered By: Devonte Sunshine on 04-29-2025 Thiopurine methyltransferase (RBC) [Catalytic activity/Vol] 16.1 . [facility] Comment on above: Result Units: Units/ mL RBCReference Range:Normal: 15.1 - 26.4Heterozygous for low TPMT variant: 6.3 - 15.0Homozygous for low TPMT variant: <6.3 Ambulatory Visit Summaryon 0 04-20-2025 Ambulatory Visit Summary Ambulatory Visit Summary ALFONZO SHAVER :1975 Visit Date:04/20/2025 Ambulatory Visit Instructions Your Diagnosis Skin tag BMI 40.0-44.9, adult Your Care Team Attending Physician - Rosi Bradford Primary Care Physician - Rosi Bradford This Is Your Medications List atorvastatin (atorvastatin 20 mg Tab) levothyroxine (levothyroxine 125 mcg (0.125 mg) Tab) predniSONE (predniSONE 10 mg Tab) pyridostigmine (pyridostigmine 60 mg Tab) Procedures Performed Closed fracture of right shoulder. Discharge Vitals Heart Rate (Peripheral) 88 Respiratory Rate 18 Blood Pressure 158/102 Height 163 cm Height 64 in Weight 118 kg Weight 260.145 lb BMI 44.41 What to do next Scheduled Follow-Up Appointments Friday 10:00 AM EDT With: Rosi Bradford Where: [place] [id number]- Medications What How Much When Why Instructions Unchanged atorvastatin (atorvastatin 20 mg Tab) 1 Tablets By Mouth Every day Duration: 90 Days Unchanged levothyroxine (levothyroxine 125 mcg (0.125 mg) Tab) 1 Tablets By Mouth Every day Hypothyroidism Duration: 90 Days Unchanged predniSONE (predniSONE 10 mg Tab) 4 Tablets TAKE 3 TABLETS BY MOUTH EVERY [...] with BMI of 40.0-44.9, adult Myasthenia gravis Plantar wart, right foot Pre-op evaluation Prediabetes Prostate cancer screening Sinusitis Skin tag Smoker Tendinitis of flexor tendon of left [...] choosing us for your care. Normal [facility] Family Medicine Office/Clini c Noteon 04-20-2025 Family Medicine Office/Clinic Note Family Medicine Office/Clinic Note HPI Staff Here due to skin tags under right arm pit. Phentermine therapy. Last seen 03/2825 for wt management. Onset: 2 weeks Location: under upper right arm Characteristics:_red/raw Aggravated by: moving Relieved by: nothing Associated Symptoms:pain History of Present Illness pt presents today with pain skin tag Review of Systems PHQ Score Initial Depression Screen Score: 0 SCORE Physical Exam Vitals & Measurements HR: 88(Peripheral) RR: 18 BP: 158/102 SpO2: 97% HT: 163 cm HT: 64 in WT: 260.145 lb WT: 118 kg BMI: 44.41 General: alert, no acute distress ENMT: oral mucosa moist, no pharyngeal erythema or exudate Cardiovascular: regular rate and rhythm, normal peripheral perfusion Respiratory: Lungs CTA, respirations non labored Extremities: no deformity, no trauma Neurological: oriented x 4, LOC appropriate for age, CN II-XII intact, motor strength equal & normal bilaterally, speech normal skin tag right upper arm is partially off and skin is very red underneath Assessment/Plan 1. Skin tag (L91.8: Other hypertrophic disorders of the skin) pt has skin tag that he has picked at. it is now red and partially hanging off. will treat with antibiotic. he will return in a week to have it removed. Ordered: cephalexin, 500 mg = 1 cap(s), Oral, q12hr, # 14 cap(s), Refills(s) 0, Pharmacy: [facility] #[id number], 163, cm, 04/20/25 10:52:00 EDT, Height/Length Dosing, 118, kg, 04/20/25 10:52:00 EDT, Weight Dosing 2. BMI 40.0-44.9, adult (Z68.41: Body mass index [BMI] 40.0-44.9, adult) BMI education given Ordered: cephalexin, 500 mg = 1 cap(s), Oral, q12hr, # 14 cap(s), Refills(s) 0, Pharmacy: [facility] #[id number], 163, cm, 04/20/25 10:52:00 EDT, Height/Length Dosing, 118, kg, 04/20/25 10:52:00 EDT, Weight Dosing Follow-up No qualifying data available Problem List/Past Medical History Ongoing Bilateral knee pain Blurred vision BMI 40.0-44.9, adult Bronchitis Encounter for weight management Hot flashes Hyperlipemia Hypothyroid Migraine Morbid obesity with BMI of 40.0-44.9, adult Myasthenia gravis Plantar wart, right foot Pre-op evaluation Prediabetes Prostate cancer screening Sinusitis Skin tag Smoker Tendinitis of flexor tendon of left hand Vision changes Well adult exam Historical Screening for hyperlipidemia Procedure/Surgical History Closed fracture of right shoulder. Medications atorvastatin 20 mg Tab, 20 mg= 1 tab(s), Oral, Daily, 3 refills cephalexin 500 mg Cap, 500 mg= 1 cap(s), Oral, q12hr levothyroxine 125 mcg (0.125 mg) Tab, 125 mcg= 1 tab(s), Oral, Daily, 3 refills predniSONE 10 mg Tab, 40 mg= 4 tab(s) pyridostigmine 60 mg Tab Allergies No Known Medication Allergies Social History Alcohol - Denies Alcohol Use, 12/13/2022 Never., 02/01/2025 Employment/School Employed, Work/School description: Works at [employer] 10/01/2019 Substance Abuse - Medium Risk, 03/07/2023 Past. Marijuana. 1-2 times per year. Previous treatment: None., 02/01/2025 Tobacco - High Risk, 08/09/2020 10 or more cigarettes (1/2 pack or more)/day in last 30 days, Smoker, current status unknown Tobacco Use:., 04/20/2025 Family History Alcoholism: Father. Diabetes mellitus type 2: Negative: Brother. Hyperlipidemia: Mother. Multiple personality disorder: Mother. Primary malignant neoplasm of brain: Grandparent. Primary malignant neoplasm of female breast: Mother. Primary malignant neoplasm of lung: Father. Thyroid problems: Mother and Sister. Immunizations Vaccine Date Status Comments influenza virus vaccine, inactivated 08/01/2023 Given influenza virus vaccine, inactivated - Not Given Patient Refuses diphtheria/pertussis, acel/tetanus adult 10/05/2021 Recorded influenza virus vaccine, inactivated 10/05/2021 Recorded SARS-CoV-2 (COVID-19) mRNA BNT-162b2 vax 02/20/2021 Recorded 2022-12-13: TPV40 SARS-CoV-2 (COVID-19) mRNA BNT-162b2 vax 01/30/2021 Recorded 2022-12-13: TPV40 Normal [facility] Comment on above: Result Comment: Elec tronically Signed By: Rosi Bradford\.br\Date and Time Signed: 04/20/25 11:09 EDT Ambulatory Visit Summaryon 0 04-06-2025 Ambulatory Visit Summary Ambulatory Visit Summary ALFONZO SHAVER :1975 Visit Date:04/06/2025 Ambulatory Visit Instructions Your Diagnosis BMI 40.0-44.9, adult Plantar wart, right foot Non-smoker Encounter for weight management Your Care Team Attending Physician - Rosi Bradford Primary Care Physician - Rosi Bradford This Is Your Medications List atorvastatin (atorvastatin 20 mg Tab) levothyroxine (levothyroxine 125 mcg (0.125 mg) Tab) predniSONE (predniSONE 10 mg Tab) pyridostigmine (pyridostigmine 60 mg Tab) Procedures Performed Closed fracture of right shoulder. Discharge Vitals Heart Rate (Peripheral) 96 Respiratory Rate 18 Blood Pressure 132/80 Height 163.0 cm Height 64 in Weight 116.3 kg Weight 256.397 lb BMI 43.77 Medications What How Much When Why Instructions Unchanged atorvastatin (atorvastatin 20 mg Tab) 1 Tablets By Mouth Every day Duration: 90 Days Unchanged levothyroxine (levothyroxine 125 mcg (0.125 mg) Tab) 1 Tablets By Mouth Every day Hypothyroidism Duration: 90 Days Unchanged predniSONE (predniSONE 10 mg Tab) 4 Tablets TAKE 3 TABLETS BY MOUTH EVERY [...] with BMI of 40.0-44.9, adult Myasthenia gravis Plantar wart, right foot Pre-op evaluation Prediabetes Prostate cancer screening Sinusitis [...] you for choosing us for your care. Gabriela [facility] Medicine Office/Clini c Noteon 04-06-2025 Family Medicine Office/Clinic Note Family Medicine Office/Clinic Note HPI Staff Alfonzo is a 50 year old male presenting for 1 month follow up Weight management: Started Phentermine on Sleeping well:Yes, 6-8 hours Chest pain:No Tremors:No Headaches:No Heart fluttering:No Blurred Vision:No Beginning weight: 266.31 Previous weight: 259 Today's weight: 256 Questions/Concerns: pt states Dr Braswell increased his prednisone and had him stop adipex due to making his shaking worse. History of Present Illness pt presents today for weight management. also c/o worsening plantar warts on right foot Review of Systems PHQ Score Initial Depression Screen Score: 0 SCORE Physical Exam Vitals & Measurements HR: 96(Peripheral) RR: 18 BP: 132/80 SpO2: 98% HT: 163.0 cm HT: 64 in WT: 116.3 kg WT: 256.397 lb BMI: 43.77 General: alert, no acute distress ENMT: oral mucosa moist, no pharyngeal erythema or exudate Cardiovascular: regular rate and rhythm, normal peripheral perfusion Respiratory: Lungs CTA, respirations non labored Extremities: no deformity, no trauma Neurological: oriented x 4, LOC appropriate for age, CN II-XII intact, motor strength equal & normal bilaterally, speech normal plantar warts-2 on bottom of foot, 1 on great toe, 1 near little toe all on right foot Assessment/Plan 1. Encounter for weight management (Z76.89: Persons encountering health services in other specified circumstances) pt presents today for weight management. Dr. Braswell recommended that he stop taking the Adipex-P due to it worsened his MG symptoms. he suggested he start Ozempic but pt is unable to afford it at this time. RTC as needed Ordered: phentermine, 37.5 mg = 1 tab(s), Oral, Daily, # 30 tab(s), Refills(s) 0, Pharmacy: [facility] #[id number], 163, cm, 03/02/25 16:22:00 EDT, Height/Length Dosing, 117.8, kg, 03/02/25 16:22:00 EDT, Weight Dosing [facility] Amb[facility] Referral 2. Plantar wart, right foot (B07.0: Plantar wart) pt has 4 plantar warts on right foot. He had them surgically removed by Dr. Lentz years ago. they have returned and are becoming painful. will send referral. pt will call office on Friday. Ordered: [facility] External Ambulatory Referral 3. BMI 40.0-44.9, adult (Z68.41: Body mass index [BMI] 40.0-44.9, adult) BMI education given 4. Non-smoker (Z78.9: Other specified health status) continue not smoking Ordered: [facility] Ambulatory Referral Follow-up No qualifying data available Problem List/Past Medical History Ongoing Bilateral knee pain Blurred vision BMI 40.0-44.9, adult Bronchitis Encounter for weight management Hot flashes Hyperlipemia Hypothyroid Migraine Morbid obesity with BMI of 40.0-44.9, adult Myasthenia gravis Plantar wart, right foot Pre-op evaluation Prediabetes Prostate cancer screening Sinusitis Smoker Tendinitis of flexor tendon of left hand Vision changes Well adult exam Historical Screening for hyperlipidemia Procedure/Surgical History Closed fracture of right shoulder. Medications atorvastatin 20 mg Tab, 20 mg= 1 tab(s), Oral, Daily, 3 refills levothyroxine 125 mcg (0.125 mg) Tab, 125 mcg= 1 tab(s), Oral, Daily, 3 refills predniSONE 10 mg Tab, 40 mg= 4 tab(s) pyridostigmine 60 mg Tab Allergies No Known Medication Allergies Social History Alcohol - Denies Alcohol Use, 12/13/2022 Never., 02/01/2025 Employment/School Employed, Work/School description: Works at [employer] 10/01/2019 Substance Abuse - Medium Risk, 03/07/2023 [...] vaccine, inactivated - Not Given Patient Refuses diphtheria/pertussis, acel/tetanus adult 10/05/2021 Recorded influenza virus vaccine, inactivated 10/05/2021 Recorded SARS-CoV-2 (COVID-19) mRNA BNT-162b2 vax 02/20/2021 Recorded 2022-12-13: TPV40 SARS-CoV-2 (COVID-19) mRNA BNT-162b2 vax 01/30/2021 Recorded 2022-12-13: TPV40 Normal [facility] Comment on above: Result Comment: Elec tronically Signed By: Rosi Bradford\.br\Date and Time Signed: 04/06/25 10:04 EDT Ambulatory Visit Summaryon 0 03-02-2025 Ambulatory Visit Summary Ambulatory Visit Summary ALFONZO SHAVER :1975 Visit Date:03/02/2025 Ambulatory Visit Instructions Your Diagnosis Encounter for weight management BMI 40.0-44.9, adult Smoker Your Care Team Attending Physician - Rosi Bradford Primary Care Physician - Rosi Bradford This Is Your Medications List atorvastatin [...] Follow-Up Appointments Friday 9:40 AM EDT With: Rosi Bradford Where: [place] [id number] Medications What How Much When Why Instructions [...] you for choosing us for your care. Gab[facility]ela [facility] Family Medicine Office/Clini c Noteon 03-02-2025 Family Medicine Office/Clinic Note Family Medicine Office/Clinic Note HPI Staff Alfonzo is a 50 year old male presenting for weight management Weight management: Started Phentermine on Sleeping well:Yes, 6-8 hours Chest pain:No Tremors:No Headaches:No Heart fluttering:No Blurred Vision:No Beginning weight: 266.31 Previous weight: Today's weight: 259 Questions/Concerns: none History of Present Illness pt presents [...] # 30 tab(s), Refills(s) 0, [id number], 163, cm, 02/02/25 15:31:00 EDT, Height/Length Dosing, 120.8, kg, 02/02/25 15:31:00 EDT, Weight Dosing phentermine, 37.5 mg = 1 tab(s), Oral, Daily, # 30 tab(s), Refills(s) 0, [id number], 163, cm, 03/02/25 16:22:00 EDT, Height/Length Dosing, 117.8, kg, 03/02/25 16:22:00 EDT, Weight Dosing 2. BMI 40.0-44.9, adult (Z68.41: Body mass index [BMI] 40.0-44.9, adult) BMI education 3. Smoker (F17.200: Nicotine dependence, unspecified, uncomplicated) consider not smoking Ordered: phentermine, 37.5 mg = 1 tab(s), Oral, Daily, # 30 tab(s), Refills(s) 0, [id number], 163, cm, 02/02/25 15:31:00 EDT, Height/Length Dosing, 120.8, kg, 02/02/25 15:31:00 EDT, Weight Dosing phentermine, 37.5 mg = 1 tab(s), Oral, Daily, # 30 tab(s), Refills(s) 0, [id number], 163, cm, 03/02/25 16:22:00 EDT, Height/Length [...] 02/01/2025 Employment/School Employed, Work/School description: Works at [employer] 10/01/2019 Substance Abuse - Medium Risk, 03/07/2023 [...] vaccine, inactivated - Not Given Patient Refuses diphtheria/pertussis, acel/tetanus adult 10/05/2021 Recorded influenza virus vaccine, inactivated 10/05/2021 Recorded SARS-CoV-2 (COVID-19) mRNA BNT-162b2 vax 02/20/2021 Recorded 2022-12-13: TPV40 SARS-CoV-2 (COVID-19) mRNA BNT-162b2 vax 01/30/2021 Recorded 2022-12-13: TPV40 Normal [facility] Comment on above: Result Comment: Elec tronically Signed By: Rosi Bradford.ricardo\Date and Time Signed: 03/02/25 16:29 EDT Family Medicine Office/Clini c Noteon 02-02-2025 Family Medicine Office/Clinic Note Family Medicine Office/Clinic Note HPI Staff Alfonzo is a 50 year old male presetting to discuss weight management Pt is interested is starting adipex he hasn't done anything in the past. Pt states he has been trying diet and exercise. Pt saw Dr lentz 2-3 years ago for removal on callus [...] # 30 tab(s), Refills(s) 0, [id number], 163, cm, 02/02/25 15:31:00 EDT, Height/Length Dosing, 120.8, kg, 02/02/25 15:31:00 EDT, Weight Dosing 2. BMI 45.0-49.9, adult (Z68.42: Body mass index [BMI] 45.0-49.9, adult) BMI education given. Ordered: phentermine, 37.5 mg = 1 tab(s), Oral, Daily, # 30 tab(s), Refills(s) 0, Pharm[facility]: [id number], 163, cm, 02/02/25 15:31:00 EDT, Height/Length Dosing, 120.8, kg, 02/02/25 15:31:00 EDT, Weight Dosing 3. Smoker (F17.200: Nicotine dependence, unspecified, uncomplicated) consider not smoking Ordered: phentermine, 37.5 mg = 1 tab(s), Oral, Daily, # 30 tab(s), Refills(s) 0, Pharm[facility]: [id number], 163, cm, 02/02/25 15:31:00 EDT, Height/Length [...] 02/01/2025 Employment/School Employed, Work/School description: Works at [employer] 10/01/2019 Substance Abuse - Medium Risk, 03/07/2023 [...] vaccine, inactivated - Not Given Patient Refuses diphtheria/pertussis, acel/tetanus adult 10/05/2021 Recorded influenza virus vaccine, inactivated 10/05/2021 Recorded SARS-CoV-2 (COVID-19) mRNA BNT-162b2 vax 02/20/2021 Recorded 2022-12-13: TPV40 SARS-CoV-2 (COVID-19) mRNA BNT-162b2 vax 01/30/2021 Recorded 2022-12-13: TPV40 Normal [facility] Comment on above: Result Comment: Elec tronically Signed By: Rosi Bradford\.br\Date and Time Signed: 02/02/25 15:48 EDT Progress Noteson 01-11-2025 Seed Technician Authentication Interface Message Text Neurology Note Name: Alfonzo Shaver : 1975 no referring provider Chief Complaint: Myasthenia gravis History of Present Illness: Alfonzo Shaver is a 49 year old male who presents for for evaluation for myasthenia gravis. Falls with Dr. Braswell for his myasthenia gravis. Recently saw Dr. Rice at [facility] for 2nd opinion. The patient arrives [...] Allergies Current Medications Current Outpatient Medications: efgartigimod oyxl-phcejwwxwrmta-dqjy (Vyvgart Hytrulo) 180-2000 MG-UNIT/ML SOLN injection, Inject [...] gravis, however the patient recently saw Dr. Rice in at the [facility] for the same reason. Overall, I agree with continuing 30 mg of steroids for the time being, continuing 60 mg of Mestinon t.i.d., and continuing vyvguart hytrulo with each cycle spaced 4 weeks apart (1 month on, 1 month off). I do agree, that the patient ultimately may require steroid sparing therapy. As mentioned by my colleague Dr. Rice at the [facility], would check TPMT enzyme. If testing shows [...] Braswell in managing his care. Similarly, Dr. Rice and has offered the same partnership with Dr. Braswell. The patient is aware of signs and symptoms that would be concerning for a myasthenic crisis/exacerbation. Dione Swanson MD Neurology/ Neuromuscular Medicine Normal [facility] [employer] [facility] 12-15-2024 CNPN Telephone (NIQ) ALFONZO SHAVER ([id number]) 1975 M Date Time Provider Department 12/15/24 NEUROLOGY PROVIDER NIQ During your visit today, we recorded the following information about you: Montse Pruitt 12/17/2024 9:39 AM Signed Referral source: Devonte Sunshine DO ([facility] Neurology) Reason for visit: myasthenia gravis External records: viewable in Care Everywhere Triage: Not required Financial clearance: Not required to schedule Allergies As of Date: 12/15/2024 (Not on File) Date Reviewed: Never Reviewed Reason for Visit: Received Outside Medical Records [[id number]] Cmt: External referral to Neurological [place] Problem List As Of Date: 12/15/2024 (None) Encounter Status:Closed by MONTSE PRUITT on 12/17/24 [facility] Ambulatory Visit Summaryon 0 08-05-2024 Ambulatory Visit Summary Ambulatory Visit Summary ALFONZO SHAVER :1975 Visit Date:08/05/2024 Ambulatory Visit Instructions Your Diagnosis Wellness examination Myasthenia gravis Hyperlipemia Prediabetes Prostate cancer screening Hypothyroid Smoker BMI 39.0-39.9,adult Class 1 obesity due to excess calories in adult Your Care Team Attending Physician - Rosi Bradford Primary Care Physician - Rosi Bradford This Is Your Medications List atorvastatin [...] Normal [facility] Family Medicine Office/Clini c Noteon 08-05-2024 Family [...] Diff Est Preventative 40 to 64 years [address] HgbA1c Lipid Panel PSA Screen, Total Thyroid Stimulating Hormone 2. Myasthenia gravis (G70.00: Myasthenia gravis without (acute) exacerbation) pt was recently diagnosed with MG by Dr. Sunshine neurology Ordered: C-Reactive Protein CBC w/ Auto Diff Est Preventative 40 to 64 years 59380 HgbA1c Lipid Panel PSA Screen, Total Thyroid Stimulating Hormone 3. Hyperlipemia (E78.5: Hyperlipidemia, unspecified) lipid panel oerdered Ordered: C-Reactive Protein CBC w/ Auto Diff Est Preventative 40 to 64 years 51342 HgbA1c Lipid Panel PSA Screen, Total Thyroid Stimulating Hormone 4. Prediabetes (R73.03: Prediabetes) HGBA1C ordered Ordered: C-Reactive Protein CBC w/ Auto Diff Est Preventative 40 to 64 years 01100 HgbA1c Lipid Panel PSA Screen, Total Thyroid Stimulating Hormone 5. Prostate cancer screening (Z12.5: Encounter for screening for malignant neoplasm of prostate) psa ordered Ordered: C-Reactive Protein CBC w/ Auto Diff Est Preventative 40 to 64 years 59828 HgbA1c Lipid Panel PSA Screen, Total Thyroid Stimulating Hormone 6. Hypothyroid (E03.9: Hypothyroidism, unspecified) TSH ordered. pt needs refills on synthroid Ordered: Est Preventative 40 to 64 years 83290 7. Smoker (F17.200: Nicotine dependence, unspecified, uncomplicated) consider not smoking Ordered: Est Preventative 40 to 64 years 34458 8. BMI 39.0-39.9,adult (Z68.39: Body mass index [BMI] 39.0-39.9, adult) BMI education Ordered: Est Preventative 40 to 64 years 82764 9. Class 1 obesity due to excess calories in adult (E66.09: Other obesity due to excess calories) see above Ordered: Est Preventative 40 to 64 years 80782 Follow-up No qualifying data available Problem List/Past [...] 03/07/2023 Employment/School Employed, Work/School description: Works at [employer] 10/01/2019 Substance Abuse - Medium Risk, 03/07/2023 [...] vaccine, inactivated - Not Given Patient Refuses diphtheria/pertussis, acel/tetanus adult 10/05/2021 Recorded influenza virus vaccine, inactivated 10/05/2021 Recorded SARS-CoV-2 (COVID-19) mR (more content not included)... Normal [facility] Comment on above: Result Comment: Elec tronically Signed By: Rosi Bradford\.br\Date and Time Signed: 08/05/24 11:46 EDT Lab Miscellaneous-LCon 05-13 Lab Miscellaneous COMMENT Invalid Interpretation Code [facility] Comment on above: Result Comment: Test Ordered: 181382 AChR Blocking Abs, Serum AChR Blocking Abs, Serum 57 [H ] % BN Reference Range: 0-25 This test was developed and its performance characteristics determined by [employer]. It has not been cleared or approved by the Food and Drug Administration. Negative: 0 - 25 Borderline: 26 - 30 Positive: >30 Performed at: [facility] [id number] PhD Xiomara Hill Performed By: #### 1 [id number] #### [facility] [address] [place] [address] Lab Miscellaneous-LCon 05-12 Lab Miscellaneous COMMENT Invalid Interpretation Code [facility] Comment on above: Result Comment: Test Ordered: [id number] AChR-modulating Ab AChR-modulating Ab 91 [H ] % Reference Range: 0-45 This test was developed and its performance characteristics determined by [facility]. It has not been cleared or approved by the Food and Drug Administration. Interpretive Information: Negative: 0 - 45% Positive: > 45% No single value for AChR-modulating antibody should be used as a sole basis for diagnosis or response to therapy. Performed at: [address] [id number] PhD Xiomara Hill Performed By: #### 1 [id number] #### [facility] [address] [place] [address] ACHr Bind Abon 05-10-2024 Acetylcholine receptor binding Ab (S) [Moles/Vol] 33.00 nmol/L High 0.00-0.24 [facility] Comment on above: Result Comment: Re sults verified by repeat testing Negative: 0.00 - 0.24 Borderline: 0.25 - 0.40 Positive: >0.40 Performed at: [address] [id number] MD Ag Valentino Performed By: #### 1 [id number] #### [facility] [address] [place] [address] Smooth Muscle Abon 4 Actin smooth muscle IgG Qn (S) 3 unit(s) Invalid Interpretation Code 0-19 [facility] Comment on above: Result Comment: Nega tive 0 - 19 Weak positive 20 - 30 Moderate to strong positive >30 Actin Antibodies are found in 52-85% of patients with autoimmune hepatitis or chronic active hepatitis and in 22% of patients with primary biliary cirrhosis. Performed at: [address] [id number] PhD Xiomara Hill Performed By: #### 1 [id number] #### [facility] [address] [place] [address] Consent for Treatmenton 04-11 Consent for Treatment [id number] Normal [facility] Lab Miscellaneous-LCon 05-05 Test Code 498843 Invalid Interpretation Code [facility] Comment on above: Performed By: #### 1 [id number] #### [facility] [address] [place] [address] Test Code 576355 Invalid Interpretation Code [facility] Comment on above: Performed By: #### 1 [id number] #### [facility] [address] [place] [address] Test Name ACHR MODULATING Invalid Interpretation Code [facility] Comment on above: Performed By: #### 1 [id number] #### [facility] [address] [place] [address] Test Name ACHR BLOCKING Invalid Interpretation Code [facility] Comment on above: Performed By: #### 1 [id number] #### [facility] [address] [place] [address] Physician Orderon 05-05-2024 Physician Order [id number] Normal [facility] Reference Laboratory Testing Ordered By: Saloni Lawrence on 05-05-2024 Test Code 837938 1 Invalid Interpretation Code [facility] Test Code 329085 1 Invalid Interpretation Code [facility] Test Code 424207 1 Invalid Interpretation Code [facility] Test Name MUSK AB Invalid Interpretation Code [facility] Test Name ACHR BLOCKING Invalid Interpretation Code [facility] Test Name ACHR MODULATING Invalid Interpretation Code [facility] Summaryon 1 Ambulatory Visit Summary CHHAYA ALFONZO :1975 Visit Date:08/20/2023 Ambulatory Visit Instructions Your Diagnosis BMI 39.0-39.9,adult Smoker Your Care Team Attending Physician - Rosi Bradford Primary Care Physician - Rosi Bradford This Is Your Medications List atorvastatin [...] receiving treatment for. Screening for hyperlipidemia Normal [facility] Family Medicine Office/Clini c Noteon 08-20-2023 [...] Ill contacts: yes Remedies tried: cough medicine Questions/Concerns: History of Present Illness pt presents today [...] day(s), # 6 tab(s), Refills(s) 0, [facility]: [id number], 163, cm, 08/20/23 10:31:00 EDT, Height/Length Dosing, 103.6, kg, 08/20/23 10:31:00 EDT, Weight Dosing benzonatate, 200 mg = 1 cap(s), Oral, TID, X 7 day(s), # 21 cap(s), Refills(s) 0, Pharmacy: [id number], 163, cm, 08/20/23 10:31:00 EDT, Height/Length Dosing, 103.6, kg, 08/20/23 10:31:00 EDT, Weight Dosing methylPREDNISolone, = 1 packet(s), Oral, As Directed, as directed on package labeling, X 6 day(s), # 21 tab(s), Refills(s) 0, Pharmacy: [id number], 163, cm, 08/20/23 10:31:00 EDT, Height/Length Dosing, 103.6, kg, 08/20/23 10:31:00 EDT, Weight Dosing Rapid COVID POC 23797 4. BMI 39.0-39.9,adult (Z68.39: Body mass index [BMI] 39.0-39.9, adult) bmi education complete Ordered: azithromycin, = 1 packet(s), Oral, As Directed, as directed on package labeling, X 5 day(s), # 6 tab(s), Refills(s) 0, [id number] 163, cm, 08/20/23 10:31:00 EDT, Height/Length Dosing, 103.6, kg, 08/20/23 10:31:00 EDT, Weight Dosing benzonatate, 200 mg = 1 cap(s), Oral, TID, X 7 day(s), # 21 cap(s), Refills(s) 0, [id number] 163, cm, 08/20/23 10:31:00 EDT, Height/Length Dosing, 103.6, kg, 08/20/23 10:31:00 EDT, Weight Dosing methylPREDNISolone, = 1 packet(s), Oral, As Directed, as directed on package labeling, X 6 day(s), # 21 tab(s), Refills(s) 0, [id number] 163, cm, 08/20/23 10:31:00 EDT, Height/Length Dosing, 103.6, kg, 08/20/23 10:31:00 EDT, Weight Dosing Rapid COVID POC 21829 Orders: atorvastatin, 20 mg = 1 tab(s), Oral, Daily, # 90 tab(s), Refills(s) 0, [id number], 163, cm, 08/01/23 10:40:00 EDT, Height/Length Dosing, 104.2, kg, 08/01/23 10:40:00 EDT, Weight Dosing levothyroxine, 125 mcg = 1 tab(s), Oral, Daily, # 90 tab(s), Refills(s) 3, [id number] 163, cm, 08/01/23 10:40:00 EDT, Height/Length [...] Alcohol - (more content not included)... Normal [facility] Comment on above: Result Comment: Elec tronically Signed By: Micaela BOLAND, Rosi Bowers\.br\Date and Time Signed: 08/20/23 11:02 EDT Provider Letteron 08-20-2023 Provider Letter (Inserted Image. Jessica ble to display) August 20, 2023 ALFONZO SHAVER [address] [place] [address] : 1975 To Whom It May Concern, Please excuse above patient from work. Friday Date of Illness: From: _ 08-20-23 To: _ 08-20-23 May Return to Work On:08-21-23 Restrictions: _ Comments: _ Sincerely, Family Medicine [address] [address] Normal [facility] BMPon 08-01-2023 Anion gap [Moles/Vol] 12 mmol/L Normal 6-16 [facility] Comment on above: Performed By: #### 1 [id number], [id number], [id number] #### [facility] [address] [place] [address] Calcium [Mass/Vol] 9.8 mg/dL Normal 8.9-11.1 [facility] Comment on above: Performed By: #### 1 [id number], [id number], [id number] #### [facility] [address] [place] [address] Chloride [Moles/Vol] 107 mmol/L Normal 101-111 [facility] Comment on above: Performed By: #### 1 [id number], [id number], [id number], [id number] #### [facility] [address] [place] [address] CO2 [Moles/Vol] 24 mmol/L Normal 21-31 [facility] Comment on above: Performed By: #### 1 [id number], [id number], [id number], [id number] #### [facility] [address] [place] [address] Creatinine [Mass/Vol] 1.1 mg/dL Normal 0.5-1.3 [facility] Comment on above: Performed By: #### 1 [id number], [id number], [id number], [id number] #### [facility] [address] [place] [address] Glucose [Mass/Vol] 101 mg/dL Normal 55-199 [facility] Comment on above: Result Comment: If t his glucose result represents a fasting glucose, interpretation should refer to the following reference range: 55-99 mg/dL Performed By: #### 1 [id number], [id number], [id number], [id number] #### [facility] [address] [place] [address] Potassium [Moles/Vol] 4.2 mmol/L Normal 3.5-5.3 [facility] Comment on above: Performed By: #### 1 [id number], [id number], [id number], [id number] #### [facility] [address] [place] [address] Sodium [Moles/Vol] 139 mmol/L Normal 135-145 [facility] Comment on above: Performed By: #### 1 [id number], [id number], [id number], [id number] #### [facility] [address] [place] [address] Urea nitrogen [Mass/Vol] 21 mg/dL Normal 5-21 [facility] Comment on above: Performed By: #### 1 [id number], [id number], [id number], [id number] #### [facility] [address] [place] [address] Urea nitrogen/Creatinine [Mass ratio] 19 No Units Normal 10-20 [facility] Comment on above: Performed By: #### 1 [id number], [id number], [id number], [id number] #### [facility] [address] [place] [address] CHEMISTRYOrdered By: SYSTEM SYSTEM on 08-01-2023 Anion gap [Moles/Vol] 12 mmol/L Normal 6 - 16 mEq/L [facility] Calcium [Mass/Vol] 9.8 mg/dL Normal 8.9 - 11. 1 mg/dL [facility] Chloride [Moles/Vol] 107 mmol/L Normal 101 - 1 11 mmol/L [facility] CO2 [Moles/Vol] 24 mmol/L Normal 21 - 31 mmol/L [facility] Creatinine [Mass/Vol] 1.1 mg/dL Normal 0.5 - 1.3 mg/dL [facility] GFR/1.73 sq M.predicted among non-blacks MDRD (S/P/Bld) [Vol rate/Area] 82 mL/min/1.73 m2 Normal >=59mL/min /1.73 m2 [facility] Chem S Glucose [Mass/Vol] 101 mg/dL Normal 55 - 199 mg/dL [facility] Potassium [Moles/Vol] 4.2 mmol/L Normal 3.5 - 5.3 mmol/L [facility] Remisol Sodium [Moles/Vol] 139 mmol/L Normal 135 - 145 mmol/L [facility] TSH Qn 2.46 m[IU]/L Normal 0.34 - 5.60 mcIU/mL [facility] Urea nitrogen [Mass/Vol] 21 mg/dL Normal 5 - 21 mg/dL [facility] Remisol Urea nitrogen/Creatinine [Mass ratio] 19 mg/mg Normal 10 - 20 [facility] Remisol CHEMISTRYOrdered By: Sunita Artis on 08-01-2023 HbA1c (Bld) [Mass fraction] 6.0 % High <=5.9% [facility] ChemAutoSS Consent for Flu Vaccineon Consent for Flu Vaccine [id number] Normal [facility] Family Medicine Office/Clini c Noteon 08-01-2023 [...] Basic Metabolic Panel HgbA1c Lab Specimen Collect 20207 TSH With T4fr Reflex 2. Prediabetes (R73.03: Prediabetes) HGBA1C drawn in office today. may consider starting metformin if elevated Ordered: Basic Metabolic Panel HgbA1c Lab Specimen Collect 69603 TSH With T4fr Reflex 3. Smoker (F17.200: [...] flu shot given Ordered: FIRST VACCINE w/o [employer] Admin Charge 05214 Orders: atorvastatin, 20 mg = 1 tab(s), Oral, Daily, # 90 tab(s), Refills(s) 0, Pharmacy: [facility] #[id number], 163, cm, 08/01/23 10:40:00 EDT, Height/Length [...] 03/07/2023 Employment/School Employed, Work/School description: Works at [employer] 10/01/2019 Substance Abuse - Medium Risk, 03/07/2023 [...] vaccine, inactivated - Not Given Patient Refuses diphtheria/pertussis, acel/tetanus adult 10/05/2021 Recorded influenza virus vaccine, inactivated 10/05/2021 Recorded SARS-CoV-2 (COVID-19) mRNA BNT-162b2 vax 02/20/2021 Recorded 2022-12-13: TPV40 SARS-CoV-2 (COVID-19) mRNA BNT-162b2 vax 01/30/2021 Recorded 2022-12-13: TPV40 Normal [facility] Comment on above: Result Comment: Elec tronically Signed By: Rosi Bradford\.br\Date and Time Signed: 08/01/23 13:28 EDT [id number] 08-01-2023 HbA1c (Bld) [Mass fraction] 6.0 % High <=5.9 [facility] Comment on above: Performed By: #### 1 [id number], [id number], [id number], [id number] #### [facility] [address] [place] [address] TSH With T4fr Reflexon 08-01 TSH Qn 2.46 m[IU]/L Normal 0.34-5.60 [facility] Comment on above: Performed By: #### 1 [id number], [id number], [id number], [id number] #### [facility] [address] [place] [address] eGFRon 08-01-2023 GFR/1.73 sq M.predicted among non-blacks MDRD (S/P/Bld) [Vol rate/Area] 82 mL/min/1.73 m2 Normal >=59 [facility] Comment on above: Order Comment: Order added by Discern Expert. Result Comment: Final Cleaner kimberly kidney disease could be indicated at eGFR's of less than 60 mL/min/1.73m2. Kidney failure is indicated at less than 15 mL/min/1.73m2. Performed By: #### 1 [id number], [id number], [id number], [id number] #### [facility] [address] [place] [address] Ambulatory Visit Summaryon 0 05-30-2023 Ambulatory Visit Summary ALFONZO SHAVER :1975 Visit Date:05/30/2023 Ambulatory Visit Instructions Your Diagnosis Hyperlipemia Hypothyroid BMI 40.0-44.9, adult Smoker Your Care Team Attending Physician - ANSHUL DUMONT, LEXX Guerrier Primary Care Physician - Gurwinder FRITZ, Aiyana Heller This Is Your Medications List atorvastatin (atorvastatin 20 mg Tab) betamethasone-clotrimazole topical (betamethasone-clotrimazole Top 0.05%-1% Crm 45 gram) levothyroxine (levothyroxine 125 mcg (0.125 mg) Tab) Procedures Performed Closed fracture of right shoulder. Discharge Vitals Heart Rate (Peripheral) 89 Blood Pressure 134/66 Height 163 cm Height 64 in Weight 107 kg Weight 235.4 lb BMI 40.27 Medications What How Much When Why Instructions Unchanged atorvastatin (atorvastatin 20 mg Tab) 1 Tablets By Mouth Every day Unchanged betamethasone-clotrimazole topical (betamethasone-clotrimazole Top 0.05%-1% Crm 45 gram) 1 Application [...] ovarian syndrome (PCOS). ? Binge-eating disorder. ? Patrizia syndrome. ? Taking certain medicines, such as [...] food choices, such as grocery stores and [employer] markets. What are the signs or symptoms? The [...] you e (more content not included)... Normal [facility] Family Medicine Office/[place]ano Boateng 05-30-2023 Family Medicine Office/Clinic Note HPI Staff [...] Dr. Marshall for this. Sexual dysfunction? no GI-Nausea/vomiting/bloating ? no Lightheadedness? no Paresthesias, Ulcerations or sores? no Last A1c: 6.1% on 03/13/23 Last fasting glucose level: 122 on 4/29/23 Pt is not currently on any tx [...] medications as prescribed. - Recommended following the TLC Lipid Diet which is a low fat/low cholesterol diet for high cholesterol. - More information about this eating plan can be found here: http://tlcdiet.org - To improve your health we recommend increasing your level of moderate exercise to at least 2.5 hrs per week. For more information, please visit the CDC Exercise and Fitness Recommendations at www.cdc.gov/physicalactivit y/basics/index.htm 3. Hypothyroid (E03.9: Hypothyroidism, unspecified) Did have [...] Weight Loss (more content not included)... Normal [facility] Comment on above: Result Comment: Elec trokimberlyally Signed By: LEXX LANDERS CNP\.br\Date and Time Signed: 05/30/23 09:46 EDT Patient Educationon 05-30-20 Patient Education Endocrinology Prediabetes Eating Plan Prediabetes is a condition that causes blood sugar (glucose) levels to be higher than normal. This increases the risk for developing type 2 diabetes (type 2 diabetes mellitus). Working with a health care provider or planning management it specialist (dietitian) to make diet and lifestyle changes [...] from a mental health counselor. ? Take [id number] and prescription medicines only as told by your health care provider. What foods are recommended? Fruits Berries. Bananas. Apples. Oranges. Grapes. Papaya. Mikel. Pomegranate. Kiwi. Grapefruit. Cherries. Vegetables Lettuce. Spinach. Peas. Beets. Cauliflower. Cabbage. Broccoli. Carrots. Tomatoes. Squash. Eggplant. Herbs. Peppers. Onions. Cucumbers. [place] sprouts. Grains Whole grains, such as whole-wheat or whole-grain breads, crackers, cereals, and pasta. Unsweetened oatmeal. Bulgur. Barley. Quinoa. Brown rice. [place] or whole-wheat flour tortillas or taco shells. Meats and other proteins Seafood. Poultry without skin. Lean cuts of pork and beef. Tofu. Eggs. Nuts. Beans. Dairy Low-fat or fat-free dairy products, such as yogurt, cottage cheese, and cheese. Beverages Water. Tea. Coffee. Sugar-free or diet soda. [place] water. Low-fat or nonfat milk. Milk alternatives, such as soy or almond milk. Fats and oils Maurice oil. Canola oil. [place] oil. Grapeseed oil. Avocado. Walnuts. Sweets and [...] information. Where to find more information ? [place] [employer]: www.diabetes.org Summary ? You may need to make diet and lifestyle changes to help prevent the onset of diabetes. These changes can help you control blood sugar, improve cholesterol levels, and manage blood pre (more content not included)... Normal [facility] CHEMISTRYOrdered By: Pedro Adams on 03-13-2023 HbA1c (Bld) [Mass fraction] 6.1 % High <=5.9% [facility] ChemAutoSS CHEMISTRYOrdered By: SHIMAUMA [employer] SYSTEM on 03-08-2023 Albumin [Mass/Vol] 4.1 g/dL Normal 3.3 - 5.0 gm/dL [facility] Albumin/Globulin [Mass ratio] 1.1 {ratio} Normal 1.1 - 2.2 [facility] Rem[facility] ALP [Catalytic activity/Vol] 112 [iU]/d High 21 - 98 Int._Unit/ L [facility] Rem[facility] ALT No additional P-5'-P [Catalytic activity/Vol] 24 [iU]/d Normal 6 - 46 Int._Unit/ L [facility] Anion gap [Moles/Vol] 10 mmol/L Normal 6 - 16 mEq/L [facility] AST [Catalytic activity/Vol] 23 [iU]/d Normal 5 - 43 Int._Unit/ L [facility] Bilirubin [Mass/Vol] 0.5 mg/dL Normal [...] T4 [Mass/Vol] 1.61 ng/dL Normal 0.58 - 1.64 ng/dL [facility] GFR/1.73 sq M.predicted among non-blacks MDRD (S/P/Bld) [Vol rate/Area] 82 mL/min/1.73 m2 Normal >=59mL/min /1.73 m2 [facility] S Globulin (S) [Mass/Vol] [...] Remisol Triglyceride [Mass/Vol] 92 mg/dL Normal <=149mg/dL [facility] TSH Qn 0.13 m[IU]/L Low 0.34 - 5.60 mcIU/mL [facility] Urea nitrogen [Mass/Vol] 17 mg/dL Normal 5 - 21 mg/dL [facility] Urea nitrogen/Creatinine [Mass ratio] 16 mg/mg Normal 10 - 20 [facility] Basophils Auto (Bld) [#/Vol] Ordered By: Alex Lentz on 11-29-2022 Basophils (Bld) [#/Vol] 0.1 10*3/uL 0.0-0.2 [facility] Basophils/100 WBC Auto (Bld) Ordered By: Alex Lentz on 11-29-2022 Basophils/100 WBC (Bld) 1.2 % . [facility] Creatinine and Glomerular fi ltration rate.predicted panel (S/P/Bld)Ordered By: Alex Lentz on 11-29-2022 Creatinine [Mass/Vol] 1.00 mg/dL 0.64-1.27 [facility] Eosinophils Auto (Bld) [#/Vo l]Ordered By: Alex Lentz on 11-29-2022 Eosinophils (Bld) [#/Vol] 0.2 10*3/uL 0.0-0.45 [facility] Eosinophils/100 WBC Auto (Bl d)Ordered By: Alex Lentz on 11-29-2022 Eosinophils/100 WBC (Bld) 2.4 % . [facility] Erythrocyte distribution wid th Auto (RBC) [Ratio]Ordered By: Alex Lentz on 11-29-2022 Erythrocyte distribution width (RBC) [Ratio] 13.9 % 12.0-14.8 [facility] Estimated glomerular filtrat ion rate (GFR) non- AmericanOrdered By: Alex Lentz on 11-29-2022 GFR/1.73 sq M.predicted among non-blacks MDRD (S/P/Bld) [Vol rate/Area] > 60 mL/Min [facility] Hematocrit Auto (Bld) [Volum e fraction]Ordered By: Alex Lentz on 11-29-2022 Hematocrit (Bld) [Volume fraction] 46.0 % 38.8-50.0 [facility] Hemoglobin [Mass/volume] in BloodOrdered By: Alex Lentz on 11-29-2022 Hemoglobin (Bld) [Mass/Vol] 15.2 g/dL 13.0-17.0 [facility] Leukocytes [#/volume] correc peg for nucleated erythrocytes in Blood by Automated counOrdered By: Alex Lentz on 11-29-2022 WBC corrected for nucl RBC Auto (Bld) [#/Vol] 10.1 10*3/uL 4.1-10.5 [facility] Lymphocytes Auto (Bld) [#/Vo l]Ordered By: Alex Lentz on 11-29-2022 Lymphocytes (Bld) [#/Vol] 1.4 10*3/uL 1.00-4.8 [facility] Lymphocytes/100 WBC Auto (Bl d)Ordered By: Alex Lentz on 11-29-2022 Lymphocytes/100 WBC (Bld) 14.3 % . [facility] MCH Auto (RBC) [Entitic mass ]Ordered By: Alex Lentz on 11-29-2022 MCH (RBC) [Entitic mass] 28.7 pg 27.5-35.2 [facility] MCHC Auto (RBC) [Mass/Vol]Or dered By: Alex Lentz on 11-29-2022 MCHC (RBC) [Mass/Vol] 33.1 g/dL 32.5-35.6 [facility] MCV Auto (RBC) [Entitic vol] Ordered By: Alex Lentz on 11-29-2022 MCV (RBC) [Entitic vol] 86.6 fL 83.5-101 [facility] Monocytes Auto (Bld) [#/Vol] Ordered By: Alex Lentz on 11-29-2022 Monocytes (Bld) [#/Vol] 0.8 10*3/uL 0.0-0.8 [facility] Monocytes/100 WBC Auto (Bld) Ordered By: Alex Lentz on 11-29-2022 Monocytes/100 WBC (Bld) 7.7 % . [facility] Neutrophils Auto (Bld) [#/Vo l]Ordered By: Alex Lentz on 11-29-2022 Neutrophils (Bld) [#/Vol] 7.5 10*3/uL 1.8-7.7 [facility] Neutrophils/100 WBC Auto (Bl d)Ordered By: Alex Lentz on 11-29-2022 Neutrophils/100 WBC (Bld) 74.4 % . [facility] No Panel InformationOrdered By: Alex Lentz on 11-29-2022 Estimated GFR () > 60 mL/Min [facility] Comment on above: GFR estimated refere nce range: According to KDOQI guidelines, <60 ml/min/1.73m2 is sufficient to diagnose a patient with chronic kidney disease. Pharmacy Creatinine Clearance (Chem N/A [facility] Nucleated erythrocytes [Pres ence] in Blood by Automated countOrdered By: Alex Lentz on 11-29-2022 Nucleated RBC Auto Ql (Bld) 0.1 /100{WBC} 0-0.5 [facility] Platelet mean volume Auto (B ld) [Entitic vol]Ordered By: Alex Lentz on 11-29-2022 Platelet mean volume (Bld) [Entitic vol] 9.1 fL 6.6-10.1 [facility] Platelets Auto (Bld) [#/Vol] Ordered By: Alex Lentz on 11-29-2022 Platelets (Bld) [#/Vol] 244 10*3/uL 150-450 [facility] RBC Auto (Bld) [#/Vol]Ordere d By: Alex Lentz on 11-29-2022 RBC (Bld) [#/Vol] 5.31 10*6/uL 3.90-5.60 [facility] Serum or plasma anion gap de terminationOrdered By: Alex Lentz on 11-29-2022 Anion gap [Moles/Vol] 13.4 mmol/L 6.0-15.0 [facility] Serum or plasma calcium deniz urement (mass/volume)Ordered By: Alex Lentz on 11-29-2022 Calcium [Mass/Vol] 9.1 mg/dL 8.2-10.2 [facility] Serum or plasma chloride alfred surement (moles/volume)Ordered By: Alex Lentz on 11-29-2022 Chloride [Moles/Vol] 99 mmol/L 95-114 [facility] Serum or plasma glucose deniz urement (mass/volume)Ordered By: Alex Lentz on 11-29-2022 Glucose [Mass/Vol] 147 mg/dL 70-100 [facility] Comment on above: ADA recommended refe rence rangeRandom Glucose Reference Range is dependent on time and content of last meal. Glucose of more than 200 mg/dL in a nonstressed, ambulatory subject supports the diagnosis of Diabetes Mellitus. Serum or plasma potassium me asurement (moles/volume)Ordered By: Alex Lentz on 11-29-2022 Potassium [Moles/Vol] 4.0 mmol/L 3.5-5.1 [facility] Serum or plasma sodium measu rement (moles/volume)Ordered By: Alex Lentz on 11-29-2022 Sodium [Moles/Vol] 134 mmol/L 136-146 [facility] Serum or plasma total carbon dioxide measurement (moles/volume)Ordered By: Alex Lentz on 11-29-2022 CO2 [Moles/Vol] 25.6 mmol/L 22.0-30.0 [facility] Serum or plasma urea nitroge n measurement (mass/volume)Ordered By: Alex Lentz on 11-29-2022 Urea nitrogen [Mass/Vol] 10 mg/dL 08-02 [facility] WBC Auto (Bld) [#/Vol]Ordere d By: Alex Lentz on 11-29-2022 WBC (Bld) [#/Vol] 10.1 10*3/uL 4.1-10.5 [facility] Vital Signs Date Time Vital Sign Value Performing Clinician Faci lity 07-28-2025 16:23-0400 Body height 162.6 cm Alex Lentz DPM Work Phone: [facility] 07-28-2025 16:23-0400 Body mass index (BMI) [Ratio] 45.83 kg/m2 Alex Lentz DPM Work Phone: [facility] 07-28-2025 16:23-0400 Body weight 121.11 kg Alex Lentz DPM Work Phone: [facility] 07-28-2025 16:23-0400 Respiratory rate 16 /min Alex Kody DPM Work Phone: [facility] 07-25-2025 10:23-0400 Body weight 100.3 kg Rosi Micaela WET END HELPER-C Work Phone: [facility] 07-25-2025 10:23-0400 Diastolic blood pressure 76 mm[Hg] Rosi Micaela WET END HELPER-C Work Phone: [facility] 07-25-2025 10:23-0400 Heart rate 85 /min Rosi Micaela WET END HELPER-C Work Phone: [facility] 07-25-2025 10:23-0400 SaO2% (BldA) [Mass fraction] 96 % Rosi Micaela WET END HELPER-C Work Phone: [facility] 07-25-2025 10:23-0400 Systolic blood pressure 134 mm[Hg] Rosi Micaela WET END HELPER-C Work Phone: [facility] 07-14-2025 16:06-0400 Body height 162.6 cm Alex Lentz DPM Work Phone: [facility] 07-14-2025 16:06-0400 Body mass index (BMI) [Ratio] 45.83 kg/m2 Alex Lentz DPM Work Phone: [facility] 07-14-2025 16:06-0400 Body weight 121.11 kg Alex Lentz DPM Work Phone: [facility] 07-14-2025 16:06-0400 Respiratory rate 16 /min Alex Lentz DPM Work Phone: [facility] 06-24-2025 10:09-0400 Diastolic blood pressure 63 mm[Hg] Rosi Micaela WET END HELPER-C Work Phone: [facility] 06-24-2025 10:09-0400 Heart rate 55 /min Rosi Micaela WET END HELPER-C Work Phone: [facility] 06-24-2025 10:09-0400 Systolic blood pressure 117 mm[Hg] Rosi Micaela WET END HELPER-C Work Phone: [facility] 06-23-2025 16:50-0400 Body height 162.6 cm Alex Lentz DPM Work Phone: [facility] 06-23-2025 16:50-0400 Body mass index (BMI) [Ratio] 45.83 kg/m2 Alex Lentz DPM Work Phone: [facility] 06-23-2025 16:50-0400 Body weight 121.11 kg Alex Lentz DPM Work Phone: [facility] 06-23-2025 16:50-0400 Respiratory rate 16 /min Alex Lentz DPM Work Phone: [facility] 06-17-2025 10:18-0400 Body height 162.56 cm Rosi Micaela WET END HELPER-C Work Phone: [facility] 06-17-2025 10:18-0400 Body weight 107.1 kg Rosi Micaela WET END HELPER-C Work Phone: [facility] 06-03-2025 10:06-0400 Body temperature 98.5 [degF] Rosi Micaela WET END HELPER-C Work Phone: [facility] 06-03-2025 10:06-0400 Respiratory rate 18 /min Rosi Micaela WET END HELPER-C Work Phone: [facility] 06-03-2025 10:06-0400 SaO2% (BldA) [Mass fraction] 96 % Rosi Micaela WET END HELPER-C Work Phone: [facility] 06-02-2025 13:17-0400 Body height 162.6 cm Alex Brown DPM Work Phone: [facility] 06-02-2025 13:17-0400 Body mass index (BMI) [Ratio] 45.83 kg/m2 Alex Brown DPM Work Phone: [facility] 06-02-2025 13:17-0400 Body weight 121.11 kg Alex Brown DPM Work Phone: [facility] 06-02-2025 13:17-0400 Respiratory rate 16 /min Alex Brown DPM Work Phone: [facility] 05-19-2025 11:40-0400 Body height 162.6 cm Alex Brown DPM Work Phone: [facility] 05-19-2025 11:40-0400 Body mass index (BMI) [Ratio] 45.83 kg/m2 Alex Brown DPM Work Phone: [facility] 05-19-2025 11:40-0400 Body weight 121.11 kg Alex Brown DPM Work Phone: [facility] 05-19-2025 11:40-0400 Respiratory rate 18 /min Alex Lentz DPM Work Phone: [facility] 05-16-2025 08:48-0400 Body height 162.56 cm Rosi Micaela WET END HELPER-C Work Phone: [facility] 05-16-2025 08:48-0400 Body mass index (BMI) [Ratio] 43.2 kg/m2 Rosi Micaela WET END HELPER-C Work Phone: [facility] 05-16-2025 08:48-0400 Body weight 114.3 kg Rosi Micaela WET END HELPER-C Work Phone: [facility] 05-16-2025 08:48-0400 Diastolic blood pressure 88 mm[Hg] Rosi Micaela WET END HELPER-C Work Phone: [facility] 05-16-2025 08:48-0400 Heart rate 81 /min Rosi Micaela WET END HELPER-C Work Phone: [facility] 05-16-2025 08:48-0400 Systolic blood pressure 133 mm[Hg] Rosi Micaela WET END HELPER-C Work Phone: [facility] 05-11-2025 08:39-0400 Body weight 114.02 kg Rosi Micaela WET END HELPER-C Work Phone: [facility] 05-11-2025 08:39-0400 Diastolic blood pressure 86 mm[Hg] Rosi Micaela WET END HELPER-C Work Phone: [facility] 05-11-2025 08:39-0400 Heart rate 106 /min Rosi Micaela WET END HELPER-C Work Phone: [facility] 05-11-2025 08:39-0400 SaO2% (BldA) [Mass fraction] 97 % Rosi Micaela WET END HELPER-C Work Phone: [facility] 05-11-2025 08:39-0400 Systolic blood pressure 138 mm[Hg] Rosi Micaela WET END HELPER-C Work Phone: [facility] 04-28-2025 16:27-0400 Body height 162.6 cm Alex Lentz DPM Work Phone: [facility] 04-28-2025 16:27-0400 Body mass index (BMI) [Ratio] 45.83 kg/m2 Alex Lentz DPM Work Phone: [facility] 04-28-2025 16:27-0400 Body weight 121.11 kg Alex Lentz DPM Work Phone: [facility] 04-28-2025 16:27-0400 Respiratory rate 16 /min Alex Lentz DPM Work Phone: [facility] 04-27-2025 09:13-0400 Diastolic blood pressure 80 mm[Hg] Rosi Micaela WET END HELPER-C Work Phone: [facility] 04-27-2025 09:13-0400 Heart rate 95 /min Rosi Micaela WET END HELPER-C Work Phone: [facility] 04-27-2025 09:13-0400 SaO2% (BldA) [Mass fraction] 97 % Rosi Micaela WET END HELPER-C Work Phone: [facility] 04-27-2025 09:13-0400 Systolic blood pressure 142 mm[Hg] Rosi Micaela WET END HELPER-C Work Phone: [facility] 02-08-2025 08:17-0400 Body height 162.6 cm Trisha Angel DO Work Phone: [facility] 02-08-2025 08:17-0400 Body mass index (BMI) [Ratio] 45.83 kg/m2 Trisha Angel DO Work Phone: [facility] 02-08-2025 08:17-0400 Body weight 121.11 kg Trisha Angel DO Work Phone: [facility] 02-08-2025 08:17-0400 Diastolic blood pressure 84 mm[Hg] Trisha Angel DO Work Phone: [facility] 02-08-2025 08:17-0400 Heart rate 98 /min Trisha Angel DO Work Phone: [facility] 02-08-2025 08:17-0400 SaO2% (BldA) [Mass fraction] 98 % Trisha Angel DO Work Phone: [facility] 02-08-2025 08:17-0400 Systolic blood pressure 124 mm[Hg] Trisha Angel DO Work Phone: [facility] 01-11-2025 15:38-0500 Body temperature 97.39 [degF] Dione Swanson MD Work Phone: [facility] 01-11-2025 15:38-0500 Body weight 119.75 kg Dione Swanson MD Work Phone: [facility] 01-11-2025 15:38-0500 Diastolic blood pressure 67 mm[Hg] Dione Swanson MD Work Phone: [facility] 01-11-2025 15:38-0500 Heart rate 84 /min [facility] 01-11-2025 15:38-0500 Respiratory rate 16 /min Dione Swanson MD Work Phone: [facility] 01-11-2025 15:38-0500 Systolic blood pressure 141 mm[Hg] Dione Swanson MD Work Phone: [facility] 12-14-2024 13:14-0500 Body mass index (BMI) [Ratio] 44.35 kg/m2 Devonte Sunshine DO Work Phone: [facility] 12-14-2024 13:14-0500 Body weight 117.21 kg Devonte Sunshine DO Work Phone: [facility] 12-14-2024 13:14-0500 Diastolic blood pressure 82 mm[Hg] Devonte Sunshine DO Work Phone: [facility] 12-14-2024 13:14-0500 Heart rate 77 /min Christopher Bita DO Work Phone: [facility] 12-14-2024 13:14-0500 SaO2% (BldA) [Mass fraction] 97 % Christopher Bita DO Work Phone: [facility] 12-14-2024 13:14-0500 Systolic blood pressure 138 mm[Hg] Christopher Bita DO Work Phone: [facility] 10-13-2024 10:57-0500 Body mass index (BMI) [Ratio] 43.43 kg/m2 Christopher Bita DO Work Phone: [facility] 10-13-2024 10:57-0500 Body weight 114.76 kg Christopher Bita DO Work Phone: [facility] 10-13-2024 10:57-0500 Diastolic blood pressure 78 mm[Hg] Christopher Bita DO Work Phone: [facility] 10-13-2024 10:57-0500 Heart rate 83 /min Christopher Bita DO Work Phone: [facility] 10-13-2024 10:57-0500 SaO2% (BldA) [Mass fraction] 96 % Christopher Bita DO Work Phone: [facility] 10-13-2024 10:57-0500 Systolic blood pressure 142 mm[Hg] Christopher Bita DO Work Phone: [facility] 09-15-2024 10:42-0500 Body mass index (BMI) [Ratio] 41.92 kg/m2 Christopher Bita DO Work Phone: [facility] 09-15-2024 10:42-0500 Body weight 110.77 kg Christopher Bita DO Work Phone: [facility] 09-15-2024 10:42-0500 Diastolic blood pressure 83 mm[Hg] Christopher Bita DO Work Phone: [facility] 09-15-2024 10:42-0500 Heart rate 84 /min Christopher Bita DO Work Phone: [facility] 09-15-2024 10:42-0500 SaO2% (BldA) [Mass fraction] 96 % Christopher Bita DO Work Phone: [facility] 09-15-2024 10:42-0500 Systolic blood pressure 141 mm[Hg] Christopher Bita DO Work Phone: [facility] 08-17-2024 09:14-0400 Diastolic blood pressure 82 mm[Hg] Christopher Bita DO Work Phone: [facility] 08-17-2024 09:14-0400 Heart rate 73 /min Christopher Bita DO Work Phone: [facility] 08-17-2024 09:14-0400 SaO2% (BldA) [Mass fraction] 96 % Christopher Bita DO Work Phone: [facility] 08-17-2024 09:14-0400 Systolic blood pressure 132 mm[Hg] Christopher Bita DO Work Phone: [facility] 08-03-2024 14:44-0400 Body mass index (BMI) [Ratio] 40.34 kg/m2 Christopher Bita DO Work Phone: [facility] 08-03-2024 14:44-0400 Body weight 106.59 kg Christopher Bita DO Work Phone: [facility] 08-03-2024 14:44-0400 Diastolic blood pressure 79 mm[Hg] Christopher Bita DO Work Phone: [facility] 08-03-2024 14:44-0400 Heart rate 89 /min Christopher Bita DO Work Phone: [facility] 08-03-2024 14:44-0400 SaO2% (BldA) [Mass fraction] 95 % Christopher Bita DO Work Phone: [facility] 08-03-2024 14:44-0400 Systolic blood pressure 135 mm[Hg] Christopher Bita DO Work Phone: [facility] 07-28-2024 14:14-0400 Body height 162.56 cm WET END HELPER-C Rosi Micaela Work Phone: [facility] 07-28-2024 14:14-0400 Body weight 108.4 kg WET END HELPER-C Rosi Micaela Work Phone: [facility] 12-13-2022 13:40-0500 Diastolic blood pressure 82 mm[Hg] Aiyana Klonk [facility] 12-13-2022 13:40-0500 Mean blood pressure 100 mm[Hg] Aiyana Klonk [facility] 12-13-2022 13:40-0500 Systolic blood pressure 136 mm[Hg] Aiyana Klonk [facility] 12-13-2022 11:48-0500 Blood Pressure Location Aiyana Klonk [facility] 12-13-2022 11:48-0500 Body temperature 98.24 [degF] Aiyana Klonk [facility] 12-13-2022 11:48-0500 Diastolic blood pressure 84 mm[Hg] Aiyana Klonk [facility] 12-13-2022 11:48-0500 Heart rate 81 /min Aiyana Klonk [facility] 12-13-2022 11:48-0500 SaO2% (BldA) [Mass fraction] 97 % Aiyana Klonk [facility] 12-13-2022 11:48-0500 Systolic blood pressure 142 mm[Hg] Aiyana Klonk [facility] 04-30-2022 11:51-0400 Blood Pressure Location L[facility]X SIDEBRITT[facility] 04-30-2022 11:51-0400 Diastolic blood pressure 84 mm[Hg] LEXX SIDELL [facility] 04-30-2022 11:51-0400 Heart rate 90 /min [facility] 04-30-2022 11:51-0400 SaO2% (BldA) [Mass fraction] 97 % [facility] 04-30-2022 11:51-0400 Systolic blood pressure 120 mm[Hg] [facility] Encounters Encounter Date Encounter Type Care Provider Facility Start: 11-08-2025 ambulatory CONTINUOUS MINER Rosi L Micaela Facil ity:[facility] Start: 08-29-2025 ambulatory Rosi L Micaela Facility: [facility] Start: 08-19-2025 ambulatory Devonte Sunshine Facility:[facility] Start: 08-10-2025 End: 08-10-2025 ambulatory CONTINUOUS MINER Rosi L Micaela Facility:[facility] Start: 08-09-2025 End: 08-09-2025 ambulatory Rosi L Micaela Facility:[facility] Start: 08-02-2025 End: 08-02-2025 ambulatory SUSI RICE Facility:[facility] Start: 07-28-2025 End: 07-28-2025 Office outpatient visit 15 minutes Alex Lentz DPM Work Phone: [facility] Comment on above: 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); Verruca plantaris; Foot pain, right; Acquired deformity of right toe; Neoplasm of uncertain behavior of skin; Diabetes mellitus due to underlying condition with diabetic polyneuropathy, unspecified whether intermediate insulin use (HCC) Start: 07-28-2025 End: 07-28-2025 ambulatory ALEX LENTZ Not Available Start: 07-28-2025 End: 07-28-2025 Bamboo flowsheet Alex Lentz DPM Work Phone: [facility] Start: 07-28-2025 End: 07-28-2025 Bamboo flowsheet Alex Lentz DPM Work Phone: [facility] Start: 07-25-2025 End: 07-25-2025 ambulatory Rosi Alvarez WET END HELPER-C Work Phone: [facility] Work Phone: Start: 07-25-2025 End: 07-25-2025 Patient encounter procedure Devonte [facility] Work Phone: Start: 07-18-2025 End: 07-18-2025 ambulatory CONTINUOUS MINER Rosi Alvarez Facility:[facility] [place] Start: 07-14-2025 End: 07-14-2025 Patient encounter procedure Alex Lentz DPM Work Phone: [facility] Comment on above: Verruca plantaris (P rimary Dx); Foot pain, right Start: 07-14-2025 End: 07-14-2025 ambulatory ALEX LENTZ Not Available Start: 07-14-2025 End: 07-14-2025 Bamboo flowsheet Alex Lentz DPM Work Phone: [facility] Start: 07-14-2025 End: 07-14-2025 Bamboo flowsheet Alex Lentz DPM Work Phone: [facility] Start: 06-28-2025 End: 06-28-2025 ambulatory JULIA AARON Facility:[facility] Rosalind Start: 06-24-2025 Registered Recurring Reggie er Bita M DO -Infusion Therapy - O/P Work Phone: Start: 06-23-2025 End: 06-23-2025 Patient encounter procedure Alex Lentz DPM Work Phone: [facility] Comment on above: Verruca plantaris (P rimary Dx); Foot pain, right Start: 06-23-2025 End: 06-23-2025 ambulatory ALEX LENTZ Not Available Start: 06-23-2025 End: 06-23-2025 Bamboo flowsheet Alex Lentz DPM Work Phone: [facility] Start: 06-23-2025 End: 06-23-2025 Bamboo flowsheet Alex Lentz DPM Work Phone: [facility] Start: 06-21-2025 ambulatory CONTINUOUS MINER Orsi L Micaela Facil ity:[facility] Start: 06-06-2025 End: 06-06-2025 ambulatory Rosi L Micaela Facility:[facility] Start: 06-06-2025 End: 06-06-2025 ambulatory Rosi L Micaela Facility:[facility] Start: 06-02-2025 End: 06-02-2025 Bamboo flowsheet Alex Lentz DPM Work Phone: [facility] Start: 06-02-2025 End: 06-02-2025 Bamboo flowsheet Alex Lentz DPM Work Phone: [facility] Start: 06-02-2025 End: 06-02-2025 Patient encounter procedure Alex Lentz DPM Work Phone: [facility] Comment on above: Verruca plantaris (P rimary Dx); Foot pain, right Start: 06-02-2025 End: 06-02-2025 ambulatory ALEX LENTZ Not Available Start: 06-01-2025 ambulatory Elizabeth BEE Fa cility:[facility] Start: 05-19-2025 End: 05-19-2025 Bamboo flowsheet Alex Lentz DPM Work Phone: [facility] Start: 05-19-2025 End: 05-19-2025 Bamboo flowsheet Alex Lentz DPM Work Phone: [facility] Start: 05-19-2025 End: 05-19-2025 Patient encounter procedure Alex Lentz DPM Work Phone: [facility] Comment on above: Verruca plantaris (P rimary Dx); Foot pain, right Start: 05-19-2025 End: 05-19-2025 ambulatory ALEX LENTZ Not Available Start: 05-16-2025 End: 05-16-2025 ambulatory Orsi Theresa Micaela WET END HELPER-C Work Phone: [facility] Work Phone: Start: 05-16-2025 End: 05-16-2025 Patient encounter procedure Elvira Mario [employer] [facility] Neurology [place] Work Phone: Start: 05-11-2025 End: 05-11-2025 ambulatory Rosi Theresa Micaela WET END HELPER-C Work Phone: [facility] Work Phone: Start: 05-11-2025 End: 05-11-2025 Patient encounter procedure Devonte Mario [facility] Neurology Work Phone: Start: 05-10-2025 ambulatory Rosi Micaela Facility:[facility] Start: 05-06-2025 End: 05-06-2025 ambulatory Rosi L Micaela Facility:[facility] [place] Start: 05-03-2025 End: 05-03-2025 Lab Drop off Rosi L Miacela [facility] Start: 05-03-2025 End: 05-03-2025 ambulatory Rosi L Micaela Facility:[facility] Start: 04-29-2025 End: 04-29-2025 Patient encounter procedure Devonte Mario DO -Lab Main [place] Work Phone: Start: 04-29-2025 End: 04-29-2025 ambulatory Devonte Sunshine Facility:[facility] Start: 04-28-2025 End: 04-28-2025 Office outpatient new 30 minutes Alex Lentz DPM Work Phone: [facility] Comment on above: Neoplasm of uncertai n behavior of skin (Primary Dx); Verruca plantaris; Foot pain, right Start: 04-28-2025 End: 04-28-2025 ambulatory ALEX LENTZ Not Available Start: 04-28-2025 End: 04-28-2025 Bamboo flowsheet Alex Lentz DPM Work Phone: [facility] Start: 04-28-2025 End: 04-28-2025 Bamboo flowsheet Alex Lentz DPM Work Phone: [facility] Start: 04-27-2025 End: 04-27-2025 Patient encounter procedure Devonte Mario DO -[facility] [place] Work Phone: Start: 04-20-2025 End: 04-20-2025 ambulatory Rosi L Micaela Facility:[facility] [place] Start: 04-06-2025 End: 04-06-2025 ambulatory Rosi L Micaela Facility:[facility] [place] Start: 04-01-2025 End: 04-01-2025 Telemedicine consultation with patient Susi Rice MD Work Phone: Neurology Start: 04-01-2025 End: 04-01-2025 ambulatory Susi Rice MD Work Phone: Neurology Comment on above: Myasthenia gravis wi thout exacerbation (HCC) (Primary Dx); Generalized myasthenia gravis (HCC); Myasthenia gravis, AChR antibody positive (HCC); Diplopia; Ptosis of both eyelids; Bulbar weakness (HCC); Limb weakness; Smoking trying to quit; H/O immunosuppressive therapy Start: 03-02-2025 End: 03-02-2025 ambulatory Rosi L Micaela Facility: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 [place] Start: 02-02-2025 End: 02-02-2025 ambulatory BIANCACOLLEEN SUNSHINE Not Available Start: 01-11-2025 End: 01-11-2025 Office outpatient new 45 minutes Dione Swanson MD Work Phone: [facility] Neurology Comment on above: Myasthenia gravis (H CC) (Primary Dx) Start: 01-11-2025 End: 01-11-2025 ambulatory DIONE SWANSON Facility:[facility] Start: 12-21-2024 End: 12-21-2024 ambulatory Susi Rice MD Work Phone: Neurology Comment on above: Myasthenia gravis wi thout exacerbation (HCC) (Primary Dx); Myasthenia gravis, AChR antibody positive (HCC); Diplopia; Ptosis of both eyelids; Bulbar weakness (HCC); Limb weakness; Smoking trying to quit; H/O immunosuppressive therapy Start: 12-21-2024 End: 12-21-2024 Telemedicine consultation with patient Susi Rice MD Work Phone: Neurology Start: 12-15-2024 End: 12-17-2024 Telephone encounter Neurology Provider Neurology Comment on above: Received Outside Med ical Records (External referral to Neurological [place]/) Start: 12-14-2024 End: 12-14-2024 Bamboo flowsheet Christopher Bita DO Work Phone: [facility] Start: 12-14-2024 End: 12-14-2024 Bamboo flowsheet Christopher Bita DO Work Phone: [facility] [place] Start: 12-14-2024 End: 12-14-2024 Office outpatient visit 25 minutes Christopher Bita DO Work Phone: [facility] Comment on above: Generalized myasthen ia gravis (CMS/HCC) (Primary Dx) Start: 12-14-2024 End: 12-14-2024 ambulatory CHRISTOPHER BITA Not Available Start: 11-15-2024 End: 11-15-2024 Orders Only Christopher Bita DO Work Phone: [facility] [place] [address] Comment on above: Myasthenia gravis (C MS/HCC) (Primary Dx) Start: 10-13-2024 End: 10-13-2024 Bamboo flowsheet Christopher Bita DO Work Phone: [facility] [place] [address] Start: 10-13-2024 End: 10-13-2024 Bamboo flowsheet Christopher Bita DO Work Phone: [facility] [place] [address] Start: 10-13-2024 End: 10-13-2024 Office outpatient visit 40 minutes Christopher Bita DO Work Phone: [facility] [place] [address] Comment on above: Generalized myasthen ia gravis (CMS/HCC) (Primary Dx) Start: 10-13-2024 End: 10-13-2024 ambulatory CHRISTOPHER BITA Not Available Start: 09-15-2024 End: 09-15-2024 Bamboo flowsheet Christopher Bita DO Work Phone: [facility] [place] [address] Start: 09-15-2024 End: 09-15-2024 Bamboo flowsheet Christopher [facility]ita DO [facility] Start: 09-15-2024 End: 09-15-2024 Office outpatient visit 40 minutes Christopher Bita DO Work Phone: [facility] [place] [facility] Comment on above: Generalized myasthen ia gravis (CMS/HCC) (Primary Dx) Start: 09-15-2024 End: 09-15-2024 ambulatory CHRISTOPHER BITA Not Available Start: 08-17-2024 End: 08-17-2024 Bamboo flowsheet [facility]ita DO [facility] Start: 08-17-2024 End: 08-17-2024 Bamboo flowsheet Christopher Biat DO [facility] Phone[facility] Start: 08-17-2024 End: 08-17-2024 Office outpatient visit 25 minutes Christopher Bita DO Work Phone: [facility] [place] [facility] Comment on above: Myasthenia gravis (C MS/HCC) Start: 08-17-2024 End: 08-17-2024 ambulatory CHRISTOPHER BITA Not Available Start: 08-05-2024 End: 08-05-2024 Lab Drop off Rosi L Micaela [facility] Start: 08-05-2024 End: 08-05-2024 ambulatory Rosi L Micaela Facility:[facility] Start: 08-03-2024 End: 08-03-2024 Office outpatient visit 25 minutes Christopher Bita DO Work Phone: [facility] Comment on above: Myasthenia gravis (C MS/HCC) (Primary Dx) Start: 08-03-2024 End: 08-03-2024 ambulatory CHRISTOPHER BITA Not Available Start: 08-03-2024 End: 08-03-2024 Bamboo flowsheet Christopher Bita DO Work Phone: [facility] Start: 08-03-2024 End: 08-03-2024 Bamboo flowsroe Sunshine DO Work Phone: [facility] Start: 07-28-2024 End: 07-28-2024 ambulatory WET END HELPER-C Rosi Theresa Micaela Work Phone: [facility] Work Phone: Start: 07-28-2024 End: 07-28-2024 Patient encounter procedure WET END HELPER-C Rosi Micaela Work Phone: [facility]-MRI Main [place] Work Phone: Start: 07-14-2024 End: 07-14-2024 ambulatory WET END HELPER-C Rosi Theresa Micaela Work Phone: [facility] Work Phone: Start: 07-14-2024 End: 07-14-2024 Patient encounter procedure WET END HELPER-C Rosi Micaela Work Phone: [facility]-CT Scan Main [place] Work Phone: Start: 05-05-2024 End: 05-05-2024 ambulatory NAKUL BRANNON Facility:[facility] Start: 05-05-2024 End: 05-05-[address] NAKUL BRANNON [facility] Start: 08-20-2023 End: 08-20-2023 ambulatory Rosi L Micaela Facility:[facility] [place] Start: 08-01-2023 End: 08-01-2023 ambulatory Rosi L Micaela Facility:[facility] Start: 08-01-2023 End: 08-01-2023 Lab Drop off Rosi L Micaela [facility] Start: 08-01-2023 End: 08-01-2023 ambulatory Rosi L Micaela Facility:[facility] [place] Start: 07-31-2023 ambulatory Rosi Micaela Facility:[facility] Start: 06-04-2023 Patient encounter procedure Re ferring Provider Unknown [id number] [id number] Work Phone: Start: 05-30-2023 End: 05-30-2023 ambulatory LEXX LANDERS Facility:[facility] Start: 03-13-2023 End: 03-13-2023 Patient encounter procedure Aiyana Purdy [facility] Start: 03-08-2023 End: 03-08-2023 Patient encounter procedure Aiyana Purdy [facility] Start: 12-25-2022 End: 12-25-2022 Lab Drop off Alex Corona Lentz [facility] Start: 12-13-2022 End: 12-13-2022 Patient encounter procedure Aiyana Purdy [facility] Start: 12-13-2022 End: 12-13-2022 Preprocedural examination done Aiyana Purdy [facility] Start: 11-29-2022 End: 11-29-2022 ambulatory WET END HELPER-C Aiyana Purdy Work Phone: [facility] Work Phone: Start: 11-29-2022 End: 11-29-2022 Patient encounter procedure WET END HELPER-C Aiyana Purdy Work Phone: [facility]-Electrodiagnosti cs Work Phone: Start: 04-30-2022 End: 04-30-2022 Patient encounter procedure LEXX LANDERS [facility] Procedures Date Procedure Procedure Detail Performing Clinician Start: 07-28-2024 MRI of head WET END HELPER-C Rosi Alvraez Work Phone: Start: 07-14-2024 CT of thorax with contrast WET END HELPER-C Rosi Alvarez Work Phone: Start: 11-29-2022 Plain chest X-ray WET END HELPER-C Aiyana Knowlesleonel Work Phone: Closed fracture of r ight shoulder (disorder) LEXX LANDERS No history of surgery Referr ing Provider Unknown Plan of Treatment Date Care Activity Detail Author Start: 10-05-2031 Tetanus vaccination Tetanus (T d or Tdap) Booster [facility] Start: 10-05-2031 Urine microalbumin profile DTaP,Tdap,Td Vaccine (2 - Td or Tdap) [facility] Start: 03-08-2028 Lipid panel [facility]olesterol [facility] Start: 08-10-2025 Influenza vaccination Influenza Vacc ine (#1) [facility] Start: 07-28-2025 End: 07-28-2025 Patient encounter procedure 07/28/2025 4:30 PM EDT Office Visit [facility] [address] [facility] [address] [place] [address] Alex Lentz DPM [address] [address] Verruca plantaris (Primary Dx); Foot pain, right [facility] Comment on above: Verruca plantaris (P rimary Dx); Foot pain, right Start: 07-14-2025 End: 07-14-2025 Patient encounter procedure 07/14/2025 4:10 PM EDT Office Visit [facility] [address] [facility] [address] [place] [address] Alex Lentz DPM [address] [address] Verruca plantaris (Primary Dx); Foot pain, right [facility] Comment on above: Verruca plantaris (P rimary Dx); Foot pain, right Start: 07-11-2025 Influenza vaccination [facility] Start: 06-23-2025 End: 06-23-2025 Patient encounter procedure 06/23/2025 4:50 PM EDT Office Visit [facility] [address] [address] Alex Lentz DPM [address] [address] Verruca plantaris (Primary Dx); Foot pain, right [facility] Comment on above: Verruca plantaris (P rimary Dx); Foot pain, right Start: 06-02-2025 End: 06-02-2025 Patient encounter procedure 06/02/2025 1:20 PM EDT Office Visit [facility] [address] [phone] Alex Lentz DPM [address] [address] Verruca plantaris (Primary Dx); Foot pain, right [facility] Comment on above: Verruca plantaris (P rimary Dx); Foot pain, right Start: 05-19-2025 End: 05-19-2025 Patient encounter procedure [facility] Comment on above: Verruca plantaris (P rimary Dx); Foot pain, right Start: 05-16-2025 End: 05-16-2025 Patient encounter procedure 05/16/2025 8:20 AM EDT Office Visit [facility] [address] [place] [phone] Elvira Luong NP [address] [place] [address] [facility] Start: 04-28-2025 End: 04-28-2025 Patient encounter procedure 04/28/2025 4:40 PM EDT Office Visit [facility] 112 [facility] [address] [place] [phone] Alex Lentz DPM [address] [facility] [address] [place] [address] Arrived [facility] Comment on above: Arrived Start: 04-27-2025 End: 04-27-2025 Patient encounter procedure 04/27/2025 9:15 AM EDT Office Visit [facility] [address] [place] [phone] Devonte Sunshine DO [address] [place] [id number] [facility] Start: 02-08-2025 End: 02-08-2026 Polysomnography [facility] Routine PAIGE (obstructive sleep apnea) Expected: 02/08/2025 (Approximate), Expires: 02/08/2026 [facility] Work Phone: Comment on above: Expected: 02/08/2025 (Approximate), Expires: 02/08/2026 Start: 02-08-2025 End: 02-08-2025 Patient encounter procedure 02/08/2025 8:15 AM EDT Office Visit [facility] [address] [place] [phone] Trisha Ortiz DO [address] [place] [id number] Arrived [facility] [place] Comment on above: Arrived Start: 02-02-2025 End: 02-02-2025 Patient encounter procedure 02/02/2025 9:15 AM EDT Office Visit [facility] BO[facility] [address] [place] [phone] Devonte Sunshine DO [address] [place] [address] [facility] ROMEROUE Start: 12-21-2024 End: 12-21-2024 ambulatory 12/21/2024 9:00 AM EST [facility] Neurology [address] [place] [address] Susi Rice MD [address] [place] [address] Symptoms of myasthenia gravis, failing treatment with steroids and Mestinon alone Neurology Comment on above: Symptoms of myasthen ia gravis, failing treatment with steroids and Mestinon alone Start: 12-14-2024 End: 12-14-2024 Patient encounter procedure 12/14/2024 1:15 PM EST Office Visit [facility] ROMEROUE [address] [place] [phone] Devonte Sunshine DO [address] [place], [place] [phone] Arrived [facility] [place] Comment on above: Arrived Start: 12-06-2024 End: 12-06-2024 Patient encounter procedure 12/06/2024 11:15 AM EST Office Visit [facility] [place] [address] [place] [phone] Devonte Sunshine DO [address] [place], [place] [id number] [facility] [place] [address] Start: 10-13-2024 End: 10-13-2024 Patient encounter procedure [facility] [place] [address] Comment on above: Arrived Start: 09-15-2024 End: 09-15-2024 Patient encounter procedure [facility] [place] [address] Comment on above: Arrived Start: 08-17-2024 End: 08-17-2024 Patient encounter procedure [facility] [place] [address] Comment on above: Arrived Start: 08-03-2024 End: 08-03-2024 Patient encounter procedure 08/03/2024 3:00 PM EDT Office Visit [facility] [address] [place] [phone] Devonte Sunshine DO [address] [place] [address] Arrived [facility] Comment on above: Arrived Start: 07-11-2024 Covid-19 Vaccine ( season) Covid-19 Vaccine ( season) [facility] Start: 07-11-2024 Covid-19 Vaccine ( season) Covid-19 Vaccine () [facility] Start: 07-11-2024 Influenza vaccination Influenza Vacc ine (#1) [facility] Start: 01-13-2024 Pneumococcal Vaccine : 50+ (1 of 1 - PCV) Pneumococcal Vaccine: 50+ (1 of 1 - PCV) [facility] Start: 01-13-2024 Shingrix Vaccine (1 of 2) Shingrix Vaccine (1 of 2) [facility] Start: 08-13-2023 EPVNEURO, Provider: Pedro Chanel, Status: Pen, Time: 1:00 PM EPVNEURO, Provider: Pedro Chanel, Status: Pen, Time: 1:00 PM [id number] well [address] Work Phone: Start: 03-20-2021 Covid-19 Vaccine (3 - Pfizer risk series) Covid-19 Vaccine (3 - Pfizer risk series) [facility] Start: 2019 Diabetes Screening Diabetes Screenin g [facility] Start: 2019 Screening for malign ant neoplasm of colon [facility] Start: 2009 Lipid panel Lipid Screening [facility] Start: 1993 Hepatitis A (HAV) Vaccine (optional start 19+ years) Hepatitis A (HAV) Vaccine (optional start 19+ years) [facility] Start: 1993 Hepatitis B vaccination Hepati tis B (HBV) Vaccine (1 of 3 - 19+ 3-dose series) [facility] Start: 1993 Hepatitis B Vaccine (1 of 3 - 19+ 3-dose series) Hepatitis B Vaccine (1 of 3 - 19+ 3-dose series) [facility] Start: 1993 Pneumococcal vaccination Pneum ococcal Vaccine(s) (50+ yrs) (1 of 2 - PCV) [facility] Start: 1993 Pneumococcal Vaccine : 50+ (1 of 2 - PCV) Pneumococcal Vaccine: 50+ (1 of 2 - PCV) [facility] Start: 1993 Shingles (RZV) Vacci ne (1 of 2) Shingles (RZV) Vaccine (1 of 2) [facility] Start: 1993 Shingrix Vaccine (1 of 2) Shingrix Vaccine (1 of 2) [facility] Start: 1993 Urine microalbumin profile DTaP,Tdap,Td Vaccine (1 - Tdap) [facility] Start: 01-13-1992 Anxiety Screening Anxiety Screening [facility] Start: 01-13-1992 Depression Screening Depression Scre ening [facility] Start: 01-13-1992 Hepatitis C screening [facility] Start: 01-13-1992 HIV screening HIV Screening [facility] Start: 1989 HIV screening HIV Test [facility] Start: 1974 Screening for malign ant neoplasm of colon [facility] Hepatic function panel [facility] Immunizations Immunization Date Immunization Notes Care Provider [facility] 08-01-2023 influenza, injectable, quadrivalent, preservative free Rosi Alvarez [facility] 08-01-2023 influenza virus vaccine, unspecified formulation Devonte Sunshine DO Work Phone: [facility] 10-05-2021 influenza virus vaccine, unspecified formulation Aiyana Purdy [facility] 10-05-2021 influenza, injectable, quadrivalent, preservative free Dione Swanson MD Work Phone: [facility] 10-05-2021 tetanus toxoid, reduced diphtheria toxoid, and acellular pertussis vaccine, adsorbed Aiyana Purdy [facility] 02-20-2021 SARS-CoV-2 (COVID-19) mRNA BNT-162b2 vax Aiyana Purdy [facility] Comment on above: Result Comment: 2022: TPV40 01-30-2021 SARS-CoV-2 (COVID-19) mRNA BNT-162b2 vax Aiyana Purdy [facility] Comment on above: Result Comment: 2022: TPV40 NEGATED: Highlighted row has not occurred!12-13-2022 influenza virus vaccine, unspecified formulation Aiyana Purdy [facility] Payers Date Payer Category Payer Medicare 2024 Medicaid HMO [employer] on file [id number] 2024 Self-pay 2024 Medicaid [id number] 2024 Medicaid (Managed Care) [employer] [id number] 2024 Unknown [id number] 2023 Medicaid [id number] 2023 Unknown [id number] 1974 Unknown [id number] 2.16.840.1.310863.3.579.2. 1974 Unknown [id number] 2.16.840.1.911694.3.579.2. 1974 Unknown [id number] 2.16.840.1.003732.3.579.2 1974 Unknown [id number] 2.16.840.1.918838.3.579.2. 1974 Unknown [id number] 2.16.840.1.304691.3.579.2 1974 Unknown [id number] 2.16.840.1.355249.3.579.2 1974 Unknown [id number] 2.16.840.1.022691.3.579.2 1974 Unknown [id number] 2.16.840.1.276116.3.579.2 1974 Unknown [id number] 2.16.840.1.918205.3.579.2 1974 Unknown [id number] 2.16.840.1.684021.3.579.2 1974 Unknown [id number] 2.16.840.1.782666.3.579.2 1974 Unknown [id number] 2.16.840.1.711374.3.579.2. 1974 Unknown [id number] 2.16.840.1.841531.3.579.2 1974 Unknown [id number] 2.16.840.1.290698.3.579.2 1974 Unknown [id number] 2.16.840.1.494841.3.579.2 727 1974 Unknown [id number] 2.16.840.1.265803.3.579.2. 72 1974 Unknown [id number] 2.16.840.1.427647.3.579.2. 1974 Unknown [id number] 2.16.840.1.392096.3.579.2. 1974 Unknown [id number] 2.16840.1.212925.3.579.2. 1974 Unknown [id number] 2.16840.1.362506.3.579.2. 1974 Unknown [id number] 2.840.1.181492.3.579.2. 1258 1974 Unknown [id number] 2.840.1.447588.3.579.2. 1258 1974 Unknown [id number] 2.840.1.161713.3.579.2. 1258 1974 Unknown [id number] 2.840.1.664927.3.579.2. 1258 1974 Unknown [id number] 2.16840.1.212327.3.579.2. 1258 1974 Unknown [id number] 2.16840.1.452950.3.579.2. 1258 1974 Unknown [id number] 2.16840.1.618283.3.579.2. 1258 1974 Unknown [id number] 2.16840.1.993289.3.579.2. 1258 1974 Unknown [id number] 2.16840.1.583231.3.579.2. 1258 1974 Unknown [id number] 2.16.840.1.235801.3.579.2. 1259 1974 Unknown [id number] 2.16.840.1.249514.3.579.2. 1259 1974 Unknown [id number] 2.16.840.1.430906.3.579.2. 1259 1974 Unknown [id number] 2.16.840.1.149545.3.579.2. 1259 1974 Unknown [id number] 2.16.840.1.413561.3.579.2. 727 1974 Unknown [id number] 2.16.840.1.370572.3.579.2. 727 1974 Unknown [id number] 2.16.840.1.626885.3.579.2. 727 1974 Unknown [id number] 2.16.840.1.273898.3.579.2. 727 1974 Unknown [id number] 2.16.840.1.767198.3.579.2. 727 1974 Unknown [id number] 2.16.840.1.545349.3.579.2. 727 1974 Unknown [id number] 2.16.840.1.597695.3.579.2. 727 Unknown Unknown [id number] 2.16.840.1.884566.3.579.2. 531 Unknown [id number] 2.16.840.1.117001.3.579.2. 531 Social History Date Type Detail Facility Start: 04-30-2022 End: 05-03-2025 Tobacco smoking status Heavy tobacco smoker (finding) [facility] Tobacco smoking status Never [facility] Start: 08-03-2024 End: 07-14-2025 Sex Assigned At Male [facility] Start: 1975 Sex Assigned At Male [facility] Tobacco smoking status Smoker (finding) [facility] Start: 08-03-2024 End: 07-14-2025 Current smoker Current smoker [facility] Start: 06-23-2023 End: 05-16-2025 Tobacco smoking status NHIS Smokes tobacco daily [facility] History of tobacco use [facility] Start: 06-23-2023 End: 01-11-2025 Tobacco use and exposure Smokeless tobacco non-user [facility] Start: 08-03-2024 End: 07-28-2025 Alcoholic beverage intake Current drinker of alcohol (finding) [facility] Start: 1975 Sex assigned at Not on file [facility] Start: 12-17-2024 Gender identity Identifies as male gender (finding) [facility] Start: 12-17-2024 Sexual orientation Heterosexual (finding) [facility] Sexual Orientation [facility] Start: 08-02-2019 End: 12-15-2024 Sex Male (finding) [facility] Start: 01-11-2025 Tobacco smoking status [facility]IS Occasional tobacco smoker [facility] Goals Date Patient Goal Desired Activity /State Functional Status Date Assessment Result Facility 12-13-2022 Functional Status N/A [facility] [place] 04-30-2022 Functional Status N/A [facility] Clinical Notes 04-30-2022 to 08-16-2025 Alex Lentz DPM - 07/28/2025 4:30 PM EDWillis Lentz DPM - 07/14/2025 4:10 PM EDWillis Lentz DPM - 06/23/2025 4:50 PM Paul Lentz DPM - 06/02/2025 1:20 PM EDT Note Date & Type Note Facility 08-16-2025 Note HNO ID: [id number] Author: SUSI RICE MD Service: ? Author Type: Physician Type: Progress Notes Filed: 08/16/2025 08:48 Note Text: ESTABLISHED PATIENT DISTANCE HEALTH VISIT Encounter completed via virtual visit (audio and video) using [employer] software Provider location during distance health encounter: [facility] Patient location during distance health encounter: Home ======== I have communicated my name and active licensure. The patient's identity and physical location were verified at the time of this visit. Either the patient (as in this case) or their legal business development representative has been informed of the risks and benefits of, and alternatives to treatment through a remote evaluation and consents to proceed with the evaluation remotely. ======== Date of last clinic visit : 04/01/2025 Current neuromuscular medicine diagnosis(es): AChR seropositive generalized myasthenia gravis (initial transitory symptoms of diplopia in ~mid-2022, recurrence ~03/2024 with ptosis> diplopia, milder bulbar and appendicular symptoms). Subjective/Interval developments: Recording using [employer] software for draft documentation of the visit was discussed with the patient/authorized business development representative; all questions welcomed and answered. Patient/authorized business development representative agreed to proceed The patient is a 50-year-old male with seropositive generalized myasthenia gravis presenting for follow-up. The patient was initially diagnosed with myasthenia gravis in mid-2022 after experiencing transient diplopia. Symptoms recurred in 03/2024, at which time ptosis was more prominent than diplopia, along with mild bulbar and appendicular symptoms. At his last virtual visit on 04/01/2025, he was experiencing a significant symptom burden and was not yet at the target prednisone dose. Since the last visit, he reports overall improvement in symptoms. He was unable to reach the target prednisone dose of 60 mg daily due to the development of steroid-induced diabetes, with blood sugars ranging from 200-500 mg/dL and an A1c >9.0. 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 He is also on pyridostigmine 60 mg TID and continues with Vyvgart injections, with a transition back to infusions scheduled for 08/11/2025. He reports that the infusions seem to last longer and work better than the injections. Ocular symptoms have improved, with no major diplopia or ptosis. He notes some blurriness when tired, which he states has always occurred. He denies facial weakness, speech problems, saliva control issues, or difficulty with chewing or swallowing. Breathing has improved, which he attributes to weight loss. He previously weighed 260-270 lbs and is now down to 217 lbs. He was previously taking phentermine for weight loss but discontinued it per prior recommendations. He is now on insulin (Toujeo) for diabetes management, which was started 2 weeks ago. He reports improvement in leg weakness since reducing prednisone from 40 mg to 30 mg daily. Previously, he had to crawl up stairs using his hands and legs, but now he can climb stairs without using his hands. He denies any falls or major weakness in the legs. He reports a constant medication aftertaste, which he attributes to prednisone and pyridostigmine. He also reports a recent abscessed wisdom tooth, which delayed his Vyvgart infusions. Objective: (what is observable/audible via web cam AND hans, if applicable) Appears to be with normal mood and affect; facies and facial movements symmetrical, EOMs appear intact and conjugate, apart from possible modest/equivocal esotropia OS. Subtle bilateral ptosis, OS more than OD, not clearly fatigable with sustained upgaze x ~1 minute. Speech and voice WNL. SBCT = 30. Interval studies review: As per interval HPI above Assessment AND Plan: 1. Myasthenia gravis without exacerbation (HCC) (G70.00) 2. Generalized myasthenia gravis (HCC) (G70.00) 3. Myasthenia gravis, AChR antibody positive (HCC) (G70.00) 4. Diplopia (H53.2) 5. 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 H/O immunosuppressive therapy (Z92.25) - Seropositive generalized MG with initial symptoms of diplopia in mid-2022, recurrence in 03/2024 with ptosis > diplopia, mild bulbar and appendicular symptoms. - Improvement in symptoms since last visit on 04/01/2025; currently on prednisone 30 mg daily and pyridostigmine 60 mg TID. - No current diplopia or ptosis; mild blurring of vision when fatigued. - No facial weakness, dysarthria, dysphagia, or sialorrhea. - Breathing improved, likely due to weight loss (from 260-270 lbs to 217 lbs). - Efgartigimod (Vyvgart) injections ongoing; next infusion scheduled for 08/11. - Discussed two management options: continue current regimen with gradual prednisone taper, or add steroid-sparing (more content not included)... [facility] 07-28-2025 History of Present illness Narrative Patient: Alfonzo Shaver : 1975 PCP: [facility] Provider MD Robyn SUBJECTIVE Pt presents today for follow up of skin lesion/neoplasm of unknown origin to the right foot Pt states that previous treatment of acid tx with some improvement Pt rates pain the pain on a 1-10 scale an intensity of 7 Pt presents today for followup. Patient has positive history of myasthenia gravis. Patient also has type 2 diabetes Allergies: No Known Allergies Past Medical History: [...] 5th metatarsal regions measuring 0.2 cm x 0.1 cm. Right lateral 5th toe region 0.2 x 0.1 cm round nummular lesion Rubor to right 5th PIPJ region with rubor to left 3rd and 4th digit PIPJ regions VASC: Palpable pedal pulsed b/l with warm to cool tibia to toes b/l NEURO: Gross sensation intact digits 1-10 and b/l feet ORTHO: +5/5 DF/PF/IN/EV right, +5/5 DF/PF/IN/EV left. 20 degrees inversion and 10 degrees eversion STJ b/l. Ankle ROM less than 10 degrees b/l. Positive pain on palpation to right foot lesions Digital deformities to the right 5th digit and left 3rd and 4th digits XRAY: US: ASSESSMENT 1. Verruca plantaris 2. Foot pain, right 3. Acquired deformity of left toe 4. Acquired deformity of right toe 5. Neoplasm of uncertain behavior of skin 6. Diabetes mellitus due to underlying condition with diabetic polyneuropathy, unspecified whether intermediate insulin use (HCC) PLAN Application of salinocaine acid medication to lesion/lesions located at right foot Discussed conservative and surgical treatment options for patient today including postoperative time frame and surgical procedure in detail. Patient may continue with conservative treatments including [id number] anti-inflammatories and other treatments suggested today. Patient may want to be scheduled for surgical intervention in the near future. Patient have a right 5th PIPJ arthroplasty with excision of lesion to the right 5th toe as well as excision of the lesion to the right sub 5th metatarsal region with single lobe flap closure and left 3rd and 4th digit PIPJ arthroplasty with Tijeras for postoperative pain and patient does have knee scooter Informed pt of risks and benefits of procedure including high reoccurence rate, infection, pain and consent given. Application of DSD post procedure. Alex Lentz DPM documented in this encounter [facility] 07-14-2025 History of Present illness Narrative Patient: Alfonzo Shaver : 1975 PCP: [facility] Provider MD Robyn SUBJECTIVE Pt presents today for follow up of skin lesion/neoplasm of unknown origin to the right foot Pt states that previous treatment of acid tx with some improvement Pt rates pain the pain on a 1-10 scale an intensity of 2 Pt presents today for followup. Patient has positive history of myasthenia gravis. [...] 5th metatarsal regions measuring 0.2 cm x 0.1 cm. Right lateral 5th toe region 0.2 x 0.2 cm round nummular lesion VASC: Palpable pedal pulsed b/l with warm to cool tibia to toes b/l NEURO: Gross sensation intact digits 1-10 and b/l feet ORTHO: +5/5 DF/PF/IN/EV right, +5/5 DF/PF/IN/EV left. 20 degrees inversion and 10 degrees eversion STJ b/l. Ankle ROM less than 10 degrees b/l. Positive pain on palpation to right foot lesions XRAY: US: ASSESSMENT 1. Verruca plantaris 2. Foot pain, right PLAN Application of salinocaine acid medication to lesion/lesions located at right foot Informed pt of risks and benefits of procedure including high reoccurence rate, infection, pain and consent given. Application of DSD post procedure. Alex Lentz DPM documented in this encounter [facility] 06-28-2025 Note Patient Education Gastroenterology Abdominal Pain, Adult Many things can cause belly (abdominal) pain. In most cases, belly pain is not a serious problem and can be watched and treated at home. But in some cases, it can be serious. Your doctor will try to find the cause of your belly pain. Follow these instructions at home: Medicines ??? Take [id number] and prescription medicines only as told by your doctor. ??? Do not take medicines that help you poop (laxatives) unless told by your doctor. General instructions ??? Watch your belly pain for any changes. Tell your doctor if the pain gets worse. ??? Drink enough fluid to keep your pee (urine) pale yellow. Contact a doctor if: ??? Your belly pain changes or gets worse. ??? You have very bad cramping or bloating in your belly. ??? You vomit. ??? Your pain gets worse with meals, after eating, or with certain foods. ??? You have trouble pooping or have watery poop for more than 2?3 days. ??? You are not hungry, or you lose weight without trying. ??? You have signs of not getting enough fluid or water (dehydration). These may include: ? Dark pee, very little pee, or no pee. ? Cracked lips or dry mouth. ? Feeling sleepy or weak. ??? You have pain when you pee or poop. ??? Your belly pain wakes you up at night. ??? You have blood in your pee. ??? You have a fever. Get help right away if: ??? You cannot stop vomiting. ??? Your pain is only in one part of your belly, like on the right side. ??? You have bloody or black poop, or poop that looks like tar. ??? You have trouble breathing. ??? You have chest pain. These symptoms may be an emergency. Get help right away. Call 911. ??? Do not wait to see if the symptoms will go away. ??? Do not drive yourself to the hospital. This information is not intended to replace advice given to you by your health care provider. Make sure you discuss any questions you have with your health care provider. Document Revised: 08/13/2023 Document Reviewed: 08/13/2023 [employer] Patient Education ? 2023 [employer]. [facility] 06-23-2025 History of Present illness Narrative Patient: Alfonzo Shaver : 1975 PCP: [facility] Provider UnallocatMD linwood SUBJECTIVE Pt presents today for follow up of skin lesion/neoplasm of unknown origin to the right foot Pt states that previous treatment of acid tx with some improvement Pt rates pain the pain on a 1-10 scale an intensity of 4 Pt presents today for followup. Patient has positive history of myasthenia gravis. [...] metatarsal regions measuring 0.2 cm x 0.2 cm. Right lateral 5th toe region 0.2 x 0.2 cm round nummular lesion VASC: Palpable pedal pulsed b/l with warm to cool tibia to toes b/l NEURO: Gross sensation intact digits 1-10 and b/l feet ORTHO: +5/5 DF/PF/IN/EV right, +5/5 DF/PF/IN/EV left. 20 degrees inversion and 10 degrees eversion STJ b/l. Ankle ROM less than 10 degrees b/l. Positive pain on palpation to right foot lesions XRAY: US: ASSESSMENT 1. Verruca plantaris 2. Foot pain, right PLAN Application of salinocaine acid medication to lesion/lesions located at right foot Informed pt of risks and benefits of procedure including high reoccurence rate, infection, pain and consent given. Application of DSD post procedure. Alex Lentz DPM documented in this encounter [facility] 06-02-2025 Note Progress Note - Nutr ition Initial MNT r/t DM dx. Opal present during visit. Nutrition Assessment. Initial MNT visit. Food and Nutrition-Related History. Chronic steroid use r/t Myasthenia gravis. Elevated A1C noted. is reporting he has been eating less carbs and sugar. Usually skips all meals and just has dinner. Drinking diet Douglas Bee or diet Dr Lopez. Currently is not working. is home w him. Son is in school. They prepare all meals together and eat most meals together. Does not like broccoli green beans or many vegetables. Food and Nutrient Intake Recall: B: 7:30-8:00AM Eggs, sausage, cheese w [place] Red Hot Sauce L: Usually skips grapes 15-20 each D: 6:30-7:00PM Roots Chicken 2 TBSP and noodles 1.5 cups, [place] homemade one small potato HS: Popcorn Microwave bag 1/2 bag Dining Out: 2 per month Food Allergy: NKFA Medication: reviewed Farxiga Behavior: willing to learn Activity: minimal, able to do more than currently doing per pt. PMH: myasthenia gravis hypothyroidism bronchitis DM Anthropometric: Ht:64??? Wt: 244 # Recent weight changes: 10# lost, previously gained 20-30# UBW: 250 range IBW:130 # % IBW: 196% BMI: 41.9 obese grade 3 Biochemical Data: reviewed. A1C: 9.3% Fasting glucose: 180-200 1-2 Hr PPG: not checking Nutrition Status Classification: Compromise Moderate Nutrition Diagnosis: Food- and Nutrition-Related Knowledge Deficit R/T Lack of prior nutrition-related education AEB inconsistent carbohydrate timing, previous excess simple sugar choices, and inability to select correct carb choices. Nutrition Intervention: Comprehensive Nutrition Education Calories: [id number] wt loss: 1800kcal Protein: 1.0-1.2gm/kg 100-115gm Fluid: 2800-3000ml 1. Modify calories: 1800kcal 2. Modify carbohydrate distribution: Breakfast: 45 gms, Lunch: 45 gms, Dinner: 45 gms, Snack: 30 gms 3. Modify Protein: 100-115gm/d 4. Modify distribution: 2P/4P/4P 5. Schedule of foods: 3 meals and 1 snack. Education: Basic understanding of meal plan use in diabetes self-management. Modify carbohydrates: Reviewed a sample meal plan for the proper carbohydrate distribution/timing throughout the day. Demonstrated the proper portions of commonly consumed food items. Used food models and measuring cups to illustrate and facilitate dialog. Encouraged measurement of food items for one day of usual food if unsure of portions at home. Discussed food labels and reviewed carbohydrate portions with food choices. Modify Protein: Discussed portions of protein sources and distribution throughout the day. Reviewed low fat protein sources. Modify Fat: Reviewed fat portions discussing saturated and unsaturated fats. Provided other options for reducing fat content of commonly consumed foods. Modify Fiber: Reviewed high fiber foods Encouraged higher fiber foods at each meal. Nutrition Education: Education Materials: Provided material related to calories, carbohydrate distribution, portion sizes, and label reading topics from sources such as Academy of Nutrition and Dietetics, International Diabetes [facility], [employer], and [place] [employer] Educators. Referral of Care: Recommend DSME program with RN Communication by phone, fax, or EMR from DSME staff to provider after completion of program/cessation. Chart notes will be available in EMR after 7 days of completion or cessation. Nutrition Monitoring and Evaluation: 1. Pt understanding of nutrition intervention: good 2. Monitor endocrine/glucose profile w desired readings. 3. Patient to achieve weight loss 7% of body weight/goal: ~235# 4. Monitor motivation to change behavior to change w goal setting, self-monitoring and/or problem solving. 5. Monitor total energy intake: 1800 kcal 6. Monitor willingness to try new foods: higher fiber foods 7. Instructed pt to contact RD for f/u or questions. Telephone number and email provided. 8. Goal: Food logs: Measure carbohydrate portions and document for 1 week. 9. Will follow for changes in progress and assist prn. Nutrition Assessment Comments The complete initial assessment may be deferred based on participants willingness to participate, learning barrier, or pending f/u for complete assessment. MINA Blankenship, RD, LD [facility] 06-02-2025 History of Present illness Narrative Patient: Alfonzo Shaver : 1975 PCP: [facility] Provider MD Robyn SUBJECTIVE Pt presents today for follow up of skin lesion/neoplasm of unknown origin to the right foot Pt states that previous treatment of acid tx with some improvement Pt rates pain the pain on a 1-10 scale an intensity of 4 Pt presents today for followup. Patient has positive history of myasthenia gravis. [...] metatarsal regions measuring 0.2 cm x 0.2 cm. Right lateral 5th toe region 0.3 x 0.3 cm round nummular lesion VASC: Palpable pedal pulsed b/l with warm to cool tibia to toes b/l NEURO: Gross sensation intact digits 1-10 and b/l feet ORTHO: +5/5 DF/PF/IN/EV right, +5/5 DF/PF/IN/EV left. 20 degrees inversion and 10 degrees eversion STJ b/l. Ankle ROM less than 10 degrees b/l. Positive pain on palpation to right foot lesions XRAY: US: ASSESSMENT 1. Verruca plantaris 2. Foot pain, right PLAN Application of salinocaine acid medication to lesion/lesions located at right foot Informed pt of risks and benefits of procedure including high reoccurence rate, infection, pain and consent given. Application of DSD post procedure. Alex Lentz DPM documented in this encounter [facility] 05-19-2025 History of Present illness Narrative Patient: Alfonzo Shaver : 1975 PCP: No primary care provider on file. SUBJECTIVE Pt presents today for follow up of skin lesion/neoplasm of unknown origin to the right foot Pt states that previous treatment of acid tx with some improvement Pt rates pain the pain on a 1-10 scale an intensity of 5 Pt presents today for followup. Patient has positive history of myasthenia gravis. [...] metatarsal regions measuring 0.2 cm x 0.2 cm. Right lateral 5th toe region 0.3 x 0.3 cm round nummular lesion VASC: Palpable pedal pulsed b/l with warm to cool tibia to toes b/l NEURO: Gross sensation intact digits 1-10 and b/l feet ORTHO: +5/5 DF/PF/IN/EV right, +5/5 DF/PF/IN/EV left. 20 degrees inversion and 10 degrees eversion STJ b/l. Ankle ROM less than 10 degrees b/l. Positive pain on palpation to right foot lesions XRAY: US: ASSESSMENT 1. Verruca plantaris 2. Foot pain, right PLAN Application of salinocaine acid medication to lesion/lesions located at right foot Informed pt of risks and benefits of procedure including high reoccurence rate, infection, pain and consent given. Application of DSD post procedure. Alex Lentz DPM documented in this encounter [facility] 04-28-2025 History of Present illness Narrative Patient: Alfonzo Shaver : 1975 PCP: No primary care provider [...] metatarsal regions measuring 0.2 cm x 0.2 cm. Right lateral 5th toe region 0.3 x 0.2 [...] patient today and discussed conservative treatments and possible excisional biopsy of lesion in the future for pathological diagnosis of specimen. Patient may take [id number]-xiygpqe NSAID p.r.n. for pain Application of salinocaine acid medication to lesion/lesions located at right foot Informed pt of risks and benefits of procedure including high reoccurence rate, infection, pain and consent given. Application of DSD post procedure. Alex Lentz DPM documented in this encounter [facility] 04-27-2025 Evaluation note Diagnosis Onset Date Resolution Generalized myasthenia gravis acute April 27, 2025 8:42am Diabetes mellitus acute May 8:36am Generalized myasthenia gravis acute May 11, 2025 8 :36am [facility] Work Phone: 1(124) 587-883806-18-2025 Evaluation note* Diagnosis Onset Date Resolution Status Admit Date Generalized myasthenia gravis acute April 27, 2025 8:42am Diabetes mellitus acute May 8:36am Generalized myasthenia gravis acute May 11, 2025 8:36am Hypersomnia acute May 16 8:24am Nicotine dependence acute May 16, 2025 8:24am Obesity acute May 16, 2025 8:24am PAIGE (obstructive sleep apnea) acute May 16, 2025 8:24am Primary insomnia acute May 8:24am Diabetes mellitus acute 2024 10:21am Generalized myasthenia gravis acute July 25, 2025 10:21am [facility] Work Phone: 1(403) 627-290605-23-2025 NoteHNO ID: [id number] Author: SUSI RICE MD Service: ? Author Type: Physician Type: Progress Notes Filed: 04/12/2025 10:05 Note Text: ESTABLISHED PATIENT DISTANCE HEALTH VISIT Encounter completed via virtual visit (audio and video) using Epic-based Zoom software Provider location during distance health encounter: [facility] Patient location during distance health encounter: Home I have communicated my name and active licensure. The patient's identity and physical location were verified at the time of this visit. Either the patient (as in this case) or their legal business development representative has been informed of the risks and benefits of, and alternatives to treatment through a remote evaluation and consents to proceed with the evaluation remotely. Date of last clinic visit : 12/21/2024 Current neuromuscular medicine diagnosis(es): AChR seropositive generalized myasthenia gravis (initial transitory symptoms of diplopia in ~mid-2022, recurrence ~03/2024 with ptosis> diplopia, milder bulbar and appendicular symptoms). Subjective/Interval developments: Recording using ambient [employer] software for draft documentation of the visit was discussed with the patient/authorized business development representative; all questions welcomed and answered. Patient/authorized business development representative agreed to proceed The patient is a 50-year-old male with a history of myasthenia gravis presenting for follow-up. The patient reports that his symptoms have remained the same or slightly worsened since his last visit. He notes increased shakiness and difficulty breathing when lying flat, necessitating sleeping on his side or stomach. He also reports mild choking episodes and drooling during sleep. He does not endorse double vision but describes a quivering sensation in his left upper eyelid. He reports that his arm and leg strength is unchanged, and he is not using any assistive devices for ambulation. He has not experienced any falls. He is currently taking prednisone 30 mg daily (10 mg in the morning and 20 mg at night) and has not increased the dosage as previously recommended. He reports a weight gain of approximately 50 pounds since starting prednisone and is unsure of his current weight. He is also taking Mestinon 60 mg three times daily and has completed three or four rounds of Vyvgart infusions, with the last round ending in January 2025. He has not started the next round of Vyvgart infusions due to a delay in receiving orders from his local neurologist, Dr. Sunshine. He has been taking phentermine 37.5 mg daily for weight loss for the past two months, prescribed by his primary care provider, Rosi Alvarez NP. He reports losing eight pounds since starting phentermine but continues to experience weight gain overall. He does not endorse any major side effects from phentermine but notes that the tremors preceded the medication. He sees Dr. Sunshine every two months, with the last visit occurring last month. Dr. Sunshine has not made any changes to his treatment plan since the last visit. Objective: (what is observable/audible via web cam AND hans, if applicable) Appears to be with normal mood and affect; facies and facial movements symmetrical, EOMs appear intact and conjugate, apart from possible mild esotropia OS. Subtle bilateral ptosis, OS more than OD, not clearly fatigable with sustained upgaze x ~1 minute. Speech and voice WNL. Interval studies review: As per interval HPI above. Assessment AND Plan 1. 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 - Current medications include prednisone 30 mg daily, Mestinon 60 mg TID, and phentermine 37.5 mg daily. - Prednisone dose to be increased by 10 mg every 4 weeks up to 60 mg, unless significant symptom improvement is noted at a lower dose. - Continue Mestinon 60 mg TID. - Ordered TPMT blood test to determine suitability for initiating azathioprine or mycophenolate mofetil. - Patient has completed multiple rounds of Vivgard infusions; next round delayed due to pending orders. - Advised patient to discuss discontinuation of phentermine with primary care provider and consider alternative weight loss medications such as Ozempic or Mounjaro. - Educated patient on the importance of adhering to the treatment plan to avoid potential myasthenic crisis. - Follow-up virtual visit scheduled in 3 months to monitor progress and review blood test results. AVS - Increase your prednisone by 10 mg each month until you reach 60 mg daily (unless your symptoms are well controlled at a lower dose). For example, go from 30 mg to 40 mg next month, then to 50 mg, then to 60 mg if needed, and maintain rosa (more content not included)...[facility]05-23-2025 History of Present illness Narrative* Susi Rice MD - 04/01/2025 2:10 PM EDT ESTABLISHED PATIENT DISTANCE HEALTH VISIT Encounter completed via virtual visit (audio and video) using [employer]-based Quwan.comom software Provider location during distance health encounter: [facility] Patient location during distance health encounter: Home I have communicated my name and active licensure. The patient's identity and physical location wereverified at the time of this visit. Either the patient (as in this case) or their legal business development representative has been informed of the risks and benefits of, and alternatives to treatment through a remote evaluation and consents to proceed with the evaluation remotely. Date of last clinic visit : 12/21/2024 Current neuromuscular medicine diagnosis(es): AChR seropositive generalized myasthenia gravis (initial transitory symptoms of diplopia in ~mid-2022, recurrence ~03/2024 with ptosis> diplopia, milder bulbar and appendicular symptoms). Subjective/Interval developments: Recording using ambient YPlan software for draft documentation of the visit was discussed with the patient/authorized business development representative; all questions welcomed and answered. Patient/authorized business development representative agreed to proceed The patient is a 50-year-old male with a history of myasthenia gravis presenting for follow-up. Thepatient reports that his symptoms have remained the same or slightly worsened since his last visit.He notes increased shakiness and difficulty breathing when lying flat, necessitating sleeping on his side or stomach. He also reports mild choking episodes and drooling during sleep. He does not endorse double vision but describes a quivering sensation in his left upper eyelid. He reports that his arm and leg strength is unchanged, and he is not using any assistive devices for ambulation. He has not experienced any falls. He is currently taking prednisone 30 mg daily (10 mg in the morning and 20 mg at night) and has notincreased the dosage as previously recommended. He reports a weight gain of approximately 50 poundssince starting prednisone and is unsure of his current weight. He is also taking Mestinon 60 mg three times daily and has completed three or four rounds of Vyvgart infusions, with the last round ending in January 2025. He has not started the next round of Vyvgart infusions due to a delay in receivingorders from his local neurologist, Dr. Sunshine. He has been taking phentermine 37.5 mg daily for weight loss for the past two months, prescribed byhis primary care provider, Rosi Alvarez NP. He reports losing eight pounds since starting phentermine but continues to experience weight gain overall. He does not endorse any major side effects from phentermine but notes that the tremors preceded the medication. He sees Dr. Sunshine every two months, with the last visit occurring last month. Dr. Sunshine has notmade any changes to his treatment plan since the last visit. Objective: (what is observable/audible via web cam & hans, if applicable) Appears to be with normal mood and affect; facies and facial movements symmetrical, EOMs appear intact and conjugate, apart from possible mild esotropia OS. Subtle bilateral ptosis, OS more than OD, not clearly fatigable with sustained upgaze x ~1 minute. Speech and voice WNL. Interval studies review: As per interval HPI above. Assessment & Plan 1. 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 - Current medications include prednisone 30 mg daily, Mestinon 60 mg TID, and phentermine 37.5 mg daily. - Prednisone dose to be increased by 10 mg every 4 weeks up to 60 mg, unless significant symptom improvement is noted at a lower dose. - Continue Mestinon 60 mg TID. - Ordered TPMT blood test to determine suitability for initiating azathioprine or mycophenolate mofetil. - Patient has completed multiple rounds of Vivgard infusions; next round delayed due to pending orders. - Advised patient to discuss discontinuation of phentermine with primary care provider and consideralternative weight loss medications such as Ozempic or Mounjaro. - Educated patient on the importance of adhering to the treatment plan to avoid potential myasthenic crisis. - Follow-up virtual visit scheduled in 3 months to monitor progress and review blood test results. AVS - Increase your prednisone by 10 mg each month until you reach 60 mg daily (unless your symptoms are well controlled at a lower dose). For example, go from 30 mg to 40 mg next month, then to 50 mg, then to 60 mg if needed, and maintain that dose for about three months before tapering. - Continue taking Mestinon (pyridostigmine) 60 mg three times daily as you have been. - Get the TPMT blood test as ordered and send the results to my office as soon as you have them (you can upload via Shout or take a photo of the lab report). - Discuss with your primary care provider or WET END HELPER switching your weight-loss medication from phentermine to a newer option (for example, Ozempic or Mounjaro) to avoid worsening tremors and improve weight control. - Print a copy of my visit note and bring it to your next appointments with Dr. Sunshine and your primary care provider so they see the recommendation for prednisone escalation, the TPMT test, and planning for a steroid-sparing medication. - Arrange a virtual follow-up with me in three months after you complete the prednisone escalation and have your TPMT results. You do not need to wait if your lab results are available sooner--just let me know. - If you develop significant worsening of breathing, new or worsening choking, or cannot lie flat without difficulty, go to the emergency room immediately, as these may be signs of myasthenic crisis. - When available, results of the above investigations and possible further recommendations will be communicated to the patient via telephone/[employer]. Patient to call office if not contacted after expected testing turnaround time. To aid with communication, patients (and primary care physicians) can sign up for Shout (or [employer]), which allows online appointment scheduling, transmission of labs results and chart notes, andsecure email communication. To establish either account, visit [email or web address]. The duration of this [facility] visit was 25 minutes (2:10-2:35 PM). At least 50% of this time was spent in counseling, explanation of diagnosis, planning of further management, and coordination of care. A further 20 mins were spent with documentation comprising this note. Susi Rice MD Staff, [facility] [place] Electronically signed April 01, 2025 2:35 PM Answers submitted by the patient for this visit: Activities of Daily Living (MG-ADL) (Submitted on 03/25/2025) Talkin=Intermittent slurring or nasal speech Chewin=Fatigue with solid food Swallowin=Frequent choking necessitating changes in diet Breathin=Shortness of breath with exertion Impairment of ability to brush teeth or comb hair: 1=Extra effort, but no rest periods needed Impairment of ability to rise from a chair: 2=Moderate always uses arms Double vision: 0=None Eyelid droop: 0=None Referring provider: Devonte Sunshine, [address] [id number] Primary care physician: Rosi Alvarez, [place] [address] documented in this encounterDoctors Hospital04-[facility]-2025 History of Present illness Narrative* Trisha Ortiz, - 02/08/2025 8:15 AM EDT Images from the original note were not [...] years ago. He had his studies at [facility] in [facility]. He states he was told he [...] a different mask. He does not have amachine at this point in time. NO hx [...] 20 minutes CV exercise: none Off work: nursery technician. +tob right before and will wake [...] (CMS/HCC) Past Surgical History: Procedure Laterality Date [place] COLONOSCOPY LESION REMOVAL Family History Problem Relation [...] sleep apnea who is currently not being treateddue to no longer having the machine and having difficulty tolerating it. Sounds like he has not hadit in a couple of years ever since her recall took place. Patient does have significant daytime hypersomnia snoring witnessed episodes of apnea. He does have underlying myasthenia gravis so he needs this treated. He has gained a significant amount of weight since his last study approximately 10 years ago in [place]. He does have some sleep onset insomnia and some mild sleep maintenance insomnia however he also hassome poor sleep hygiene in that he is going to bed to early for his wake time and he is using tobacco products right before bed and actually in the middle of the night. He needs to stop using tobaccofor an hour before bedtime and not use it in the middle of the night. He should quit smoking completely. He is not getting any exercise and needs to start incorporating that. He needs work on diet for weight loss. He was counseled on some ways to do this. Plan Split night study at [place] Counseled on diet exercise weight loss Restrict [...] was counseled on the risks of stroke, DE, and sudden with PAIGE, along with the [...] to clinic: 2 months documented in this encounterSaint John's Regional Health [id number] History of Present illness Narrative* Dione Swanson MD - 01/11/2025 3:33 PM EST Neurology Note Name: Alfonzo Shaver : 1975 no referring provider Chief Complaint: Myasthenia gravis History of Present Illness: Alfonzo Shaver is a 49 year old male who presents for for evaluation for myasthenia gravis. Falls with Dr. Braswell for his myasthenia gravis. Recently saw Dr. Rice at [facility] for 2nd opinion. The patient arrives with his . The patient states since 2022 he has been experiencing double vision, droopy eyelids, changes in speech, in appendicular weakness. Trouble getting up from a chair or walking up steps. He does endorse low back pain. Currently on 30 mg of steroids, 60 mg of Mestinont.i.d., and Vyvguart hytrulo. Continues to struggle with [...] Allergies Current Medications Current Outpatient Medications: efgartigimod tivh-nhxzqnosavjrs-bvwc (Vyvgart Hytrulo) 180-2000 MG-UNIT/ML SOLN injection, Inject [...] and are negative. Any pertinent positives of negativeslisted in the HPI. PHYSICAL EXAMINATION: Vitals: 01/11/25 1538 BP: 141/67 Pulse: 84 Resp: 16 Temp: 97.4 F (36.3 C) General: Well developed and well nourished. No acute distress. NEUROLOGICAL EXAM: The patient is alert and oriented, extraocular muscles are full range and conjugate in all gazes ofdirection, no ptosis, no fatigability with sustained upgaze. [...] gravis, however the patient recently saw Dr. Rice in at the [facility] for the same reason. Overall, I agree with continuing 30 mg of steroids for the time being, continuing 60 mg of Mestinont.i.d., and continuing vyvguart hytrulo with each cycle spaced 4 weeks apart (1 month on, 1 month off). I do agree, that the patient ultimately may require steroid sparing therapy. As mentioned by my colleague Dr. [facility] at the [facility], would check TPMT enzyme. If testing shows no concerning finding, would initiate azathioprine. Azathioprine can take 6-12 months to work. If TPMT enzyme is prohibitive, would consider CellCept (would have to check hepatitis labs). These medications do require surveillance with serum lab work. The patient lives 1.5 hours away, he does not find it feasible to be under my direct care. However,I am willing to work with his primary neurologist Dr. Braswell in managing his care. Similarly, Dr. Rice and has offered the same partnership with Dr. Braswell. The patient is aware of signs and symptoms that would be concerning for a myasthenic crisis/exacerbation. Dione Swanson MD Neurology/ Neuromuscular Medicine documented in this [id number] NoteHNO ID: [id number] Author: SUSI RICE MD Service: ? Author Type: Physician Type: Progress Notes Filed: 12/21/2024 10:54 Note Text: NEW PATIENT DISTANCE HEALTH VISIT Encounter completed via virtual visit (audio and video) using [employer] Quwan.comom software* Provider location during distance health encounter: [facility] Patient location during distance health encounter: Home I have communicated my name and active licensure. The patient's identity and physical location were verified at the time of this visit. Either the patient (as in this case) or their legal business development representative has been informed of the risks and benefits of, and alternatives to treatment through a remote evaluation and consents to proceed with the evaluation remotely. Date of Distance Health Visit :December 21, 2024 [facility] New Patient Distance Health Visit Note [...] eyelids. He sought medical attention from his global regulatory affairs manager, who referred him to a neurologist, Dr. 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 He [...] Medicaid and receives Social (more content not included)...[facility] 12-21-2024 History of Present illness Narrative* Susi Rice MD - 12/21/2024 9:09 AM EST NEW PATIENT DISTANCE HEALTH VISIT Encounter completed via virtual visit (audio and video) using [employer] Zoom software* Provider location during distance health encounter: [facility] Patient location during distance health encounter: Home I have communicated my name and active licensure. The patient's identity and physical location wereverified at the time of this visit. Either the patient (as in this case) or their legal business development representative has been informed of the risks and benefits of, and alternatives to treatment through a remote evaluation and consents to proceed with the evaluation remotely. Date of Distance Health Visit :December 21, 2024 [facility] [place] [facility] New Patient Distance Health Visit [...] gentleman with a PMHx inclusive of dyslipidemia, hypothyroidismand tobacco use/smoking who presents via virtual visit for a neuromuscular second opinion regardingthe diagnosis of AChR seropositive generalized myasthenia gravis (initial transitory symptoms of dip lopia in ~mid-2022, recurrence ~03/2024 with ptosis> diplopia, milder bulbar and appendicular symptoms). He has been seen locally by Dr. Devonte Sunshine, with the last visit on 12/14/2024. His initialsymptoms began in mid-2022 with an episode of double vision that resolved within a few weeks. However, in March 2024, he experienced a recurrence of frequent double vision, accompanied by droopy eyelids. He sought medical attention from his global regulatory affairs manager, who referred him to a neurologist, Dr. [...] his stomach (so orthopnea dubious). He experiences (mostlyproximal) leg weakness, necessitating the use of his arms to stand up, but has not had any falls orrequires assistive devices such as a cane, walker, or wheelchair. 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 He [...] initiated on prednisone and Mestinon in the summerof 2023. He has been on prednisone 20 [...] for dyslipidemia. He has no history of surgeries,prediabetes, or diabetes. He is currently on Medicaid and receives Social Security disability benefits. SOCIAL HISTORY The patient admits to smoking about half a pack per day and has been a smoker for over 30 years. Hedoes not drink alcohol, except for a drink [...] produced with the assistance of AI technology ([employer]), and is human provider reviewed/edited before finalization] [...] drift. Able to stand from a deep seatedposition with arms across chest. OUTSIDE RECORDS: Outside [...] produced with the assistance of AI technology ([employer]), and is human provider reviewed/edited before finalization] INTERNAL RECORDS: N/A IMPRESSION: Mr. Shaver is a pleasant 49 year old gentleman with a PMHx inclusive of dyslipidemia, hypothyroidismand tobacco use/smoking who presents via virtual visit for a neuromuscular second opinion regardingthe diagnosis of AChR seropositive generalized myasthenia gravis (initial transitory symptoms of dip lopia in ~mid-2022, recurrence ~03/2024 with ptosis> diplopia, [...] primary neurologist provider, and virtual visit follow-up withme as needed. Accordingly, would recommend as next [...] supplementation, in addition to PCP follow-up for long- term steroid adverse effects surveillance and management as needed. -Continue Mestinon 60 mg p.o. 3 times daily/prn. -Follow through with planned next round of Vyvgart (efgartigimod) infusions weekly x 4 weeks, starting 01/06/2025. However, for more durable steroid-sparing strategy, would recommend obtaining TPMT testing and if results permissive, to commence azathioprine (if TPMT testing results prohibitive, mayconsider starting mycophenolate mofetil instead). There would be required standard interval labs surveillance once on such as steroid sparing agents. -I reinforced what Dr. Sunshine has previously communicated in terms of being vigilant for MG crisisred flags (especially worsening swallowing and breathing issues) that should prompt urgent medical attention in the ED. -Counseled on smoking cessation. -RTC (virtual visit, per patient preference) in ~3 months. To aid with communication, patients (and primary care physicians) can sign up for Shout (or [employer]), which allows online appointment scheduling, transmission of labs results and chart notes, andsecure email communication. To establish either account, visit [email or web address]. The duration of this distance health appointment visit was 43 minutes (9:10-9:53 AM). At least 50% of this time was spent in counseling, explanation of diagnosis, planning of further management, and coordination of care. A further 25 mins were spent with documentation comprising this note. Susi Rice MD Staff, [facility] [place] Electronically signed December 21, 2024 9:54 AM Referring provider: Devonte Sunshine DO [address] [place] [phone] Primary care physician: Rosi Alvarez, [facility] [place] [address] documented in this encounterDoctors Hospital02-07-2025 Telephone encounter Note * Telephone Encounter - Montse Pruitt - 12/17/2024 9:32 AM EST Referral source: Devonte Sunshine DO ([facility]) Reason for visit: myasthenia gravis External records: viewable in Care Everywhere Triage: Not required Financial clearance: Not required to schedule [facility]02-07-[facility]25 Miscellaneous Notes* Telephone Encounter - Montse Pruitt - 12/17/2024 9:32 AM EST Referral source: Devonte Sunshine DO ([facility]) Reason for visit: myasthenia gravis External records: viewable in Care Everywhere Triage: Not required Financial clearance: Not required to schedule documented in this encounterDoctors Hospital02-04-2025 History of Present illness Narrative* Devonte Sunshine DO - 12/14/2024 1:15 PM EST Images from the original note were not included. Chief complaint: MG Subjective Alfonzo Chhaya, 49 y.o., male Patient presents today for a follow up for myasthenia gravis. He is accompanied by his . Patient states since he is on the break from the vyvgart he has been experiencing more symptoms. He stateshe has been choking more, his left eye has been twitching and he has an increase in fatigue. He is still feeling the weakness in his legs, hands and feet but he states this is about his baseline. He is experiencing some spasms in his right calf muscle. This can bounce back and fourth to his left aswell though. He has used flexeril in the [...] (CMS/HCC) Past Surgical History: Procedure Laterality Date [place] COLONOSCOPY LESION REMOVAL Family History Problem Relation [...] reflexes are 2+ and symmetric throughout. Coordination: Aeicjn-ye-kjyr testing and rapid alternating movements are normal [...] of the brain is unremarkable for acute pathology.CT of the chest is unremarkable for thymoma. Prednisone has been somewhat helpful for the patient. He has NO shortness of breath today. Due to an due to insurance denial and need for renewal, the patient has not yet started Vyvgart. Itis my opinion that this is imperative to [...] treatment and further diagnostic evaluation we can reconsiderthis in the future Handicap eloisa supplied Pt has been fully educated on their diagnosis, lab results, treatment options, follow up plan, and return instructions documented in this encounterSaint John's Regional Health [id number] History of Present illness Narrative* Devonte Sunshine DO - 10/13/2024 11:00 AM EST Images from the original note were not [...] I asked about his vyvgart and insurance. Hestates he still has to [employer] insurance that they just renewed this. I [...] (CMS/HCC) Past Surgical History: Procedure Laterality Date NH COLONOSCOPY LESION REMOVAL Family History Problem Relation [...] reflexes are 2+ and symmetric throughout. Coordination: Nmcwhg-ne-hbun testing and rapid alternating movements are normal [...] of the brain is unremarkable for acute pathology.CT of the chest is unremarkable for thymoma. Prednisone has been somewhat helpful for the patient. He has NO shortness of breath today. Due to an due to insurance denial and need for renewal, the patient has not yet started Vyvgart. Itis my opinion that this is imperative to [...] could lead to infections which could be life-threatening.Patient understands these risks and is an open [...] treatment and further diagnostic evaluation we can reconsiderthis in the future Kirk trevizo Pt has been fully educated on their diagnosis, lab results, treatment options, follow up plan, and return instructions documented in this encounterSaint John's Regional Health [id number] History of Present illness Narrative* Devonte Sunshine DO - 09/15/2024 10:45 AM EST Images from the original note were not [...] few hours. He then will fall back asleepfor 1-2 hours. He reports a thick mucus [...] (CMS/HCC) Past Surgical History: Procedure Laterality Date [place] COLONOSCOPY LESION REMOVAL Family History Problem Relation [...] reflexes are 2+ and symmetric throughout. Coordination: Rvjmhf-gn-jjja testing and rapid alternating movements are normal [...] patient likely needs a dose increase. He hasNO shortness of breath today. Plan: Due to the that the patient due to the fact that the patient's symptoms are still debilitating froma visual perspective in spite of treatment with Mestinon, we have added prednisone and will need toincrease the dose. This was done with consideration of shared decision-making with risks of steroiduse long-term and difficulty of weaning balanced with [...] x4 weeks. He will likely need a 1month hiatus and then we will repeat this cycle of infusing once weekly every 4 weeks on an ongoingbasis. We did discuss the potential concerns with [...] treatment and further diagnostic evaluation we can reconsiderthis in the future Pt has been fully educated on their diagnosis, lab results, treatment options, follow up plan, and return instructions documented in this encounterSaint John's Regional Health [id number] History of Present illness Narrative* Devonte Sunshine DO - 08/17/2024 9:15 AM EDT Images from the original note were not included. Chief complaint: MG Subjective Alfonzo Shaver, 49 y.o., male Alfonzo [...] morning his vision is good and throughout theday it worsens. He is having double vision in the left eye as well. Neck pain has gotten a bit better since last visit. He is having calf spasms more often. This is happening in calves now. They denyany further concerns. Review of Systems Constitutional: Negative [...] (CMS/HCC) Past Surgical History: Procedure Laterality Date NH COLONOSCOPY LESION REMOVAL Family History Problem Relation [...] reflexes are 2+ and symmetric throughout. Coordination: Onsmfq-qa-ikce testing and rapid alternating movements are normal [...] all orders for this visit: Myasthenia gravis (CMS/[facility]) It is my impression that patient has [...] patient likely needs a dose increase. He hasNO shortness of breath today. Plan: Due to the that the patient due to the fact that the patient's symptoms are still debilitating froma visual perspective in spite of treatment with Mestinon, we have added prednisone and will need toincrease the dose. This was done with consideration of shared decision-making with risks of steroiduse long-term and difficulty of weaning balanced with [...] treatment and further diagnostic evaluation we can reconsiderthis in the future Pt has been fully educated on their diagnosis, lab results, treatment options, follow up plan, and return instructions documented in this encounterSaint John's Regional Health [id number] History of Present illness Narrative* Devonte Sunshine DO - 08/03/2024 3:00 PM EDT Images from the original note were not included. Chief complaint: Ptosis Subjective Alfonzo Shaver, 49 y.o., male Alfonzo is here for a follow up. He had a chest CT and an MRI of the brain completed for review. He ishere with his . He was started on prednisone and mestinon at his last visit. She states his vision is a bit better. He states his neck pain has gotten a bit worse. This radiates down his shoulders and arms. He is up for 10-15 minutes and then he has to lay back down because he is in pain. He ishaving calf spasms more often. He thinks the [...] (CMS/HCC) Past Surgical History: Procedure Laterality Date NH COLONOSCOPY LESION REMOVAL Family History Problem Relation [...] The patient has severe ptosis of the lefteyelid and has a left eye exotropia. CN [...] reflexes are 2+ and symmetric throughout. Coordination: Ekcjoj-ru-fpdj testing and rapid alternating movements are normal [...] all orders for this visit: Myasthenia gravis (CMS/HCC) It is my impression that patient has antibody receptor positive myasthenia gravis. Patient does have ptosis on examination. Patient does not relate weakness or difficulty swallowing or fatigability. Concerned that this may represent ocular myasthenia gravis that is not yet generalized. We certainlyneed to rule out other pathology intracranial and [...] declined treatment. He understands this may be life- threatening. He understands that myasthenia can change very quickly. He understands that he may lose the ability to breathe. He understands this could result in deathand adamantly refuses admission. High degree of morbidity [...] treatment and further diagnostic evaluation we can reconsiderthis in the future Pt has been fully educated on their diagnosis, lab results, treatment options, follow up plan, and return instructions documented in this encounterSaint John's Regional Health [id number] Evaluation + Plan note Diagnostic Tests Pending * Smooth Muscle Antibody Screen 05/05/24 * Acetylcholine Receptor Binding Antibody 05/05/24 [facility]06-21-2022 Hospital Discharge instructions Patient Education 04/30/2022 13:13:30 [...] such as herbs, spices, flour, pasta, nuts, anddried fruit. Buy fruits and vegetables that are in season. Prices are usually lower on in- season produce. Look at the unit orellana on the orellana tag. Use it to compare different brands [...] frozen fruits, and frozen vegetables. Avoid buying yetxo-wh-gej foods, such as pre-cut fruits and vegetables and pre-made salads. If possible, shop around to discover where you can find the best prices. Consider other retailers such as dollar stores, larger wholesale stores, local fruit and vegetable stands, and [employer] markets. Do not shop when you are hungry. If you shop while hungry, it may be hard to stick to your list andbudget. Resist impulse buying. Use your grocery list [...] spend at the store, the more money youare likely to spend. To save money when choosing more expensive foods like meats and dairy: ?Choose cheaper cuts of meat, such as bone-in chicken thighs and drumsticks instead of skinless andboneless chicken. When you are ready to prepare [...] store. If you have a smart phone, youcould use your phone to create your shopping [...] include buying generic brands, using coupons only forfoods you normally buy, and buying healthy items from the bulk bins when available. Tips for buying cheaper food to replace expensive food include choosing cheaper, lean cuts of meat,and buying dried beans and peas. This information is not intended to replace advice given to you by your health care provider. Make sure you discuss any questions you have with your health care provider. Document Released: 06/30/2015 Document Revised: 10/28/2018 Document Reviewed: 10/28/2018 [employer] Patient Education 2020 [employer]. 04/30/2022 13:13:29 BMI for Adults BMI for [...] problems. It is used to check whether aperson is obese, overweight, healthy weight, or underweight. How is BMI calculated? BMI measures your weight and compares it to your height. This can be done either in [place] ([place] or metric measurements. Note that charts are available to help you find your BMI quickly and easily without having to do these calculations yourself. To calculate your BMI in Greek ([place] measurements, your health care provider will: [...] muscular build, such as an athlete, may havea BMI that is higher than 24.9. In cases like these, BMI is not an accurate measure of body fat. To determine if excess body fat is the cause of a BMI of 25 or higher, further assessments may needto be done by a health care provider. [...] medical problems. BMI can be measured using Greek measurements or metric measurements. To interpret your [...] 07/08/2005 Document Revised: 10/09/2018 Document Reviewed: 09/09/2018 [employer] Patient Education 2020 [employer]. 04/30/2022 13:13:26 Tobacco Use Disorder Tobacco Use [...] have at least two symptoms within a 12- month period. How is this treated? This condition is treated by stopping tobacco use. Many people are unable to quit on their own and need help. Treatment may include: Nicotine replacement therapy (NRT). NRT provides nicotine without the other harmful chemicals in tobacco. NRT gradually lowers the dosage of nicotine in the body and reduces withdrawal symptoms. NRT is available as: ?Gjqc-rih-rzxobul gums, lozenges, and skin patches. ?Prescription mouth [...] recovery for many people. General instructions Take wlad-thr-rripsyt and prescription medicines only as told by your health care provider. Check with your health care provider before taking any new prescription or rvtf-dxa-plwfnjt medicines. Decide on a friend, family member, or smoking quit-line (such as 4-187-DFGF-NOW in the [place] that you can call [...] 07/02/2005 Document Revised: 10/14/2018 Document Reviewed: 10/14/2018 [employer] Patient Education 2020 [employer] 04/30/2022 13:13:21 Flexor Carpi Ulnaris and [...] until told by your health care provider. Zqsgo-oj-ysqjzy exercises These exercises warm up your muscles [...] fingers move toward the ceiling (extension), stopping whenyou feel a gentle stretch on the palm [...] until you feel a gentle stretch on theinside of your forearm. 3.Hold this position for [...] wrist and forearm. Endurance is the ability touse your muscles for a long time, even [...] supported on a table and the other armis below the table. There should be a [...] to raise your thumb toward the ceiling. Youwill not need to raise your hand very [...] times. Complete this exercise times a day. Recruiter Account Manager 1.Hold one of these items in your left / right hand: modeling valentin, therapy putty, a dense sponge, a stress ball, or a large, rolled sock. 2.Squeeze as hard as you can without increasing any pain. 3.Hold this position for seconds. 4.Slowly release your appeals board referee. Repeat times. Complete this exercise times a day. This information is not intended to replace advice given to you by your health care provider. Make sure you discuss any questions you have with your health care provider. Document Released: 07/01/2017 Document Revised: 02/22/2020 Document Reviewed: 12/30/2019 [employer] Patient Education 2020 [employer]. Follow Up Care 04/30/2022 08:08:28 With:LEXX LANDERS CNP Address: [address] [place] [address] [address] [place] [address] When: only if needed [facility] Evaluation + Plan note No data available for this section [facility] Evaluation + Plan noteFishDayton [facility] Evaluation noteNo assessment information available [facility] Work Phone: Evaluation note* Diagnosis Myasthenia gravis (CMS/HCC) Myasthenia gravis without exacerbation [facility] Diagnosis Generalized myasthenia gravis (CMS/HCC)- Primary Myasthenia gravis without exacerbation [facility]* Diagnosis Generalized myasthenia gravis (CMS/HCC)- Primary Myasthenia gravis without exacerbation [facility]* Diagnosis Myasthenia gravis (CMS/HCC)- Primary Myasthenia gravis without exacerbation documented [facility] encounter [facility]* Diagnosis Myasthenia gravis (CMS/HCC)- Primary Myasthenia gravis without exacerbation documented in this encounter [facility]* Diagnosis Myasthenia gravis without [...] of immunosuppressive therapy [facility] PAIGE (obstructive sleep apnea)- Primary Obstructive sleep apnea (adult) (pediatric) Hypersomnia Hypersomnia, unspecified 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, unspecified whether serious comorbidity present Snoring Other dyspnea and respiratory abnormality Primary insomnia Persistent disorder of initiating or maintaining sleep documented in this encounter [facility]* Diagnosis Myasthenia gravis without exacerbation (HCC)- Primary Myasthenia gravis without exacerbation Generalized myasthenia gravis (HCC) Myasthenia gravis without exacerbation Myasthenia gravis, AChR antibody positive (HCC) Myasthenia gravis without exacerbation Diplopia Ptosis of both eyelids Unspecified ptosis of eyelid Bulbar weakness (HCC) Other motor neuron diseases Limb weakness Other musculoskeletal symptoms referable to limbs Smoking trying to quit Tobacco use disorder H/O immunosuppressive therapy Personal history of immunosuppressive therapy [facility] Diagnosis Neoplasm of uncertain behavior of skin- Primary Verruca plantaris Plantar wart Foot pain, right Pain in soft tissues of limb documented in this encounter [facility]* Diagnosis Verruca plantaris- Primary Plantar wart Foot pain, right Pain in soft tissues of limb documented in this encounter [facility]* Diagnosis Myasthenia gravis (HCC)- Primary Myasthenia gravis without exacerbation [facility] Diagnosis Acquired deformity of left toe- Primary Verruca plantaris Plantar wart Foot pain, right Pain in soft tissues of limb Acquired deformity of right toe Neoplasm of uncertain behavior of skin Diabetes mellitus due to underlying condition with diabetic polyneuropathy, unspecified whether local company intermodal truck driver insulin use (HCC) [facility] No data available for this section [facility] Progress note No data available for this section [facility] Reason for referral (narrative) Referred by: Aiyana Purdy NP [facility] Reayiw for referral (narrative)No reason for referral information availableParma Community [facility] Work Phone: Chief Complaint and Reason for Visit Chief Complaint Pre-Surgical Testing Chief Complaint G70.00 H02.402 Chief Complaint G70.00 H02.402 g70.00 h02.402 Chief Complaint Admit Date G70.00 April 29, 2025 1:59 pm per task May 11, 2025 8:36a m Reason for Visit Admit Date Generalized myasthenia gravis April 27, 2025 8:42am Diabetes mellitus May 11, 2025 8:36a m Generalized myasthenia gravis May 11, 2025 8:36am Chief Complaint Admit Date G70.00 April 29, 2025 1:59 pm per task May 11, 2025 8:36a m 2-3 month follow up *sleep* May 16 8:24am Chief Complaint Admit Date G70.00 April 29, 2025 1:59 pm per task May 11, 2025 8:36a m 2-3 month follow up *sleep* May 16 8:24am . June 24, 2025 9: 55am 2 MONTH FOLLOW UP July 25, 2025 10:21am Reason for Visit Admit Date Generalized myasthenia gravis April 27, 2025 8:42am Diabetes mellitus May 11, 2025 8:36a m Generalized myasthenia gravis May 11, 2025 8:36am Hypersomnia May 16, 2025 8:24a m Nicotine dependence May 16, 2025 8:24a m Obesity May 16, 2025 8:24a m PAIGE (obstructive sleep apnea) May 16, 2025 8:24am Primary insomnia May 16, 2025 8:24a m Diabetes mellitus July 25, 2025 10:21am Generalized myasthenia gravis July 25, 2025 10:21am Advance Directives No Advanced Directives Records Found Advance Directive Response Recorded Date/ Time Advance Directives No November 29, 2022 1:08pm Advance Directive Response Recorded Date/ Time Advance Directives No November 29, 2022 2:08pm Family History No Family History Records FoundUnknown Family Member Name Dates Details Family history of glaucoma: Mother(V19.11, Z83.511) Status:Active Family history of diabetes m ellitus: Mother(V18.0, Z83.3) Status:Active Relationship Condition Age at Onset Recorded Date/T tracey mother Diabetes mellitus Unknown Heart disease Unknown Malignant neoplasm Unknown father Malignant neoplasm Unknown Summary Purpose Additional Source Comments Care Team (unrecognized sect ion and content) Team Status: Inactive Member Role Status Dates Devonte Lentz MD Attending Provider Active Aiyana Purdy NP-José Primary Care Provider Active Team Status: Active Member Role Status Dates Aiyana Purdy NP-José Primary Care Provider Active Team Status: Active [...] July 28, 2024 End: July 28, 2024 IVONE [place] Primary Care Provider Active Start: July 28, 2024 End: July 28, 2024 Rail Switchman Relationship Specialty Start Date End Date Rosi Alvarez MD [address] [place], [place] [phone] Referring Physician Family Medicine 08/03/24 Rail Switchman Relationship Specialty Start Date End Date Rosi Alvarez MD [address] [place] [address] Referring Physician Family Medicine 08/03/24 Rail Switchman Relationship Specialty Start Date End Date Rosi Alvarez MD [address] [place] [address] Referring Physician Family Medicine 08/03/24 Devonte Sunshine DO [address] [address] Referring Physician Neurology 09/15/24 Rail Switchman Relationship Specialty Start Date End Date Rosi Alvarez MD [address] [place] [address] Referring Physician Family Medicine 08/03/24 Devonte Sunshine DO [address] [address] Referring Physician Neurology 09/15/24 Orin De Leon NP [address] [address] Nurse Practitioner Neurology 09/15/24 Maegan Carmona NP [address] [phone] Nurse Practitioner Neurology 09/15/24 Rail Switchman Relationship Specialty Start Date End Date Rosi Alvarez MD [address] [place] [address] Referring Physician Family Medicine 08/03/24 Devonte Sunshine DO [address] [address] Referring Physician Neurology 09/15/24 Orin De Leon NP [address] [address] Nurse Practitioner Neurology 09/15/24 Maegan Carmona, LAM [address] [place] [phone] Nurse Practitioner Neurology 09/15/24 Rail Switchman Relationship Specialty Start Date End Date Rosi Alvarez MD [address] [place], [place] [phone] Referring Physician Family Medicine 08/03/24 Devonte Sunshine DO [address] [place] [address] Referring Physician Neurology 09/15/24 Orin De Leon NP [address] [address] Nurse Practitioner Neurology 09/15/24 Maegan Carmona NP [facility] [place] [phone] Nurse Practitioner Neurology 09/15/24 Rail Switchman Relationship Specialty Start Date End Date Rosi Alvarez MD [address] [place], [place] [phone] Referring Physician Family Medicine 08/03/24 Rail Switchman Relationship Specialty Start Date End Date Rosi Alvarez MD [address] [place], [place] [phone] Referring Physician Family Medicine 08/03/24 Rail Switchman Relationship Specialty Start Date End Date Rosi Alvarez MD [address] [place] [address] [phone] Referring Physician Family Medicine 08/03/24 Devonte Sunshine DO [address] [address] Referring Physician Neurology 09/15/24 Orin De Leon NP [address] [phone] Nurse Practitioner Neurology 09/15/24 Maegan Carmona NP [address] [place] [phone] Nurse Practitioner Neurology 09/15/24 Rail Switchman Relationship Specialty Start Date End Date Rosi Alvarez, PANTRY GOODS WORKER.FRAME MAKER [address] [place] [address] [phone] PCP - General Nurse Practitioner 12/21/24 Rail Switchman Relationship Specialty Start Date End Date Rosi Alvarez MD [address] [place] [address] [phone] Referring Physician Family Medicine 08/03/24 Devonte Sunshine DO [address] [place] [phone] Referring Physician Neurology 09/15/24 Maegan Carmona NP [address] [place] [phone] Nurse Practitioner Neurology 09/15/24 Rail Switchman Relationship Specialty Start Date End Date Rosi Alvarez MD [address] [place] [address] [phone] Referring Physician Family Medicine 08/03/24 Devonte Sunshine DO [address] [address] Referring Physician Neurology 09/15/24 Maegan Carmona NP [address] [phone] Nurse Practitioner Neurology 09/15/24 Rail Switchman Relationship Specialty Start Date End Date Rosi Alvarez APRN.CNP [address] [place] [address] [phone] PCP - General Nurse Practitioner 12/21/24 Rail Switchman Relationship Specialty Start Date End Date Rosi Alvarez MD [address] [place], [place] [phone] Referring Physician Family Medicine 08/03/24 Devonte Sunshine DO [address] [place] [phone] Referring Physician Neurology 09/15/24 Maegan Carmona NP [address] [place] [phone] Nurse Practitioner Neurology 09/15/24 Rail Switchman Relationship Specialty Start Date End Date Rosi Alvarez MD [address] [place], [place] [phone] Referring Physician Family Medicine 08/03/24 Devonte Sunshine DO [address] [address] Referring Physician Neurology 09/15/24 Maegan Carmona NP [address] [address] Nurse Practitioner Neurology 09/15/24 Team Status: Inactive Member Role Status Dates Rosi Alvarez NP-C Primary Care Provider Active Start: April 27, 2025 End: April 27, 2025 Devonte Sunshine DO Attending Provider Active Start: April 27, 2025 End: April 27, 2025 Team Status: Inactive Member Role Status Dates Rosi Alvarez NP-C Primary Care Provider Active Start: April 29, 2025 End: April 29, 2025 Devonte Sunshine DO Attending Provider Active Start: April 29, 2025 End: April 29, 2025 Team Status: Inactive Member Role Status Dates Rosi Alvarez NP-C Primary Care Provider Active Start: May 11, 2025 End: May 11, 2025 Devonte Sunshine DO Attending Provider Active Start: May 11, 2025 End: May 11, 2025 Team Status: Inactive Member Role Status Dates Rosi Alvarez WET END HELPER-C Primary Care Provider Active Start: May 16, 2025 End: May 16, 2025 Elvira Luong APRN Attending Provider Active Start: May 16, 2025 End: May 16, 2025 Rail Switchman Relationship Specialty Start Date End Date Unallocated, [facility]uddleston [facility] [place] [address] PCP - General Family Medicine 05/16/25 Rosi Alvarez NP [address] [place], [place] [phone] Referring Physician Family Medicine 08/03/24 Devonte Sunshine DO [address] [place] [address] Referring Physician Neurology 09/15/24 Maegan Carmona NP [address] [address] Nurse Practitioner Neurology 09/15/24 Rail Switchman Relationship Specialty Start Date End Date Unallocated, Muna Huddleston MD [facility] [place] [address] PCP - General Family Medicine 05/16/25 Rosi Alvarez NP [address] [place] [address] Referring Physician Family Medicine 08/03/24 Devonte Sunshine DO [address] [place] [phone] Referring Physician Neurology 09/15/24 Maegan Carmona NP [address] [place] [phone] Nurse Practitioner Neurology 09/15/24 Team Status: Active Member Role Status Dates IVONE [place] Primary Care Provider Active Start: June 24, 2025 Devonte Sunshine DO Attending Provider Active Start: June 24, 2025 Devonte Sunshine DO Referring Provider Active Start: June 24, 2025 Team Status: Inactive Member Role Status Dates IVONE [place] Primary Care Provider Active Start: July 25, 2025 End: July 25, 2025 Devonte Sunshine DO Attending Provider Active Start: July 25, 2025 End: July 25, 2025 Rail Switchman Relationship Specialty Start Date End Date Unallocated, Noms Provider, [place] [address] PCP - General Family Medicine 05/16/25 Rosi Alvarez NP [address] [place] [address] Referring Physician Family Medicine 08/03/24 Devonte Sunshine DO [address] [place] [address] Referring Physician Neurology 09/15/24 Maegan Carmona NP [address] [place] [address] Nurse Practitioner Neurology 09/15/24 Goals (unrecognized section [...] and content) DATE CREATED AUTHOR 05/06/2024 [facility] DATE CREATED AUTHOR AUTHOR'S ORGANIZ ATION 05/11/2024 [facility] DATE CREATED AUTHOR AUTHOR'S ORGANIZ ATION 05/13/2024 [facility] DATE CREATED AUTHOR AUTHOR'S ORGANIZ ATION 05/14/2024 [facility] DATE CREATED AUTHOR AUTHOR'S ORGANIZ ATION 01/13/2025 [facility] DATE CREATED AUTHOR AUTHOR'S ORGANIZ ATION 06/09/2025 [facility] DATE CREATED AUTHOR AUTHOR'S ORGANIZ ATION 06/29/2025 [facility] DATE CREATED AUTHOR AUTHOR'S ORGANIZ ATION 07/30/2025 [facility] EPIC DATE CREATED AUTHOR AUTHOR'S ORGANIZ ATION 08/15/2025 [facility] DATE CREATED AUTHOR AUTHOR'S ORGANIZ ATION 08/17/2025 [facility] DATE CREATED AUTHOR AUTHOR'S ORGANIZ ATION 08/18/2025 [facility] DATE CREATED AUTHOR AUTHOR'S ORGANIZ ATION 08/20/2025 [facility] DATE CREATED AUTHOR AUTHOR'S ORGANIZ ATION 08/21/2025 [facility] Source Comments (unrecognize d section and content) In the event this informatio n is protected by the Federal Confidentiality of Alcohol and Drug Abuse Patient Records regulations: The Federal rules restrict any use of the information to criminally investigate or prosecute any alcohol or drug abuse patient.[facility] Hospital[facility] the event this information is protected by the Federal Confidentiality of Alcohol and Drug Abuse Patient Records regulations: The Federal rules restrict any use of the information to criminally investigate or prosecute any alcohol or drug abuse patient.[facility] Hospital[facility] the event this information is protected by the Federal Confidentiality of Alcohol and Drug Abuse Patient Records regulations: The Federal rules restrict any use of the information to criminally investigate or prosecute any alcohol or drug abuse patient[facility] Reason for Visit (unrecogniz ed section and content) Reason Comments Received Outside Medical Records Externa l referral to Neurological [place] Reason Comments Consult Reason Comments Established Patient Follow Up Reason Comments Plantar Warts Specialty Diagnoses / Procedures Referred By Contac t Referred To Contact Podiatry Diagnoses Plantar wart Procedures [place] OFFICE/OUTPATIENT NEW LOW MDM 30 MINUTES NH OFFICE/OUTPATIENT ESTABLISHED LOW MDM 20 MIN Rosi Alvarez MD [address] [place] [id number] Phone: tel: fax: Alex Lentz, NICK [address] [address] Phone: tel: fax: Referral ID Status Reason Start Date Expiration Date Visits Re quested Visits Authorized [id number] Closed 04/07/2025 10/04/2025 1 1 Reason Comments Follow-up Rt lesion check Reason Comments Follow-up Rt lesion Reason Comments Follow-up Lesion chck Reason Comments Follow-up LESION CHECK Reason Comments New patient, to establish relationship Reason Comments Follow-up Lesion check FOR RECORDS PERTAINING TO PATIENTS WHO ARE [...] BE BASED ON THE PRIMARY CLINICAL RECORDS. [facility]. provides no warranty or guarantee of the accuracy or completeness of information in this document.
[2025-08-22 16:05] LABS: Hematocrit 43.9 % (42.0-54.0); Hemoglobin 14.5 g/dL (14.0-18.0); Mean Corpuscular HGB Conc 33.0 g/dL (29.9-35.2); Mean Corpuscular Hemoglobin 31.8 pg (25.9-34.0); Mean Corpuscular Volume 96.3 fL (80.0-94.0); Platelet Count 192 10^3/uL (150-450); Red Blood Count 4.56 10^6/uL (4.70-6.10); White Blood Count 13.0 10^3/uL (4.0-11.0)
[2025-08-22 16:23] LABS: Anion Gap 14.1; Blood Urea Nitrogen 11.0 mg/dL (7.0-18.0); Calcium 9.2 mg/dL (8.5-10.1); Carbon Dioxide 27.1 mmol/L (21.0-32.0); Chloride 104 mmol/L (98-107); Estimated GFR (African America >60 (>=60 mL/min/1.73m^2); Estimated GFR (Non-African Ame >60 (>=60 mL/min/1.73m^2); Glucose 279 mg/dL (74-106); Potassium 4.2 mmol/L (3.5-5.1); Sodium 141 mmol/L (136-145)
[2025-08-22 16:50] LABS: Band Neutrophils Absolute 0.1 10^3/uL (0.0-0.3); Basophils Abs Manual 0.00 10^3/uL (0.00-0.10); Basophils Percent Manual 0.0 % (0.2-2.0); Eosinophils Absolute Manual 0.00 10^3/uL (0.00-0.70); Eosinophils Percent Manual 0.0 % (0.9-7.0); Lymphocytes Absolute Manual 0.13 10^3/uL (1.20-3.80); Lymphocytes Percent Manual 1.0 % (20.5-60.0); Monocytes Absolute Manual 0.52 10^3/uL (0.30-0.80); Monocytes Percent Manual 4.0 % (1.7-12.0); Segmented Neut Absolute Manual 12.22 10^3/uL (1.4-6.5); Segmented Neutrophils % Manual 94.0 (43.0-75.0)
== END 2025-08-22 15:24 | disposition home or self-care (01) ==
LOC: LAB 15:26
PROVIDERS: PCP Nurse Practitioner
DX: Z01.818 Encounter for other preprocedural examination (principal)
CPT/HCPCS: 36415; 80048; 85007; 85027

== ENCOUNTER 2025-08-29 09:43 | Outpatient (OUT) | payer OTHER, SELFPAY ==
--- NOTE | 2025-08-29 09:46 | ECG_ITS ---
[facility] Test Date: 2025-08-29 Pat Name: ALFONZO SHAVER Department: Room: - Gender: Male Admitting Counselor: : [id number] Requested By: SUJIT LENTZ Order Number: [id number] Reading MD: BAO LINARES Measurements Intervals [place] Rate: 69 P: 52 CA: 149 QRS: 27 QRSD: 107 T: 42 QT: 371 QTc: 400 Interpretive Statements SINUS RHYTHM No previous ECG available for comparison Electronically Signed On 08-29-2025 13:17:26 EDT by BAO LINARES
--- OUTSIDE RECORDS SUMMARY | 2025-08-29 09:52 | XMS_ITS | CCD ---
Author Organization [facility] Care Team Providers Care Lithographer Apprentice Name Role Phone Aiyana Purdy Primary Care Physician [phone] MD Devonte Lentz Attending Provider IVONE Purdy Primary Care Provider [phone] Unknown, Referring Provider Unavailable Unav ailable Rosi Alvarez Primary Care Physician Rosi Alvarez Attending Unavailable Micaela, Rosi Bowers Attending Unavailable NAKUL BRANNON Attending Unavailabl e NAKUL BRANNON Admitting Unavailabl e MicaelaRosi valenzuela Admitting Unavailable MicaelaRosi valenzuela Attending Unavailable LEXX LANDERS Attending Unavailable DO Devonte Sunshine Attending Provider IVONE Alvarez Primary Care Provider Rosi Alvarez MD Unavailable Devonte Sunshine DO Unavailable Orin De Leon NP Unavailable Maegan Carmona NP Unavailable Unavailable Primary Care Provider Unavailabl e Micaela BLUEPRINT MACHINE OPERATOR.Rosi DUMONT Primary Care Provider [phone] DIONE SWANSON Attending Unavailable PROVIDER, UNKNOWN Admitting Unavailable Devonte Sunshine DO Unavailable Maegan Carmona NP Unavailable Unavailable Micaela SALMON TROLL FISHER-CRosi Primary Care Provider Devonte Sunshine DO Attending Provider Elvira Luong APRN Attending Provider Micaela SALMON TROLL FISHER, Rosi Unavailable Reggie Sunshine DOer Unavailable Unallocated MD, Noms Provider Primary Care [facility] Micaela, Rosi L Attending Unavailable Micaela, Rosi [...] L Attending Unavailable Unavailable Primary Care Provider Unavailabl e Devonte Sunshine DO Referring Provider Micaela, BLACK PICKLER Rosi L Attending Unavailable Micaela, BLACK PICKLER Rosi L Attending Unavailable GALEN, JULIA Jeter Attending Unavailabl e Micaela, BLACK PICKLER Rosi L Attending Unavailable Micaela, BLACK PICKLER Rosi L Referring Unavailable Micaela, BLACK PICKLER Rosi L Admitting Unavailable Micaela, BLACK PICKLER Rosi Bowers Attending Unavailable Micaela, BLACK PICKLER Rosi L Attending Unavailable SUSI RICE Attending Unavailable DEVONTE SUNSHINE Referring Unavailab SUSI Saucedo Attending Unavailable MICAELA, ROSI THOMAS Primary Care Unavailable SUSI RICE Attending Unavailable MICAELA, ROSI THOMAS Primary Care Unavailable Micaela SALMON TROLL FISHER, Rosi Unavailable Devonte Sunshine DO Unavailable Maegan Carmona NP Unavailable Unavailable DEVONTE SUNSHINE Attending Unavailable DEVONTE SUNSHINE Attending Unavailable TRISHA ORTIZ Attending Unavailable ALEX LENTZ Attending Unavailable MICAELA, ROSI Referring Unavailable ALEX LENTZ Attending Unavailable ALEX LNETZ Attending Unavailable DEVONTE SUNSHINE Attending Unavailable DEVONTE SUNSHINE Attending Unavailable ALEX LENTZ Attending Unavailable ALEX LENTZ Attending Unavailable ALEX LENTZ Attending Unavailable ALEX LENTZ Attending Unavailable Bita, Christopher M Admitting Unavailab Devonte Boothe Attending UnavailRosi Xiao Primary Care Unavailable Devonte Sunshine Referring Rosi Rodríguez Primary Care Unavailable Devonte Sunshine Admitting Unavailab Devonte Boothe Attending Unavailab Rosi Kim Admitting Unavailable Rosi Alvarez Attending Unavailable MicaelaRosi valenzuela Attending Unavailable Allergies Allergy Classification Reported Allergen(s) Allergy Type Date of Onset Reaction(s) Facility (4 sources) No Known Medication Allergies; Translations: [No Known Medication Allergies] Propensity to adverse reactions (disorder) [facility] Repository Medications Current Medications Medication Drug Class(es) Dates Sig (Normalized) Sig (Original) acetaminophen 325 mg / HYDROcodone bitartrate 5 mg oral tablet (2 sources) Opioid Agonist Start: 08-25-2025 End: 08-30-2025 take 1 tablet by mouth every eight hours as needed for pain HYDROcodone-aceta minophen ([place]) 5-325 MG tablet Indications: Pain Take 1 tablet by mouth every 8 (eight) hours if needed for moderate pain (PRN pain) for up to 5 days 15 tablet 08/25/2025 08/30/2025 Active atorvastatin 20 mg oral tablet (20 sources) HMG-CoA Reductase Inhibitor Start: 01-28-2022 End: 08-01-2025 atorvastatin (Li pitor) 10 MG tablet Atorvastatin Calcium Active Atorvastatin Eduardo cium 20 MG Oral Tablet Quantity: 0 Refills: 0 Ordered: 04-Jun-2023 DO Active Betamethasone / Clotrimazole (20 sources) Azole Antifungal, Corticosteroid Start: 07-27-2021 betamethasone-clotrimazole T op 0.05%-1% Crm 45 gram 1 wilver, Topical, BID, 45 gram, Refill(s) 1, [facility]/pharmacy #[id number], 163, cm, 08/09/20 8:00:00 EDT, Height/Length Dosing, 98.7, kg, 08/09/20 8:00:00 EDT, Weight Dosing Start Date: 07/27/21 Status: Ordered Start: 07-27-2021 betamethasone- clotrimazole Top 0.05%-1% Crm 45 gram 1 wilver, Topical, BID, 45 gram, Refill(s) 1, [facility]/pharmacy #[id number], 163, cm, 08/09/20 [...] q12hr, # 14 cap(s), Refills(s) 0, Pharmacy: [facility]/pharmacy #[id number], 163, cm, 04/20/25 10:52:00 EDT, Height/Length [...] for allergy symptoms, 10 gram, Refill(s) 0, [facility]/pharmacy #[id number], 163, cm, 12/13/22 [...] day(s), # 90 tab(s), Refills(s) 3, Pharmacy: [facility]/pharmacy #[id number], 163, cm, 08/05/24 11:30:00 EDT, Height/Length Dosing, 105.1, kg, 08/05/24 11:30:00 EDT, Weight Dosing Start Date: 08/06/24 Stop Date: 08/01/25 Status: Ordered Quantity: 90.0 Unit: tab(s) Repeat number: 4 Indications: Hypothyroidism, unspecified; Start: 03-12-2023 take 1 tablet by ivis th once daily levothyroxine 125 mcg (0.125 mg) Tab 125 mcg = 1 tab(s), Oral, Daily, # 60 tab(s), Refills(s) 0, Pharmacy: [facility]/pharmacy #[id number], 163, cm, 03/07/23 10:07:00 EDT, Height/Length Dosing, 109, kg, 03/07/23 10:07:00 EDT, Weight Dosing Start Date: 03/12/23 Status: Ordered Start: 01-15-2023 take 1 tablet by ivis th once daily levothyroxine 150 mcg (0.15 mg) Tab 150 microgram = 1 tab(s), Oral, Daily, # 90 tab(s), Refills(s) 1, Pharmacy: [facility]/pharmacy #[id number], 163, cm, 12/13/22 11:50:00 EST, Height/Length Dosing, 109.8, kg, 12/13/22 11:50:00 EST, Weight Dosing Start Date: 01/15/23 Status: Ordered Start: 07-26-2022 take 1 tablet by ivis th once daily levothyroxine 150 mcg (0.15 mg) Tab 150 microgram = 1 tab(s), Oral, Daily, # 90 tab(s), Refills(s) 1, Pharmacy: [facility]/pharmacy #[id number], 163, cm, 04/30/22 11:55:00 EDT, Height/Length Dosing, 107, kg, 04/30/22 11:55:00 EDT, Weight Dosing Start Date: 07/26/22 Status: Ordered Start: 01-28-2022 take 1 tablet by ivis th once daily levothyroxine 150 mcg (0.15 mg) Tab 150 microgram = 1 tab(s), Oral, Daily, # 90 tab(s), Refills(s) 1, [id number], cm, 08/29/21 11:02:00 EDT, [...] wilver, Topical, TID, 60 gram, Refill(s) 6, [facility]/pharmacy #[id number], 163, cm, 08/29/21 [...] days, # 18 tab(s), Refills(s) 0, Pharmacy: [facility]/pharmacy #[id number], 163, cm, 04/30/22 11:55:00 EDT, Height/Length Dosing, 107... Start Date: 04/30/22 Status: Ordered Problems Active Problems Problem Classification Problem Date Documented Date Episodic/Chronic Acquired foot deformities (4 sources) Acquired deformity of toe of left foot; Translations: [Acquired deformities of toe(s), unspecified, left foot] 07-28-2025 Episodic Acquired foot deformities (4 sources) Acquired deformity of toe of right foot; Translations: [Acquired deformities of toe(s), unspecified, right foot] 07-28-2025 Episodic Chronic obstructive pulmonary disease and bronchiectasis (3 sources) Bronchitis 08-20-2023 Episodic Diabetes mellitus with complications (4 sources) Polyneuropathy due to diabetes mellitus; Translations: [...] Neoplasms of unspecified nature or uncertain behavior (6 sources) Neoplasm of uncertain behavior of skin; Translations: [Neoplasm of uncertain behavior of skin] 04-28-2025 Episodic Other acquired deformities (2 sources) Contracture of joint of right ankle; Translations: [Contracture, right ankle] 08-25-2025 Chronic Other connective tissue disease (1 source) [...] Results Test Name Value Interpretation Reference Range [facility] 08-10-2025 Albumin [Mass/Vol] 4.4 g/dL Normal 3.3-5.0 [facility] Comment on above: Performed By: #### 2 [id number] #### [facility] [address] [place] [address] Albumin/Globulin [Mass ratio] 2.2 {ratio} Normal 1.1-2.2 [facility] Comment on above: Performed By: #### 2 [id number] #### [facility] [address] [place] [address] Alk Phos 56 Int._Unit/L Normal 21-98 [facility] Comment on above: Performed By: #### 2 [id number] #### [facility] [address] [facility] [place] [address] ALT 37 Int._Unit/L Normal 6-46 [facility] Comment on above: Performed By: #### 2 [id number] #### [facility] [address] [facility] [place] [address] Anion gap [Moles/Vol] 8 mmol/L Normal 6-16 [facility] Comment on above: Performed By: #### 2 [id number] #### [facility] [address] [place] [address] AST 19 Int._Unit/L Normal 5-43 [facility] Comment on above: Performed By: #### 2 [id number] #### [facility] [address] [place] [address] Bili Total 0.5 mg/dL Normal 0.0-1.1 [facility] Comment on above: Performed By: #### 2 [id number] #### [facility] [address] [place] [address] BUN/Creat Ratio 14 No Units Normal 10-20 [facility] Comment on above: Performed By: #### 2 [id number] #### [facility] [address] [place] [address] Calcium [Mass/Vol] 9.0 mg/dL Normal 8.9-11.1 [facility] Comment on above: Performed By: #### 2 [id number] #### [facility] [address] [place] [address] Chloride [Moles/Vol] 104 mmol/L Normal 101-111 [facility] Comment on above: Performed By: #### 2 [id number] #### [facility] [address] [place] [address] CO2 [Moles/Vol] 30 mmol/L Normal 21-31 [facility] Comment on above: Performed By: #### 2 [id number] #### [facility] [address] [place] [address] Creatinine [Mass/Vol] 0.8 mg/dL Normal 0.5-1.3 [facility] Comment on above: Performed By: #### 2 [id number] #### [facility] [address] [place] [address] Globulin (S) [Mass/Vol] 2.0 g/dL Normal 1.4-4.0 [facility] Comment on above: Performed By: #### 2 [id number] #### [facility] [address] [place] [address] Glucose [Mass/Vol] 139 mg/dL Normal 55-199 [facility] Comment on above: Performed By: #### 2 [id number] #### [facility] [address] [place] [address] Potassium [Moles/Vol] 3.7 mmol/L Normal 3.5-5.3 [facility] Comment on above: Performed By: #### 2 [id number] #### [facility] [address] [place] [address] Protein [Mass/Vol] 6.4 g/dL Normal 6.0-7.8 [facility] Comment on above: Performed By: #### 2 [id number] #### [facility] [address] [place] [address] Sodium [Moles/Vol] 138 mmol/L Normal 135-145 [facility] Comment on above: Performed By: #### 2 [id number] #### [facility] [address] [place] [address] Urea nitrogen [Mass/Vol] 11 mg/dL Normal 5-21 [facility] Comment on above: Performed By: #### 2 [id number] #### [facility] [address] [place] [address] [id number] 08-10-2025 HbA1c (Bld) [Mass fraction] 7.4 % High <=5.9 [facility] Comment on above: Performed By: #### 7 [id number] #### [facility] [address] [place] [address] Lipid Panelon 08-10-2025 Cholesterol [Mass/Vol] 147 mg/dL Normal 120-200 [facility] Comment on above: Performed By: #### 2 [id number] #### [facility] [address] [place] [address] Cholesterol in HDL [Mass/Vol] 44 mg/dL Invalid Interpretation Code [facility] Comment on above: Result Comment: '>= 60 LOW RISK' '<= 40 HIGH RISK' Performed By: #### 2 [id number] #### [facility] [address] [place] [address] Cholesterol in LDL [Mass/Vol] 76 mg/dL Normal <=129 [facility] Comment on above: Performed By: #### 2 [id number] #### [facility] [address] [place] [address] Cholesterol in VLDL [Mass/Vol] 26 mg/dL Normal 7-40 [facility] Comment on above: Performed By: #### 2 [id number] #### [facility] [address] [place] [address] Triglyceride [Mass/Vol] 129 mg/dL Normal <=149 [facility] Comment on above: Performed By: #### 2 [id number] #### [facility] [address] [place] [address] TSHon 08-10-2025 TSH Qn 0.27 m[IU]/L Low 0.34-5.60 [facility] Comment on above: Performed By: #### 2 [id number] #### [facility] [address] [place] [address] Vitamin D 25 Hydroxyon 08-10 Vitamin D 25 Hydroxy 53.6 ng/mL Normal 30.0-100.0 [facility] Comment on above: Performed By: #### 5 [id number] #### [facility] [address] [place] [address] eGFRon 08-10-2025 eGFR 107 mL/min/1.73 m2 Normal >=59 [facility] Comment on above: Performed By: #### 1 [id number] #### [facility] [address] [place] [address] Family Medicine Office/Clini c Noteon 08-09-2025 Family [...] Ordered: Est Preventative 40 to 64 years [address] 2. Type 2 diabetes mellitus (E11.9: Type 2 diabetes mellitus without complications) pt presents today for diabetes follow up. order for HGBA1C provided. will go to [facility]. he is a hard stick and prefers to go to hospital. since increasing insulin to 8 units blood sugars are running in the 150-200's. he is feeling much better. will increase 10 units. RTC 3 months Ordered: Misc Prescription, Pen Needle 31G x 6mm, See Instructions, 100 EA, 1, Pen Needle 31G x 6mm, [id number], Supply, 163, cm, 08/09/25 10:54:00 EDT, Height/Length Dosing, 99.7, kg, 08/09/25 10:54:00 EDT, Weight Dosing Comprehensive Metabolic Panel Est Preventative 40 to 64 years [address] HgbA1c Lipid Panel Thyroid Stimulating Hormone Vitamin [...] Panel Est Preventative 40 to 64 years [address] HgbA1c Lipid Panel Thyroid Stimulating Hormone Vitamin D 25 Hydroxy 4. Hyperlipemia (E78.5: Hyperlipidemia, unspecified) lipid panel ordered Ordered: Misc Prescription, Pen Needle 31G x 6mm, See Instructions, 100 EA, 1, Pen Needle 31G x 6mm, [id number], Supply, 163, cm, 08/09/25 10:54:00 EDT, Height/Length Dosing, 99.7, kg, 08/09/25 10:54:00 EDT, Weight Dosing Comprehensive Metabolic Panel Est Preventative 40 to 64 years [address] HgbA1c Lipid Panel Thyroid Stimulating Hormone Vitamin D 25 Hydroxy 5. Hypothyroid (E03.9: Hypothyroidism, unspecified) TSH ordered Ordered: Misc Prescription, Pen Needle 31G x 6mm, See Instructions, 100 EA, 1, Pen Needle 31G x 6mm, [id number], Supply, 163, cm, 08/09/25 10:54:00 EDT, Height/Length Dosing, 99.7, kg, 08/09/25 10:54:00 EDT, Weight Dosing Comprehensive Metabolic Panel Est Preventative 40 to 64 years [address] HgbA1c Lipid Panel Thyroid Stimulating Hormone Vitamin [...] Panel Est Preventative 40 to 64 years [address] HgbA1c Lipid Panel Thyroid Stimulating Hormone Vitamin [...] Panel Est Preventative 40 to 64 years [address] HgbA1c Lipid Panel Thyroid Stimulating Hormone Vitamin D 25 Hydroxy Orders: insulin glargine, 10 unit(s), SubCutaneous, Daily, # 6 mL, Refills(s) 0, Pharmacy: [id number], 163, cm, 07/18/25 13:52:00 EDT, Height/Length Dosing, 102.2, kg, 07/18/25 13:52:00 EDT, Weight Dosing Follow-up No qualifying data available Problem List/Past Medical History Ongoing Blurred vision Bronchitis Encounter for weight management Hot flashes Hyperlipemia Hypothyroid 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 Normal [facility] Comment on above: Result Comment: Elec [...] 10:40 AM EDT With: Rosi Bradford Where: [address] [address]- Friday 1:00 PM EDT With: Where: FT Dietary Friday 1:00 PM EDT With: Where: [facility] Dietary Medications What How Much When Why Instructions New insulin degludec (Tresiba FlexTouch 100 units/ mL subcutaneous solution) 10 Units Subcutaneous Every day Type 2 diabetes mellitus Refills: 1 Pickup at [facility]/pharmacy #[id number] Unchanged atorvastatin (atorvastatin 20 mg Tab) 1 [...] Kit) See instructions Type 2 diabetes mellitus half-way current use of systemic steroids BMI 40.0-44.9, [...] AND 1 TAB BEFORE BEDTIME. Pharmacy Information [facility]/pharmacy #[id number]: [address], [place] [phone] What How Much When Why Comments Stop Taking sitagliptin (Januvia 50 mg Tab) 1 Tablets By Mouth Every day Abdominal pain Allergies No Known Medication Allergies Problems Ongoing - Any problem that you are currently receiving treatment for. Bilateral knee pain Blurred vision BMI 39.0-39.9,adult Bronchitis Encounter for weight management Hot flashes Hyperlipemia Hypothyroid Leg cramps half-way current use of systemic steroids Migraine Morbid [...] signed up for this yet, please contact [employer] at [phone] to get signed up today. Language Information Language assistance services are available as needed. 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 Language Information Language assistance services are available as needed. Gabriela [facility] Family Medicine Office/Clini c Noteon 07-18-2025 [...] Daily, # 15 mL, Refills(s) 1, Pharmacy: [facility]/pharmacy #[id number], 163, cm, 07/18/25 13:52:00 EDT, Height/Length Dosing, 102.2, kg, 07/18/25 13:52:00 EDT, Weight Dosing Misc Prescription, Dexcom 7 sensors, See Instructions, 18 EA, 3, change every 14 days and as needed, [id number], Supply, 163, cm, 07/18/25 13:52:00 EDT, Height/Length Dosing, 102.2, kg, 07/18/25 13:52:00 EDT, Weight Dosing Misc Prescription, Dexcom 7 CGM, See Instructions, 1 EA, 0, check blood sugar 4 times daily and as needed starting insulin today, [facility]/pharmacy #[id number], Supply, 163, cm, 07/18/25 13:52:00 EDT, Height/Length Dosing, 102.2, kg, 07/18/25 13:52:00 EDT, Weight Dosing 2. 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 Normal [facility] Comment on above: Result Comment: Elec [...] 10:40 AM EDT With: Rosi Bradford Where: [place] [id number]- Medications What How Much When Why Instructions New hydrocortisone topical (hydrocortisone Top 2.5% Crm) 1 Application Topical 3 times a day Rash Refills: 1 Pickup at [facility]/pharmacy #[id number] New sitagliptin (Januvia 50 mg Tab) 1 Tablets By Mouth Every day Abdominal pain Pickup at [facility]/pharmacy #[id number] Unchanged atorvastatin (atorvastatin 20 mg Tab) [...] Kit) See instructions Type 2 diabetes mellitus half-way current use of systemic steroids BMI 40.0-44.9, [...] physician if questions or concerns Pharmacy Information [facility]/pharmacy #[id number]: [address], [place] [phone] What How Much When Comments Stop Taking dapagliflozin (Farxiga 5 mg oral tablet) 1 Tablets By Mouth Every day Allergies No Known Medication Allergies Problems Ongoing - Any problem that you are currently receiving treatment for. 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 Normal [facility] Family Medicine Office/Clini c Noteon 06-28-2025 [...] Daily, # 30 tab(s), Refills(s) 0, Pharmacy: [facility]/pharmacy #[id number], 163, cm, 06/28/25 14:26:00 EDT, Height/Length Dosing, 105.3, kg, 06/28/25 14:26:00 EDT, Weight Dosing 2. 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 Normal [facility] Comment on above: Result Comment: Elec tronically Signed By: LEE AARON CNP\Date and Time Signed: 06/28/25 15:08 EDT BMPon 06-07-2025 Anion gap [Moles/Vol] 13 mmol/L Normal 6-16 [facility] Comment on above: Performed By: #### 2 [id number] #### [facility] [address] [place] [address] BUN/Creat Ratio 17 No Units Normal 10-20 [facility] Comment on above: Performed By: #### 2 [id number] #### [facility] [facility] [address] [place] [address] Calcium [Mass/Vol] 9.1 mg/dL Normal 8.9-11.1 [facility] Comment on above: Performed By: #### 2 [id number] #### [facility] [address] [place] [address] Chloride [Moles/Vol] 104 mmol/L Normal 101-111 [facility] Comment on above: Performed By: #### 2 [id number] #### [facility] [address] [place] [address] CO2 [Moles/Vol] 23 mmol/L Normal 21-31 [facility] Comment on above: Performed By: #### 2 [id number] #### [facility] [address] [place] [address] Creatinine [Mass/Vol] 0.9 mg/dL Normal 0.5-1.3 [facility] Comment on above: Performed By: #### 2 [id number] #### [facility] [address] [place] [address] Glucose [Mass/Vol] 278 mg/dL High 55-199 [facility] Comment on above: Performed By: #### 2 [id number] #### [facility] [address] [place] [address] Potassium [Moles/Vol] 4.1 mmol/L Normal 3.5-5.3 [facility] Comment on above: Performed By: #### 2 [id number] #### [facility] [address] [place] [address] Sodium [Moles/Vol] 136 mmol/L Normal 135-145 [facility] Comment on above: Performed By: #### 2 [id number] #### [facility] [address] [place] [address] Urea nitrogen [Mass/Vol] 15 mg/dL Normal 5-21 [facility] Comment on above: Performed By: #### 2 [id number] #### [facility] [address] [place] [address] Family Medicine Office/Clini c Noteon 06-07-2025 Family [...] Started on metformin & ozempic therapy @ [facility]. 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 Normal [facility] Comment on above: Result Comment: Elec tronically Signed By: Rosi Bradford\.br\Date and Time Signed: 06/07/25 12:32 EDT Magnesiumon 06-07-2025 Magnesium [Mass/Vol] 2.3 mg/dL Normal 1.3-2.4 [facility] Comment on above: Performed By: #### 2 [id number] #### [facility] [address] [place] [address] Vitamin D 25 Hydroxyon 06-07 Vitamin D 25 Hydroxy 22.3 ng/mL Low 30.0-100.0 [facility] Comment on above: Performed By: #### 5 [id number] #### [facility] [address] [place] [address] eGFRon 06-07-2025 eGFR 103 mL/min/1.73 m2 Normal >=59 [facility] Comment on above: Performed By: #### 1 [id number] #### [facility] [address] [place] [address] Ambulatory Visit Summaryon 0 06-06-2025 Ambulatory Visit Summary Ambulatory Visit Summary ALFONZO SHAVER :1975 Visit Date:06/06/2025 Ambulatory Visit Instructions Your Diagnosis Type 2 diabetes mellitus Leg cramps BMI 40.0-44.9, adult Smoker Obesity, morbid, BMI 40.0-49.9 Your Care Team Attending Physician - Rosi Bradford Primary Care Physician - Rosi Bradford This Is Your Medications List [facility] Prescription (Glucose Kit) Misc Prescription (True metrix glucose test strips) Mis [...] FT Dietary Friday 10:00 AM EDT Where: [address] [address]- Medications What How Much When Why Instructions New Misc Prescription (alcohol swabs) See instructions Type 2 diabetes mellitus Leg cramps Refills: 5 check blood sugar 6 times a day Pickup at [facility]/pharmacy #6100 New Misc Prescription (True metrix glucose test strips) See instructions Type 2 diabetes mellitus Leg cramps Refills: 5 check blood sugar 6 times a day Pickup at [facility]/pharmacy #6134 Unchanged atorvastatin (atorvastatin 20 mg Tab) 1 Tablets By Mouth Every day Duration: 90 Days Unchanged dapagliflozin (Farxiga 5 mg oral tablet) 1 Tablets By Mouth Every day Unchanged levothyroxine (levothyroxine 125 mcg (0.125 mg) Tab) 1 Tablets By Mouth Every day Hypothyroidism Duration: 90 Days Unchanged Misc Prescription (Glucose Kit) See instructions 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 Bilateral knee pain Blurred vision BMI 40.0-44.9, adult Bronchitis Encounter for weight management Hot flashes Hyperlipemia Hypothyroid Leg cramps half-way current use of systemic steroids Migraine Morbid [...] signed up for this yet, please contact [employer] at [phone] to get signed up today. Language Information Language assistance services are available as needed. 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 Pharmacy Information [facility]/pharmacy #[id number]: [address], [place] [phone] Allergies No Known Medication Allergies Problems Ongoing - Any problem that you are currently receiving treatment for. Bilateral knee pain Blurred vision BMI 40.0-44.9, adult Bronchitis Encounter for weight management Hot flashes Hyperlipemia Hypothyroid half-way current use of systemic steroids Migraine Morbid [...] signed up for this yet, please contact [employer] at [phone] to get signed up today. Language Information Language assistance services are available as needed. Normal [facility] Family Medicine Office/Clini c Noteon 05-06-2025 Family [...] BID, # 60 tab(s), Refills(s) 0, Pharmacy: [facility]/pharmacy #[id number], 163, cm, 05/06/25 9:47:00 EDT, Height/Length Dosing, 115.9, kg, 05/06/25 9:47:00 EDT, Weight Dosing Misc Prescription, Glucose Kit, See Instructions, 1 EA, 0, Glucose meter. Include autolet, matching test strips, lancets, & alcohol wipes, #100 or as allowed by insurance; DX: E11.9, [facility]/pharmacy #6177, Supply, 163, cm, 05/06/25 9:47:00 EDT, Height/Length Dosing, 115.9,... semaglutide, 0.25 mg, SubCutaneous, qWeek, # 4 EA, Refills(s) 0, [facility] 163, cm, 05/06/25 9:47:00 EDT, Height/Length Dosing, 115.9, kg, 05/06/25 9:47:00 EDT, Weight Dosing [facility] Internal Ambulatory Referral 2. 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, 163, cm, 05/06/25 9:47:00 EDT, Height/Length Dosing, 115.9, kg, 05/06/25 9:47:00 EDT, Weight Dosing [facility] Prescription, Glucose Kit, See Instructions, 1 EA, 0, Glucose meter. Include autolet, matching test strips, lancets, & alcohol wipes, #100 or as allowed by insurance; DX: E11.9, [facility]/pharmacy #6177, Supply, 163, cm, 05/06/25 9:47:00 EDT, Height/Length Dosing, 115.9,... semaglutide, 0.25 mg, SubCutaneous, qWeek, # 4 EA, Refills(s) 0, Pharmacy: [facility]/pharmacy #6177, 163, cm, 05/06/25 9:47:00 EDT, Height/Length Dosing, 115.9, kg, 05/06/25 9:47:00 EDT, Weight Dosing [facility] [place] Ambulatory Referral 3. BMI 40.0-44.9, adult (Z68.41: Body mass index [BMI] 40.0-44.9, adult) will refer to diabetic education Ordered: [facility] Prescription, Glucose Kit, See Instructions, 1 EA, [...] for weight management Hot flashes Hyperlipemia Hypothyroid half-way current use of systemic steroids Migraine Morbid [...] 02/01/2025 Employment/School Employed, Work/School description: Works at [employer] 10/01/2019 Substance Abuse - Medium Risk, 03/07/2023 Past. Marijuana. 1-2 times per year. Previous treatment: None., 02/01/2025 Tobacco - High Risk, 08/09/2020 10 or more cigarettes (1/2 pack or more)/day in last 30 days, Smoker, current status unknown Tobacco Use:. Never Smokeles (more content not included)... Normal [facility] Comment on above: Result Comment: Elec tronically Signed By: Rosi Bradford\.br\Date and Time Signed: 05/06/25 10:06 EDT Ambulatory Visit Summaryon 0 05-03-2025 Ambulatory Visit Summary Ambulatory Visit Summary ALFONZO SHAVER :1975 Visit Date:05/03/2025 Ambulatory Visit Instructions Your Diagnosis Skin tag Prostate cancer screening Prediabetes Nocturia Polyuria BMI 40.0-44.9, adult Your Care Team Attending Physician - Rosi Bradford Primary Care Physician - Rosi Brdaford This Is Your Medications List atorvastatin (atorvastatin [...] signed up for this yet, please contact [employer] Management at [phone] to get signed up today. Language Information Language assistance services are available as needed. Normal [facility] Medicine Office/Clini c Noteon 05-03-2025 Family Medicine [...] Total Remove skin tags 15 or less [address] Thyroid Stimulating Hormone 2. Prostate cancer screening (Z12.5: Encounter for screening for malignant neoplasm of prostate) PSA ordered will do at [facility] Ordered: HgbA1c PSA Screen, Total Remove skin tags 15 or less [address] Thyroid Stimulating Hormone 3. Prediabetes (R73.03: Prediabetes) order for HGBA1C provided Ordered: HgbA1c PSA Screen, Total Remove skin tags 15 or less [address] Thyroid Stimulating Hormone 4. Nocturia (R35.1: Nocturia) pt states he urinates every hour. he is not sure if it's his medication Ordered: HgbA1c PSA Screen, Total Remove skin tags 15 or less [address] Thyroid Stimulating Hormone 5. Polyuria (R35.89: Other polyuria) PSA and HGBA1C ordered. discussed that it could be a side effect from the pyridostigmine Ordered: HgbA1c PSA Screen, Total Remove skin tags 15 or less [address] Thyroid Stimulating Hormone 6. BMI 40.0-44.9, adult [...] 02/01/2025 Employment/School Employed, Work/School description: Works at [employer] 10/01/2019 Substance Abuse - Medium Risk, 03/07/2023 [...] vax 01/30/2021 Recorded 2022-12-13: TPV40 Normal [facility] Comment on above: Result Comment: Elec tronically Signed By: Micaela BOLAND, Rosi Bowers\.br\Date and Time Signed: 05/03/25 10:36 EDT Interpretation of thiopurine methyltransferase (TPMT) activityOrdered By: Devonte Sunshine on 04-29-2025 TPMT gene product metabolic activity interpretation [employer] Ql (Bld/Tiss) [Interp] Comment . [facility] Comment on above: In this sample, the [...] was developed and its performance characteristicsdetermined by [facility]. It has not been cleared or approvedby the Food and Drug Administration.This case has been reviewed, approved, interpreted andelectronically signed by Manjeet Mayfield, PhD, [facility]. Referral lab test methodOrde red By: Devonte Sunshine on 04-29-2025 Reference Lab Test Method Comment . [facility] Comment on above: Enzymatic Endpoint/L iquid Chromatography - Tandem MassSpectrometry (LC-MS/MS)Performed at: [facility] [id number] [place], [place] [id number] Director: Junior Dodge MD, Phone: [phone] Thiopurine Methyltransferase -Ton 04-29-2025 TPMT Activity 16.1 Normal . [facility] Comment on above: Result Comment: Resu lt Units: Units/mL RBC Reference Range: Normal: 15.1 - 26.4 Heterozygous for low TPMT variant: 6.3 - 15.0 Homozygous for low TPMT variant: <6.3 Performed By: #### T PMT ENZ #### [facility] , TPMT Interpretation Comment Normal . [facility] Comment on above: Result Comment: [...] developed and its performance characteristics determined by [facility]. It has not been cleared or approved by the Food and Drug Administration. This case has been reviewed, approved, interpreted and electronically signed by Manjeet Mayfield, PhD, [facility]. Performed By: #### T PMT ENZ #### [facility] , TPMT Methodology Comment Normal . [facility] Comment on above: Result Comment: Jens yates Endpoint/Liquid Chromatography - Tandem Mass Spectrometry (LC-MS/MS) Performed at: [facility] [address] [place], [place] [id number] Director Of Culture: Junior Dodge MD, Phone: [phone] PERFORMED BY: [place] [address] [place] [address] PATHOLOGIST PROCESSOR INSPECTOR TIMMY ZAMUDIO M.D. Performed By: #### T PMT ENZ #### [facility] , Thiopurine methyltransferase [Enzymatic activity/volume] in Red Blood CellsOrdered By: Devonte Sunshine on 04-29-2025 Thiopurine methyltransferase (RBC) [Catalytic activity/Vol] 16.1 . [facility] Comment on above: Result Units: Units/ mL [...] 10:00 AM EDT With: Rosi Bradford Where: [place] [address]- Medications What How Much When Why Instructions [...] choosing us for your care. Normal [facility] Family Medicine Office/Clini c Noteon 04-20-2025 [...] q12hr, # 14 cap(s), Refills(s) 0, Pharmacy: [facility]/pharmacy #[id number], 163, cm, 04/20/25 10:52:00 EDT, Height/Length Dosing, 118, kg, 04/20/25 10:52:00 EDT, Weight Dosing 2. BMI 40.0-44.9, adult (Z68.41: Body mass index [BMI] 40.0-44.9, adult) BMI education given Ordered: cephalexin, 500 mg = 1 cap(s), Oral, q12hr, # 14 cap(s), Refills(s) 0, Pharmacy: [facility]/pharmacy #6177, 163, cm, 04/20/25 10:52:00 EDT, Height/Length [...] 02/01/2025 Employment/School Employed, Work/School description: Works at [employer] 10/01/2019 Substance Abuse - Medium Risk, 03/07/2023 [...] BNT-162b2 vax 01/30/2021 Recorded 2022-12-13: TPV40 Normal [facility] Comment on above: Result Comment: Elec [...] for choosing us for your care. Normal [facility] Family Medicine Office/Clini c Noteon 04-06-2025 Family Medicine Office/Clinic Note Family Medicine Office/Clinic Note HPI Staff Alfonzo is a 50 year old male presenting for 1 month follow up Weight management: Started Phentermine on Sleeping well:Yes, 6-8 hours Chest pain:No Tremors:No Headaches:No Heart fluttering:No Blurred Vision:No Beginning weight: 266.31 Previous weight: 259 Today's weight: 256 Questions/Concerns: pt states Guillermosierra increased his prednisone and had him stop [...] Daily, # 30 tab(s), Refills(s) 0, Pharmacy: [facility]/pharmacy #6177, 163, cm, 03/02/25 16:22:00 EDT, Height/Length Dosing, 117.8, kg, 03/02/25 16:22:00 EDT, Weight Dosing [facility] [place] Ambulatory Referral 2. Plantar wart, right foot (B07.0: Plantar wart) pt has 4 plantar warts on right foot. He had them surgically removed by Dr. Lentz years ago. they have returned and are becoming painful. will send referral. pt will call office on Friday. Ordered: [facility] External Ambulatory Referral 3. BMI 40.0-44.9, adult (Z68.41: Body mass index [BMI] 40.0-44.9, adult) BMI education given 4. Non-smoker (Z78.9: Other specified health status) continue not smoking Ordered: [facility] External Ambulatory Referral Follow-up No qualifying data [...] 02/01/2025 Employment/School Employed, Work/School description: Works at [employer] 10/01/2019 Substance Abuse - Medium Risk, 03/07/2023 [...] BNT-162b2 vax 01/30/2021 Recorded 2022-12-13: TPV40 Normal [facility] Comment on above: Result Comment: Elec [...] 9:40 AM EDT With: Rosi Bradford Where: [address] [address]- Medications What How Much When Why Instructions [...] for choosing us for your care. Normal [facility] Medicine Office/Clini c Noteon 03-02-2025 Family Medicine [...] Daily, # 30 tab(s), Refills(s) 0, [facility], 163, cm, 02/02/25 15:31:00 EDT, Height/Length Dosing, 120.8, kg, 02/02/25 15:31:00 EDT, Weight Dosing phentermine, 37.5 mg = 1 tab(s), Oral, Daily, # 30 tab(s), Refills(s) 0, [facility], 163, cm, 03/02/25 16:22:00 EDT, Height/Length Dosing, 117.8, kg, 03/02/25 16:22:00 EDT, Weight Dosing 2. BMI 40.0-44.9, adult (Z68.41: Body mass index [BMI] 40.0-44.9, adult) BMI education 3. Smoker (F17.200: Nicotine dependence, unspecified, uncomplicated) consider not smoking Ordered: phentermine, 37.5 mg = 1 tab(s), Oral, Daily, # 30 tab(s), Refills(s) 0, Pharmacy: [facility]/pharmacy #6177, 163, cm, 02/02/25 15:31:00 EDT, Height/Length Dosing, 120.8, kg, 02/02/25 15:31:00 EDT, Weight Dosing phentermine, 37.5 mg = 1 tab(s), Oral, Daily, # 30 tab(s), Refills(s) 0, Pharmacy: [facility]/pharmacy #6177, 163, cm, 03/02/25 16:22:00 EDT, Height/Length [...] 02/01/2025 Employment/School Employed, Work/School description: Works at [employer] 10/01/2019 Substance Abuse - Medium Risk, 03/07/2023 [...] BNT-162b2 vax 01/30/2021 Recorded 2022-12-13: TPV40 Normal [facility] Comment on above: Result Comment: Elec tronically Signed By: Rosi Bradford\.br\Date and Time Signed: 03/02/25 16:29 EDT [...] Daily, # 30 tab(s), Refills(s) 0, Pharmacy: [facility]/pharmacy #6177, 163, cm, 02/02/25 15:31:00 EDT, Height/Length Dosing, 120.8, kg, 02/02/25 15:31:00 EDT, Weight Dosing 2. BMI 45.0-49.9, adult (Z68.42: Body mass index [BMI] 45.0-49.9, adult) BMI education given. Ordered: phentermine, 37.5 mg = 1 tab(s), Oral, Daily, # 30 tab(s), Refills(s) 0, Pharmacy: [facility]/pharmacy #6177, 163, cm, 02/02/25 15:31:00 EDT, Height/Length Dosing, 120.8, kg, 02/02/25 15:31:00 EDT, Weight Dosing 3. Smoker (F17.200: Nicotine dependence, unspecified, uncomplicated) consider not smoking Ordered: phentermine, 37.5 mg = 1 tab(s), Oral, Daily, # 30 tab(s), Refills(s) 0, Pharmacy: [facility]/pharmacy #6177, 163, cm, 02/02/25 [...] 02/01/2025 Employment/School Employed, Work/School description: Works at [employer] 10/01/2019 Substance Abuse - Medium Risk, 03/07/2023 [...] BNT-162b2 vax 01/30/2021 Recorded 2022-12-13: TPV40 Normal [facility] Comment on above: Result Comment: Elec tronically Signed By: Rosi Bradford\.br\Date and Time Signed: 02/02/25 15:48 EDT Progress Noteson 01-11-2025 [employer] Authentication Interface Message Text Neurology Note Name: Alfonzo Shaver : 1975 no referring provider Chief Complaint: Myasthenia gravis History of Present Illness: Alfonzo Shaver is a 49 year old male who presents for for evaluation for myasthenia gravis. Falls with Dr. Braswell for his myasthenia gravis. Recently saw Dr. Rice at [facility] for 2nd opinion. The patient arrives with [...] Allergies Current Medications Current Outpatient Medications: efgartigimod pkdi-dluodzuadsmxg-brbc (Vyvgart Hytrulo) 180-2000 MG-UNIT/ML SOLN injection, Inject [...] recently saw Dr. Rice in at the [facility] for the same reason. Overall, I agree with continuing 30 mg of steroids for the time being, continuing 60 mg of Mestinon t.i.d., and continuing vyvguart hytrulo with each cycle spaced 4 weeks apart (1 month on, 1 month off). I do agree, that the patient ultimately may require steroid sparing therapy. As mentioned by my colleague Dr. Rice at the [facility], would check TPMT enzyme. If [...] Swanson MD Neurology/ Neuromuscular Medicine Normal [facility] [employer] [facility] CNPJose E Telephone (NIQ) ALFONZO SHAVER ([id number]) 1975 M Date Time Provider Department 12/15/24 [...] Records [[id number]] Cmt: External referral to Neurological [place] Problem List As Of Date: 12/15/2024 (None) Encounter Status:Closed by MONTSE PRUITT on 12/17/24 [facility] Ambulatory Visit Summaryon 0 08-05-2024 Ambulatory [...] for choosing us for your care. Normal [facility] Medicine Office/Clini c Noteon 08-05-2024 Family Medicine [...] Diff Est Preventative 40 to 64 years [address] HgbA1c Lipid Panel PSA Screen, Total Thyroid Stimulating Hormone 2. Myasthenia gravis (G70.00: Myasthenia gravis without (acute) exacerbation) pt was recently diagnosed with MG by Dr. Sunshine neurology Ordered: C-Reactive Protein CBC w/ Auto Diff Est Preventative 40 to 64 years [address] HgbA1c Lipid Panel PSA Screen, Total Thyroid Stimulating Hormone 3. Hyperlipemia (E78.5: Hyperlipidemia, unspecified) lipid panel oerdered Ordered: C-Reactive Protein CBC w/ Auto Diff Est Preventative 40 to 64 years [address] HgbA1c Lipid Panel PSA Screen, Total Thyroid Stimulating Hormone 4. Prediabetes (R73.03: Prediabetes) HGBA1C ordered Ordered: C-Reactive Protein CBC w/ Auto Diff Est Preventative 40 to 64 years [address] HgbA1c Lipid Panel PSA Screen, Total Thyroid Stimulating Hormone 5. Prostate cancer screening (Z12.5: Encounter for screening for malignant neoplasm of prostate) psa ordered Ordered: C-Reactive Protein CBC w/ Auto Diff Est Preventative 40 to 64 years [address] HgbA1c Lipid Panel PSA Screen, Total Thyroid Stimulating Hormone 6. Hypothyroid (E03.9: Hypothyroidism, unspecified) TSH ordered. pt needs refills on synthroid Ordered: Est Preventative 40 to 64 years [address] 7. Smoker (F17.200: Nicotine dependence, unspecified, uncomplicated) consider not smoking Ordered: Est Preventative 40 to 64 years [address] 8. BMI 39.0-39.9,adult (Z68.39: Body mass index [BMI] 39.0-39.9, adult) BMI education Ordered: Est Preventative 40 to 64 years [address] 9. Class 1 obesity due to excess calories in adult (E66.09: Other obesity due to excess calories) see above Ordered: Est Preventative 40 to 64 years [address] Follow-up No qualifying data available Problem List/Past [...] 03/07/2023 Employment/School Employed, Work/School description: Works at [employer] 10/01/2019 Substance Abuse - Medium Risk, 03/07/2023 [...] (COVID-19) mR (more content not included)... Normal [facility] Comment on above: Result Comment: Elec tronically Signed By: Rosi Bradford\.br\Date and Time Signed: 08/05/24 11:46 EDT Lab Miscellaneous-LCon 05-13 Lab Miscellaneous COMMENT Invalid Interpretation Code [facility] Comment on above: Result Comment: Test Ordered: [id number] AChR Blocking Abs, Serum AChR Blocking Abs, Serum 57 [H ] % BN Reference Range: 0-25 This test was developed and its performance characteristics determined by [facility]. It has not been cleared or approved by the Food and Drug Administration. Negative: 0 - 25 Borderline: 26 - 30 Positive: >30 Performed at: [address] [id number] PhD Xiomara Hill Performed By: #### 1 [id number] #### [facility] Laboratory [address] [place] [address] Lab Miscellaneous-[facility] 05-12 Lab Miscellaneous COMMENT Invalid Interpretation Code [facility] Comment on above: Result Comment: Test Ordered: [id number] AChR-modulating Ab AChR-modulating Ab 91 [H ] % BN Reference Range: 0-45 This test was developed and its performance characteristics determined by [facility]. It has not been cleared or approved by the Food and Drug Administration. Interpretive Information: Negative: 0 - 45% Positive: > 45% No single value for AChR-modulating antibody should be used as a sole basis for diagnosis or response to therapy. Performed at: [address] [id number] PhD Xiomara Hill Performed By: #### 1 [id number] #### [facility] [address] [place] [address] ACHr Bind Abon 05-10-2024 Acetylcholine receptor binding Ab (S) [Moles/Vol] 33.00 nmol/L High 0.00-0.24 [facility] Comment on above: Result Comment: Re sults verified by repeat testing Negative: 0.00 - 0.24 Borderline: 0.25 - 0.40 Positive: >0.40 Performed at: [address] [id number] MD Ag Valentino Performed By: #### 1 [id number] #### [facility] [address] [place] [address] [place] [address] Smooth Muscle Abon 4 Actin smooth muscle IgG Qn (S) 3 unit(s) Invalid Interpretation Code 0-19 [facility] Comment on above: Result Comment: Nega tive 0 - 19 Weak positive 20 - 30 Moderate to strong positive >30 Actin Antibodies are found in 52-85% of patients with autoimmune hepatitis or chronic active hepatitis and in 22% of patients with primary biliary cirrhosis. Performed at: [facility] [id number] PhD Xiomara Hill Performed By: #### 1 [id number] #### [facility] [address] [place] [address] Consent for Treatmenton 04-11 Consent for Treatment [id number]#[id number] Normal [facility] Lab Miscellaneous-LCon 05-05 Test Code 655510 Invalid Interpretation Code [facility] Comment on above: Performed By: #### 1 [id number] #### [facility] [address] [place] [address] Test Code 818533 Invalid Interpretation Code [facility] Comment on above: Performed By: #### 1 [id number] #### [facility] [address] [place] [address] Test Name ACHR MODULATING Invalid Interpretation Code [facility] Comment on above: Performed By: #### 1 [id number] #### [facility] [address] [place] [address] Test Name ACHR BLOCKING Invalid Interpretation Code [facility] Comment on above: Performed By: #### 1 [id number] #### [facility] [address] [place] [address] Physician Orderon 05-05-2024 Physician Order [id number]#1.00TIFF Normal [facility] Reference Laboratory Testing Ordered By: Saloni Lawrence on 05-05-2024 Test Code 924953 1 Invalid Interpretation Code [facility] SendOuts[facility] Test Code 203455 1 Invalid Interpretation Code [facility]s Test Code 668397 1 Invalid Interpretation Code [facility] Test Name MUSK AB Invalid Interpretation Code [facility] Test Name ACHR BLOCKING Invalid Interpretation Code [facility] SendOuts Test Name ACHR MODULATING Invalid Interpretation Code [facility] Summaryon 1 Ambulatory Visit Summary ALFONZO SHAVER :1975 Visit Date:08/20/2023 Ambulatory Visit Instructions Your [...] receiving treatment for. Screening for hyperlipidemia Normal [facility] Family Medicine Office/Clini c Noteon 08-20-2023 [...] day(s), # 6 tab(s), Refills(s) 0, Pharmacy: [facility]/pharmacy #[id number], 163, cm, 08/20/23 10:31:00 EDT, Height/Length Dosing, 103.6, kg, 08/20/23 10:31:00 EDT, Weight Dosing benzonatate, 200 mg = 1 cap(s), Oral, TID, X 7 day(s), # 21 cap(s), Refills(s) 0, [id number] 163, cm, 08/20/23 10:31:00 EDT, Height/Length Dosing, 103.6, kg, 08/20/23 10:31:00 EDT, Weight Dosing methylPREDNISolone, = 1 packet(s), Oral, As Directed, as directed on package labeling, X 6 day(s), # 21 tab(s), Refills(s) 0, [id number] 163, cm, 08/20/23 10:31:00 EDT, Height/Length Dosing, 103.6, kg, 08/20/23 10:31:00 EDT, Weight Dosing Rapid COVID POC 17839 4. BMI 39.0-39.9,adult (Z68.39: Body mass index [BMI] 39.0-39.9, adult) bmi education complete Ordered: azithromycin, = 1 packet(s), Oral, As Directed, as directed on package labeling, X 5 day(s), # 6 tab(s), Refills(s) 0, [id number] 163, cm, 08/20/23 10:31:00 EDT, Height/Length Dosing, 103.6, kg, 08/20/23 10:31:00 EDT, Weight Dosing benzonatate, 200 mg = 1 cap(s), Oral, TID, X 7 day(s), # 21 cap(s), Refills(s) 0, [id number] 163, cm, 08/20/23 10:31:00 EDT, Height/Length Dosing, 103.6, kg, 08/20/23 10:31:00 EDT, Weight Dosing methylPREDNISolone, = 1 packet(s), Oral, As Directed, as directed on package labeling, X 6 day(s), # 21 tab(s), Refills(s) 0, [id number] 163, cm, 08/20/23 10:31:00 EDT, Height/Length Dosing, 103.6, kg, 08/20/23 10:31:00 EDT, Weight Dosing Rapid COVID POC 45645 Orders: atorvastatin, 20 mg = 1 tab(s), Oral, Daily, # 90 tab(s), Refills(s) 0, [id number] 163, cm, 08/01/23 10:40:00 EDT, Height/Length Dosing, 104.2, kg, 08/01/23 10:40:00 EDT, Weight Dosing levothyroxine, 125 mcg = 1 tab(s), Oral, Daily, # 90 tab(s), Refills(s) 3, [id number] 163, cm, 08/01/23 10:40:00 EDT, [...] Alcohol - (more content not included)... Normal [facility] Comment on above: Result Comment: Elec tronically Signed By: Rosi Bradford\.br\Date and Time Signed: 08/20/23 11:02 EDT Provider Letteron 08-20-2023 Provider Letter (Inserted Image. Jessica ble to display) August 20, 2023 ALFONZO SHAVER [address] [place] [id number] : 1975 To Whom It May Concern, Please excuse above patient from work. Friday Date of Illness: From: _ 08-20-23 To: _ 08-20-23 May Return to Work On:08-21-23 Restrictions: _ Comments: _ Sincerely, [address] [address] Normal [facility] BMPon 08-01-2023 Anion gap [Moles/Vol] 12 mmol/L Normal 6-16 [facility] Comment on above: Performed By: #### 1 [id number], [id number], [id number], [id number] #### [facility] [address] [place] [address] Calcium [Mass/Vol] 9.8 mg/dL Normal 8.9-11.1 [facility] Comment on above: Performed By: #### 1 [id number], [id number], [id number], [id number] #### [facility] [address] [place] [address] Chloride [Moles/Vol] 107 mmol/L Normal 101-111 [facility] Comment on above: Performed By: #### 1 [id number], [id number], [id number], [id number] #### [facility] [address] [place] [address] CO2 [Moles/Vol] 24 mmol/L Normal 21-31 [facility] Comment on above: Performed By: #### 1 [id number], [id number], [id number], [id number] #### [facility] [address] [place] [address] Creatinine [Mass/Vol] 1.1 mg/dL Normal 0.5-1.3 [facility] Comment on above: Performed By: #### 1 [id number], [id number], [id number], [id number] #### [facility] [address] [place] [address] Glucose [Mass/Vol] 101 mg/dL Normal 55-199 [facility] Comment on above: Result Comment: If t his glucose result represents a fasting glucose, interpretation should refer to the following reference range: 55-99 mg/dL Performed By: #### 1 [id number], [id number], [id number], [id number] #### [facility] [address] [place] [address] Potassium [Moles/Vol] 4.2 mmol/L Normal 3.5-5.3 [facility] Comment on above: Performed By: #### 1 [id number], [id number], [id number], [id number] #### [facility] [address] [place] [address] Sodium [Moles/Vol] 139 mmol/L Normal 135-145 [facility] Comment on above: Performed By: #### 1 [id number], [id number], [id number], [id number] #### [facility] [address] [place] [address] Urea nitrogen [Mass/Vol] 21 mg/dL Normal 5-21 [facility] Comment on above: Performed By: #### 1 [id number], [id number], [id number], [id number] #### [facility] [address] [place] [address] Urea nitrogen/Creatinine [Mass ratio] 19 No Units Normal 10-20 [facility] Comment on above: Performed By: #### 1 [id number], [id number], [id number], [id number] #### [facility] [address] [place] [address] CHEMISTRYOrdered By: SYSTEM SYSTEM on 08-01-2023 Anion gap [Moles/Vol] 12 mmol/L Normal 6 - 16 mEq/L [facility] Remisol Calcium [Mass/Vol] 9.8 mg/dL Normal 8.9 - 11. 1 mg/dL [facility] Chloride [Moles/Vol] 107 mmol/L Normal 101 - 1 11 mmol/L [facility] CO2 [Moles/Vol] 24 mmol/L Normal 21 - 31 mmol/L [facility] Creatinine [Mass/Vol] 1.1 mg/dL Normal 0.5 - 1.3 mg/dL [facility] GFR/1.73 sq M.predicted among non-blacks MDRD (S/P/Bld) [Vol rate/Area] 82 mL/min/1.73 m2 Normal >=59mL/min /1.73 m2 [facility] Chem S Glucose [Mass/Vol] 101 mg/dL Normal 55 - 199 mg/dL [facility] Potassium [Moles/Vol] 4.2 mmol/L Normal 3.5 - 5.3 mmol/L [facility] Sodium [Moles/Vol] 139 mmol/L Normal 135 - 145 mmol/L [facility] TSH Qn 2.46 m[IU]/L Normal 0.34 - 5.60 mcIU/mL [facility] Remisol Urea nitrogen [Mass/Vol] 21 mg/dL Normal 5 - 21 mg/dL [facility] Remisol Urea nitrogen/Creatinine [Mass ratio] 19 mg/mg Normal 10 - 20 [facility] Remisol CHEMISTRYOrdered By: Sunita Artis on 08-01-2023 HbA1c (Bld) [Mass fraction] 6.0 % High <=5.9% [facility] ChemAutoSS Consent for Flu Vaccineon Consent for Flu Vaccine [id number] Normal [facility] Family Medicine Office/Clini c Noteon 08-01-2023 [...] Basic Metabolic Panel HgbA1c Lab Specimen Collect [id number] TSH With T4fr Reflex 2. Prediabetes (R73.03: Prediabetes) HGBA1C drawn in office today. may consider starting metformin if elevated Ordered: Basic Metabolic Panel HgbA1c Lab Specimen Collect [id number] TSH With T4fr Reflex 3. Smoker (F17.200: [...] flu shot given Ordered: FIRST VACCINE w/o Branch Store Manager Admin Charge [id number] Orders: atorvastatin, 20 mg = 1 tab(s), Oral, Daily, # 90 tab(s), Refills(s) 0, Pharmacy: [facility]/pharmacy #[id number], 163, cm, 08/01/23 [...] 03/07/2023 Employment/School Employed, Work/School description: Works at [employer] 10/01/2019 Substance Abuse - Medium Risk, 03/07/2023 [...] [id number] vax 01/30/2021 Recorded 2022-12-13: [id number] Normal [facility] Comment on above: Result Comment: Elec tronically Signed By: Rosi Bradford\.br\Date and Time Signed: 08/01/23 13:28 EDT [id number] 08-01-2023 HbA1c (Bld) [Mass fraction] 6.0 % High <=5.9 [facility] Comment on above: Performed By: #### 1 [id number], [id number], [id number], [id number] #### [facility] [address] [place] [address] TSH With T4fr Reflexon 08-01 TSH Qn 2.46 m[IU]/L Normal 0.34-5.60 [facility] Comment on above: Performed By: #### 1 [id number], [id number], [id number], [id number] #### [facility] [address] [place] [address] eGFRon 08-01-2023 GFR/1.73 sq M.predicted among non-blacks MDRD (S/P/Bld) [Vol rate/Area] 82 mL/min/1.73 m2 Normal >=59 [facility] Comment on above: Order Comment: Order added by Discern Expert. Result Comment: Music Library Assistant kimberly kidney disease could be indicated at eGFR's of less than 60 mL/min/1.73m2. Kidney failure is indicated at less than 15 mL/min/1.73m2. Performed By: #### 1 [id number], [id number], [id number], [id number] #### [facility] [address] [place] [address] Ambulatory Visit Summaryon 0 05-30-2023 Ambulatory Visit Summary ALFONZO SHAVER :1975 Visit Date:05/30/2023 Ambulatory Visit Instructions Your Diagnosis Hyperlipemia Hypothyroid BMI 40.0-44.9, adult Smoker Your Care Team Attending Physician - ANSHUL DUMONT, LEXX W Primary Care Physician - Gurwinder FRITZ, Aiyana R This Is Your Medications List atorvastatin (atorvastatin [...] ovarian syndrome (PCOS). ? Binge-eating disorder. ? Morrill syndrome. ? Taking certain medicines, such as [...] food choices, such as grocery stores and [employer] markets. What are the signs or symptoms? [...] you e (more content not included)... Normal [facility] Family Medicine Office/Clini c Noteon 05-30-2023 Family Medicine Office/Clinic Note HPI Staff [...] medications as prescribed. - Recommended following the [facility] Lipid Diet which is a low fat/low cholesterol diet for high cholesterol. - More information about this eating plan can be found here: http://Ulympixdiet.org - To improve your health we recommend [...] Weight Loss (more content not included)... Normal [facility] Comment on above: Result Comment: Lisa castilloally Signed By: ANSHUL DUMONT, LEXX Guerrier\.br\Date and Time Signed: 05/30/23 09:46 EDT Patient Educationon 05-30-20 Patient Education Endocrinology Prediabetes Eating Plan Prediabetes is a condition that causes blood sugar (glucose) levels to be higher than normal. This increases the risk for developing type 2 diabetes (type 2 diabetes mellitus). Working with a health care provider or cardiovascular invasive specialist (dietitian) to make diet and lifestyle [...] from a mental health counselor. ? Take hbws-fhn-unwbtgt and prescription medicines only as told by your health care provider. What foods are recommended? Fruits Berries. Bananas. Apples. Oranges. Grapes. Papaya. Mikel. Pomegranate. Kiwi. Grapefruit. Cherries. Vegetables Lettuce. Spinach. Peas. Beets. Cauliflower. Cabbage. Broccoli. Carrots. Tomatoes. Squash. Eggplant. Herbs. Peppers. Onions. Cucumbers. [place] sprouts. Grains Whole grains, such as whole-wheat or whole-grain breads, crackers, cereals, and pasta. Unsweetened oatmeal. Bulgur. Barley. Quinoa. Brown rice. [place] or whole-wheat flour tortillas or taco shells. Meats and other proteins Seafood. Poultry without skin. Lean cuts of pork and beef. Tofu. Eggs. Nuts. Beans. Dairy Low-fat or fat-free dairy products, such as yogurt, cottage cheese, and cheese. Beverages Water. Tea. Coffee. Sugar-free or diet soda. [place] water. Low-fat or nonfat milk. Milk alternatives, such as soy or almond milk. Fats and oils [place] oil. Canola oil. [place] oil. Grapeseed oil. Avocado. Walnuts. Sweets and [...] information. Where to find more information ? [employer]: www.diabetes.org Summary ? You may need to make diet and lifestyle changes to help prevent the onset of diabetes. These changes can help you control blood sugar, improve cholesterol levels, and manage blood pre (more content not included)... Normal [facility] CHEMISTRYOrdered By: Pedro Adams on 03-13-2023 HbA1c (Bld) [Mass fraction] 6.1 % High <=5.9% [facility] ChemAutoSS CHEMISTRYOrdered By: SYSTEM SYSTEM on 03-08-2023 Albumin [Mass/Vol] 4.1 g/dL Normal 3.3 - 5.0 gm/dL [facility] Albumin/Globulin [Mass ratio] 1.1 {ratio} Normal 1.1 - 2.2 [facility] ALP [Catalytic activity/Vol] 112 [iU]/d High 21 - 98 Int._Unit/ L [facility] ALT No additional P-5'-P [Catalytic activity/Vol] 24 [iU]/d Normal 6 - 46 Int._Unit/ L [facility] Anion gap [Moles/Vol] 10 mmol/L Normal 6 - 16 mEq/L [facility] AST [Catalytic activity/Vol] 23 [iU]/d Normal 5 - 43 Int._Unit/ L [facility] Bilirubin [Mass/Vol] 0.5 mg/dL Normal 0.0 [...] 82 mL/min/1.73 m2 Normal >=59mL/min /1.73 m2 [facility] Chem S Globulin (S) [Mass/Vol] 3.8 g/dL [...] [Mass ratio] 16 mg/mg Normal 10 - [facility] Remisol Basophils Auto (Bld) [#/Vol] Ordered By: Alex Lentz on 11-29-2022 Basophils (Bld) [#/Vol] 0.1 10*3/uL 0.0-0.2 [facility] Basophils/100 WBC Auto (Bld) Ordered By: Alex Lentz on 11-29-2022 Basophils/100 WBC (Bld) 1.2 % . [facility] Creatinine and Glomerular fi ltration rate.predicted panel (S/P/Bld)Ordered By: Alex Lentz on 11-29-2022 Creatinine [Mass/Vol] 1.00 mg/dL 0.64-1.27 [facility] Eosinophils Auto (Bld) [#/Vo l]Ordered By: Alex Lentz on 11-29-2022 Eosinophils (Bld) [#/Vol] 0.2 10*3/uL 0.0-0.45 [facility] Eosinophils/100 WBC Auto (Bl d)Ordered By: Alex Lentz on 11-29-2022 Eosinophils/100 WBC (Bld) 2.4 % . [facility] Erythrocyte distribution wid th Auto (RBC) [Ratio]Ordered By: Alex Lentz on 11-29-2022 Erythrocyte distribution width (RBC) [Ratio] 13.9 % 12.0-14.8 [facility] Estimated glomerular filtrat ion rate (GFR) non- AmericanOrdered By: Alex Lentz on 11-29-2022 GFR/1.73 sq M.predicted among non-blacks MDRD (S/P/Bld) [Vol rate/Area] > 60 mL/Min [facility] Hematocrit Auto (Bld) [Volum e fraction]Ordered By: Alex Lentz on 11-29-2022 Hematocrit (Bld) [Volume fraction] 46.0 % 38.8-50.0 [facility] Hemoglobin [Mass/volume] in BloodOrdered By: Alex Lentz on 11-29-2022 Hemoglobin (Bld) [Mass/Vol] 15.2 g/dL 13.0-17.0 [facility] Leukocytes [#/volume] correc peg for nucleated erythrocytes in Blood by Automated counOrdered By: Alex Lentz on 11-29-2022 WBC corrected for nucl RBC Auto (Bld) [#/Vol] 10.1 10*3/uL 4.1-10.5 [facility] Lymphocytes Auto (Bld) [#/Vo l]Ordered By: Alex Lentz on 11-29-2022 Lymphocytes (Bld) [#/Vol] 1.4 10*3/uL 1.00-4.8 [facility] Lymphocytes/100 WBC Auto (Bl d)Ordered By: Alex Lentz on 11-29-2022 Lymphocytes/100 WBC (Bld) 14.3 % . [facility] MCH Auto (RBC) [Entitic mass ]Ordered By: Alex Lentz on 11-29-2022 MCH (RBC) [Entitic mass] 28.7 pg 27.5-35.2 [facility] MCHC Auto (RBC) [Mass/Vol]Or dered By: Alex Lentz on 11-29-2022 MCHC (RBC) [Mass/Vol] 33.1 g/dL 32.5-35.6 [facility] MCV Auto (RBC) [Entitic vol] Ordered By: Alex Lentz on 11-29-2022 MCV (RBC) [Entitic vol] 86.6 fL 83.5-101 [facility] Monocytes Auto (Bld) [#/Vol] Ordered By: Alex Lentz on 11-29-2022 Monocytes (Bld) [#/Vol] 0.8 10*3/uL 0.0-0.8 [facility] Monocytes/100 WBC Auto (Bld) Ordered By: Alex Lentz on 11-29-2022 Monocytes/100 WBC (Bld) 7.7 % . [facility] Neutrophils Auto (Bld) [#/Vo l]Ordered By: Alex Lentz on 11-29-2022 Neutrophils (Bld) [#/Vol] 7.5 10*3/uL 1.8-7.7 [facility] Neutrophils/100 WBC Auto (Bl d)Ordered By: Alex Lentz on 11-29-2022 Neutrophils/100 WBC (Bld) 74.4 % . [facility] No Panel InformationOrdered By: Alex Lentz on 11-29-2022 Estimated GFR () > 60 mL/Min [facility] Comment on above: GFR estimated refere nce range: According to KDOQI guidelines, <60 ml/min/1.73m2 is sufficient to diagnose a patient with chronic kidney disease. Pharmacy Creatinine Clearance (Chem N/A [facility] Nucleated erythrocytes [Pres ence] in Blood by Automated countOrdered By: Alex Lentz on 11-29-2022 Nucleated RBC Auto Ql (Bld) 0.1 /100{WBC} 0-0.5 [facility] Platelet mean volume Auto (B ld) [Entitic vol]Ordered By: Alex Lentz on 11-29-2022 Platelet mean volume (Bld) [Entitic vol] 9.1 fL 6.6-10.1 [facility] Platelets Auto (Bld) [#/Vol] Ordered By: Alex Lentz on 11-29-2022 Platelets (Bld) [#/Vol] 244 10*3/uL 150-450 [facility] RBC Auto (Bld) [#/Vol]Ordere d By: Alex Lentz on 11-29-2022 RBC (Bld) [#/Vol] 5.31 10*6/uL 3.90-5.60 [facility] Serum or plasma anion gap de terminationOrdered By: Alex Lentz on 11-29-2022 Anion gap [Moles/Vol] 13.4 mmol/L 6.0-15.0 [place] Serum or plasma calcium deniz urement (mass/volume)Ordered By: Alex Lentz on 11-29-2022 Calcium [Mass/Vol] 9.1 mg/dL 8.2-10.2 [facility] Serum or plasma chloride alfred surement (moles/volume)Ordered By: Alex Lentz on 11-29-2022 Chloride [Moles/Vol] 99 mmol/L 95-114 [facility] Serum or plasma glucose deniz urement (mass/volume)Ordered By: Alex Lentz on 11-29-2022 Glucose [Mass/Vol] 147 mg/dL 70-100 [facility] Comment on above: ADA recommended refe rence rangeRandom Glucose Reference Range is dependent on time and content of last meal. Glucose of more than 200 mg/dL in a nonstressed, ambulatory subject supports the diagnosis of Diabetes Mellitus. Serum or plasma potassium me asurement (moles/volume)Ordered By: Alex Lentz on 11-29-2022 Potassium [Moles/Vol] 4.0 mmol/L 3.5-5.1 [facility] Serum or plasma sodium measu rement (moles/volume)Ordered By: Alex Lentz on 11-29-2022 Sodium [Moles/Vol] 134 mmol/L 136-146 [facility] Serum or plasma total carbon dioxide measurement (moles/volume)Ordered By: Alex Lentz on 11-29-2022 CO2 [Moles/Vol] 25.6 mmol/L 22.0-30.0 [facility] Serum or plasma urea nitroge n measurement (mass/volume)Ordered By: Alex Lentz on 11-29-2022 Urea nitrogen [Mass/Vol] 10 mg/dL 9- [facility] WBC Auto (Bld) [#/Vol]Ordere d By: Alex Lentz on 11-29-2022 WBC (Bld) [#/Vol] 10.1 10*3/uL 4.1-10.5 [facility] Vital Signs Date Time Vital Sign Value Performing Clinician Jigar boyd 08-25-2025 09:19-0400 Body height 162.6 cm Alex Lentz DPM Work Phone: [facility] 08-25-2025 09:19-0400 Body mass index (BMI) [Ratio] 45.83 kg/m2 Alex Lentz DPM Work Phone: [facility] 08-25-2025 09:19-0400 Body weight 121.11 kg Alex Lentz DPM Work Phone: [facility] 08-25-2025 09:19-0400 Respiratory rate 16 /min Alex Lentz DPM Work Phone: [facility] 07-28-2025 16:23-0400 Body height 162.6 cm Alex Lentz DPM Work Phone: [facility] 07-28-2025 16:23-0400 Body mass index (BMI) [Ratio] 45.83 kg/m2 Alex Lentz DPM Work Phone: [facility] 07-28-2025 16:23-0400 Body weight 121.11 kg Alex Lentz DPM Work Phone: [facility] 07-28-2025 16:23-0400 Respiratory rate 16 /min Alex Lentz DPM Work Phone: [facility] 07-25-2025 10:23-0400 Body weight 100.3 kg Rosi Micaela SALMON TROLL FISHER-C Work Phone: [facility] 07-25-2025 10:23-0400 Diastolic blood pressure 76 mm[Hg] Rosi Micaela SALMON [employer]OLL [employer]ER-C Work Phone: [facility] 07-25-2025 10:23-0400 Heart rate 85 /min Rosi Micaela SALMON [employer]OLL FISHER-C Work Phone: [facility] 07-25-2025 10:23-0400 SaO2% (BldA) [Mass fraction] 96 % Rosi Micaela [employer]ER-C Work Phone: [facility] 07-25-2025 10:23-0400 Systolic blood pressure 134 mm[Hg] Rosi Micaela [employer] TROLL [employer]ER-C Work Phone: [facility] 07-14-2025 16:06-0400 Body height 162.6 cm Alex Lentz DPM Work Phone: [facility] 07-14-2025 16:06-0400 Body mass index (BMI) [Ratio] 45.83 kg/m2 Alex Lentz DPM Work Phone: [facility] 07-14-2025 16:06-0400 Body weight 121.11 kg Alex Lentz DPM Work Phone: [facility] 07-14-2025 16:06-0400 Respiratory rate 16 /min Alex Lentz DPM Work Phone: [facility] 06-24-2025 10:09-0400 Diastolic blood pressure 63 mm[Hg] Rosi Micaela [employer]ER-C Work Phone: [facility] 06-24-2025 10:09-0400 Heart rate 55 /min Rosi Micaela [employer]ER-C Work Phone: [facility] 06-24-2025 10:09-0400 Systolic blood pressure 117 mm[Hg] Rosi Micaela [employer] FISHER-C Work Phone: [facility] 06-23-2025 16:50-0400 Body height 162.6 cm Alex Lentz DPM Work Phone: [facility] 06-23-2025 16:50-0400 Body mass index (BMI) [Ratio] 45.83 kg/m2 Alex Lentz DPM Work Phone: [facility] 06-23-2025 16:50-0400 Body weight 121.11 kg Alex Lentz DPM Work Phone: [facility] 06-23-2025 16:50-0400 Respiratory rate 16 /min Alex Lentz DPM Work Phone: [facility] 06-17-2025 10:18-0400 Body height 162.56 cm Rosi Micaela [employer] FISHER-C Work Phone: [facility] 06-17-2025 10:18-0400 Body weight 107.1 kg Rosi Micaela [employer]ER-C Work Phone: [facility] 06-03-2025 10:06-0400 Body temperature 98.5 [degF] Rosi Micaela [employer] TRO[employer] FISHER-C Work Phone: [facility] 06-03-2025 10:06-0400 Respiratory rate 18 /min Rosi Micaela SAL[employer] TRO[employer] FISHER-C Work Phone: [facility] 06-03-2025 10:06-0400 SaO2% (BldA) [Mass fraction] 96 % Rosi Micaela [employer] TRO[employer]ER-C Work Phone: [facility] 06-02-2025 13:17-0400 Body height 162.6 cm Alex Lentz DPM Work Phone: [facility] 06-02-2025 13:17-0400 Body mass index (BMI) [Ratio] 45.83 kg/m2 Alex Lentz DPM Work Phone: [facility] 06-02-2025 13:17-0400 Body weight 121.11 kg Alex Lentz DPM Work Phone: [facility] 06-02-2025 13:17-0400 Respiratory rate 16 /min Alex Lentz DPM Work Phone: [facility] 05-19-2025 11:40-0400 Body height 162.6 cm Alex Lentz DPM Work Phone: [facility] 05-19-2025 11:40-0400 Body mass index (BMI) [Ratio] 45.83 kg/m2 Alex Lentz DPM Work Phone: [facility] 05-19-2025 11:40-0400 Body weight 121.11 kg Alex Lentz DPM Work Phone: [facility] 05-19-2025 11:40-0400 Respiratory rate 18 /min Alex Lentz DPM Work Phone: [facility] 05-16-2025 08:48-0400 Body height 162.56 cm Rosi Micaela [employer] FISHER-C Work Phone: [facility] 05-16-2025 08:48-0400 Body mass index (BMI) [Ratio] 43.2 kg/m2 Rosi Micaela [employer]ER-C Work Phone: [facility] 05-16-2025 08:48-0400 Body weight 114.3 kg Rosi Micaela [employer]ER-C Work Phone: [facility] 05-16-2025 08:48-0400 Diastolic blood pressure 88 mm[Hg] Rosi Micaela [employer] FISHER-C Work Phone: [facility] 05-16-2025 08:48-0400 Heart rate 81 /min Rosi Micaela [employer]ER-C Work Phone: [facility] 05-16-2025 08:48-0400 Systolic blood pressure 133 mm[Hg] Rosi Micaela SAL[employer]OLL FISHER-C Work Phone: [facility] 05-11-2025 08:39-0400 Body weight 114.02 kg Rosi Micaela [employer]ER-C Work Phone: [facility] 05-11-2025 08:39-0400 Diastolic blood pressure 86 mm[Hg] Rosi Micaela [employer]ER-C Work Phone: [facility] 05-11-2025 08:39-0400 Heart rate 106 /min Rosi Micaela [employer]ER-C Work Phone: [facility] 05-11-2025 08:39-0400 SaO2% (BldA) [Mass fraction] 97 % Rosi Micaela [employer]ER-C Work Phone: [facility] 05-11-2025 08:39-0400 Systolic blood pressure 138 mm[Hg] Rosi Micaela [employer] FISHER-C Work Phone: [facility] 04-28-2025 16:27-0400 Body height 162.6 cm Alex eLntz DPM Work Phone: [facility] 04-28-2025 16:27-0400 Body mass index (BMI) [Ratio] 45.83 kg/m2 Alex Lentz DPM Work Phone: [facility] 04-28-2025 16:27-0400 Body weight 121.11 kg Alex Lentz DPM Work Phone: [facility] 04-28-2025 16:27-0400 Respiratory rate 16 /min Alex Lentz DPM Work Phone: [facility] 04-27-2025 09:13-0400 Diastolic blood pressure 80 mm[Hg] Rosi Micaela [employer]ER-C Work Phone: [facility] 04-27-2025 09:13-0400 Heart rate 95 /min Rosi Micaela [employer]ER-C Work Phone: [facility] 04-27-2025 09:13-0400 SaO2% (BldA) [Mass fraction] 97 % Rosi Micaela [employer]ER-C Work Phone: [facility] 04-27-2025 09:13-0400 Systolic blood pressure 142 mm[Hg] Rosi Micaela [employer]ER-C Work Phone: [facility] 02-08-2025 08:17-0400 Body height 162.6 cm Trisha Angel DO Work Phone: [facility] 02-08-2025 08:17-0400 Body mass index (BMI) [Ratio] 45.83 kg/m2 Trisha Angel DO Work Phone: [facility] 02-08-2025 08:17-0400 Body weight 121.11 kg Trisha Angel DO Work Phone: [facility] 02-08-2025 08:17-0400 Diastolic blood pressure 84 mm[Hg] Trisha Angel DO Work Phone: [facility] 02-08-2025 08:17-0400 Heart rate 98 /min Trisha Angel DO Work Phone: [facility] 02-08-2025 08:17-0400 SaO2% (BldA) [Mass fraction] 98 % Trisha Angel DO Work Phone: [facility] 02-08-2025 08:17-0400 Systolic blood pressure 124 mm[Hg] Trisha Angel DO Work Phone: [facility] 01-11-2025 15:38-0500 Body temperature 97.39 [degF] Dione Swanson MD Work Phone: [facility] 01-11-2025 15:38-0500 Body weight 119.75 kg Dione Swanson MD [facility] 01-11-2025 15:38-0500 Diastolic blood pressure 67 mm[Hg] Dione Swanson MD [facility] 01-11-2025 15:38-0500 Heart rate 84 /min Dione Swanson MD [facility] 01-11-2025 15:38-0500 Respiratory rate 16 /min Dione Swanson MD [facility] 01-11-2025 15:38-0500 Systolic blood pressure 141 mm[Hg] Dione Swanson MD [facility] 12-14-2024 13:14-0500 Body mass index (BMI) [Ratio] 44.35 kg/m2 Christopher Bita DO Work Phone: [facility] Done In :60 Seconds 12-14-2024 13:14-0500 Body weight 117.21 kg Christopher Bita DO Work Phone: [facility] Done In :60 Seconds 12-14-2024 13:14-0500 Diastolic blood pressure 82 mm[Hg] Christopher Bita DO Work Phone: [facility] 12-14-2024 13:14-0500 Heart rate 77 /min Christopher Bita DO Work Phone: [facility] 12-14-2024 13:14-0500 SaO2% (BldA) [Mass fraction] 97 % Christopher Bita DO Work Phone: [facility] 12-14-2024 13:14-0500 Systolic blood pressure 138 mm[Hg] Christopher Bita DO Work Phone: [facility] 10-13-2024 10:57-0500 Body mass index (BMI) [Ratio] 43.43 kg/m2 Christopher Bita DO Work Phone: [facility] 10-13-2024 10:57-0500 Body weight 114.76 kg Christopher Bita DO Work Phone: [facility] 10-13-2024 10:57-0500 Diastolic blood pressure 78 mm[Hg] Christopher Bita DO Work Phone: [facility] 10-13-2024 10:57-0500 Heart rate 83 /min Christopher Bita DO Work Phone: [facility] 10-13-2024 10:57-0500 SaO2% (BldA) [Mass fraction] 96 % Christopher Bita DO Work Phone: [facility] 10-13-2024 10:57-0500 Systolic blood pressure 142 mm[Hg] Christopher Bita DO Work Phone: [facility] 09-15-2024 10:42-0500 Body mass index (BMI) [Ratio] 41.92 kg/m2 Christopher Bita DO Work Phone: [facility] 09-15-2024 10:42-0500 Body weight 110.77 kg Christopher Bita DO Work Phone: [facility] 09-15-2024 10:42-0500 Diastolic blood pressure 83 mm[Hg] Christopher Bita DO Work Phone: [facility] 09-15-2024 10:42-0500 Heart rate 84 /min Christopher Bita DO Work Phone: [facility] 09-15-2024 10:42-0500 SaO2% (BldA) [Mass fraction] 96 % Christopher Bita DO Work Phone: [facility] 09-15-2024 10:42-0500 Systolic blood pressure 141 mm[Hg] Christopher Bita DO Work Phone: [facility] 08-17-2024 09:14-0400 Diastolic blood pressure 82 mm[Hg] Christopher Bita DO Work Phone: [facility] 08-17-2024 09:14-0400 Heart rate 73 /min Christopher Bita DO Work Phone: [facility] 08-17-2024 09:14-0400 SaO2% (BldA) [Mass fraction] 96 % Christopher Bita DO Work Phone: [facility] 08-17-2024 09:14-0400 Systolic blood pressure 132 mm[Hg] Christopher Bita DO Work Phone: [facility] 08-03-2024 14:44-0400 Body mass index (BMI) [Ratio] 40.34 kg/m2 Christopher Bita DO Work Phone: [facility] 08-03-2024 14:44-0400 Body weight 106.59 kg Christopher Bita DO Work Phone: [facility] 08-03-2024 14:44-0400 Diastolic blood pressure 79 mm[Hg] Christopher Bita DO Work Phone: [facility] 08-03-2024 14:44-0400 Heart rate 89 /min Christopher Bita DO Work Phone: [facility] 08-03-2024 14:44-0400 SaO2% (BldA) [Mass fraction] 95 % Christopher Bita DO Work Phone: [facility] 08-03-2024 14:44-0400 Systolic blood pressure 135 mm[Hg] Christopher Bita DO Work Phone: [facility] 07-28-2024 14:14-0400 Body height 162.56 cm [employer]ER-C Rosi Micaela Work Phone: [facility] 07-28-2024 14:14-0400 Body weight 108.4 kg [employer]ER-C Rosi Micaela Work Phone: [facility] 12-13-2022 13:40-0500 Diastolic blood pressure 82 mm[Hg] Aiyana Catonk [facility] 12-13-2022 13:40-0500 Mean blood pressure 100 mm[Hg] Aiyana Catonk [facility] 12-13-2022 13:40-0500 Systolic blood pressure 136 mm[Hg] Aiyana Klonk [facility] 12-13-2022 11:48-0500 Blood Pressure Location Aiyana Klonk [facility] 12-13-2022 11:48-0500 Body temperature 98.24 [degF] Aiyana Klonk [facility] 12-13-2022 11:48-0500 Diastolic blood pressure 84 mm[Hg] Aiyana Klonk [facility] 12-13-2022 11:48-0500 Heart rate 81 /min Aiyana Klonk [facility] 12-13-2022 11:48-0500 SaO2% (BldA) [Mass fraction] 97 % Aiyana Klonk [facility] 12-13-2022 11:48-0500 Systolic blood pressure 142 mm[Hg] Aiyana Klonk [facility] 04-30-2022 11:51-0400 Blood Pressure Location LEXX SIDELL [facility] 04-30-2022 11:51-0400 Diastolic blood pressure 84 mm[Hg] LEXX SIDELL [facility] 04-30-2022 11:51-0400 Heart rate 90 /min LEXX SIDELL [facility] 04-30-2022 11:51-0400 SaO2% (BldA) [Mass fraction] 97 % LEXX SIDELL [facility] 04-30-2022 11:51-0400 Systolic blood pressure 120 mm[Hg] LEXX LANDERS [facility] Encounters Encounter Date Encounter Type Care Provider Facility Start: 11-08-2025 ambulatory BLACK PICKLER Rosi L Micaela Facil ity:[facility] Start: 08-29-2025 ambulatory Rosi L Micaela Facility: [facility] Start: 08-25-2025 End: 08-25-2025 Bamboo flowsheet Alex Lentz DPM Work Phone: [facility] Start: 08-25-2025 End: 08-25-2025 Bamboo flowsheet Alex Lentz DPM Work Phone: [facility] Start: 08-25-2025 ambulatory Devonte Sunshine Facility:[facility] Start: 08-25-2025 End: 08-25-2025 ambulatory ALEX LENTZ Not Available Start: 08-25-2025 End: 08-25-2025 Office outpatient visit 25 minutes Alex Lentz DPM Work Phone: [facility] Comment on above: 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); Acquired deformity of right toe; Neoplasm of uncertain behavior of skin; Diabetes mellitus due to underlying condition with diabetic polyneuropathy, unspecified whether keno terminal operator insulin use (HCC); Contracture of right ankle Start: 08-10-2025 End: 08-10-2025 ambulatory BLACK PICKLER Rosi L Micaela [place] Start: 08-09-2025 End: 08-09-2025 ambulatory Rosi L Micaela Facility:[facility] Start: 08-02-2025 End: 08-02-2025 ambulatory SUSI RICE Facility:[facility] Start: 07-28-2025 End: 07-28-2025 Office outpatient visit 15 minutes Alex Lentz DPM Work Phone: [facility] Comment on above: 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); Verruca plantaris; Foot pain, right; Acquired deformity of right toe; Neoplasm of uncertain behavior of skin; Diabetes mellitus due to underlying condition with diabetic polyneuropathy, unspecified whether long-term insulin use (HCC) Start: 07-28-2025 End: 07-28-2025 ambulatory ALEX LENTZ Not Available Start: 07-28-2025 End: 07-28-2025 Bamboo flowsheet Alex Lentz DPM Work Phone: [facility] Start: 07-28-2025 End: 07-28-2025 Bamboo flowsheet Alex Lentz DPM Work Phone: [facility] Start: 07-25-2025 End: 07-25-2025 ambulatory Rosi Alvarez SAL[employer]OLL FISHER-C Work Phone: [facility] Work Phone: Start: 07-25-2025 End: 07-25-2025 Patient encounter procedure Devonte Mario DO -[facility] Work Phone: Start: 07-18-2025 End: 07-18-2025 ambulatory BLACK PICKLER Rosi Alvarez Facility:[facility] Start: 07-14-2025 End: 07-14-2025 Patient encounter procedure Alex Lentz DPM Work Phone: [facility] Comment on above: Verruca plantaris (P rimary Dx); Foot pain, right Start: 07-14-2025 End: 07-14-2025 ambulatory ALEX LENTZ Not Available Start: 07-14-2025 End: 07-14-2025 Bamboo flowsheet Alex Lentz DPM Work Phone: [facility] Start: 07-14-2025 End: 07-14-2025 Bamboo flowsheet Alex Lentz DPM Work Phone: [facility] Start: 06-28-2025 End: 06-28-2025 ambulatory JULIA AARON Facility:[facility] Start: 06-24-2025 Registered Recurring Reggie Mario DO -Infusion Therapy - O/P Work Phone: [...] Phone: [facility] Start: 06-21-2025 ambulatory BLACK PICKLER Rosi L Micaela [facility]il [facility]y[place] Start: 06-06-2025 End: 06-06-2025 ambulatory Rosi L Micaela Facility:[facility] Start: 06-06-2025 End: 06-06-2025 ambulatory Rosi L Micaela Facility:[facility] Start: 06-02-2025 End: 06-02-2025 Bamboo flowsheet Alex [...] Available Start: 06-01-2025 ambulatory Elizabeth BEE Fa cility:[facility] Start: 05-19-2025 End: 05-19-2025 Bamboo flowsheet Alex [...] Not Available Start: 05-16-2025 End: 05-16-2025 ambulatory Rosi Theresa Micaela [employer]OLL FISHER-C Work Phone: [facility] Work Phone: Start: 05-16-2025 End: 05-16-2025 Patient encounter procedure Elvira Mario [facility] Work Phone: Start: 05-11-2025 End: 05-11-2025 ambulatory Rosi Theresa Micaela [employer] TROLL FISHER-C Work Phone: [facility] Work Phone: Start: 05-11-2025 End: 05-11-2025 Patient encounter procedure Devonte Sunshine [facility] Work Phone: Start: 05-10-2025 ambulatory Rosi Micaela [place] Start: 05-06-2025 End: 05-06-2025 ambulatory Rosi L Micaela Facility:[facility] Rosalind Start: 05-03-2025 End: 05-03-2025 Lab Drop off Rosi L Micaela [facility] Start: 05-03-2025 End: 05-03-2025 ambulatory Rosi L Micaela Facility:[facility] Start: 04-29-2025 End: 04-29-2025 Patient encounter procedure Devonte Mario DO -Lab [facility] Work Phone: Start: 04-29-2025 End: 04-29-2025 ambulatory Devonte Sunshine Facility:[facility] Start: 04-28-2025 End: 04-28-2025 Office outpatient new [...] encounter procedure Devonte Mario DO -[facility] Work Phone: Start: 04-20-2025 End: 04-20-2025 ambulatory Rosi L Micaela Facility:[facility] Rosalind Start: 04-06-2025 End: 04-06-2025 ambulatory Rosi L Micaela Facility:[facility] Start: 04-01-2025 End: 04-01-2025 Telemedicine consultation with [...] Micaela Facility:[facility] Ros[facility] Start: 02-08-2025 End: 02-08-2025 Bamboo flowsheet Trisha [...] insomnia Start: 02-08-2025 End: 02-08-2025 ambulatory TRISHA ANGEL Not Available Start: 02-02-2025 End: 02-02-2025 ambulatory Rosi L Micaela Facility:[facility] Start: 02-02-2025 End: 02-02-2025 ambulatory DEVONTE SUNSHINE Not Available Start: 01-11-2025 End: 01-11-2025 Office outpatient new 45 minutes Dione Swanson MD Work Phone: [facility] Neurology Comment on above: Myasthenia gravis (H CC) (Primary Dx) Start: 01-11-2025 End: 01-11-2025 ambulatory DIONE SWANSON Facility:[facility] Start: 12-21-2024 End: 12-21-2024 ambulatory Susi Rice MD Work Phone: Neurology Comment on above: Myasthenia gravis wi thout exacerbation (HCC) (Primary Dx); Myasthenia gravis, AChR antibody positive (HCC); Diplopia; Ptosis of both eyelids; Bulbar weakness (HCC); Limb weakness; Smoking trying to quit; H/O immunosuppressive therapy Start: 12-21-2024 End: 12-21-2024 Telemedicine consultation with patient Susi Rice Work Phone: Neurology Start: 12-15-2024 End: 12-17-2024 Telephone encounter Neurology Provider Neurology Comment on above: [facility] (External referral to [facility] [place]/) Start: 12-14-2024 End: 12-14-2024 Bamboo flowsheet Christopher [...] 40 minutes Christopher Bita DO Work Phone: [facility] Comment on above: Generalized myasthen ia gravis (CMS/HCC) (Primary Dx) Start: 09-15-2024 End: 09-15-2024 ambulatory CHRISTOPHER BITA Not Available Start: 08-17-2024 End: 08-17-2024 Bamboo flowsheet Christopher Bita DO Work Phone: [facility] Start: 08-17-2024 End: 08-17-2024 Bamboo flowsheet Christopher Bita DO Work Phone: [facility] Start: 08-17-2024 End: 08-17-2024 Office outpatient visit 25 minutes Christopher Bita DO Work Phone: [facility] Comment on above: Myasthenia gravis (C MS/HCC) Start: 08-05-2024 End: 08-05-2024 Lab Drop off Rosi L Micaela [facility] Start: 08-05-2024 End: 08-05-2024 ambulatory Rosi L Micaela Facility[place] Start: 08-03-2024 End: 08-03-2024 Office outpatient visit 25 minutes Christopher Bita DO Work Phone: [facility] Comment on above: Myasthenia gravis (C MS/HCC) (Primary Dx) Start: 08-03-2024 End: 08-03-2024 Bamboo flowsheet Christopher Bita DO Work Phone: [facility] Start: 08-03-2024 End: 08-03-2024 Bamboo flowsheet Devonte Sunshine DO Work Phone: [facility] Start: 07-28-2024 End: 07-28-2024 ambulatory SALMON TROLL FISHER-C Rosi Theresa Micaela Work Phone: [facility] Work Phone: Start: 07-28-2024 End: 07-28-2024 Patient encounter procedure SALMON TROLL FISHER-C Rosi Micaela Work Phone: [facility]-MRI [place] Work Phone: Start: 07-14-2024 End: 07-14-2024 ambulatory SALMON TROLL FISHER-C Rosi Theresa Micaela Work Phone: [facility] Work Phone: Start: 07-14-2024 End: 07-14-2024 Patient encounter procedure SALMON TROLL FISHER-C Rosi Micaela Work Phone: [facility]-CT Scan [facility] [place] Work Phone: Start: 05-05-2024 End: 05-05-2024 ambulatory NAKUL BRANNON Facility:[facility] Start: 05-05-2024 End: 05-05-[address] NAKUL BRANNON [facility] Start: 08-20-2023 End: 08-20-2023 ambulatory Rosi L Micaela Facility:[facility] Start: 08-01-2023 End: 08-01-2023 ambulatory Rosi L Micaela Facility:[facility] Start: 08-01-2023 End: 08-01-2023 Lab Drop off Rosi L Micaela [facility] Start: 08-01-2023 End: 08-01-2023 ambulatory Rosi L Micaela Facility:[facility] Start: 07-31-2023 ambulatory Rosi Micaela Facility:[facility] Start: 06-04-2023 Patient encounter procedure Re ferring Provider Unknown [id number] Work Phone: Start: 05-30-2023 End: 05-30-2023 ambulatory LEXX LANDERS Facility:[facility] Start: 03-13-2023 End: 03-13-2023 Patient encounter procedure Aiyana Purdy [facility] Start: 03-08-2023 End: 03-08-2023 Patient encounter procedure Aiyana Purdy [facility] Start: 12-25-2022 End: 12-25-2022 Lab Drop off Alex Corona Lentz [facility] Start: 12-13-2022 End: 12-13-2022 Patient encounter procedure Aiyana Purdy [facility] Start: 12-13-2022 End: 12-13-2022 Preprocedural examination done Aiyana Purdy [facility] Start: 11-29-2022 End: 11-29-2022 ambulatory SALMON TROLL FISHER-C Aiyana Purdy Work Phone: [facility] Work Phone: Start: 11-29-2022 End: 11-29-2022 Patient encounter procedure SALMON TROLL FISHER-C Aiyana Purdy Work Phone: [facility]-Electrodiagnosti cs Work Phone: Start: 04-30-2022 End: 04-30-2022 Patient encounter procedure LEXX LANDERS [facility] Procedures Date Procedure Procedure Detail Performing Clinician Start: 07-28-2024 MRI of head SALMON TROLL FISHER-José Alvarez Work Phone: Start: 07-14-2024 CT of thorax with contrast SALMON TROLL FISHER-José Alvarez Work Phone: Start: 11-29-2022 Plain chest X-ray SALMON TROLL FISHER-C Aiyana Purdy Work Phone: Closed fracture of r ight shoulder (disorder) L[place]X L[place]ERS No history of surgery Referr ing Provider Unknown Plan of Treatment Date Care Activity Detail Author Start: 10-05-2031 Tetanus vaccination Tetanus (T d or Tdap) Booster [facility] Start: 10-05-2031 Urine microalbumin profile DTaP,Tdap,Td Vaccine (2 - Td or Tdap) [facility] Start: 03-08-2028 Lipid panel Cholesterol [facility] Start: 09-08-2025 End: 09-08-2025 Patient encounter procedure 09/08/2025 9:20 AM EDT Office Visit [facility] [address] [id number] Alex Lentz DPM [address] [address] [facility] Start: 08-10-2025 Influenza vaccination Influenza Vacc ine (#1) [facility] Start: 07-28-2025 End: 07-28-2025 Patient encounter procedure 07/28/2025 4:30 PM EDT Office Visit [facility] [address] [id number] Alex Lentz DPM [address] [address] Verruca plantaris (Primary Dx); Foot pain, right [facility] Comment on above: Verruca plantaris (P rimary Dx); Foot pain, right Start: 07-14-2025 End: 07-14-2025 Patient encounter procedure 07/14/2025 4:10 PM EDT Office Visit [facility] [address] [address] Alex Lentz DPM [address] [address] Verruca plantaris (Primary Dx); Foot pain, right [facility] Comment on above: Verruca plantaris (P rimary Dx); Foot pain, right Start: 07-11-2025 Influenza vaccination [facility] Start: 06-23-2025 End: 06-23-2025 Patient encounter procedure 06/23/2025 4:50 PM EDT Office Visit [facility] [address] [address] Alex Lentz DPM [address] [address] Verruca plantaris (Primary Dx); Foot pain, right [facility] Comment on above: Verruca plantaris (P rimary Dx); Foot pain, right Start: 06-02-2025 End: 06-02-2025 Patient encounter procedure 06/02/2025 1:20 PM EDT Office Visit [facility] [address] [place] [address] Alex Lentz DPM [address] [address] Verruca plantaris (Primary Dx); Foot pain, right [facility] Comment on above: Verruca plantaris (P rimary Dx); Foot pain, right Start: 05-19-2025 End: 05-19-2025 Patient encounter procedure [facility] Comment on above: Verruca plantaris (P rimary Dx); Foot pain, right Start: 05-16-2025 End: 05-16-2025 Patient encounter procedure 05/16/2025 8:20 AM EDT Office Visit [facility] [address] [place] [address] Elvira Luong NP [address] [place], [place] PAULINA [place] Start: 04-28-2025 End: 04-28-2025 Patient encounter procedure 04/28/2025 4:40 PM EDT Office Visit [facility] [address] [facility] [address] [place] [address] Alex Lentz, DPFabiano 3006 [facility] 5 [place] [address] Arrived [facility] Comment on above: Arrived Start: 04-27-2025 End: 04-27-2025 Patient encounter procedure 04/27/2025 9:15 AM EDT Office Visit [place] [address] [address] [place] [address] Devonte Sunshine DO [address] [facility] [address] [place], [place] [id number] PA[place] Start: 02-08-2025 End: 02-08-2026 Polysomnography [facility] Routine PAIGE (obstructive sleep apnea) Expected: 02/08/2025 (Approximate), Expires: 02/08/2026 [facility] Work Phone: Comment on above: Expected: 02/08/2025 (Approximate), Expires: 02/08/2026 Start: 02-08-2025 End: 02-08-2025 Patient encounter procedure 02/08/2025 8:15 AM EDT Office Visit [place] [address] [address] [place] [address] Trisha Ortiz DO [address] [place], [place] [id number] Arrived [place] Comment on above: Arrived Start: 02-02-2025 End: 03-26-2025 Patient encounter procedure 02/02/2025 9:15 AM EDT Office Visit [place] [address] [place] [address] Devonte Sunshine DO [address] [place] [address] [place] Start: 12-21-2024 End: 12-21-2024 ambulatory 12/21/2024 9:00 AM [facility] [address] [id number] Susi Rice MD [address] [place] [address] Symptoms of myasthenia gravis, failing treatment with steroids and Mestinon alone Neurology Comment on above: Symptoms of myasthen ia gravis, failing treatment with steroids and Mestinon alone Start: 12-14-2024 End: 12-14-2024 Patient encounter procedure 12/14/2024 1:15 PM EST Office Visit [place] [address] [place] [address] Devonte Sunshine DO [address] [place] [address] Arrived [place] Comment on above: Arrived Start: 12-06-2024 End: 12-06-2024 Patient encounter procedure 12/06/2024 11:15 AM EST Office Visit [facility] [address] [place] [address] Devonte Sunshine DO [address] [place] [address] [facility] Start: 10-13-2024 End: 10-13-2024 Patient encounter procedure [facility] Comment on above: Arrived Start: 09-15-2024 End: 09-15-2024 Patient encounter procedure [facility] [facility] Comment on above: Arrived Start: 08-17-2024 End: 08-17-2024 Patient encounter procedure [facility] [place] [address] Comment on above: Arrived Start: 08-03-2024 End: 08-03-2024 Patient encounter procedure 08/03/2024 3:00 PM EDT Office Visit [facility] [address] [place] [address] Devonte Sunshine DO [address] [place] [address] Arrived [facility] Comment on above: Arrived Start: 07-11-2024 Covid-19 Vaccine ( season) Covid-19 Vaccine () [facility] Start: 07-11-2024 Covid-19 Vaccine () Covid-19 Vaccine () [facility] Start: 07-11-2024 Influenza vaccination Influenza Vacc ine (#1) [facility] Start: 01-13-2024 Pneumococcal Vaccine : 50+ (1 of 1 - PCV) Pneumococcal Vaccine: 50+ (1 of 1 - PCV) [facility] Start: 01-13-2024 Shingrix Vaccine (1 of 2) Shingrix Vaccine (1 of 2) [facility] Start: 08-13-2023 EPVNEURO, Provider: Pedro Chanel, Status: Pen, Time: 1:00 PM EPVNEURO, Provider: Pedro Chanel, Status: Pen, Time: 1:00 PM [facility] Work Phone: Start: 03-20-2021 Covid-19 Vaccine (3 - Pfizer risk series) Covid-19 Vaccine (3 - Pfizer risk series) [facility] Start: 2019 Diabetes Screening Diabetes Screenin g [facility] Start: 2019 Screening for malign ant neoplasm of colon [facility] Start: 2009 Lipid panel Lipid Screening [facility] Start: 1993 Hepatitis A (HAV) Vaccine (optional start 19+ years) Hepatitis A (HAV) Vaccine (optional start 19+ years) [facility] Start: 1993 Hepatitis B vaccination Hepati tis B (HBV) Vaccine (1 of 3 - 19+ 3-dose series) [facility] Start: 1993 Hepatitis B Vaccine (1 of 3 - 19+ 3-dose series) Hepatitis B Vaccine (1 of 3 - 19+ 3-dose series) [facility] Start: 1993 Pneumococcal vaccination Pneum ococcal Vaccine(s) (50+ yrs) (1 of 2 - PCV) [facility] Start: 1993 Pneumococcal Vaccine : 50+ (1 of 2 - PCV) Pneumococcal Vaccine: 50+ (1 of 2 - PCV) [facility] Start: 1993 Shingles (RZV) Vacci ne (1 of 2) Shingles (RZV) Vaccine (1 of 2) [facility] Start: 1993 Shingrix Vaccine (1 of 2) Shingrix Vaccine (1 of 2) [facility] Start: 1993 Urine microalbumin profile DTaP,Tdap,Td Vaccine (1 - Tdap) [facility] Start: 1993 Urine screening for protein Diabetes: Urine Protein Screening [facility] Start: 01-13-1992 Anxiety Screening Anxiety Screening [facility] Start: 01-13-1992 Depression Screening Depression Scre ening [facility] Start: 01-13-1992 Hepatitis C screening [facility] Start: 01-13-1992 HIV screening HIV Screening [facility] Start: 1989 HIV screening HIV Test [facility] Start: 01-13-1984 Glaucoma screening Diabetes: R etinopathy Screening [facility] Start: 1974 Hemoglobin A1c measurement Diabetes: Hemoglobin A1C [facility] Start: 1974 Screening for malign ant neoplasm of colon [facility] Hepatic function panel [facility] Immunizations Immunization Date Immunization Notes Care Provider Fa cility 08-01-2023 influenza, injectable, quadrivalent, preservative free Rosi Alvarez [facility] 08-01-2023 influenza virus vaccine, unspecified formulation Devonte Sunshine DO Work Phone: [facility] 10-05-2021 influenza virus vaccine, unspecified formulation Aiyana Purdy [facility] 10-05-2021 influenza, injectable, quadrivalent, preservative free Dione Swanson MD Work Phone: [facility] 10-05-2021 tetanus toxoid, reduced diphtheria toxoid, and acellular pertussis vaccine, adsorbed Aiyana Klonk [facility] 02-20-2021 SARS-CoV-2 (COVID-19) mRNA BNT-162b2 vax Aiyana Klonk [facility] Comment on above: Result Comment: 2022: TPV40 01-30-2021 SARS-CoV-2 (COVID-19) mRNA BNT-162b2 vax [employer] [facility] Comment on above: Result Comment: 2022: TPV40 NEGATED: Highlighted row has not occurred!12-13-2022 influenza virus vaccine, unspecified formulation Aiyana Klonk [facility] Payers Date Payer Category Payer Medicare 2024 Medicaid [place] [employer] on file [id number] 2024 Self-pay 2024 Medicaid [id number] 2024 Medicaid (Managed Care) [employer] [id number] 2024 Unknown [id number] 2023 Medicaid [id number] 2023 Unknown [id number] 1974 Unknown [id number] 2.16.840.1.791408.3.579.2. 1974 Unknown [id number] 2.16840.1.856015.3.579.2 1974 Unknown [id number] 2.840.1.010902.3.579.2. 1974 Unknown [id number] 2.16840.1.586817.3.579.2 1974 Unknown [id number] 2.16.840.1.990294.3.579.2. 1974 Unknown [id number] 2.16840.1.859430.3.579.2. 732 1974 Unknown [id number] 2.16840.1.334373.3.579.2. 727 1974 Unknown [id number] 2.16.840.1.993645.3.579.2. 1974 Unknown [id number] 2.16840.1.835172.3.579.2. 7 1974 Unknown [id number] 2.16.840.1.561880.3.579.2 1974 Unknown [id number] 2.16.840.1.905027.3.579.2 1974 Unknown [id number] 2.16.840.1.088699.3.579.2 1974 Unknown [id number] 2.16.840.1.120164.3.579.2 1974 Unknown [id number] 2.16.840.1.380707.3.579.2 1974 Unknown [id number] 2.16.840.1.514901.3.579.2 1974 Unknown [id number] 2.16.840.1.005149.3.579.2 1974 Unknown [id number] 2.16.840.1.756368.3.579.2 1974 Unknown [id number] 2.16.840.1.183552.3.579.2 1974 Unknown [id number] 2.16.840.1.029272.3.579.2 1974 Unknown [id number] 2.16.840.1.669061.3.579.2 1974 Unknown [id number] 2.16.840.1.323104.3.579.2 1974 Unknown [id number] 2.16.840.1.778870.3.579.2 1974 Unknown [id number] 2.16.840.1.103592.3.579.2 1974 Unknown [id number] 2.16.840.1.974496.3.579.2 1974 Unknown [id number] 2.16.840.1.289878.3.579.2 1974 Unknown [id number] 2.16.840.1.993279.3.579.2 1974 Unknown [id number] 2.16.840.1.312980.3.579.2. 1258 1974 Unknown [id number] 2.16.840.1.336110.3.579.2. 1258 1974 Unknown [id number] 2.16.840.1.772139.3.579.2. 1258 1974 Unknown [id number] 2.16.840.1.387545.3.579.2. 1258 1974 Unknown [id number] 2.16.840.1.997922.3.579.2. 1258 1974 Unknown [id number] 2.16.840.1.260713.3.579.2. 1258 1974 Unknown [id number] 2.16.840.1.780855.3.579.2. 1258 1974 Unknown [id number] 2.16840.1.107307.3.579.2. 1258 1974 Unknown [id number] 2.840.1.231886.3.579.2. 1258 1974 Unknown [id number] 2.16.840.1.378942.3.579.2. 1258 1974 Unknown [id number] 2.16.840.1.644045.3.579.2. 1258 1974 Unknown [id number] 2.16840.1.550706.3.579.2. 1258 1974 Unknown [id number] 2.16.840.1.635796.3.579.2. 727 Unknown Unknown [id number] 2.16840.1.139536.3.579.2. 531 Unknown [id number] 2.16.840.1.549291.3.579.2. 531 Social History Date Type Detail Facility Start: 04-30-2022 End: 05-03-2025 Tobacco smoking status Heavy tobacco smoker (finding) [facility] Start: 01-22-2023 Tobacco smoking status Never [facility] Start: 08-03-2024 End: 07-28-2025 Sex Assigned At Male [facility] Start: 1975 Sex Assigned At Male [facility] Tobacco smoking status Smoker (finding) F [facility] Start: 08-03-2024 End: 07-28-2025 Current smoker Current smoker [facility] Start: 06-23-2023 End: 05-16-2025 Tobacco smoking status ALIS Smokes tobacco daily [facility] History of tobacco use Cigarette Smoker [facility] Start: 06-23-2023 End: 01-11-2025 Tobacco use and exposure Smokeless tobacco non-user [facility] Start: 08-03-2024 End: 08-25-2025 Alcoholic beverage intake Current drinker of alcohol (finding) [facility] Start: 1975 Sex assigned at Not on file [facility] unknown [facility] Start: 12-17-2024 Gender identity Identifies as male gender (finding) [facility] Start: 12-17-2024 Sexual orientation Heterosexual (finding) [facility] Sexual Orientation [facility] Start: 08-02-2019 End: 12-15-2024 Sex Male (finding) [facility] Start: 01-11-2025 Tobacco smoking status NHIS Occasional tobacco smoker [facility] Goals Date Patient Goal Desired Activity /State Functional Status Date Assessment Result Facility 12-13-2022 Functional Status N/A [facility] 04-30-2022 Functional Status N/A [facility] Clinical Notes 04-30-2022 to 08-25-2025 Alex Lentz DPM - 08/25/2025 9:10 AM Paul Lentz DPM - 07/28/2025 4:30 PM Paul Lentz DPM - 07/14/2025 4:10 PM EDTZahrasebas Lentz, DP - 06/23/2025 4:50 PM EDT Note Date & Type Note Facility 08-25-2025 History of Present illness Narrative Patient: Alfonzo Shaver : 1975 PCP: [facility] Provider MD Robyn SUBJECTIVE Pt presents today for follow up of skin lesion/neoplasm of unknown origin to the right and left foot Pt states that previous treatment of acid tx with some improvement Pt rates pain the pain on a 1-10 scale an intensity of 7 Pt presents today for followup. Pt also has hx of painful hammertoe deformities to the right 5th digit and left 3rd and 4th digits with failure of conservative care. Pt scheduled for a right 5th toe PIPJ arthroplasty with left 3rd and 4th toe PIPJ arthroplasties and excision of neoplasm of skin to the right foot with skin plasty flap closure and excision of neoplasm of skin to the right sub 5th metatarsal and lesions to the right 5th digit and right sub first metatarsal of less than 0.5cm Patient has positive history of myasthenia gravis. [...] and 4th digits XRAY: US: ASSESSMENT 1. Acquired deformity of left toe 2. Acquired deformity of right toe 3. Neoplasm of uncertain behavior of skin 4. Diabetes mellitus due to underlying condition with diabetic polyneuropathy, unspecified whether long-term insulin use (HCC) 5. Contracture of right ankle PLAN Pt dispensed pneumatic CAM walker ([id number]) today to maintain 90 degree foot to ankle position. Pt informed to only remove walker when at rest or bathing. ABN signed and in chart for device if warranted. The boot was assembled and adjusted liner and straps and pneumatically inflated for proper custom fitting by Alex Lentz DPM and staff. A verbal order was given for dispensing of device. The patient is ambulatory and may benefit functionally from this device. It may be used for the following conditions as noted per medical diagnosis. Patient to wear to the right foot Patient given prescription for pain medication to be taken postoperatively. Decision for surgery today and patient cleared from a podiatric/ medical standpoint for surgery and to proceed with surgery. Pt to have pre op H/P per PCP for medical clearance for surgery and will be reviewed along with labs prior to surgery. Pt scheduled for a right 5th toe PIPJ arthroplasty with left 3rd and 4th toe PIPJ arthroplasties and excision of neoplasm of skin to the right foot with skin plasty flap closure and excision of neoplasm of skin to the right sub 5th metatarsal and lesions to the right 5th digit and right sub first metatarsal of less than 0.5cm Discussed with the patient the nature of condition and operative vs nonoperative care. The surgical plans, risks, alternatives, benefits, post op complications and keno terminal operator expectations were discussed including but not limited to: infection,bone infection,wound dehiscence hardware failure and irritation,wound dehiscence,delay union/mal union/non union of bone. RSDS,neuroma,duty limitations,DVT/PE, [place],nerve damage, scar, loss of sensation, swelling. Pt understands the proposed sx in detail and has agreed with proposed surgery. No guarantees were given or implied. Pt willingly consents to procedure and to have surgical procedure. Pt also understands risks including COVID-19 current risk in a surgical setting. Pt is a low acceptable risk for outpatient surgery from a podiatric/medical standpoint with an ASA of a 2. Alex Lentz DPM, FACFAS H&P up to date and current (date) Date: August 25, 2025 Alex Lentz DPM documented in this encounter [facility] 08-16-2025 Note HNO ID: [id number] Author: SUSI RICE MD Service: ? Author Type: Physician Type: Progress Notes Filed: 08/16/2025 08:48 Note Text: ESTABLISHED PATIENT DISTANCE HEALTH VISIT Encounter completed via virtual visit (audio and video) using Intelligence Architectsbased Zoom software Provider location during distance health encounter: [facility] Patient location during distance health encounter: Home ======== I have communicated my name and active licensure. The patient's identity and physical location were verified at the time of this visit. Either the patient (as in this case) or their legal claims customer service representative has been informed of the risks [...] and appendicular symptoms). Subjective/Interval developments: Recording using [employer] software for draft documentation of the visit was discussed with the patient/authorized claims customer service representative; all questions welcomed and answered. Patient/authorized claims customer service representative agreed to proceed The patient is [...] 200-500 mg/dL and an A1c >9.0. His federal judge reduced his prednisone to 30 mg daily, [...] or add steroid-sparing (more content not included)... [facility] 07-28-2025 History of Present illness Narrative [...] underlying condition with diabetic polyneuropathy, unspecified whether keno terminal operator insulin use (HCC) PLAN Application of salinocaine acid medication to lesion/lesions located at right foot Discussed conservative and surgical treatment options for patient today including postoperative time frame and surgical procedure in detail. Patient may continue with conservative treatments including jgvz-vba-uiidyot anti-inflammatories and other treatments suggested today. Patient may want to be scheduled for surgical intervention in the near future. Patient have a right 5th PIPJ arthroplasty with excision of lesion to the right 5th toe as well as excision of the lesion to the right sub 5th metatarsal region with single lobe flap closure and left 3rd and 4th digit PIPJ arthroplasty with [place] for postoperative pain and patient does have knee scooter Informed pt of risks and benefits of procedure including high reoccurence rate, infection, pain and consent given. Application of DSD post procedure. Alex Lentz DPM documented in this encounter [facility] 07-14-2025 History of Present illness Narrative Patient: Alfonzo Shaver : 1975 PCP: [facility] Provider MD Robyn SUBJECTIVE Pt presents today [...] Alex Lentz DPM documented in this encounter [facility] 06-28-2025 Note Patient Education Gastroenterology Abdominal Pain, Adult Many things can cause belly (abdominal) pain. In most cases, belly pain is not a serious problem and can be watched and treated at home. But in some cases, it can be serious. Your doctor will try to find the cause of your belly pain. Follow these instructions at home: Medicines ??? Take vicr-fet-levzmjd and prescription medicines only as told by [...] provider. Document Revised: 08/13/2023 Document Reviewed: 08/13/2023 [employer] Patient Education ? 2023 [employer]. [facility] 06-23-2025 History of Present illness Narrative [...] Alex Lentz DPM documented in this encounter [facility] 06-02-2025 Note Progress Note - Nutr ition [...] Chicken 2 TBSP and noodles 1.5 cups, [place] homemade one small potato HS: Popcorn Microwave [...] choices. Nutrition Intervention: Comprehensive Nutrition Education Calories: [id number] wt loss: 1800kcal Protein: 1.0-1.2gm/kg 100-115gm Fluid: [...] Dietetics, [facility], [employer], and [employer]. Referral of Care: [...] for complete assessment. MINA Blankenship, RD, LD [facility] 06-02-2025 History of Present illness Narrative [...] Alex Lentz DPM documented in this encounter [facility] 05-19-2025 History of Present illness Narrative Patient: Alfozno Shaver : 1975 PCP: No primary care [...] Alex Lentz DPM documented in this encounter [facility] 04-28-2025 History of Present illness Narrative Patient: [...] pathological diagnosis of specimen. Patient may take bnuz-rkt-ihxegaf NSAID p.r.n. for pain Application of salinocaine acid medication to lesion/lesions located at right foot Informed pt of risks and benefits of procedure including high reoccurence rate, infection, pain and consent given. Application of DSD post procedure. Alex Lentz DPM documented in this encounter [facility] 04-27-2025 Evaluation note Diagnosis Onset Date Resolution Generalized myasthenia gravis acute April 27, 2025 8:42am Diabetes mellitus acute May 8:36am Generalized myasthenia gravis acute May 11, 2025 8 :36am [facility] Work Phone: 1(641) 352-816706-18-2025 Evaluation note* Diagnosis Onset Date Resolution Status [...] myasthenia gravis acute July 25, 2025 10:21am [facility] Work Phone: 1(830) 687-891205-23-2025 NoteHNO ID: [id number] Author: SUSI RICE MD Service: ? Author Type: Physician Type: Progress Notes Filed: 04/12/2025 10:05 Note Text: ESTABLISHED PATIENT DISTANCE HEALTH VISIT Encounter completed via virtual visit (audio and video) using [employer]-based Zoom software Provider location during distance health encounter: [facility] Patient location during distance health encounter: Home I have communicated my name and active licensure. The patient's identity and physical location were verified at the time of this visit. Either the patient (as in this case) or their legal claims customer service representative has been informed of the risks and benefits of, and alternatives to treatment through a remote evaluation and consents to proceed with the evaluation remotely. Date of last clinic visit : 12/21/2024 Current neuromuscular medicine diagnosis(es): AChR seropositive generalized myasthenia gravis (initial transitory symptoms of diplopia in ~mid-2022, recurrence ~03/2024 with ptosis> diplopia, milder bulbar and appendicular symptoms). Subjective/Interval developments: Recording using [employer] software for draft documentation of the visit was discussed with the patient/authorized claims customer service representative; all questions welcomed and answered. Patient/authorized claims customer service representative agreed to proceed The patient is [...] needed, and maintain rosa (more content not included)...[facility] History of Present illness Narrative* Susi Rice MD - 04/01/2025 2:10 PM EDT ESTABLISHED PATIENT DISTANCE HEALTH VISIT Encounter completed via virtual visit (audio and video) using Intelligence Architectsbased [employer] software Provider location during distance health encounter: [facility] Patient location during distance health encounter: Home I have communicated my name and active licensure. The patient's identity and physical location wereverified at the time of this visit. Either the patient (as in this case) or their legal claims customer service representative has been informed of the risks and benefits of, and alternatives to treatment through a remote evaluation and consents to proceed with the evaluation remotely. Date of last clinic visit : 12/21/2024 Current neuromuscular medicine diagnosis(es): [facility] seropositive generalized myasthenia gravis (initial transitory symptoms of diplopia in ~mid-2022, recurrence ~03/2024 with ptosis> diplopia, milder bulbar and appendicular symptoms). Subjective/Interval developments: Recording using [employer] software for draft documentation of the visit was discussed with the patient/authorized claims customer service representative; all questions welcomed and answered. Patient/authorized claims customer service representative agreed to proceed The patient is [...] you have them (you can upload via VZnet Netzwerke or take a photo of the lab report). - Discuss with your primary care provider or SALMON TROLL FISHER switching your weight-loss medication from phentermine to [...] will be communicated to the patient via telephone/[facility]. Patient to call office if not contacted after expected testing turnaround time. To aid with communication, patients (and primary care physicians) can sign up for [employer] (or Teresa), which allows online appointment scheduling, transmission of labs results and chart notes, andsecure email communication. To establish either account, visit [email or web address]. The duration of this distance health appointment visit was 25 minutes (2:10-2:35 PM). At least 50% of this time was spent in counseling, explanation of diagnosis, planning of further management, and coordination of care. A further 20 mins were spent with documentation comprising this note. Susi Rice MD Staff, Neuromuscular Center [facility] [place] Electronically signed April 01, 2025 2:35 PM [...] 0=None Eyelid droop: 0=None Referring provider: Devonte Sunshine DO [address] [facility] [address] [place] [phone] Primary care physician: Rosi Alvarez, [address] [address] documented in this encounterUniversity [facility]als [facility]04-[facility] History of Present illness Narrative* Trisha Ortiz DO - 02/08/2025 8:15 AM EDT Images from the original note were not included. No chief complaint on file. Subjective Alfonzo Sheriffrodrigue, 50 y.o., male HPI The pt presents [...] years ago. He had his studies at [employer] in [facility]. He states he was told he was [...] 20 minutes CV exercise: none Off work: sales service technician. +tob right before and will wake [...] (CMS/HCC) Past Surgical History: Procedure Laterality Date CO COLONOSCOPY LESION REMOVAL Family History Problem Relation [...] last study approximately 10 years ago in [place]. He does have some sleep onset insomnia [...] do this. Plan Split night study at [place] Counseled on diet exercise weight loss Restrict [...] was counseled on the risks of stroke, [place], and sudden with PAIGE, along with the [...] to clinic: 2 months documented in this encounterM[facility]. [id number] History of Present illness Narrative* Dione Swanson MD - 01/11/2025 3:33 PM EST Neurology Note Name: Alfonzo Shaver : 1975 no referring provider Chief Complaint: Myasthenia gravis History of Present Illness: Alfonzo Shaver is a 49 year old male who presents for for evaluation for myasthenia gravis. Falls with Dr. Braswell for his myasthenia gravis. Recently saw Dr. Rice at [facility] for 2nd opinion. The patient arrives with [...] Allergies Current Medications Current Outpatient Medications: efgartigimod ftmc-ziipuntzpwbuc-nxxv (Vyvgart Hytrulo) 180-2000 MG-UNIT/ML SOLN injection, Inject [...] recently saw Dr. Rice in at the [facility] for the same reason. Overall, I agree with continuing 30 mg of steroids for the time being, continuing 60 mg of Mestinont.i.d., and continuing vyvguart hytrulo with each cycle spaced 4 weeks apart (1 month on, 1 month off). I do agree, that the patient ultimately may require steroid sparing therapy. As mentioned by my colleague Dr. Rice at the [facility], would check TPMT enzyme. If [...] MD Neurology/ Neuromuscular Medicine documented in this [id number] NoteHNO ID: [id number] Author: SUSI RICE MD Service: ? Author Type: Physician Type: Progress Notes Filed: 12/21/2024 10:54 Note Text: NEW PATIENT DISTANCE HEALTH VISIT Encounter completed via virtual visit (audio and video) using Intelligence Architectsbased [employer] software* Provider location during distance health encounter: [facility] Patient location during distance health encounter: Home I have communicated my name and active licensure. The patient's identity and physical location were verified at the time of this visit. Either the patient (as in this case) or their legal claims customer service representative has been informed of the risks and benefits of, and alternatives to treatment through a remote evaluation and consents to proceed with the evaluation remotely. Date of Distance Health Visit :December 21, 2024 [facility] New Patient Distance Health Visit Note [...] eyelids. He sought medical attention from his mold setter, who referred him to a neurologist, Dr. [...] combing his hair, but his ability to anatomic pathologist objects sometimes depends on their texture. He [...] Medicaid and receives Social (more content not included)...[facility] 12-21-2024 History of Present illness Narrative* Susi Rice MD - 12/21/2024 9:09 AM EST NEW PATIENT DISTANCE HEALTH VISIT Encounter completed via virtual visit (audio and video) using Intelligence Architectsbased Zoom software* Provider location during distance health encounter: [facility] Patient location during distance health encounter: Home I have communicated my name and active licensure. The patient's identity and physical location wereverified at the time of this visit. Either the patient (as in this case) or their legal claims customer service representative has been informed of the risks and benefits of, and alternatives to treatment through a remote evaluation and consents to proceed with the evaluation remotely. Date of Distance Health Visit :December 21, 2024 [facility] Neuromuscular [place] New Patient Distance Health Visit Note Consultation [...] eyelids. He sought medical attention from his mold setter, who referred him to a neurologist, Dr. [...] combing his hair, but his ability to anatomic pathologist objects sometimes depends on their texture. He [...] produced with the assistance of AI technology (Sagoon), and is human provider reviewed/edited before finalization] [...] have been produced with the assistance of SurveyGizmo technology (Sagoon), and is human provider reviewed/edited before finalization] [...] primary care physicians) can sign up for [employer]zwerke (or Teresa), which allows online appointment scheduling, transmission of labs results and chart notes, andsecure email communication. To establish either account, visit [email or web address]. The duration of this distance health appointment visit was 43 minutes (9:10-9:53 AM). At least 50% of this time was spent in counseling, explanation of diagnosis, planning of further management, and coordination of care. A further 25 mins were spent with documentation comprising this note. Susi Rice MD Staff, Neuromuscular Center [facility] [place] Electronically signed December 21, 2024 9:54 AM Referring provider: Devonte Sunshine DO [address] [phone] Primary care physician: Rosi Alvarez, [address] [address] documented in this encounterUniversity Hospitals [facility]02-07-2025 Telephone encounter Note * Telephone Encounter - Montse Pruitt - 12/17/2024 9:32 AM EST Referral source: Devonte Sunshine DO ([facility] Advanced Neurology) Reason for visit: myasthenia gravis External records: viewable in Care Everywhere Triage: Not required Financial clearance: Not required to schedule [facility]02-07-2025 Miscellaneous Notes* Telephone Encounter - Montse Pruitt - 12/17/2024 9:32 AM EST Referral source: Devonte Sunshine DO ([facility]) Reason for visit: myasthenia gravis External records: viewable in Care Everywhere Triage: Not required Financial clearance: Not required to schedule documented in this encounterUniversity Hospitals Beachwood [facility] Center02-04-2025 History of Present illness Narrative* Devonte Sunshine DO - 12/14/2024 1:15 PM EST Images from the original note were not included. Chief complaint: MG Subjective Alfonzo Asiya, 49 y.o., male Patient presents today for [...] (CMS/HCC) Past Surgical History: Procedure Laterality Date CO COLONOSCOPY LESION REMOVAL Family History Problem Relation [...] reflexes are 2+ and symmetric throughout. Coordination: Bwibdi-jr-mruc testing and rapid alternating movements are normal [...] we can reconsiderthis in the future Handicap placard supplied Pt has been fully educated on their diagnosis, lab results, treatment options, follow up plan, and return instructions documented in this encounterMosaic Life Care at St. [id number] History of Present illness Narrative* Devonte Sunshine [...] and insurance. Hestates he still has to [place] insurance that they just renewed this. I [...] (CMS/HCC) Past Surgical History: Procedure Laterality Date CO COLONOSCOPY LESION REMOVAL Family History Problem Relation [...] reflexes are 2+ and symmetric throughout. Coordination: Hagubp-cw-uccp testing and rapid alternating movements are normal [...] we can reconsiderthis in the future Handicap kobiard supplied Pt has been fully educated on their diagnosis, lab results, treatment options, follow up plan, and return instructions documented in this encounterMosaic Life Care at St. [id number] History of Present illness Narrative* Devonte Sunshine [...] (CMS/HCC) Past Surgical History: Procedure Laterality Date CO COLONOSCOPY LESION REMOVAL Family History Problem Relation [...] reflexes are 2+ and symmetric throughout. Coordination: Lxkerf-fr-raab testing and rapid alternating movements are normal [...] plan, and return instructions documented in this encounterMosaic Life Care at St. [id number] History of Present illness Narrative* Devonte Sunshine [...] (CMS/HCC) Past Surgical History: Procedure Laterality Date CO COLONOSCOPY LESION REMOVAL Family History Problem Relation [...] reflexes are 2+ and symmetric throughout. Coordination: Reersv-fn-zwpn testing and rapid alternating movements are normal [...] all orders for this visit: Myasthenia gravis (CMS/[facility]) It is my impression that patient [...] plan, and return instructions documented in this encounterMosaic Life Care at St. [id number] History of Present illness Narrative* Devonte Sunshine [...] (CMS/HCC) Past Surgical History: Procedure Laterality Date CO COLONOSCOPY LESION REMOVAL Family History Problem Relation [...] reflexes are 2+ and symmetric throughout. Coordination: Ekfjey-pf-mvdz testing and rapid alternating movements are normal [...] plan, and return instructions documented in this encounterMosaic Life Care at St. [id number] Evaluation + Plan note Diagnostic Tests Pending * Smooth Muscle Antibody Screen 05/05/24 * Acetylcholine Receptor Binding Antibody 05/05/24 [facility]06-21-2022 Hospital Discharge instructions Patient Education 04/30/2022 13:13:30 [...] frozen fruits, and frozen vegetables. Avoid buying lxtdu-fr-ruk foods, such as pre-cut fruits and vegetables and pre-made salads. If possible, shop around to discover where you can find the best prices. Consider other retailers such as dollar stores, larger wholesale stores, local fruit and vegetable stands, and Rich[employer] markets. Do not shop when you are [...] 06/30/2015 Document Revised: 10/28/2018 Document Reviewed: 10/28/2018 [employer] Patient Education 2020 [employer]. 04/30/2022 13:13:29 BMI for Adults BMI for [...] height. This can be done either in Swedish ([place].S[place] or metric measurements. Note that charts are available to help you find your BMI quickly and easily without having to do these calculations yourself. To calculate your BMI in Swedish (U.S[place] measurements, your health care provider will: [...] medical problems. BMI can be measured using Swedish measurements or metric measurements. To interpret your [...] 07/08/2005 Document Revised: 10/09/2018 Document Reviewed: 09/09/2018 UiTV Patient Education 2020 [employer]. 04/30/2022 13:13:26 Tobacco Use Disorder Tobacco Use [...] reduces withdrawal symptoms. NRT is available as: ?Cdph-pkc-jcfmxdk gums, lozenges, and skin patches. ?Prescription mouth [...] recovery for many people. General instructions Take lipr-mwg-mgoqlen and prescription medicines only as told by your health care provider. Check with your health care provider before taking any new prescription or vkiz-jxq-qnqnjuc medicines. Decide on a friend, family member, or smoking quit-line (such as 8-836-DDJK-NOW in the [place] that you can call [...] 07/02/2005 Document Revised: 10/14/2018 Document Reviewed: 10/14/2018 UiTV Patient Education 2020 [employer]. 04/30/2022 13:13:21 Flexor Carpi Ulnaris and Flexor [...] until told by your health care provider. Ktyks-oc-vaqgfz exercises These exercises warm up your muscles [...] times. Complete this exercise times a day. Boxing Inspector 1.Hold one of these items in your left / right hand: modeling valentin, therapy putty, a dense sponge, a stress ball, or a large, rolled sock. 2.Squeeze as hard as you can without increasing any pain. 3.Hold this position for seconds. 4.Slowly release your anatomic pathologist. Repeat times. Complete this exercise times a day. This information is not intended to replace advice given to you by your health care provider. Make sure you discuss any questions you have with your health care provider. Document Released: 07/01/2017 Document Revised: 02/22/2020 Document Reviewed: 12/30/2019 UiTV Patient Education 2020 [employer] Follow Up Care 04/30/2022 08:08:28 With:LEXX LANDERS CNP Address: [facility] [address] [place] [address] When: only if needed [facility] Evaluation + Plan note No data available for this section [facility] Evaluation + Plan noteFishMcKitrick Hospital Evaluation noteNo assessment information available [facility] Work Phone: Evaluation note* Diagnosis Myasthenia gravis (CMS/HCC) Myasthenia gravis without exacerbation documented in this encounter [facility]* Diagnosis Generalized myasthenia gravis (CMS/HCC)- Primary Myasthenia gravis without exacerbation documented in this encounter [facility]Evaluation note* Diagnosis Generalized myasthenia gravis (CMS/HCC)- Primary Myasthenia gravis without exacerbation documented in this encounter [facility]* Diagnosis Myasthenia gravis (CMS/HCC)- Primary Myasthenia gravis without exacerbation documented in this encounter [facility] HealthcareEvaluation note* Diagnosis Myasthenia gravis (CMS/HCC)- Primary Myasthenia gravis without exacerbation documented in this encounter [facility] HealthcareEvaluation note* Diagnosis Myasthenia gravis [...] of immunosuppressive therapy documented in this encounter [facility]* Diagnosis PAIGE (obstructive sleep apnea)- Primary Obstructive sleep apnea (adult) (pediatric) Hypersomnia Hypersomnia, unspecified 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, unspecified whether serious comorbidity present Snoring Other dyspnea and respiratory abnormality Primary insomnia Persistent disorder of initiating or maintaining sleep documented in this encounter [facility] HealthcareEvaluation note* Diagnosis Myasthenia gravis [...] of immunosuppressive therapy [facility] Diagnosis Neoplasm of uncertain behavior of skin- Primary Verruca plantaris Plantar wart Foot pain, right Pain in soft tissues of limb documented in this encounter [facility] HealthcareEvaluation note* Diagnosis Verruca plantaris- Primary Plantar wart Foot pain, right Pain in soft tissues of limb documented in this encounter [facility]* Diagnosis Myasthenia gravis (HCC)- Primary Myasthenia gravis without exacerbation [facility] Diagnosis Acquired deformity of left toe- Primary Verruca plantaris Plantar wart Foot pain, right Pain in soft tissues of limb Acquired deformity of right toe Neoplasm of uncertain behavior of skin Diabetes mellitus due to underlying condition with diabetic polyneuropathy, unspecified whether keno terminal operator insulin use (HCC) documented in this encounter [facility]* Diagnosis Acquired deformity of left toe- Primary Acquired deformity of right toe Neoplasm of uncertain behavior of skin Diabetes mellitus due to underlying condition with diabetic polyneuropathy, unspecified whether long-term insulin use (HCC) Contracture of right ankle documented in this encounter [facility] HealthcareHospital Discharge instructions No data available for this section [facility] Progress note No data available for this section [facility] Reason for referral (narrative) Referred by: Aiyana Purdy NP [facility] Reason for referral (narrative)No reason for referral information availableOhiohealth Grove [facility] Work Phone: Chief Complaint and Reason [...] Dates Devonte Lentz MD Attending Provider Active IVONE Coppola Primary [...] July 28, 2024 End: July 28, 2024 Lithographer Apprentice Relationship Specialty Start Date End Date Rosi Alvarez MD [address] [place] [address] Referring Physician Family Medicine 08/03/24 Lithographer Apprentice Relationship Specialty Start Date End Date Rosi Alvarez MD [address] [place] [address] Referring Physician Family Medicine 08/03/24 Lithographer Apprentice Relationship Specialty Start Date End Date Rosi Alvarez MD [address] [place] [address] Referring Physician Family Medicine 08/03/24 Devonte Sunshine DO [address] [place] [phone] Referring Physician Neurology 09/15/24 Lithographer Apprentice Relationship Specialty Start Date End Date Rosi Alvarez MD [address] [place], [place] [phone] Referring Physician Family Medicine 08/03/24 Devonte Sunshine DO [address] [address] Referring Physician Neurology 09/15/24 Orin De Leon NP [address] [phone] Nurse Practitioner Neurology 09/15/24 Maegan Carmona NP [address] [phone] Nurse Practitioner Neurology 09/15/24 Lithographer Apprentice Relationship Specialty Start Date End Date Rosi Alvarez MD [address] [place] [address] Referring Physician Family Medicine 08/03/24 Devonte Sunshine DO [address] [place] [address] Referring Physician Neurology 09/15/24 Orin De Leon NP [address] [place] [address] Nurse Practitioner Neurology 09/15/24 Maegan Carmona NP [address] [place] [phone] Nurse Practitioner Neurology 09/15/24 Lithographer Apprentice Relationship Specialty Start Date End Date Rosi Alvarez MD [address] [place] [address] Referring Physician Family Medicine 08/03/24 Devonte Sunshine DO [address] [address] Referring Physician Neurology 09/15/24 Orin De Leon NP [address] [place] [address] Nurse Practitioner Neurology 09/15/24 Maegan Carmona NP [address] [phone] Nurse Practitioner Neurology 09/15/24 Lithographer Apprentice Relationship Specialty Start Date End Date Rosi Alvarez MD [address] [place] [phone] Referring Physician Family Medicine 08/03/24 Lithographer Apprentice Relationship Specialty Start Date End Date Rosi Alvarez MD [address] [place] [phone] Referring Physician Family Medicine 08/03/24 Lithographer Apprentice Relationship Specialty Start Date End Date Rosi Alvarez MD [address] [place] [address] Referring Physician Family Medicine 08/03/24 Devonte Sunshine DO [address] [address] Referring Physician Neurology 09/15/24 Orin De Leon NP [address] [address] Nurse Practitioner Neurology 09/15/24 Maegan Carmona NP [address] [phone] Nurse Practitioner Neurology 09/15/24 Lithographer Apprentice Relationship Specialty Start Date End Date Rosi lAvarez APRN.FARM EQUIPMENT ENGINEER [address] [place], [place] [phone] PCP - General Nurse Practitioner 12/21/24 Lithographer Apprentice Relationship Specialty Start Date End Date Rosi Alvarez MD [address] [place] [address] Referring Physician Family Medicine 08/03/24 Devonte Sunshine DO [address] [phone] Referring Physician Neurology 09/15/24 Maegan Carmona NP [address] [phone] Nurse Practitioner Neurology 09/15/24 Lithographer Apprentice Relationship Specialty Start Date End Date Rosi Alvarez MD [address] [place] [phone] Referring Physician Family Medicine 08/03/24 Devonte Sunshine DO [address] [address] Referring Physician Neurology 09/15/24 Maegan Carmona NP [address] [phone] Nurse Practitioner Neurology 09/15/24 Lithographer Apprentice Relationship Specialty Start Date End Date Rosi Alvarez APRN.CNP [address] [place] [phone] PCP - General Nurse Practitioner 12/21/24 Lithographer Apprentice Relationship Specialty Start Date End Date Rosi Alvarez MD [address] [place] [address] Referring Physician Family Medicine 08/03/24 Devonte Sunshine DO [address] [phone] Referring Physician Neurology 09/15/24 Maegan Carmona NP [address] [address] Nurse Practitioner Neurology 09/15/24 Lithographer Apprentice Relationship Specialty Start Date End Date Rosi Alvarez MD [address] [place] [address] Referring Physician Family Medicine 08/03/24 Devonte Sunshine DO [address] [address] Referring Physician Neurology 09/15/24 Maegan Carmona NP [address] [address] Nurse Practitioner Neurology 09/15/24 Team Status: Inactive Member Role Status Dates Rosi Alvarez NP-C Primary Care Provider Active Start: April 27, 2025 End: April 27, 2025 Devonte Sunshine DO Attending Provider Active Start: April 27, 2025 End: April 27, 2025 Team Status: Inactive Member Role Status Dates Rosi Alvarez SALMON TROLL FISHER-C Primary Care Provider Active Start: April 29, 2025 End: April 29, 2025 Devonte Sunshine DO Attending Provider Active Start: April 29, 2025 End: April 29, 2025 Team Status: Inactive Member Role Status Dates Rosi Alvarez SALMON TROLL FISHER-C Primary Care Provider Active Start: May 11, 2025 End: May 11, 2025 Devonte Sunshine DO Attending Provider Active Start: May 11, 2025 End: May 11, 2025 Team Status: Inactive Member Role Status Dates Rosi Alvarez , SALMON TROLL FISHER-C Primary Care Provider Active Start: May 16, 2025 End: May 16, 2025 Elvira Luong APRN Attending Provider Active Start: May 16, 2025 End: May 16, 2025 Lithographer Apprentice Relationship Specialty Start Date End Date Unallocated, Christi Huddleston MD [address] [place] [phone] PCP - General Family Medicine 05/16/25 Rosi Alvarez NP [address] [place] [address] Referring Physician Family Medicine 08/03/24 Devonte Sunshine DO [address] [place] [address] Referring Physician Neurology 09/15/24 Maegan Carmona NP [address] [place] [address] Nurse Practitioner Neurology 09/15/24 Lithographer Apprentice Relationship Specialty Start Date End Date Unallocated, Christi Huddleston MD [address] [place] [phone] PCP - General Family Medicine 05/16/25 Rosi Alvarez NP [address] [phone] Referring Physician Family Medicine 08/03/24 Devonte Sunshine DO [address] [place] [address] Referring Physician Neurology 09/15/24 Maegan Carmona NP [address], [facility]11 Nurse Practitioner Neurology 09/15/24 Team Status: Active Member Role Status Dates Rosi Alvarez NP-José Primary Care Provider Active Start: June 24, 2025 Devonte Sunshine DO Attending Provider Active Start: June 24, 2025 Devonte Sunshine DO Referring Provider Active Start: June 24, 2025 Team Status: Inactive Member Role Status Dates Rosi Alvarez NP-José Primary Care Provider Active Start: July 25, 2025 End: July 25, 2025 Devonte Sunshine DO Attending Provider Active Start: July 25, 2025 End: July 25, 2025 Lithographer Apprentice Relationship Specialty Start Date End Date Unallocated, Christi Huddleston MD [address] [facility] [place] [address] PCP - General Family Medicine 05/16/25 Rosi Alvarez NP [address] [place], [place] [phone] Referring Physician Family Medicine 08/03/24 Devonte Sunshine DO [address] [place] [id number] Referring Physician Neurology 09/15/24 Maegan Carmona NP [facility] [place] [address] Nurse Practitioner Neurology 09/15/24 Lithographer Apprentice Relationship Specialty Start Date End Date Unallocated, [place] [address] PCP - General Family Medicine 05/16/25 Rosi Alvarez NP [address] [place], [place] [phone] Referring Physician Family Medicine 08/03/24 Devonte Sunshine DO [address] [place] [address] Referring Physician Neurology 09/15/24 Maegan Carmona NP [address] [address] Nurse Practitioner Neurology 09/15/24 Lithographer Apprentice Relationship Specialty Start Date End Date Unallocated, [place] Provider, MD Anita DANIELS [address] [place] [phone] PCP - General Family Medicine 05/16/25 Rosi Alvarez NP [address] [place], [place] [phone] Referring Physician Family Medicine 08/03/24 Devonte Sunshine DO [address] [place] [id number] Referring Physician Neurology 09/15/24 Maegan Carmona NP [address] [address] Nurse Practitioner Neurology 09/15/24 Goals (unrecognized section [...] and content) DATE CREATED AUTHOR 05/06/2024 [facility] DATE CREATED AUTHOR AUTHOR'S ORGANIZ ATION 05/11/2024 [facility] DATE CREATED AUTHOR AUTHOR'S ORGANIZ ATION 05/13/2024 [facility] DATE CREATED AUTHOR AUTHOR'S ORGANIZ ATION 05/14/2024 [facility] DATE CREATED AUTHOR AUTHOR'S ORGANIZ ATION 01/13/2025 [facility] DATE CREATED AUTHOR AUTHOR'S ORGANIZ ATION 06/09/2025 [facility] DATE CREATED AUTHOR AUTHOR'S ORGANIZ ATION 06/29/2025 [facility] DATE CREATED AUTHOR AUTHOR'S ORGANIZ ATION 08/15/2025 [facility] DATE CREATED AUTHOR AUTHOR'S ORGANIZ ATION 08/17/2025 [facility] DATE CREATED AUTHOR AUTHOR'S ORGANIZ ATION 08/18/2025 [facility] DATE CREATED AUTHOR AUTHOR'S ORGANIZ ATION 08/27/2025 [facility] DATE CREATED AUTHOR AUTHOR'S ORGANIZ ATION 08/27/2025 [facility] DATE CREATED AUTHOR AUTHOR'S ORGANIZ ATION 08/28/2025 [facility] Source Comments (unrecognize d section and content) In the event this informatio n is protected by the Federal Confidentiality of Alcohol and Drug Abuse Patient Records regulations: The Federal rules restrict any use of the information to criminally investigate or prosecute any alcohol or drug abuse patient.[facility] the event this information is protected by the Federal Confidentiality of Alcohol and Drug Abuse Patient Records regulations: The Federal rules restrict any use of the information to criminally investigate or prosecute any alcohol or drug abuse patient.[facility] Center[facility] the event this information is protected by the Federal Confidentiality of Alcohol and Drug Abuse Patient Records regulations: The Federal rules restrict any use of the information to criminally investigate or prosecute any alcohol or drug abuse patient.[facility] Reason for Visit (unrecogniz ed section and content) Reason Comments Received Outside Medical Records Externa l referral to Neurological [place] Reason Comments Consult Reason Comments Established Patient Follow Up Reason Comments Plantar Warts Specialty Diagnoses / Procedures Referred By Contac t Referred To Contact Podiatry Diagnoses Plantar wart Procedures CO OFFICE/OUTPATIENT NEW LOW MDM 30 MINUTES CO OFFICE/OUTPATIENT ESTABLISHED LOW MDM 20 MIN Rosi Alvarez MD [address] [place] [id number] Phone: tel: fax: Alex Lentz, Fabiano [address] [address] Phone: tel: fax: Referral ID Status Reason Start Date Expiration Date Visits Re quested Visits Authorized [id number] Closed 04/07/2025 10/04/2025 1 1 Reason Comments Follow-up Rt lesion check Reason Comments Follow-up Rt lesion Reason Comments Follow-up Lesion chck Reason Comments Follow-up LESION CHECK Reason Comments New patient, to establish relationship Reason Comments Follow-up Lesion check Reason Comments Consent Or Instructions preop FOR RECORDS PERTAINING TO PATIENTS WHO ARE [...] BE BASED ON THE PRIMARY CLINICAL RECORDS. [employer] [facility] provides no warranty or guarantee of the accuracy or completeness of information in this document.
== END 2025-08-29 09:44 | disposition home or self-care (01) ==
LOC: CARD 09:43
PROVIDERS: PCP Nurse Practitioner
DX: Z01.818 Encounter for other preprocedural examination (principal)
CPT/HCPCS: 93005